=== PATIENT | male | born 1935 | race Caucasian/White ===

== ENCOUNTER → 2017-01-28 | Day surgery (SDC) | payer OTHER ==
[~2017-01-28] VITALS: Ht 170.2 cm; Wt 72.8 kg
[~2017-01-28] MED LIST: *RESP: ALBUTEROL 2.5 MG/3 ML NEB (PRN) PERIprocedural Use ONLY NEB ONE; AZIT250T3 PO; CHLORHEXIDINE GLUCONATE 2 % 1 PACK (2 CLOTHS) TOPICAL PRN; DIPH1TAB4 PO; DO NOT ADM ANY ANTICOAGULANT DRUGS PRN; FINA5TAB2 PO; FLUT1INH INH; FLUT50SP EACH NARE; INSULIN HUMAN REGULAR 1,000 UNITS/10 ML VIAL SQ PRN; LACTATED RINGER'S 1000 ML IV PRN; LIDOCAINE HCL 2% 50 ML VIAL ONE; MEDR4TAB PO; METOPROLOL TARTRATE 25 MG TAB PO PRN; ONDANSETRON HCL 4 MG/2 ML VIAL IV PUSH ONE; OXYC1TAB63 PO; POVIDONE IODINE 5% (ANTISEPSIS KIT) 4 APPLICATIONS EACH NARE PRN; PROPOFOL 200 MG/20 ML AMP IV ONE; SODIUM CHLOR 0.45% 1000 ML INJ 1,000 ML IV SCH; SODIUM CHLORID 0.9% 500 ML IV PRN; VENTAER INH
[2017-01-28 13:41] VITALS: BP 136/84; PULSE 79; RESP 18; TEMP 97.5; O2SAT 93
[2017-01-28 13:49] LABS: AUTOMATED NEUTROPHIL # 6.6 TH/MM3 (1.8-7.7); BASOPHIL # 0.1 TH/MM3 (0-0.2); BASOPHIL % 0.6 % (0.0-2.0); EOSINOPHIL # 0.2 TH/MM3 (0-0.4); EOSINOPHIL % 1.8 % (0.0-4.0); HEMATOCRIT 44.4 % (39.0-51.0); HEMO FLAGS DIFF FINAL; LYMPH % 14.9 % (9.0-44.0); LYMPHOCYTE # 1.4 TH/MM3 (1.0-4.8); MEAN CELL VOLUME 91.5 FL (80.0-100.0); MEAN CORPUSCULAR HEMOGLOBIN 30.6 PG (27.0-34.0); MEAN CORPUSCULAR HGB CONC 33.4 % (32.0-36.0); MONO % 9.8 % (0.0-8.0); NEUT % 72.9 % (16.0-70.0); PLATELET COUNT 230 TH/MM3 (150-450); RED BLOOD COUNT 4.86 MIL/MM3 (4.50-5.90); RED CELL DISTRIBUTION WIDTH 13.5 % (11.6-17.2)
[2017-01-28 13:56] LABS: APTT (PATIENT) 27.1 SEC (24.3-30.1); INTERNATIONAL NORMALIZED RATIO 1.1 RATIO; PROTHROMBIN TIME - PATIENT 11.7 SEC (9.8-11.6)
[2017-01-28 17:00] VITALS: BP 149/70; PULSE 69; RESP 20; TEMP 97.7; O2SAT 95
--- NOTE | 2017-01-28 17:09 | MR ---
cc: AZALEA TRISTAN M.D. DATE: 01/28/2017. PROCEDURE PERFORMED: Fiberoptic bronchoscopy, flexible. REASON FOR BRONCHOSCOPY: Right hilar mass rule out underlying malignancy. DESCRIPTION OF THE PROCEDURE IN DETAIL: Fiberoptic bronchoscopy performed via LMA. Vocal cords intact. Trachea moderately hyperemic. Sarah sharp. Right mainstem bronchus, right upper, middle and lower lobes inspected. No obstructive pathology or mass lesion seen. Left main bronchus, left upper and lower lobes without obstruction or mass lesion inspected as well. Washings obtained from both sides of the tracheobronchial tree for routine TB, fungal cultures and cytological exam. [place] biopsies right midlung and lobe obtained for cytological exam, which appeared more hyperemic than the rest of the tracheobronchial tree. Procedure well tolerated. The patient transferred to recovery in stable condition. IMPRESSION: 1. Moderate tracheobronchitis. 2. No endobronchial obstruction or mass lesion. 3. Samples obtained as above. 4. Procedure well tolerated. 5. The patient was transferred to recovery in stable condition. Azalea Tristan MD WWW/AYESHA /3:28 PM /5:06 PM
--- NOTE | 2017-01-29 14:18 | EKG ---
Date Performed: 01/28/2017 Time Performed: 13:30:04 PTAGE: 82 years EKG: Sinus rhythm WITH SINUS ARRHYTHMIA NORMAL ECG NO PREVIOUS TRACING DOCTOR: Home Randall Interpretating Date/Time 01/29/2017 14:17:09
== END | disposition home or self-care (01) ==
LOC: HSDC 12:52
PROVIDERS: ATTEND Internal Medicine Sleep Medicine
DX: J40 Bronchitis, not specified as acute or chronic (principal); K21.9 Gastro-esophageal reflux disease without esophagitis; J44.9 Chronic obstructive pulmonary disease, unspecified; Z87.891 Personal history of nicotine dependence; A49.01 Methicillin susceptible Staphylococcus aureus infection, unspecified site; B96.5 Pseudomonas (aeruginosa) (mallei) (pseudomallei) as the cause of diseases classified elsewhere
CPT/HCPCS: 31623; 85025; 85610; 85730; 87015; 87070; 87077; 87102; 87107; 87116; 87186; 87205; 87206; 88112; 88305; 93005; 94664; J2405; J7613

== ENCOUNTER 2017-03-01 06:29 | Day surgery (SDC) | payer OTHER ==
[~2017-03-01] VITALS: Ht 170.2 cm; Wt 72.7 kg
[2017-03-01] VITALS (8 sets, daily range): BP systolic 128–157; BP diastolic 71–88; PULSE 63–89; RESP 16–20; TEMP 97–97.6; O2SAT 88–96
[~2017-03-01 06:29] MED LIST changes: -*RESP: ALBUTEROL 2.5 MG/3 ML NEB (PRN) PERIprocedural Use ONLY NEB ONE; -AZIT250T3 PO; -CHLORHEXIDINE GLUCONATE 2 % 1 PACK (2 CLOTHS) TOPICAL PRN; -DO NOT ADM ANY ANTICOAGULANT DRUGS PRN; -FLUT1INH INH; -INSULIN HUMAN REGULAR 1,000 UNITS/10 ML VIAL SQ PRN; -LACTATED RINGER'S 1000 ML IV PRN; -LIDOCAINE HCL 2% 50 ML VIAL ONE; -MEDR4TAB PO; -METOPROLOL TARTRATE 25 MG TAB PO PRN; -ONDANSETRON HCL 4 MG/2 ML VIAL IV PUSH ONE; -OXYC1TAB63 PO; -POVIDONE IODINE 5% (ANTISEPSIS KIT) 4 APPLICATIONS EACH NARE PRN; -PROPOFOL 200 MG/20 ML AMP IV ONE; -SODIUM CHLOR 0.45% 1000 ML INJ 1,000 ML IV SCH; -SODIUM CHLORID 0.9% 500 ML IV PRN
[2017-03-01] MEDS ORDERED: OXYC1TAB63 PO (07:05)
[2017-03-01] MEDS ORDERED: FLUT1INH INH (07:05)
[2017-03-01] MEDS ORDERED: LIDOCAINE HCL 1% 20 ML VIAL ONE (07:28)
[2017-03-01 07:32] LABS: AUTOMATED NEUTROPHIL # 8.7 TH/MM3 (1.8-7.7); BASOPHIL # 0.1 TH/MM3 (0-0.2); BASOPHIL % 0.5 % (0.0-2.0); EOSINOPHIL # 0.2 TH/MM3 (0-0.4); EOSINOPHIL % 2.1 % (0.0-4.0); HEMATOCRIT 43.9 % (39.0-51.0); LYMPH % 7.2 % (9.0-44.0); LYMPHOCYTE # 0.8 TH/MM3 (1.0-4.8); MEAN CELL VOLUME 90.6 FL (80.0-100.0); MEAN CORPUSCULAR HEMOGLOBIN 31.5 PG (27.0-34.0); MEAN CORPUSCULAR HGB CONC 34.8 % (32.0-36.0); MONO % 10.8 % (0.0-8.0); NEUT % 79.4 % (16.0-70.0); PLATELET COUNT 272 TH/MM3 (150-450); RED BLOOD COUNT 4.85 MIL/MM3 (4.50-5.90); RED CELL DISTRIBUTION WIDTH 13.6 % (11.6-17.2); WHITE BLOOD COUNT 10.9 TH/MM3 (4.0-11.0)
[2017-03-01 07:35] LABS: HEMO FLAGS AUTO DIFF
[2017-03-01 07:46] LABS: APTT (PATIENT) 27.8 SEC (24.3-30.1); INTERNATIONAL NORMALIZED RATIO 1.1 RATIO; PROTHROMBIN TIME - PATIENT 11.7 SEC (9.8-11.6)
[2017-03-01] MEDS ORDERED: SODIUM CHLOR 0.9% 1000 ML IV SCH (08:00)
[2017-03-01] MEDS ORDERED: MIDAZOLAM HCL 5 MG/5 ML VIAL ONE (08:07)
[2017-03-01] MEDS ORDERED: fentaNYL CITRATE 250 MCG/5 ML AMP ONE (08:07)
[2017-03-01 08:33] LABS: SCAN/DIFF AUTO DIFF CONFIRMED
[2017-03-01] MEDS ORDERED: oxyCODONE/ACETAMINOPHEN 5 MG/325 MG TAB PO PRN (09:15)
--- NOTE | 2017-03-01 09:18 | PD.RAD ---
Post CT Procedure Prog Note Pre Procedure Diagnosis: (1) Lung abnormality Post Procedure Diagnosis: (1) Lung abnormality Procedure Date: Mar 01, 2017 Supervising Radiologist: Leonel Lowery Proceduralist/Assist: Madiha Tamez RT(R)(CT) Estimated blood loss: minimal Anesthesia: Conscious Sedation Plan of Activity Patient to Unit: ROPU Patient Condition: Good See PACS Report for procedural detail/treatment Drainage Procedure Procedure 1 Imaging Guidance: CT Side: Right Procedure Type: Thoracentesis Drainage: Suction Fluid Description: Clear, Yellow Procedure 2 Imaging Guidance: CT Side: Right Findings: Performed biopsy of hypermetabolic air space consolidation in right upper lobe followed by aspiration of pleural fluid. Patient had a hydropneumothorax prior to beginning the procedure. [facility]: CT Side: Right Biopsy Procedure: Lung Site: right upper lobe Specimen: Core Biopsy Plan to Leonel Jane MD Mar 01, 2017 09:18
--- NOTE | 2017-03-01 09:46 | RADRPT ---
EXAM DATE/TIME: 03/01/2017 08:20 [facility] COMPARISON: No previous studies available for comparison. The patient's outside chest CT and PET CT examinations were reviewed. INDICATIONS : Right lung mass. SEDATION TIME: 40 minutes BIOPSY SITE: Right MEDICATION(S): 1.) 3 mg midazolam (Versed) IV 2.) 250 fentanyl (Sublimaze) IV DEVICE(S): 1.) 20 gauge Temno core biopsy needle MEDICAL HISTORY : Emphysema. SURGICAL HISTORY : None. ENCOUNTER: Initial ACUITY: 1 day PAIN SCORE: 0/10 LOCATION: Right chest A total of four core specimen(s) were obtained and sent to the laboratory for pathologic evaluation. PROCEDURE: 1. CT guided lung biopsy. 2. Conscious sedation with continuous EKG and oximetry monitoring. 3. EKG and oximetry remained stable throughout the procedure. Prior to the procedure informed consent was obtained. Outside examinations were reviewed. Using autom ated exposure control and adjustment of the mA and/or kV according to patient size, radiation dose wa s kept as low as reasonably achievable to obtain optimal diagnostic quality images. DICOM format [employer] data is available electronically for review and comparison. The site was prepped in a sterile fashion. Full sterile technique was used, including cap, mask, luis m rile gloves and gown and a large sterile sheet. Hand hygiene and 2% chlorhexidine and/or betadine/al cohol prep was utilized per protocol for cutaneous antisepsis. The skin and subcutaneous tissues wer e infiltrated with local anesthetic solution. With CT guidance the right upper lobe airspace consolidation was localized. Prior to the procedure curtis baca had a loculated hydropneumothorax in the medial right mid-upper hemithorax, new from the prior examination. Additionally, the right pleural effusion has significantly increased in size. Initially, core samples were obtained of the airspace consolidation and samples were saved for pathology and oh crobiology evaluation. Biopsy was performed using the prescribed needle as above. Adequate hemostasi s was obtained with compression at the puncture site. Next, a 6 Martiniquais nonlocking skater catheter was advanced into the anterior hydropneumothorax. A total of 1800 mL of clear yellow fluid was removed. The lung did not fully reexpanded to fill the pleural space. There is associated visceral pleural thi ckening in the areas that did not reexpand. Post procedure CT scan demonstrated a small amount of pleural air but no acute abnormality otherwise. Conscious sedation was performed with the prescribed dosages and duration as above in the presence of an independent trained radiology nurse to assist in the monitoring of the patient. EKG and oximetry remained stable throughout the procedure. The patient tolerated the procedure well and there were no complications. The patient was sent to Radiology Outpatient Unit in stable condition. CONCLUSION: 1. Uncomplicated biopsy of the right upper lobe hypermetabolic airspace consolidation. Samples were s aved for microbiology and pathology. 2. Approximately 1800 mL of clear yellow fluid was removed from the right pleural space. The patient had a hydropneumothorax prior to beginning the procedure. Given the thickening of the visceral pleura , I believe the lung will not fully reexpanded to fill the pleural space. Leonel Lowery MD on March 01, 2017 at 9:32 Board Certified Radiologist. This report was verified electronically.
--- NOTE | 2017-03-01 10:49 | RADRPT ---
EXAM DATE/TIME: 03/01/2017 10:25 [facility] COMPARISON: CT NEEDLE BIOPSY LUNG, RIGHT, March 01, 2017, 8:20. INDICATIONS : Status post right lung biopsy. MEDICAL HISTORY : None. SURGICAL HISTORY : Right lung surgery. ENCOUNTER: Subsequent ACUITY: 1 day PAIN SCORE: 10/10 LOCATION: Right chest FINDINGS: There is a small right hydropneumothorax at the lateral right lung base. There is a surgical staple l ine in the right apex. There is patchy moderate reticular parenchymal opacity present within the righ t lung and in the contralateral left base. Cardiac contours are grossly satisfactory for technique an d projection. CONCLUSION: Small right base hydropneumothorax. Leonel Cottrell MD on March 01, 2017 at 10:45 Board Certified Radiologist. This report was verified electronically.
--- NOTE | 2017-03-01 12:14 | RADRPT ---
EXAM DATE/TIME: 03/01/2017 12:00 [facility] COMPARISON: CHEST EXPIRATION ONLY, March 01, 2017, 10:25. INDICATIONS : Post right lung biopsy MEDICAL HISTORY : Emphysema. SURGICAL HISTORY : Lung surgery ENCOUNTER: Subsequent ACUITY: 1 day PAIN SCORE: 1/10 LOCATION: Right chest FINDINGS: Small right base hydropneumothorax is stable. Patchy reticular parenchymal opacities are unchanged. C ardiac contours are stable. CONCLUSION: No significant change Leonel Cottrell MD on March 01, 2017 at 12:09 Board Certified Radiologist. This report was verified electronically.
== END 2017-03-01 13:35 | disposition home or self-care (01) ==
LOC: HRAD 06:29 → HRIP 06:30 → HRAD 13:35
PROVIDERS: ATTEND Internal Medicine
DX: C34.91 Malignant neoplasm of unspecified part of right bronchus or lung (principal); J94.8 Other specified pleural conditions; J90 Pleural effusion, not elsewhere classified; J43.9 Emphysema, unspecified
CPT/HCPCS: 32405; 71010; 77012; 81235; 85025; 85610; 85730; 87015; 87070; 87102; 87116; 87205; 87206; 88305; 88341; 88342; 88360; 88377; 88381; C1729; J2250; J3010; J7030

== ENCOUNTER → 2017-03-02 | Outpatient (CLI) | payer OTHER ==
[~2017-03-02] MED LIST changes: +AZIT250T3 PO; +FLUT1INH INH; +MEDR4TAB PO; +OXYC1TAB63 PO
--- NOTE | 2017-03-02 09:03 | RADRPT ---
EXAM DATE/TIME: 03/02/2017 08:53 [facility] COMPARISON: CHEST EXPIRATION ONLY, March 01, 2017, 10:25. CT NEEDLE BIOPSY LUNG, RIGHT, March 01, 2017, 8:20. [facility] EXPIRATION ONLY, March 01, 2017, 12:00. INDICATIONS : Post op right lung biopsy. MEDICAL HISTORY : Emphysema. hx. right lung collapsed 1984 SURGICAL HISTORY : None. ENCOUNTER: Subsequent ACUITY: 2 days PAIN SCORE: 0/10 LOCATION: Right chest FINDINGS: A tiny stable right base hydropneumothorax is again noted. Patchy infiltrates are stable. The heart i s stable. CONCLUSION: Tiny stable right base hydropneumothorax. Stable patchy infiltrates bilaterally. Ton Park MD on March 02, 2017 at 8:58 Board Certified Radiologist. This report was verified electronically.
== END ==
LOC: HRAD 08:39
PROVIDERS: ATTEND Radiology Diagnostic Ultrasound
DX: J93.9 Pneumothorax, unspecified (principal)
CPT/HCPCS: 71010

== ENCOUNTER 2017-03-08 06:17 | Day surgery (SDC) | payer OTHER ==
[~2017-03-08] VITALS: Ht 170.2 cm; Wt 72.7 kg
[2017-03-08] VITALS (7 sets, daily range): BP systolic 128–155; BP diastolic 67–81; PULSE 82–92; RESP 18–20; TEMP 97.9; O2SAT 91–96
[~2017-03-08 06:17] MED LIST changes: -AZIT250T3 PO; -MEDR4TAB PO
[2017-03-08] MEDS ORDERED: AZIT250T3 PO (06:45)
[2017-03-08] MEDS ORDERED: MEDR4TAB PO (06:45)
[2017-03-08] MEDS ORDERED: ceFAZolin 2 GM PREMIX 50 ML - implanted port/tunneled catheter insertion IV SCH (07:30)
[2017-03-08] MEDS ORDERED: VANCOMYCIN 1000 MG/NS 250 ML - implanted port/tunneled catheter IV SCH ×2 (07:30)
[2017-03-08] MEDS ORDERED: CHLORHEXIDINE GLUCONATE 2 % 1 PACK (2 CLOTHS) TOPICAL SCH (07:30)
[2017-03-08] MEDS ORDERED: SODIUM CHLORIDE 0.9% 1000 ML IV SCH (07:30)
[2017-03-08] MEDS ORDERED: POVIDONE IODINE 5% (ANTISEPSIS KIT) 4 APPLICATIONS EACH NARE SCH (07:30)
[2017-03-08] MEDS ORDERED: fentaNYL CITRATE 250 MCG/5 ML AMP ONE (08:30)
[2017-03-08] MEDS ORDERED: MIDAZOLAM HCL 5 MG/5 ML VIAL ONE (08:30)
[2017-03-08] MEDS ORDERED: LIDOCAINE 1%/EPINEPHrine 1:100,000 SOLN 20 ML VIAL ONE (08:49)
--- NOTE | 2017-03-08 11:38 | PD.RAD ---
Post Procedure Progress Note Pre Procedure Diagnosis: (1) Lung abnormality Post Procedure Diagnosis: (1) Cancer Procedure Date: Mar 08, 2017 Supervising Radiologist: Home Ceja Proceduralist/Assist: Homar Cisneros RT(R) Anesthesia: Conscious Sedation Plan of Activity Patient to Unit: ROPU Patient Condition: Good See PACS Report for procedural detail/treatment Central Venous Access Device Procedure 1 Right Internal Jugular Infusaport Placement single lumen Home Ceja MD Mar 08, 2017 11:38
[2017-03-08] MEDS ORDERED: SODIUM CHLORIDE 0.9% FLUSH 10 ML FLUSH IVF PRN (11:45)
--- NOTE | 2017-03-10 11:48 | RADRPT ---
EXAM DATE/TIME: 03/08/2017 09:38 [facility] COMPARISON: No previous studies available for comparison. INDICATIONS : Patient is in need of placement of an Infusaport for chemotherapy treatment of right lung cancer. MEDICAL HISTORY : History of COPD, cataracts, collapsed right lung. SURGICAL HISTORY : History of tonsillectomy, appendectomy, colonoscopy. ENCOUNTER: Initial ACUITY: 4-6 months PAIN SCORE: 0/10 FLUORO TIME: 0.3 minutes IMAGE SERIES: 1 SEDATION TIME: 15 minutes ACCESS: Right internal jugular vein SEDATION: 1.) 2 mg midazolam (Versed) IV 2.) 100 mcg fentanyl (Sublimaze) IV Prophylactic antibiotics were administered with appropriate pre-procedure timing. Vancomycin within 2 hours of procedure, Ancef (or alternative) within 1 hour of procedure. DEVICE: 1. 8 Tongan Papglf-f-cetr Smart Port PROCEDURE : 1. Continuous pulse oximetry and EKG monitoring. 2. Intravenous conscious sedation. 3. Ultrasound guidance for venous access. 4. Fluoroscopic guided implantable central venous port placement. The patient was placed supine. The neck was prepped in sterile fashion. Full sterile technique was u sed, including cap, mask, sterile gloves and gown, and a large sterile sheet. Hand hygiene and 2% ch lorhexidine Betadine was utilized per protocol for cutaneous antisepsis with appropriate dry time for site. The skin and subcutaneous tissues were infiltrated with local anesthetic solution. Under direct ultrasound guidance, central venous access was accomplished in the targeted vessel. The ultrasound images depicting access guidance were stored and saved to PACS for permanent record. A s ubcutaneous pocket was created using blunt dissection. The port was introduced to the pocket. The c atheter tubing was fed through a subcutaneous tunnel to the venotomy site. The catheter tubing was c ut to a suitable length and then was introduced through a valved Peel-Away sheath and positioned with catheter tubing tip at the cavo-atrial junction level. The pocket incision was closed with subcutic ular Vicryl suture. Steri-Strips were applied. The port was flushed and locked with heparin solutio n per protocol. Sterile dressing was applied to the site. The patient tolerated the procedure well. Conscious sedation was performed with the prescribed dosages and duration as above in the presence of an independent trained radiology nurse to assist in the monitoring of the patient. EKG and oximetry remained stable throughout the procedure. The patient tolerated the procedure well and there were no complications. The patient was sent to post anesthesia recovery in stable condition. CONCLUSION: Uncomplicated ultrasound and fluoroscopic guided implanted central venous port catheter placement as described in detail above. An 8 Tongan Power port was placed. Home Ceja MD on March 08, 2017 at 11:44 Board Certified Radiologist. This report was verified electronically.
== END 2017-03-08 11:35 | disposition home or self-care (01) ==
LOC: HROP 06:17 → HRIP 06:18 → HROP 11:35
PROVIDERS: ATTEND Internal Medicine
DX: C34.90 Malignant neoplasm of unspecified part of unspecified bronchus or lung (principal); J44.9 Chronic obstructive pulmonary disease, unspecified
CPT/HCPCS: 36561; 76937; 77001; 99152; C1788; J0690; J1642; J2250; J3010; J3370; J7030; J7050

== ENCOUNTER 2017-03-16 09:26 | Inpatient (IN) | payer OTHER, MEDICARE ==
[~2017-03-16] VITALS: Ht 170.2 cm; Wt 71.0 kg
[2017-03-16] VITALS (7 sets, daily range): BP systolic 98–157; BP diastolic 61–84; PULSE 87–110; RESP 18–28; TEMP 96.5–98.7; O2SAT 88–98
[~2017-03-16 09:26] MED LIST changes: +AZIT250T3 PO; +MEDR4TAB PO
--- NOTE | 2017-03-16 09:40 | PD ---
HPI Chief Complaint: Respiratory Symptoms Time Seen by Provider: 09:31 Travel History International Travel<30 days: No Contact w/Intl Traveler<30days: No Traveled to known affect area: No History of Present Illness HPI WAS SEEN ON MARCH 08 AND GIVEN ZPAK/STEROID PACK FOR DYSPNEA AT THAT POINT. SEEMED TO HELP, NOW RETURNS WITH SOB AGAIN, DESPITE OXYGEN AND PREVIOUS TREATMENTS, IS SCHEDULED FOR CHEMO TODAY (DR DUBOSE IS ONC, LUNG CA) AND PCP IS DR FERRO. DENIES CP/NA/V/D/FEVER. BRAVO, TYPE OF SOB PFSH Past Medical History Cancer: No Cardiovascular Problems: No Diabetes: No Endocrine: No Genitourinary: Yes (FREQUENCY URINATION) Hepatitis: No Hiatal Hernia: Yes Immune Disorder: No Musculoskeletal: No Neurologic: No Psychiatric: No Reproductive: No Respiratory: Yes Thyroid Disease: No Past Surgical History Abdominal Surgery: Yes (APPY) AICD: No Joint Replacement: No Oral Surgery: Yes (TONSILS) Pacemaker: No Social History Alcohol Use: No Tobacco Use: No Substance Use: No Allergies-Medications (Allergen,Severity, Reaction): Coded Allergies: No Known Allergies (Unverified , 03/16/17) Reported Meds & Prescriptions Reported Meds & Active Scripts Active Reported Oxycodone-Acetaminophen 5-325 mg Tab 1 Tab PO Q6H PRN Breo Ellipta Inh (Fluticasone/Vilanterol) 100-25 Mcg/Act Inh 1 Puff INH DAILY Use daily at the same time. Ventolin Hfa 18 GM Inh (Albuterol Sulfate) 90 Mcg/Act Aer 1 Puff INH BID Fluticasone Nasal Warden 50 Mcg/Act Naspr 50 Mcg EACH NARE BID 50 mcg/spray Finasteride 5 Mg Tab 5 Mg PO DAILY Do not crush. Review of Systems Respiratory: Positive: Shortness of Breath Physical Exam Narrative GENERAL: SKIN: Warm and dry. HEAD: Atraumatic. Normocephalic. EYES: Pupils equal and round. No scleral icterus. No injection or drainage. ENT: No nasal bleeding or discharge. Mucous membranes pink and moist. NECK: Trachea midline. No JVD. CARDIOVASCULAR: Regular rate and rhythm. RESPIRATORY: No RETRACTIONS, CRACKLES TO R LUNG CHAIDEZ, RONCHI TO LLL, SCATTERED WHEEZES BILATERALLY GASTROINTESTINAL: Abdomen soft, non-tender, nondistended. Hepatic and splenic margins not palpable. MUSCULOSKELETAL: Extremities without clubbing, cyanosis, or edema. No obvious deformities. NEUROLOGICAL: Awake and alert. No obvious cranial nerve deficits. Motor grossly within normal limits. Five out of 5 muscle strength in the arms and legs. Normal speech. PSYCHIATRIC: Appropriate mood and affect; insight and judgment normal. Data Data Last Documented VS Vital Signs Date Time Temp Pulse Resp B/P Pulse Ox O2 Delivery O2 Flow Rate FiO2 03/16/17 11:05 108 18 138/61 95 Nasal Cannula 3 03/16/17 09:34 97.7 Orders Complete Blood Count With Diff (03/16/17 09:32) Comprehensive Metabolic Panel (03/16/17 09:32) B-Type Natriuretic Peptide (03/16/17:32) Act Partial Throm Time (Ptt) (03/16/17:32) Prothrombin Time / Inr (Pt) (03/16/17 09:32) Ckmb (Isoenzyme) Profile (03/16/17 09:32) Troponin I (03/16/17 09:32) Arterial Blood Gas (Abg) (03/16/17 09:32) Influenzae A/B Antigen (03/16/17 09:32) Iv Access Insert/Monitor (03/16/17 09:32) Electrocardiogram (03/16/17:32) Ecg Monitoring (03/16/17:32) Oximetry (03/16/17 09:32) Oxygen Administration (03/16/17 09:32) Ct Pulmonary Angiogram (03/16/17 09:32) Sodium Chloride 0.9% Flush (Ns Flush) (03/16/17 09:45) Methylprednisolone So Succ Inj (Solumedr (03/16/17 09:45) Albuterol Neb (Albuterol Neb) (03/16/17 09:45) Magnesium Sulfate 1 Gm Premix (Magnesium (03/16/17 09:45) Iohexol 350 Inj (Omnipaque 350 Inj) (03/16/17 10:57) Enoxaparin Inj (Lovenox Inj) (03/16/17 12:15) Enoxaparin Inj (Lovenox Inj) (03/16/17 13:00) Admit Order (Ed Use Only) (03/16/17 12:28) Labs Laboratory Tests Test 03/16/17 03/16/17 09:39 09:51 White Blood Count 18.5 TH/MM3 Red Blood Count 4.97 MIL/MM3 Hemoglobin 15.2 GM/DL Hematocrit 45.2 % Mean Corpuscular Volume 91.0 FL Mean Corpuscular Hemoglobin 30.6 PG Mean Corpuscular Hemoglobin 33.6 % Concent Red Cell Distribution Width 13.7 % Platelet Count 235 TH/MM3 Mean Platelet Volume 8.1 FL Neutrophils (%) (Auto) 87.7 % Lymphocytes (%) (Auto) 2.9 % Monocytes (%) (Auto) 6.9 % Eosinophils (%) (Auto) 0.4 % Basophils (%) (Auto) 2.1 % Neutrophils # (Auto) 16.2 TH/MM3 Lymphocytes # (Auto) 0.5 TH/MM3 Monocytes # (Auto) 1.3 TH/MM3 Eosinophils # (Auto) 0.1 TH/MM3 Basophils # (Auto) 0.4 TH/MM3 CBC Comment DIFF FINAL Differential Comment Prothrombin Time 11.7 SEC Prothromb Time International 1.1 RATIO Ratio Activated Partial 27.1 SEC Thromboplast Time Sodium Level 135 MEQ/L Potassium Level 4.0 MEQ/L Chloride Level 99 MEQ/L Carbon Dioxide Level 27.3 MEQ/L Anion Gap 9 MEQ/L Blood Urea Nitrogen 13 MG/DL Creatinine 0.92 MG/DL Estimat Glomerular Filtration 79 ML/MIN Rate Random Glucose 237 MG/DL Calcium Level 8.9 MG/DL Total Bilirubin 0.7 MG/DL Aspartate Amino Transf 18 U/L (AST/SGOT) Alanine Aminotransferase 29 U/L (ALT/SGPT) Alkaline Phosphatase 83 U/L Total Creatine Kinase 24 U/L Troponin I LESS THAN 0.02 NG/ML B-Type Natriuretic Peptide 57 PG/ML Total Protein 7.4 GM/DL Albumin 3.0 GM/DL Blood Gas Puncture Site RT RADIAL Blood Gas Patient Temperature 98.6 Blood Gas HCO3 24 mmol/L Blood Gas Base Excess 0.2 mmol/L Blood Gas Oxygen Saturation 94 % Arterial Blood pH 7.43 Arterial Blood Partial 37 mmHG Pressure CO2 Arterial Blood Partial 83 mmHG Pressure O2 Arterial Blood Oxygen Content 19.2 Vol % Arterial Blood 2.2 % Carboxyhemoglobin Arterial Blood Methemoglobin 0.9 % Blood Gas Hemoglobin 14.5 G/DL Oxygen Delivery Device NASAL CANNULA Blood Gas Liter Flow 3 L/M MDM Medical Decision Making Medical Screen Exam Complete: Yes Emergency Medical Condition: Yes Medical Record Reviewed: Yes Interpretation(s) ST, 108, BASELINE MOTION ARTIFACT BUT NO OBVIOUS STEMI PATTERN. Differential Diagnosis COPD EXAC V PNA V PLEURAL EFFUSION V PE V CA PROGRESSION Narrative Course PATIENTS EVALUATION REVEALED PULM EMBOLUS ON CT, CAUSE OF DYSPNEA AND HYPOXEMIA. WILL GIVE 1MG/KG OF LOVENOX AND ADMIT TO HOSPITAL TO CONTINUE ANTICOAGULATION, [facility] Physician Communication Physician Communication D/W DR SINGH FOR ADMIT Diagnosis Primary Impression: ACUTE PULMONARY EMBOLUS Additional Impressions: COPD EXACERBATION LUNG CA Admitting Information Admitting Physician Requests: Admit Aneudy Pizarro MD Mar 16, 2017 09:40
[2017-03-16] MEDS: RESP: ALBUTEROL 2.5 MG/3 ML NEB (SCH) INH ×2 (09:43→09:44)
[2017-03-16] MEDS ORDERED: MAGNESIUM SULFATE 1 GM PREMIX 100 ML IV ONE (09:45)
[2017-03-16] MEDS ORDERED: methylPREDNISolone SOD SUCC 125 MG/2 ML VIAL IVP ONE (09:45)
[2017-03-16] MEDS ORDERED: SODIUM CHLORIDE 0.9% FLUSH 10 ML FLUSH IVF PRN (09:45)
[2017-03-16 09:49] LABS: AUTOMATED NEUTROPHIL # 16.2 TH/MM3 (1.8-7.7); BASOPHIL # 0.4 TH/MM3 (0-0.2); BASOPHIL % 2.1 % (0.0-2.0); EOSINOPHIL # 0.1 TH/MM3 (0-0.4); EOSINOPHIL % 0.4 % (0.0-4.0); HEMATOCRIT 45.2 % (39.0-51.0); LYMPH % 2.9 % (9.0-44.0); LYMPHOCYTE # 0.5 TH/MM3 (1.0-4.8); MEAN CORPUSCULAR HEMOGLOBIN 30.6 PG (27.0-34.0); MEAN CORPUSCULAR HGB CONC 33.6 % (32.0-36.0); MONO % 6.9 % (0.0-8.0); NEUT % 87.7 % (16.0-70.0); PLATELET COUNT 235 TH/MM3 (150-450); RED BLOOD COUNT 4.97 MIL/MM3 (4.50-5.90); RED CELL DISTRIBUTION WIDTH 13.7 % (11.6-17.2); WHITE BLOOD COUNT 18.5 TH/MM3 (4.0-11.0)
[2017-03-16 09:50] LABS: HEMO FLAGS DIFF FINAL
[2017-03-16 09:57] LABS: BLOOD GAS BASE EXCESS 0.2 mmol/L (-2-2); BLOOD GAS CARBOXYHEMOGLOBIN 2.2 % (0-4); BLOOD GAS HCO3 24 mmol/L (22-26); BLOOD GAS METHEMOGLOBIN 0.9 % (0-2); BLOOD GAS O2 HGB SATURATION 94 % (90-100); BLOOD GAS OXYGEN CONTENT 19.2 Vol % (12.0-20.0); BLOOD GAS PCO2 37 mmHG (38-42); BLOOD GAS PO2 83 mmHG (61-120); BLOOD GAS TOTAL HGB 14.5 G/DL (12.0-16.0); CRITICAL VALUE NO; DRAW SITE RT RADIAL; LITER FLOW 3 L/M; NUMBER OF ARTERIAL PUNCTURES 1; OXYGEN DEVICE NASAL CANNULA; STAT YES; TEMP CORR TO 98.6; ULNAR PULSE Y
[2017-03-16 10:01] LABS: CHLORIDE 99 MEQ/L (98-107); SODIUM (NA) 135 MEQ/L (136-145)
[2017-03-16 10:05] LABS: APTT (PATIENT) 27.1 SEC (24.3-30.1); INTERNATIONAL NORMALIZED RATIO 1.1 RATIO; PROTHROMBIN TIME - PATIENT 11.7 SEC (9.8-11.6)
[2017-03-16 10:07] LABS: ANION GAP 9 MEQ/L (5-15); BICARBONATE 27.3 MEQ/L (21.0-32.0); BLOOD UREA NITROGEN 13 MG/DL (7-18)
[2017-03-16 10:10] LABS: ALT (GPT) 29 U/L (12-78); AST (GOT) 18 U/L (15-37); GLOMERULAR FILTRATION RATE 79 ML/MIN (>89)
[2017-03-16 10:12] LABS: TOTAL BILIRUBIN ADULT 0.7 MG/DL (0.2-1.0)
[2017-03-16 10:13] LABS: ALKALINE PHOSPHATASE 83 U/L (45-117)
[2017-03-16 10:17] LABS: CREATINE KINASE 24 U/L (39-308)
[2017-03-16] MEDS ORDERED: IOHEXOL 350 MG/ML 10 ML VIAL (for RAD DIAG) IV ONE (10:57)
--- NOTE | 2017-03-16 11:07 | RADRPT ---
EXAM DATE/TIME: 03/16/2017 10:40 [facility] COMPARISON: CT NEEDLE BIOPSY LUNG, RIGHT, March 01, 2017, 8:20. INDICATIONS : Short of breath. Evaluate for embolism. IV CONTRAST: 75 cc Omnipaque 350 (iohexol) IV RADIATION DOSE: 15.59 CTDIvol (mGy) MEDICAL HISTORY : Carcinoma, lung. SURGICAL HISTORY : Appendectomy. ENCOUNTER: Initial ACUITY: 1 day PAIN SCALE: 0/10 LOCATION: chest TECHNIQUE: Volumetric scanning of the chest was performed using a pulmonary embolism protocol MIP images were re constructed. Using automated exposure control and adjustment of the mA and/or kV according to patien t size, radiation dose was kept as low as reasonably achievable to obtain optimal diagnostic quality images. DICOM format image data is available electronically for review and comparison. FINDINGS: There is pulmonary bolus in left lower lobe pulmonary artery branches. There is a small 9 mm nod ule left upper lobe indeterminate. There is adenopathy within the right hilum which measures 3.1 cm i n size with an approximate 2.7 cm subcarinal lymph node. Scattered subcentimeter lymph nodes are also seen within the mediastinum. Parenchymal consolidation is present in the right perihilar area which extends into the right middle lobe, right lower lobe a right upper lobe may be due to posttreatment c hanges if the patient has had radiation treatment in the past. Alternatively could represent pneumoni a. There is a large right pleural effusion with areas of nodularity involving the pleural surfaces an terolaterally suspicious for metastatic effusion. There is one area of soft tissue mass measures 4.2 cm in size with separate soft tissue densities in the right cardiophrenic angle suspicious for metast atic disease. Multinodular goiter is present an exophytic nodule coming off the left lower pole measu res 1.7 cm in size. There is a tiny right anterior pneumothorax. CONCLUSION: 1. There is pulmonary embolus within left lower lobe pulmonary artery branches. 2. Right pleural effusion suspicious for metastatic effusion with soft tissue densities in the right cardiophrenic angle also suspicious for metastatic disease. 3. Right hilar and subcarinal adenopathy indeterminant, however metastatic disease is not excluded. 4. Indeterminate left upper lobe nodule. 5. Right perihilar parenchymal process worse in the right lower lung could be post treatment change o r possibly pneumonia as the most likely etiologies, however part of the right lung parenchymal densit ies particularly right upper lobe could be the patient's known primary malignancy. Davian Hunt MD on March 16, 2017 at 10:59 Board Certified Radiologist. This report was verified electronically.
[2017-03-16] MEDS ORDERED: ENOXAPARIN SODIUM 80 MG/0.8 ML SYRINGE SQ ONE (12:15)
[2017-03-16] MEDS ORDERED: SODIUM CHLORIDE 0.9% FLUSH 10 ML FLUSH IV FLUSH PRN (12:30)
[2017-03-16] MEDS: ENOXAPARIN SODIUM 80 MG/0.8 ML SYRINGE SQ SCH (12:34)
[2017-03-16] MEDS ORDERED: ONDANSETRON HCL 4 MG/2 ML VIAL IVP PRN (13:00)
[2017-03-16] MEDS ORDERED: ACETAMINOPHEN 325 MG TAB PO PRN (13:00)
[2017-03-16] MEDS ORDERED: SENNOSIDES 8.6 MG TAB PO PRN (13:00)
[2017-03-16] MEDS ORDERED: BISACODYL 10 MG SUPP RECTAL PRN (13:00)
[2017-03-16] MEDS ORDERED: MAGNESIUM HYDROXIDE SUSP 30 ML CUP PO PRN (13:00)
[2017-03-16] MEDS ORDERED: LACTULOSE SYRUP 20 GM/30 ML CUP PO PRN (13:00)
[2017-03-16] MEDS: SODIUM CHLOR 0.9% 1000 ML INJ 1,000 ML IV SCH (13:00)
--- NOTE | 2017-03-16 17:57 | HHI.HP ---
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 Johnson's outpatient creatinine on chemotherapy. She was due for chemotherapy today however he felt weak and was sent for evaluation to the hospital. Patient says he is using oxygen at home however today he felt more short of shortness of breath and he was not able to walk to the bathroom. He has productive cough yellow and dark dark green at times, no blood in it. Denies fever or chills. Denies chest pain. No palpitations, lightheadedness. The patient says he feels shortness of breath since March 08 at that time he was evaluated and was given Z-Tariq and steroid pack. CT scan in the emergency room showed new pulmonary embolisms. 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 Ann oncology History of Collapse lung Past Surgical History Tonsillectomy Appendectomy History of right lung collapse Reported Medications Reported Meds & Active Scripts Active Reported Oxycodone-Acetaminophen 5-325 mg Tab 1 Tab PO Q6H PRN Breo Ellipta Inh (Fluticasone/Vilanterol) 100-25 Mcg/Act Inh 1 Puff INH DAILY Use daily at the same time. Ventolin Hfa 18 GM Inh (Albuterol Sulfate) 90 Mcg/Act Aer 1 Puff INH BID Fluticasone Nasal [place] 50 Mcg/Act Naspr 50 Mcg EACH NARE BID 50 mcg/spray Finasteride 5 Mg Tab 5 Mg PO DAILY Do not crush. Allergies: Coded Allergies: No Known Allergies (Unverified , 03/16/17) Family History Mother with dementia His father at early age coronary accident Doesn't have siblings Social History History of smoking since 13 years of age 2 packs per day stopped smoking 35 years ago Used to drink 1 bottle of hard liquor a week. Using alcohol 12 years ago Denies illicit drug use Physical Exam Vital Signs Vital Signs Date Time Temp Pulse Resp B/P Pulse Ox O2 Delivery O2 Flow Rate FiO2 03/16/17 17:29 98.7 101 19 126/73 93 03/16/17 11:05 108 18 138/61 95 Nasal Cannula 3 03/16/17 09:55 93 Nasal Cannula 3.00 03/16/17 09:48 105 20 98/61 98 Aerosol Mask 03/16/17 09:43 94 Nasal Cannula 3 03/16/17 09:38 111 28 92 Nasal Cannula 3 03/16/17 09:34 97.7 110 28 157/84 88 Physical Exam GENERAL: This is a pleasant frail 82 yo male, well-nourished, well-developed patient, in no apparent distress. SKIN: No rashes, ecchymoses or lesions. Cool and dry. HEAD: Atraumatic. Normocephalic. No temporal or scalp tenderness. EYES: Pupils equal round and reactive. Extraocular motions intact. No scleral icterus. No injection or drainage. ENT: Nose without bleeding, purulent drainage or septal hematoma. Throat without erythema, tonsillar hypertrophy or exudate. Uvula midline. Airway patent. NECK: Trachea midline. No JVD or lymphadenopathy. Supple, nontender, no meningeal signs. CARDIOVASCULAR: Regular rate and rhythm without murmurs, gallops, or rubs. RESPIRATORY: Decreased breath sounds. No wheezes, rales, or rhonchi. GASTROINTESTINAL: Abdomen soft, non-tender, nondistended. No hepato-splenomegaly , or palpable masses. No guarding. 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 Extremities without clubbing, cyanosis, or edema. No joint tenderness, effusion , or edema noted. No calf tenderness. Negative Homans sign bilaterally. NEUROLOGICAL: Awake and alert. Cranial nerves grossly intact. Motor and sensory grossly within normal limits. Normal speech. Laboratory Laboratory Tests Test 03/16/17 03/16/17 09:39 09:51 White Blood Count 18.5 Red Blood Count 4.97 Hemoglobin 15.2 Hematocrit 45.2 Mean Corpuscular Volume 91.0 Mean Corpuscular Hemoglobin 30.6 Mean Corpuscular Hemoglobin 33.6 Concent Red Cell Distribution Width 13.7 Platelet Count 235 Mean Platelet Volume 8.1 Neutrophils (%) (Auto) 87.7 Lymphocytes (%) (Auto) 2.9 Monocytes (%) (Auto) 6.9 Eosinophils (%) (Auto) 0.4 Basophils (%) (Auto) 2.1 Neutrophils # (Auto) 16.2 Lymphocytes # (Auto) 0.5 Monocytes # (Auto) 1.3 Eosinophils # (Auto) 0.1 Basophils # (Auto) 0.4 CBC Comment DIFF FINAL Differential Comment Prothrombin Time 11.7 Prothromb Time International 1.1 Ratio Activated Partial 27.1 Thromboplast Time Sodium Level 135 Potassium Level 4.0 Chloride Level 99 Carbon Dioxide Level 27.3 Anion Gap 9 Blood Urea Nitrogen 13 Creatinine 0.92 Estimat Glomerular Filtration 79 Rate Random Glucose 237 Calcium Level 8.9 Total Bilirubin 0.7 Aspartate Amino Transf 18 (AST/SGOT) Alanine Aminotransferase 29 (ALT/SGPT) Alkaline Phosphatase 83 Total Creatine Kinase 24 Troponin I LESS THAN 0.02 B-Type Natriuretic Peptide 57 Total Protein 7.4 Albumin 3.0 Blood Gas Puncture Site RT RADIAL Blood Gas Patient Temperature 98.6 Blood Gas HCO3 24 Blood Gas Base Excess 0.2 Blood Gas Oxygen Saturation 94 Arterial Blood pH 7.43 Arterial Blood Partial 37 Pressure CO2 Arterial Blood Partial 83 Pressure O2 Arterial Blood Oxygen Content 19.2 Arterial Blood 2.2 Carboxyhemoglobin Arterial Blood Methemoglobin 0.9 Blood Gas Hemoglobin 14.5 Oxygen Delivery Device NASAL CANNULA Blood Gas Liter Flow 3 Date/Time Procedure Status Source Growth 03/16/17 09:40 Influenza Types A,B Antigen (ZAIRE) - Final Complete Nasal Washing NEGATIVE FOR FLU A AND B ANTIGEN.... Result Diagram: 03/16/1739 03/16/[address] Angiography 03/16/17931 Signed Impressions: Service Date/Time: Thursday, March 16, 2017 10:40 - CONCLUSION: 1. There is pulmonary embolus within left lower lobe pulmonary artery branches. 2. Right pleural effusion suspicious for metastatic effusion with soft tissue densities in the right cardiophrenic angle also suspicious for metastatic disease. 3. Right hilar and subcarinal adenopathy indeterminant, however metastatic disease is not excluded. 4. Indeterminate left upper lobe nodule. 5. Right perihilar parenchymal process worse in the right lower lung could be post treatment change or possibly pneumonia as the most likely etiologies, however part of the right lung parenchymal densities particularly right upper lobe could be the patient' s known primary malignancy. Davian Hunt MD Assessment and Plan Assessment and Plan 82-year-old male with Pulmonary embolism Chronic respiratory failure on chronic use of oxygen at home 2 L Small cell carcinoma of the lung with adenocarcinoma stage IV following with Dr. Ann oncology. Currently on chemotherapy Moderate Protein calorie malnutrition. 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 Regular diet, add Ensure Boost 3 times a day Start Lovenox 70 mg subcutaneous twice a day Spoke with oncology service Dr. Johnson will evaluate the patient tomorrow. Continue Lovenox at this time Oxygen supplement and keep oxygen saturation more than 88% Consult PT for evaluation DVT prophylaxis Lovenox Discussed Condition With Patient, nurse, emergency room physician, family at bedside Physician Certification 2 Midnight Certification Type: Admission for Inpatient Services Order for Inpatient Services The services are ordered in accordance with Medicare regulations or non- Medicare payer requirements, as applicable. In the case of services not specified as inpatient-only, they are appropriately provided as inpatient services in accordance with the 2-midnight benchmark. Estimated LOS (days): 3 days is the estimated time the patient will need to remain in the hospital, assuming treatment plan goals are met and no additional complications. Post-Hospital Plan: Home Lana Anthony MD Mar 16, 2017 17:57
[2017-03-16] MEDS: SODIUM CHLORIDE 0.9% FLUSH 10 ML FLUSH IV FLUSH SCH (21:00)
[2017-03-16] MEDS: DOCUSATE SODIUM 50 MG/SENNA 8.6 MG TAB PO SCH (21:00)
[2017-03-16] MEDS: oxyCODONE/ACETAMINOPHEN 5 MG/325 MG TAB PO PRN (22:03)
[2017-03-17] VITALS: BP 109/63; PULSE 82; RESP 18; TEMP 97; O2SAT 96
[2017-03-17 00:22] VITALS: BP_SYST 158; BP_SYST 164; BP_DIAS 106; BP_DIAS 88; PULSE 80; RESP 18; TEMP 99.2; O2SAT 96
[2017-03-17] MEDS: ENOXAPARIN SODIUM 80 MG/0.8 ML SYRINGE SQ SCH ×2 (01:56→13:11)
[2017-03-17] MEDS: SODIUM CHLOR 0.9% 1000 ML INJ 1,000 ML IV SCH ×3 (01:56→18:45)
[2017-03-17 06:43] LABS: AUTOMATED NEUTROPHIL # 20.4 TH/MM3 (1.8-7.7); BASOPHIL % 0.2 % (0.0-2.0); EOSINOPHIL # 0.1 TH/MM3 (0-0.4); EOSINOPHIL % 0.3 % (0.0-4.0); HEMATOCRIT 41.8 % (39.0-51.0); LYMPH % 5.3 % (9.0-44.0); LYMPHOCYTE # 1.2 TH/MM3 (1.0-4.8); MEAN CELL VOLUME 91.7 FL (80.0-100.0); MEAN CORPUSCULAR HEMOGLOBIN 30.6 PG (27.0-34.0); MEAN CORPUSCULAR HGB CONC 33.3 % (32.0-36.0); MONO % 6.2 % (0.0-8.0); PLATELET COUNT 219 TH/MM3 (150-450); RED BLOOD COUNT 4.56 MIL/MM3 (4.50-5.90); WHITE BLOOD COUNT 23.1 TH/MM3 (4.0-11.0)
[2017-03-17 06:45] LABS: HEMO FLAGS DIFF FINAL
[2017-03-17 06:49] LABS: POTASSIUM 4.3 MEQ/L (3.5-5.1)
[2017-03-17 07:00] LABS: BICARBONATE 25.9 MEQ/L (21.0-32.0)
[2017-03-17 08:00] VITALS: O2SAT 94
--- NOTE | 2017-03-17 08:23 | HHI.PR ---
Subjective Remarks Shortness of breath going to the bathroom. He is requiring 3 L of oxygen at this time. He is usually at home on 2 L oxygen. No chest pain with deep inspiration. He is not coughing any blood. No fever or chills. Denies palpitations, lightheadedness. No nausea, vomiting, diarrhea or constipation. No swelling of his legs or redness in his legs. Objective Vitals Vital Signs Date Time Temp Pulse Resp B/P Pulse Ox O2 Delivery O2 Flow Rate FiO2 03/17/17 00:09 18 03/17/17 00:00 97.0 82 18 109/63 96 03/16/17 20:00 96.5 87 18 113/65 96 03/16/17 19:30 94 Nasal Cannula 3.00 03/16/17 17:29 98.7 101 19 126/73 93 03/16/17 11:05 108 18 138/61 95 Nasal Cannula 3 03/16/17 09:55 93 Nasal Cannula 3.00 03/16/17 09:48 105 20 98/61 98 Aerosol Mask 03/16/17 09:43 94 Nasal Cannula 3 03/16/17 09:38 111 28 92 Nasal Cannula 3 03/16/17 09:34 97.7 110 28 157/84 88 I/O 03/16/17 03/16/17 03/16/17 03/17/17 03/17/17 03/17/17 07:00 15:00 23:00 07:00 15:00 23:00 Intake Total 240 ml 1400 ml Output Total 300 ml Balance -60 ml 1400 ml Intake Oral 240 ml IV Total 1400 ml Output Urine Total 300 ml # Bowel Movements 0 Result Diagram: 03/17/17 0455 03/17/17 [address] Angiography 03/16/17 0932 Signed Impressions: Service Date/Time: Thursday, March 16, 2017 10:40 - CONCLUSION: 1. There is pulmonary embolus within left lower lobe pulmonary artery branches. 2. Right pleural effusion suspicious for metastatic effusion with soft tissue densities in the right cardiophrenic angle also suspicious for metastatic disease. 3. Right hilar and subcarinal adenopathy indeterminant, however metastatic disease is not excluded. 4. Indeterminate left upper lobe nodule. 5. Right perihilar parenchymal process worse in the right lower lung could be post treatment change or possibly pneumonia as the most likely etiologies, however part of the right lung parenchymal densities particularly right upper lobe could be the patient' s known primary malignancy. Davian Hunt MD Objective Remarks GENERAL: This is a pleasant frail 82 yo male, well-nourished, well-developed patient, in no apparent distress. CARDIOVASCULAR: Regular rate and rhythm without murmurs, gallops, or rubs. RESPIRATORY: Decreased breath sounds. No wheezes, rales, or rhonchi. GASTROINTESTINAL: Abdomen soft, non-tender, nondistended. No hepato-splenomegaly , or palpable masses. No guarding. 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 Extremities without clubbing, cyanosis, or edema. No joint tenderness, effusion , or edema noted. No calf tenderness. Negative Homans sign bilaterally. NEUROLOGICAL: Awake and alert. Cranial nerves grossly intact. Motor and sensory grossly within normal limits. Normal speech. A/P Assessment and Plan 82-year-old male with Pulmonary embolism Chronic respiratory failure on chronic use of oxygen at home 2 L Small cell carcinoma of the lung with adenocarcinoma stage IV following with Dr. Ann oncology. Currently on chemotherapy Moderate Protein calorie malnutrition. 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 Regular diet, add Ensure Boost 3 times a day Continue Lovenox 70 mg subcutaneous twice a day Dr. Ann his client services specialist consulted. Continue Lovenox at this time. Asked nurse Dawn to teach patient regarding self administering lovenox as patient might need coumadin. Oxygen supplement and keep oxygen saturation more than 88% Consult PT for evaluation DVT prophylaxis Lovenox Discussed Condition With Patient, nurse, family at bedside Lana Anthony MD Mar 17, 2017 08:23
[2017-03-17 08:43] VITALS: BP 131/62; PULSE 83; RESP 14; TEMP 96.5; O2SAT 93
[2017-03-17] MEDS: SODIUM CHLORIDE 0.9% FLUSH 10 ML FLUSH IV FLUSH SCH ×2 (09:00→21:50)
[2017-03-17] MEDS: DOCUSATE SODIUM 50 MG/SENNA 8.6 MG TAB PO SCH ×2 (09:14→21:00)
[2017-03-17 13:54] VITALS: BP 135/75; PULSE 75; RESP 15; TEMP 96.5; O2SAT 94
--- NOTE | 2017-03-17 17:17 | EKG ---
Date Performed: 03/16/2017 Time Performed: 09:33:15 PTAGE: 82 years EKG: SINUS TACHYCARDIA ABNORMAL RHYTHM ECG PREVIOUS TRACING : 01/28/2017 13.30 Compared to the previous tracing rate faster DOCTOR: Krystle Hutchison Interpretating Date/Time 03/17/2017 17:15:09
[2017-03-17 20:00] VITALS: BP 146/79; PULSE 76; RESP 20; TEMP 96.7; O2SAT 95
[2017-03-17] MEDS: oxyCODONE/ACETAMINOPHEN 5 MG/325 MG TAB PO PRN (21:56)
[2017-03-18] VITALS: BP 117/73; PULSE 73; RESP 18; TEMP 96; O2SAT 94
[2017-03-18] MEDS: ENOXAPARIN SODIUM 80 MG/0.8 ML SYRINGE SQ SCH ×2 (01:34→12:30)
[2017-03-18 02:15] VITALS: O2SAT 94
[2017-03-18] MEDS: SODIUM CHLOR 0.9% 1000 ML INJ 1,000 ML IV SCH (05:54)
[2017-03-18 08:26] VITALS: O2SAT 94
[2017-03-18] MEDS: SODIUM CHLORIDE 0.9% FLUSH 10 ML FLUSH IV FLUSH SCH (09:00)
[2017-03-18] MEDS: DOCUSATE SODIUM 50 MG/SENNA 8.6 MG TAB PO SCH (09:10)
[2017-03-18 09:47] VITALS: BP 139/77; PULSE 85; RESP 18; TEMP 97.4; O2SAT 92
--- NOTE | 2017-03-18 09:50 | MB ---
cc: LATISHA DUBOSE DATE OF CONSULTATION 03/17/2017 REASON FOR CONSULTATION Patient with a history of stage IV [id number] lung cancer with adenocarcinoma histology who presents with acute dyspnea and was found to have pulmonary embolism. CHIEF COMPLAINT Dyspnea HISTORY OF PRESENT ILLNESS Mr. Castellanos is an 82-year-old male who has a diagnosis of stage IV lung adenocarcinoma. He has a history of severe COPD. He was found to have diffuse interstitial opacity in the right lung in September of 2016. There was a small pleural effusion. A repeat chest x-ray in November and December of 2015 showed persistent right-sided chest wall mass. There was also a partially loculated effusion in the posterior right chest and right lung base. There was parenchymal disease. He had a PET scan in January of 2017 which showed multifocal disease involving the right hemithorax, the anterior medial lung with a mass that was 3.3 cm with an SUV of 10.6. There were also scattered areas of intense activity in the medial upper chest. There was also pleural thickening. There was an oval mass in the posterolateral right midlung, subcarinal lymph nodes were also hypermetabolic with retrocrural lymph nodes being also metabolic. The patient underwent a CT-guided biopsy of the lung on March 01, 2017 which confirmed a moderately differentiated adenocarcinoma. The patient was seen in the clinic and was scheduled to undergo a first cycle of modified dose of chemotherapy. However, he presented to the emergency department with acute dyspnea. He was previously being sent home with home oxygen, but despite the fact that he was on oxygen, he remained dyspneic. In the emergency department, he had CT angiogram which confirmed a pulmonary embolus in the left lower lobe pulmonary branch arteries. There was a right-sided pleural effusion which was suspected to the metastatic effusion with soft tissue densities in the right cardiophrenic angle. There were findings of hilar and subcarinal adenopathy and right lung parenchymal densities which were previously noted on the PET scan. The patient was started on Lovenox. He is on supplemental oxygen. He endorses some improvement in his breathing today. He denies any cough. No congestion. No hemoptysis. No heart palpitations. No lower extremity edema or pain. His ECOG performance status is one. REVIEW OF SYSTEMS A comprehensive 14-point review of systems was completed which is negative except as described in the HPI. PAST MEDICAL HISTORY 1. Stage IV small-cell lung adenocarcinoma. 2. History of a collapsed lung 3. COPD 4. Hypertension 5. BPH PAST SURGICAL HISTORY 1. Tonsillectomy 2. Appendectomy 3. CT-guided biopsy of the lung mass. FAMILY HISTORY Family history was reviewed. It is noncontributory to this admission. His father had coronary artery disease. Mother developed dementia. SOCIAL HISTORY He has more than a 30 pack-years of smoking history, but quit many years ago. He drinks one bottle of hard liquor per week. He denies any illicit drug use. He lives with his . MEDICATIONS Inpatient medications were reviewed. He is on: 1. Percocet 5/325 one tablet q6 hours p.r.n. 2. Senna Colace one tablet p.o. b.i.d. 3. Lovenox 70 mg subcu q.12 h. 4. Tylenol 650 one tablet p.o. q.4 h p.r.n. 5. Zofran 4 mg IV q.6 h p.r.n. 6. Milk of magnesia 30 cc one tablet p.o. q.12 h p.r.n. 7. Senna 17.2 mg p.o. q.12 h p.r.n. 8. Dulcolax 10 mg daily p.r.n. constipation 9. Lactulose 30 cc p.o. p.r.n. ALLERGIES He is does not have any allergies. PHYSICAL EXAMINATION VITAL SIGNS: Blood pressure is 135/75, pulse is in the 70s, temperature 96.5, O2 sats are 94% on three liters of nasal cannula. GENERAL: An acutely ill patient in no apparent distress. He currently has nasal cannula in place. HEENT: Pupils are equal, round, reactive to light. EOMI. No oral thrush. No oral lesions. NECK: Supple. No JVD, no bruits. No lymphadenopathy. CHEST: Clear to auscultation bilaterally. CARDIAC: S1-S2, regular rate and rhythm. ABDOMEN: Soft, nontender, nondistended. Bowel sounds are present. EXTREMITIES: Without any edema, erythema or cyanosis. SKIN: Without any petechiae, lesion or bruises. NEUROLOGIC: No focal deficits. PSYCHIATRIC: Mood and affect is appropriate. LABORATORY DATA WBCs 23.1, hemoglobin is 13.9, platelet count is 219. Serum chemistries show sodium 139, potassium 4.3, BUN 14, creatinine 0.69, glucose is 117, T-bili is 9, albumin is 3. IMAGING STUDIES Was reviewed in the EMR. ASSESSMENT/PLAN This is an 82-year-old male who has a day history of stage IV lung adenocarcinoma who presents with dyspnea and was found to have pulmonary embolism. 1. Pulmonary embolism in the left lower pulmonary artery branches. This is in the setting of a malignancy. I would recommend treatment with Lovenox 1 mg/kg kilogram subcu b.i.d. We will keep him on Lovenox and he will go home on this regimen. Lovenox is a preferred agent for DVT and pulmonary embolism and malignancy. We will teach him how to give himself injections. 2. Acute dyspnea and due to pulmonary embolism. Management as stated above. We also need to obtain Doppler ultrasounds of lower extremity to assess whether he has DVT. Obviously this would not change our management, but we need to see whether he has DVT which embolized to his lung. 3. Stage IV [id number] lung cancer with adenocarcinoma histology. He will follow up in the clinic. He is scheduled to undergo treatment. I have discussed this with the patient at length. He wanted to involve his daughter, in his care and would like to have further discussions in the clinic. He is scheduled to see me next week. Thank you for allowing me to participate in the care of this patient. Please do not hesitate to contact me should you have any questions. MD EDWARDO Minor/LYNDSEY /12:38 AM /9:41 AM
[2017-03-18] MEDS ORDERED: ENOX60P SQ (09:52)
--- NOTE | 2017-03-18 09:53 | HHI.DCPOC ---
Discharge Care Plan Goals to Promote Your Health * To prevent worsening of your condition and complications * To maintain your health at the optimal level Directions to Meet Your Goals Take your medications as prescribed Follow your dietary instruction Follow activity as directed Keep your appointments as scheduled Take your immunizations and boosters as scheduled If your symptoms worsen call your PCP, if no PCP go to Urgent Care Center or Emergency Room Smoking is Dangerous to Your Health. Avoid second hand smoke Call the 24-hour hour crisis hotline for domestic abuse at Lana Anthony MD Mar 18, 2017 09:53
--- NOTE | 2017-03-18 09:53 | HHI.DS ---
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 Johnson's outpatient creatinine on chemotherapy. She was due for chemotherapy today however he felt weak and was sent for evaluation to the hospital. Patient says he is using oxygen at home however today he felt more short of shortness of breath and he was not able to walk to the bathroom. He has productive cough yellow and dark dark green at times, no blood in it. Denies fever or chills. Denies chest pain. No palpitations, lightheadedness. The patient says he feels shortness of breath since March 08 at that time he was evaluated and was given Z-Tariq and steroid pack. CT scan in the emergency room showed new pulmonary embolisms. CBC/BMP: 03/17/17 0455 03/17/17 0455 Significant Findings Laboratory Tests Test 03/16/17 03/16/17 03/17/17 09:39 09:51 04:55 White Blood Count 18.5 TH/MM3 23.1 TH/MM3 (4.0-11.0) (4.0-11.0) Neutrophils (%) (Auto) 87.7 % 88.0 % (16.0-70.0) (16.0-70.0) Lymphocytes (%) (Auto) 2.9 % 5.3 % (9.0-44.0) (9.0-44.0) Basophils (%) (Auto) 2.1 % (0.0-2.0) Neutrophils # (Auto) 16.2 TH/MM3 20.4 TH/MM3 (1.8-7.7) (1.8-7.7) Lymphocytes # (Auto) 0.5 TH/MM3 (1.0-4.8) Monocytes # (Auto) 1.3 TH/MM3 1.4 TH/MM3 (0-0.9) (0-0.9) Basophils # (Auto) 0.4 TH/MM3 (0-0.2) Prothrombin Time 11.7 SEC (9.8-11.6) Sodium Level 135 MEQ/L (136-145) Estimat Glomerular Filtration 79 ML/MIN (>89) Rate Random Glucose 237 MG/DL 117 MG/DL (74-106) (74-106) Total Creatine Kinase 24 U/L (39-308) Troponin I LESS THAN 0.02 NG/ML (0.02-0.05) Albumin 3.0 GM/DL (3.4-5.0) Arterial Blood pH 7.43 (7.380-7.420) Arterial Blood Partial 37 mmHG (38-42) Pressure CO2 Imaging Last Impressions Lower Extremity Ultrasound 03/18/17 0000 Signed Impressions: Service Date/Time: March 08:11 - CONCLUSION: Left peroneal vein thrombus. Davian Hunt MD CT Angiography 03/16/17 0932 Signed Impressions: Service Date/Time: Thursday, March 16, 2017 10:40 - CONCLUSION: 1. There is pulmonary embolus within left lower lobe pulmonary artery branches. 2. Right pleural effusion suspicious for metastatic effusion with soft tissue densities in the right cardiophrenic angle also suspicious for metastatic disease. 3. Right hilar and subcarinal adenopathy indeterminant, however metastatic disease is not excluded. 4. Indeterminate left upper lobe nodule. 5. Right perihilar parenchymal process worse in the right lower lung could be post treatment change or possibly pneumonia as the most likely etiologies, however part of the right lung parenchymal densities particularly right upper lobe could be the patient' s known primary malignancy. Davian Hunt MD PE at Discharge GENERAL: This is a pleasant frail 82 yo male, well-nourished, well-developed patient, in no apparent distress. CARDIOVASCULAR: Regular rate and rhythm without murmurs, gallops, or rubs. RESPIRATORY: Decreased breath sounds. No wheezes, rales, or rhonchi. GASTROINTESTINAL: Abdomen soft, non-tender, nondistended. No hepato-splenomegaly , or palpable masses. No guarding. 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 Extremities without clubbing, cyanosis, or edema. No joint tenderness, effusion , or edema noted. No calf tenderness. Negative Homans sign bilaterally. NEUROLOGICAL: Awake and alert. Cranial nerves grossly intact. Motor and sensory grossly within normal limits. Normal speech. Pt update on day of discharge Patient is in the chair, he is ambulating without any troubles. Denies shortness of breath at this time no chest pain. Eating better. Denies fever or chills. He complains of cough and also nasal congestion. 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 Ann oncology. Currently on chemotherapy Moderate Protein calorie malnutrition. 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 Regular diet, add Ensure Boost 3 times a day Continue Lovenox 70 mg subcutaneous twice a day Dr. Ann his public finance specialist consulted. Continue Lovenox at this time. Asked nurse Nereyda to teach patient regarding self administering lovenox as patient might need coumadin. Oxygen supplement and keep oxygen saturation more than 88% Consult PT for evaluation DVT prophylaxis Lovenox Discussed Condition With Patient, nurse, family at bedside, Dr. Ann oncology Patient improved. Discussed with Dr. Ann oncology he recommends Lovenox as outpatient and to follow up with him in his office. The patient was discharged in stable condition to follow-up with PCP in consultants as outpatient Pt Condition on Discharge: Stable Discharge Disposition: Disch w/ Home Health Serv Discharge Time: > 30 minutes Discharge Instructions DIET: Follow Instructions for: Heart Healthy Diet Activities you can perform: Regular-No Restrictions Follow up Referrals: Oncology - 1 Week with Vj Ann MD PCP Follow-up - 3-5 Days SNF/FPC/ with [facility] New Medications: Benzonatate (Tessalon Perles) 100 Mg Cap 100 MG PO TID PRN COUGH #30 Ref 0 CAP Enoxaparin Inj (Lovenox Inj) 60 Mg/0.6 Ml Syr 60 MG SQ BID Blood Clot Prevention #60 Ref 0 SYRINGE Fluticasone Nasal Nancy (Flonase Nasal Nancy) 50 Mcg/Act Nancy 100 MCG EACH NARE BID Allergies #1 Ref 0 BOTTLE Saline Nasal (Hodgeman Nasal Nancy) 0.65% Nancy 2 SPRAY EACH NARE DIRECTED PRN NASAL CONGESTION #1 Ref 0 BOTTLE Continued Medications: Albuterol 18 GM Inh (Ventolin Hfa 18 GM Inh) 90 Mcg/Act Aer 1 PUFF INH BID SHORTNESS OF BREATH #1 Ref 0 INHALER Finasteride (Finasteride) 5 Mg Tab 5 MG PO DAILY Do not crush. Manage Prostate Problems #30 Ref 0 TAB Fluticasone Nasal Nancy (Fluticasone Nasal Nancy) 50 Mcg/Act Naspr 50 MCG EACH NARE BID 50 mcg/spray Allergy Management #1 Ref 0 BOTTLE Fluticasone-Vilanterol Inh (Breo Ellipta Inh) 100-25 Mcg/Act Inh 1 PUFF INH DAILY Use daily at the same time. #1 Ref 0 INHALER Oxycodone-Acetaminophen (Oxycodone-Acetaminophen) 5-325 mg Tab 1 TAB PO Q6H PRN PAIN Ref 0 TAB Lana Anthony MD Mar 18, 2017 09:53
--- NOTE | 2017-03-18 09:57 | RADRPT ---
EXAM DATE/TIME: 03/18/2017 08:11 [facility] COMPARISON: No previous studies available for comparison. INDICATIONS : Pulmonary embolism. MEDICAL HISTORY : Carcinoma, lung. SURGICAL HISTORY : Appendectomy. ENCOUNTER: Initial ACUITY: 1 day PAIN SCORE: 0/10 LOCATION: Bilateral leg. TECHNIQUE: Venous ultrasound of the left and right leg was performed from the inguinal ligament to the proximal calf. Real-time, color Doppler and spectral tracing, compression and augmentation techniques were us ed. FINDINGS: RIGHT LEG: There is normal compressibility of the deep venous system from the inguinal region to the proximal ca lf. No echogenic clot is seen in the lumen of the common femoral, femoral, popliteal, and posterior tibial veins. There is a normal response of the venous system to proximal and distal augmentation an d respiration. LEFT LEG: There is normal compressibility of the deep venous system from the inguinal region to the proximal ca lf. No echogenic clot is seen in the lumen of the common femoral, femoral, popliteal, and posterior tibial veins. There is a normal response of the venous system to proximal and distal augmentation an d respiration. There is however thrombus within the peroneal vein. CONCLUSION: Left peroneal vein thrombus. Davian Hunt MD on March 18, 2017 at 9:55 Board Certified Radiologist. This report was verified electronically.
[2017-03-18] MEDS ORDERED: FLUT1SPR5 EACH NARE (12:03)
[2017-03-18] MEDS ORDERED: OCEA0.653 EACH NARE (12:03)
[2017-03-18] MEDS ORDERED: BENZ100 PO (12:03)
--- NOTE | 2017-03-19 00:03 | PD.ONC.PN ---
Subjective Subjective Remarks PATIENT SEEN EARLIER IN THE DAY WANTS TO GO HOME LOVENOX INJECTION TRAINING GIVEN CASE DISCUSSED WITH DR. STEEL D/C HOME WITH LOVENOX--PREFERRED ANTICOAGULATION IN MALIGNANCY PATIENT WITH STAGE IV LUNG CANCER F/U IN ONCOLOGY CLINIC IN 1 WEEK Objective Data Date Time Temp Pulse Resp B/P Pulse Ox O2 Delivery O2 Flow Rate FiO2 03/18/17 09:47 97.4 85 18 139/77 92 03/18/17 08:26 94 Nasal Cannula 3.00 03/18/17 02:15 94 Nasal Cannula 3.00 Result Diagram: 03/17/17 0455 03/17/17 0455 Culture Results Microbiology Date/Time Procedure Status Source Growth 03/16/17 09:40 Influenza Types A,B Antigen (ZAIRE) - Final Complete Nasal Washing NEGATIVE FOR FLU A AND B ANTIGEN.... Objective Remarks GENERAL: CACHECTIC SKIN: Warm and dry. NECK: Supple, trachea midline. No JVD or lymphadenopathy. LYMPHATIC: No adenopathy. CARDIOVASCULAR: Regular rate and rhythm without murmurs. RESPIRATORY: Breath sounds equal bilaterally. No accessory muscle use. GASTROINTESTINAL: Abdomen soft, non-tender, nondistended. EXTREMITIES: No cyanosis, or edema. Assessment/Plan Problem List: (1) Pulmonary embolism Status: Acute (2) Non-small cell carcinoma of lung Status: Acute Vj Ann MD Mar 19, 2017 00:03
== END 2017-03-18 12:45 | disposition home health service (06) | DRG 176 ==
LOC: PHED 09:26 → PHEDA 12:29 → PH3A 14:06
PROVIDERS: ADMIT Hospitalist; ATTEND Hospitalist
DX: I26.99 Other pulmonary embolism without acute cor pulmonale (principal); J91.0 Malignant pleural effusion; J96.11 Chronic respiratory failure with hypoxia; E44.0 Moderate protein-calorie malnutrition; C77.1 Secondary and unspecified malignant neoplasm of intrathoracic lymph nodes; C34.92 Malignant neoplasm of unspecified part of left bronchus or lung; C34.90 Malignant neoplasm of unspecified part of unspecified bronchus or lung; Z99.81 Dependence on supplemental oxygen; Z87.891 Personal history of nicotine dependence; J44.9 Chronic obstructive pulmonary disease, unspecified; I10 Essential (primary) hypertension; N40.0 Benign prostatic hyperplasia without lower urinary tract symptoms
CPT/HCPCS: 36600; 71275; 80048; 80053; 82550; 82805; 83880; 84484; 85025; 85610; 85730; 87804; 93005; 93970; 94640; 94664; 96365; 96375; J1650; J2930; J3475; J7030; J7613; Q9967

== ENCOUNTER 2017-04-08 12:20 | Day surgery (SDC) | payer OTHER ==
[~2017-04-08 12:20] MED LIST changes: -AZIT250T3 PO; +BENZ100 PO; -DIPH1TAB4 PO; +ENOX60P SQ; +FLUT1SPR5 EACH NARE; -MEDR4TAB PO; +OCEA0.653 EACH NARE
[2017-04-08 13:00] VITALS: BP 118/69; PULSE 95; RESP 20; TEMP 97.8; O2SAT 97
[2017-04-08 13:31] LABS: PROTHROMBIN TIME - PATIENT 11.2 SEC (9.8-11.6)
--- NOTE | 2017-04-08 13:37 | RADRPT ---
EXAM DATE/TIME: 04/08/2017 13:07 [facility] COMPARISON: No previous studies available for comparison. INDICATIONS : Shortness of breath. MEDICAL HISTORY : COPD. Frequent urination. Dyspnea. Lung caancer. Hiatal hernia. SURGICAL HISTORY : Appendectomy. Tonsillectomy. Rgiht lung colapse. ENCOUNTER: Initial ACUITY: 4-6 days PAIN SCORE: 3/10 LOCATION: Right chest. MEASUREMENTS: SKIN TO PARIETAL PLEURA: 1.3 cm SKIN TO MAX SAFE DEPTH: 5.8 cm ESTIMATED FLUID VOLUME: 1159 cc FLUID COMPOSITION: simple FINDINGS: Pleural effusion as above. CONCLUSION: 1. Right pleural effusion marked as above. Santy Badillo MD on April 08, 2017 at 13:35 Board Certified Radiologist. This report was verified electronically.
[2017-04-08 14:50] VITALS: BP 124/71; PULSE 68; RESP 16; O2SAT 95
[2017-04-08 15:05] VITALS: BP 117/58; PULSE 86; RESP 18; O2SAT 96
[2017-04-08 15:20] VITALS: BP 119/66; PULSE 84; RESP 18; O2SAT 96
--- NOTE | 2017-04-08 15:42 | RADRPT ---
EXAM DATE/TIME: 04/08/2017 14:57 [facility] COMPARISON: CT PULMONARY ANGIOGRAM, March 16, 2017, 10:40. INDICATIONS : Post thoracentesis. MEDICAL HISTORY : Carcinoma, lung. SURGICAL HISTORY : Infusaport. ENCOUNTER: Initial ACUITY: 1 day PAIN SCORE: 0/10 LOCATION: Left chest. FINDINGS: Right IJ Iilawb-o-Fmiw in good position. Bilateral lower lobe airspace disease with small residual ri ght pleural effusion following thoracentesis. No significant pneumothorax. Cardiomediastinal contours are within normal limits. Remainder of the exam is unchanged. CONCLUSION: 1. Residual small pleural effusion without significant pneumothorax status post thoracentesis. 2. Mild, right greater then left, bilateral lower lung zone airspace disease. Escobar Chun MD on April 08, 2017 at 15:38 Board Certified Radiologist. This report was verified electronically.
[2017-04-08 16:18] LABS: TOTAL PROTEIN,PLEURAL FLUID 5.4 GM/DL
[2017-04-08 16:51] LABS: PLEURAL FLUID LYMPHS 65 %
--- NOTE | 2017-04-08 17:02 | MR ---
cc: BREANNA PATEL EDWARD MD DATE OF PROCEDURE 04/08/2017 PROCEDURE Right thoracentesis. PREOPERATIVE DIAGNOSIS Right pleural effusion. PROCEDURE IN DETAIL Informed consent was obtained from the patient. The procedure and the complications including complication of anesthesia, pneumothorax requiring chest tube, bleeding complication, injury to the blood vessels, lungs, nerves, arrhythmia, hypoxia explained and he consented for the procedure. The right side of the chest was marked with ultrasound. Chest cleaned with Chloraprep, 1% lidocaine infiltration anesthesia was used. With a 16-gauge Angiocath thoracentesis was done. Yellow fluid was obtained, about 1000 cc of fluid was obtained. After that the patient started coughing and the procedure was terminated. He tolerated the procedure well. Pleural fluid is sent for protein, glucose, LDH, cell count and differential routine culture, AFB fungal culture and cytology. Post procedure chest x-ray was ordered to rule out pneumothorax. MD ASHLEE Ervin/LAWRENCE /2:49 PM /4:39 PM
--- NOTE | 2017-04-09 12:41 | MH ---
cc: BREANNA PATEL EDWARD MD DATE OF ADMISSION: 04/08/2017 CHIEF COMPLAINT Right thoracentesis HISTORY OF PRESENT ILLNESS Mr. Castellanos is an 82-year-old male with history of recently diagnosed non-small cell carcinoma of the lung stage IV. He is following with Dr. Vj Ann and he has received one course of chemotherapy. He is complaining of shortness of breath for the last two months or so. He was started on oxygen two liters nasal cannula. He has mild cough. No fever or chills. No night sweats. No chest pain. No nausea or vomiting. He had a recent chest x-ray done which shows he has increased right pleural effusion. Earlier CT scan of the chest showed moderate size partially loculated right pleural effusion, extensive parenchymal disease throughout the right lung. PAST MEDICAL HISTORY: 1. History of recently diagnosed CA of the lung. 2. Mycobacterial infection. 3. Pulmonary embolism. 4. COPD. 5. History of collapsed lung in the past. 6. History of tonsillectomy and appendectomy. MEDICATIONS 1. Lovenox injections. 2. Finasteride once a day. 3. Albuterol nebulizer treatment. 4. Oxygen 2 liters nasal cannula. ALLERGIES NO KNOWN DRUG ALLERGIES. SOCIAL HISTORY He has a 35 pack-year smoking history, one to two packs a day which he quit 35 years ago. He used to drink which he quit. 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 FAMILY HISTORY: for 35 years. This is his second marriage. He has six children. No siblings. Both parents are . REVIEW OF SYSTEMS: He has lost over 10 pounds in weight, complains of fatigue, persistent cough, shortness of breath. PHYSICAL EXAMINATION Elderly male, mild short of breath. Blood pressure 120/58, heart rate 101, respirations 16, weight 159 pounds, oxygen saturation 89%. HEENT: Pupils are equal and reactive. Oral mucosa, nasal mucosa normal. Neck: Supple. JVP not raised. Chest: He has dull percussion and decreased breath sounds on the right. Abdomen: Benign. Extremities: No edema. IMPRESSION: 1. Right pleural effusion. Likely malignant effusion. 2. Nonsmall cell carcinoma of the lung, stage IV. 3. Mycobacterial infection. 4. Pulmonary embolism. 5. COPD. 6. Hypoxia. PLAN: Discussed with the patient and his . He will need thoracentesis for diagnostic and therapeutic. If he has recurrent pleural effusion then we will consider chest tube placement and pleurodesis. In the meantime we will see the response to chemotherapy. I explained to him the procedure and the complications of thoracentesis, including complications of anesthesia, pneumothorax requiring chest tube, bleeding complications, injury to the blood vessels, lungs, nose, arrhythmia, hypoxia which they understand well and want to proceed with it. He will be scheduled for thoracentesis at [facility] on 04/08/2017. MD ASHLEE Ervin/ALEC /11:28 PM /12:33 PM
== END 2017-04-08 16:05 | disposition home or self-care (01) ==
LOC: HRAD 12:20 → HRIP 12:22 → HRAD 16:05
PROVIDERS: ATTEND Specialist
DX: C34.90 Malignant neoplasm of unspecified part of unspecified bronchus or lung (principal); J91.0 Malignant pleural effusion; J44.9 Chronic obstructive pulmonary disease, unspecified; R09.02 Hypoxemia; Z87.891 Personal history of nicotine dependence; Z86.711 Personal history of pulmonary embolism; Z79.01 Long term (current) use of anticoagulants; Z99.81 Dependence on supplemental oxygen; Z79.51 Long term (current) use of inhaled steroids; Z79.899 Other long term (current) drug therapy
CPT/HCPCS: 32554; 71010; 76604; 82150; 82945; 83615; 83986; 84157; 85610; 85730; 87015; 87070; 87102; 87116; 87205; 87206; 88112; 88305; 89051

== ENCOUNTER 2017-04-19 13:00 | Inpatient (IN) | payer OTHER, MEDICARE ==
[~2017-04-19] VITALS: Ht 167.6 cm; Wt 67.5 kg
[2017-04-19 17:45] VITALS: BP 107/69; PULSE 103; RESP 20; TEMP 96; O2SAT 94
[2017-04-19] MEDS ORDERED: ONDANSETRON HCL 4 MG/2 ML VIAL IVP PRN (18:15)
[2017-04-19] MEDS ORDERED: NALOXONE HCL 0.4 MG/ML AMP IV PRN (18:15)
[2017-04-19] MEDS ORDERED: MAGNESIUM HYDROXIDE SUSP 30 ML CUP PO PRN (18:15)
[2017-04-19] MEDS ORDERED: oxyCODONE/ACETAMINOPHEN 5 MG/325 MG TAB PO PRN (18:15)
[2017-04-19] MEDS ORDERED: ACETAMINOPHEN 325 MG TAB PO PRN (18:15)
[2017-04-19] MEDS ORDERED: LACTULOSE SYRUP 20 GM/30 ML CUP PO PRN (18:15)
[2017-04-19] MEDS ORDERED: BISACODYL 10 MG SUPP RECTAL PRN (18:15)
[2017-04-19] MEDS ORDERED: PROCHLORPERAZINE 25 MG SUPP RECTAL PRN (18:15)
[2017-04-19] MEDS ORDERED: MORPHINE SULFATE 4 MG/ML INJ IV PRN (18:15)
[2017-04-19] MEDS ORDERED: SENNOSIDES 8.6 MG TAB PO PRN (18:15)
--- NOTE | 2017-04-19 18:25 | HHI.PR ---
Addendum to Inpatient Note Additional Information H AND P DICTATED AWAIT TRANSCRIPTIONS Dinesh Funez DO Apr 19, 2017 18:25
[2017-04-19 18:28] VITALS: O2SAT 98
[2017-04-19] MEDS ORDERED: TEMAZEPAM 7.5 MG CAP PO PRN (19:00)
--- NOTE | 2017-04-19 19:51 | MH ---
cc: DINESH HUERTA,LATISHA ELIZABETH MD,BREANNA BOWLES DATE OF ADMISSION 04/19/[address] Dinesh Huerta REFERRING PHYSICIAN Dr. Lazo. CONSULTING PHYSICIANS Dr. Li, pulmonary. Dr. Ann of oncology. REASON FOR ADMISSION The patient came in as a direct admission regarding a pleural effusion. HISTORY OF THE PRESENT ILLNESS The patient is an 82-year-old gentleman. He has been followed by oncology. Regarding his stage IV [id number] lung cancer with adenocarcinoma with a history of a CT-guided biopsy of the lung completed on March 01, 2017 with moderately differentiated adenocarcinoma. He has a history of severe COPD on oxygen. Had a PET scan in January of 2017 which showed a multifocal disease involving the right hemithorax, anterior and medial lung, medial upper chest, and right mid lung. There is involvement of the subcarinal lymph nodes and right retro crural lymph nodes and involvement of the pleural and costal cartilage. He has history of severe COPD on home oxygen. Chronically history of pulmonary embolism on Lovenox. History of chest wall pain for malignancy. Anorexia. He has the stage IV lung cancer, adenocarcinoma. Has been receiving chemotherapy, received that earlier today. He has had increasing right-sided pleural effusion. He has come in as a direct admission regarding need for either a thoracentesis and/or pleurocentesis. PAST MEDICAL AND SURGICAL HISTORY Includes: 1. Cataracts. 2. Colonoscopy. 3. Issues regarding a collapsed lung on the right in 1984. 4. Appendectomy. 5. History of tonsillectomy. 6. History of being hard of hearing. 7. History of upper and lower dentures. 8. History of chronic obstructive pulmonary disease. 9. History of right lung collapse. 10. History of dyspnea. 11. History of appendectomy. 12. History of lung cancer stage IV. ALLERGIES NO KNOWN DRUG ALLERGIES. MEDICATIONS His home medications include: 1. Albuterol. 2. Finastride. 3. Fluticasone. FAMILY HISTORY Noncontributory at this time. SOCIAL HISTORY No tobacco use. No family. Has a history of mycobacterium infection. History of pulmonary emboli. History of chronic obstructive pulmonary disease. History of collapsed lung in the past. Appendectomy. Had been on Lovenox, finasteride and albuterol and oxygen. Had been a 35 pack year smoking history, one to two packs a day for at least 35 years. He used to drink but he quit. 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 No siblings. Both parents are . He has had 10 pound plus weight loss. Has fatigue and persistent cough and shortness of breath. Is noted to have the right pleural effusion. More than likely malignant effusion, non-small cell cancer of the lung, stage IV adenocarcinoma. Mycobacterium infection. Pulmonary embolism. Chronic obstructive pulmonary disease. Hypoxia. Needs thoracentesis and/or chest tube placement with pleurodesis. The patient came in to the hospital regarding this. Had chemotherapy earlier today. Came in as a direct admission. LABORATORY DATA His laboratory data most recently includes a white blood cell count of 34.2, hemoglobin is 13.8, hematocrit is 40.8 and platelet count is 179. His most recent T2 is 11.2. INR 1.0. PTT is 25. His most recent sodium is 135, potassium 4.0, chloride 100, CO2 26.1, anion gap 9, BUN is 25, creatinine is 0.69. Estimated glomerular filtration rate is 110. Random glucose is 168. Calcium is 9.3. Total bilirubin 0.3. AST is 18, ALT is 52. Alkaline phosphatase is 131. Total protein is 6.8. Albumin is 3.2. When he had the pleural fluid taken out his white blood cell count was 869 and red blood cells were 15,834. PHYSICAL EXAMINATION GENERAL: He is awake and alert and oriented. Talkative and cooperative. VITAL SIGNS: His most recent vital signs include a temperature of 96.0, pulse 103, respiratory rate 20, blood pressure is 107/69. Pulse oximetry is 94% on a few liters. HEENT: His head is normocephalic, atraumatic. Pupils equal, round and reactive to light and accommodation. Extraocular muscles intact. Oral mucosa is moist. Oropharynx is clear. Tongue is midline. NECK: There is no JVD or thyromegaly. No carotid bruits. HEART: A little tachycardic rate and rhythm. S1-S2. No S3 or S4. No heave or thrill or rub of gallops. He has a right-sided chest port. LUNGS: His lungs are noted to have breath sounds bilaterally and coarse bilaterally. There were more decreased breath sounds on the right. ABDOMEN: Soft and nontender. Nondistended. Positive bowel sounds. Scaphoid. EXTREMITIES: No clubbing, cyanosis or edema. Good pedal pulses bilaterally. Deep tendon reflexes 2-4 upper extremities lower extremities bilaterally. Cranial nerves II through XII are grossly intact. SKIN: Warm and dry. No obvious rashes. He is very cachectic. PSYCHIATRIC: Insight and judgment appear good. Mood and behavior is appropriate. He is awake, alert, oriented, talkative and cooperative. Appears at least his stated age. IMPRESSION 1. Stage IV lung cancer adenocarcinoma type. 2. Recurrent right pleural effusion. Consult Dr. Li as well as hematology / oncology, Dr. Ann. We will continue to follow him. We will continue his home medications. Continue on oxygen for his chronic respiratory failure. We will monitor him here throughout the admission. We will make sure he is on his home medications for his benign prostatic hypertrophy as well as we will hold off on the Lovenox at this moment for the pulmonary emboli. At this time in case they wish to do a procedure zoran tomorrow. Continue on pain control. Continue on his medications for pain and for chronic obstructive pulmonary disease. We will make sure that he continues on oxygen. Continue on the nebulizer treatment as needed. Will be followed here throughout the admission regarding this lung cancer. As well as the breathing treatments as well as the pleural effusion. His benign prostatic hypertrophy. Nasal congestion issues. We will follow him throughout the admission for any other issues that may arise. His most recent imaging studies showed a chest ultrasound done on the 08 of April which showed the right pleural effusion. Had the chest x-ray on April 08 which showed the residual small pleural effusion without significant pneumothorax status post thoracentesis, mild right greater than left with bilateral lower lung zone airspace disease. The patient will be followed throughout the admission for any other issues that may arise. 3. DO BRIELLE Fraire/MARY /6:13 PM /7:05 PM
[2017-04-19 19:58] VITALS: PULSE 85
[2017-04-19 20:00] VITALS: BP 144/68; PULSE 95; PULSE 96; RESP 22; TEMP 98.1; O2SAT 94
[2017-04-19] MEDS ORDERED: ALBUTEROL SULFATE 90 MCG/ACT HFA 8 GM INHALER INH SCH (21:00)
[2017-04-19] MEDS: ALBUTEROL SULFATE 90 MCG/ACT HFA 18 GM INHALER INH SCH (21:30)
[2017-04-19] MEDS: DOCUSATE SODIUM 50 MG/SENNA 8.6 MG TAB PO SCH (21:31)
[2017-04-19] MEDS: guaiFENesin E.R. 600 MG TAB PO SCH (21:31)
[2017-04-19] MEDS: SODIUM CHLORIDE 0.9% FLUSH 10 ML FLUSH IV FLUSH SCH (21:32)
[2017-04-19 21:56] LABS: APTT (PATIENT) 33.2 SEC (24.3-30.1); PROTHROMBIN TIME - PATIENT 11.3 SEC (9.8-11.6)
[2017-04-19] MEDS: ZOLPIDEM TARTRATE 5 MG TAB PO PRN (22:30)
[2017-04-20] VITALS (11 sets, daily range): BP systolic 102–142; BP diastolic 59–76; PULSE 20–100; RESP 16–21; TEMP 96–97.8; O2SAT 93–97
[2017-04-20 04:50] LABS: AUTOMATED NEUTROPHIL # 12.9 TH/MM3 (1.8-7.7); BASOPHIL % 0.1 % (0.0-2.0); HEMATOCRIT 31.2 % (39.0-51.0); LYMPH % 3.9 % (9.0-44.0); LYMPHOCYTE # 0.5 TH/MM3 (1.0-4.8); MEAN CELL VOLUME 93.8 FL (80.0-100.0); MEAN CORPUSCULAR HEMOGLOBIN 30.9 PG (27.0-34.0); MONO % 3.8 % (0.0-8.0); NEUT % 92.2 % (16.0-70.0); PLATELET COUNT 164 TH/MM3 (150-450); RED BLOOD COUNT 3.32 MIL/MM3 (4.50-5.90); RED CELL DISTRIBUTION WIDTH 15.8 % (11.6-17.2)
[2017-04-20 04:55] LABS: HEMO FLAGS AUTO DIFF
[2017-04-20 05:07] LABS: ANION GAP 6 MEQ/L (5-15); AST (GOT) 15 U/L (15-37); BICARBONATE 28.6 MEQ/L (21.0-32.0); BLOOD UREA NITROGEN 16 MG/DL (7-18); CHLORIDE 103 MEQ/L (98-107); GLOMERULAR FILTRATION RATE 160 ML/MIN (>89); MAGNESIUM 2.2 MG/DL (1.5-2.5); POTASSIUM 4.1 MEQ/L (3.5-5.1); SODIUM (NA) 138 MEQ/L (136-145)
[2017-04-20 05:15] LABS: ALKALINE PHOSPHATASE 68 U/L (45-117); ALT (GPT) 32 U/L (12-78); FREE T4 1.31 NG/DL (0.76-1.46); TOTAL BILIRUBIN ADULT 0.4 MG/DL (0.2-1.0)
[2017-04-20] MEDS: guaiFENesin E.R. 600 MG TAB PO SCH ×2 (08:01→22:07)
[2017-04-20] MEDS: FINASTERIDE 5 MG TAB PO SCH (08:01)
[2017-04-20] MEDS: ALBUTEROL SULFATE 90 MCG/ACT HFA 18 GM INHALER INH SCH ×2 (08:01→21:00)
[2017-04-20] MEDS: FLUTICASONE 100 MCG/VILANTEROL 25 MCG INHALER INH SCH (08:01)
[2017-04-20] MEDS: SODIUM CHLORIDE 0.9% FLUSH 10 ML FLUSH IV FLUSH SCH ×2 (08:02→22:07)
--- NOTE | 2017-04-20 08:13 | MB ---
cc: PALMA HUERTA EDWARD, MD ANEJA,BREANNA DATE OF CONSULTATION 04/19/[address] Huerta REASON FOR CONSULTATION Malignant pleural effusion PRESENT ILLNESS Mr. Castellanos is a pleasant 82-year-old male who was diagnosed with non-small cell carcinoma of the lung stage IV. The patient has recurrent pleural effusion and had a thoracentesis done. Pleural fluid is positive for malignant cells and he has recurrence of the pleural fluid. He saw Dr. Vj Ann and was advised for pleurodesis. He has mild shortness of breath on exertion. No fever or chills. No chest pain, nausea or vomiting. PAST MEDICAL HISTORY 1. Non-small CA of the lung. 2. History of mycobacterial AVM infection. 3. Pulmonary embolism 4. COPD 5. History of collapsed lung in the past. 6. Tonsillectomy 7. Appendectomy 8. Now malignant pleural effusion MEDICATIONS He takes: 1. Lovenox at home 2. Oxygen 2 liters nasal cannula Currently he is takin. Finasteride 5 mg a day 2. Breo Ellipta 100/25 once a day 3. Mucinex 600 mg twice 4. Tessalon 100 mg twice a day 5. Percocet p.r.n. for pain 6. Ambien 5 mg at night time ALLERGIES No known drug allergies. SOCIAL HISTORY He has a 35 pack year history of smoking one to two packs a day which he quit 35 years ago. 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 FAMILY HISTORY for35 years, this is his second marriage. He has six children. No siblings. Both parents are . REVIEW OF SYSTEMS Feels weak and tired, has difficulty sleeping. No chest pain. No nausea or vomiting. PHYSICAL EXAMINATION An elderly male mildly short of breath not in acute distress. VITAL SIGNS: Blood pressure 107/69, heart rate 103, respirations 20, temperature 96. HEENT: Pupils are equal and react to light. NECK: Supple. JVP not raised. CHEST: Dull percussion, decreased breath sounds on the right. CARDIOVASCULAR: S1 and S2 is normal. ABDOMEN: Soft, nondistended. Bowel sounds are present. EXTREMITIES: No edema. IMPRESSION 1. Right malignant pleural effusion. 2. Non-small cell carcinoma of the lung. 3. COPD 4. Pulmonary embolism 5. History of STEVE. PLAN I discussed with the patient and his he will need a right chest tube placement after the fluid is drained. He will need talc pleurodesis. He understands we will hold his Lovenox for the procedure and supplement his oxygen, continue the medications. Further treatment will depend upon the course in the hospital. Thank you Dr. Huerta for this consultation. MD ASHLEE Ervin/LYNDSYE /6:53 PM /7:59 AM
[2017-04-20 08:28] LABS: BANDS 3 % (0-6); METAMYELOCYTES 1 % (0-1); NEUTROPHIL # MANUAL DIFF 13.3 TH/MM3 (1.8-7.7); POLYS (SEG NEUTROPHILS) 91 % (16-70); WBC DIFF SAMPLE 100
[2017-04-20 08:31] LABS: PLATELET ESTIMATE SMEAR NORMAL (NORMAL); PLATELET MORPHOLOGY NORMAL (NORMAL); SCAN/DIFF FINAL DIFF MANUAL
[2017-04-20] MEDS: DOCUSATE SODIUM 50 MG/SENNA 8.6 MG TAB PO SCH ×2 (09:00→22:07)
[2017-04-20] MEDS ORDERED: MIDAZOLAM HCL 2 MG/2 ML VIAL ONE ×2 (09:45→10:03)
--- NOTE | 2017-04-20 10:17 | PD.RAD ---
Post Procedure Progress Note Pre Procedure Diagnosis: (1) Cancer (2) Pleural effusion Post Procedure Diagnosis: (1) Pleural effusion Procedure Date: Apr 20, 2017 Supervising Radiologist: Vimal Smith Estimated blood loss: None Anesthesia: Local, Conscious Sedation Plan of Activity Patient to Unit: [facility]OP[facility] Patient Condition: Fair Additional Comments: Right 10 swedish chest tube placed without difficulty. Approximately 1 liter of old blood removed. Full dictated report to follow See PACS Report for procedural detail/treatment Vimal Smith MD Apr 20, 2017 10:17
--- NOTE | 2017-04-20 10:30 | RADRPT ---
EXAM DATE/TIME: 04/20/2017 09:48 [facility] COMPARISON: [id number] PLCMT, POWERPORT, W US, RIGHT, March 08, 2017, 9:38. INDICATIONS : Patient is in need of placement of a right sided chest tube for malignant pleural effusion. MEDICAL HISTORY : History of PE, COPD, non small cell lung carcinoma. SURGICAL HISTORY : History of colonoscopy, tonsillectomy, appendectomy, lung biopsy. ENCOUNTER: Initial ACUITY: 2 days PAIN SCORE: 5/10 LOCATION: Right arm/shoulder FLUORO TIME: 2.7 minutes IMAGE SERIES: 1 SEDATION TIME: 30 minutes MEDICATION(S): 1.) 3 mg midazolam (Versed) IV 2.) 150 mcg fentanyl (Sublimaze) IV DEVICE(S): 1.) 10 Romanian non-locking catheter Expel PROCEDURE : 1. Fluoroscopically guided chest tube placement. 2. Conscious sedation with continuous EKG and oximetry monitoring. The risks, benefits and alternatives to the procedure were explained and verbal and written consent w as obtained. The site was prepped in sterile fashion. Full sterile technique was used, including ca p, mask, sterile gloves and gown and a large sterile sheet. Hand hygiene and 2% chlorhexidine and/or betadine/alcohol prep was utilized per protocol for cutaneous antisepsis. The skin and subcutaneous tissues were infiltrated with local anesthetic solution. With fluoroscopic guidance the chest was punctured in the mid axillary line just above the 10th rib. A 0.035 wire was advanced into the chest without difficulty. A 10 Romanian nonlocking tube was advanced over the wire. There was immediate return of approximately 1 L of hemorrhagic effusion. Conscious sedation was performed with the prescribed dosages and duration as above in the presence of an independent trained radiology nurse to assist in the monitoring of the patient. EKG and oximetry remained stable throughout the procedure. The patient tolerated the procedure well and there were n o complications. The patient was sent to post anesthesia recovery in stable condition. CONCLUSION: Uncomplicated chest tube placement as above. There was immediate return of approximately 1 L of hemor rhagic effusion. Vimal Smith MD on April 20, 2017 at 10:27 Board Certified Radiologist. This report was verified electronically.
[2017-04-20] MEDS: oxyCODONE/ACETAMINOPHEN 5 MG/325 MG TAB PO PRN (10:45)
[2017-04-20 11:33] LABS: HEMOGLOBIN A1a 1.1 %; HEMOGLOBIN Ao 83.4 %; HEMOGLOBIN LA1C 2.5 %; HEMOGLOBIN P3 4.6 %
--- NOTE | 2017-04-20 12:23 | RADRPT ---
EXAM DATE/TIME: 04/20/2017 11:03 [facility] COMPARISON: CHEST SINGLE AP, April 08, 2017, 14:57. CHEST EXPIRATION ONLY, March 02, 2017, 8:53. INDICATIONS : Post chest tube placement right side MEDICAL HISTORY : PE, COPD, carcinoma lung SURGICAL HISTORY : Tonsillectomy. Appendectomy. infusaport ENCOUNTER: Subsequent ACUITY: 1 day PAIN SCORE: 5/10 LOCATION: Right chest FINDINGS: A small right-sided chest tube is noted at the lung base. There is a small right basilar pneumothora x. Patchy infiltrates are again noted bilaterally and are stable. A right internal jugular Infuse-A -Port has its tip in the superior vena cava. The heart is stable. CONCLUSION: 1. Small right basilar pneumothorax with small chest tube noted overlying the expected area of the pn eumothorax. 2. Stable bilateral patchy infiltrates. Ton Park MD on April 20, 2017 at 11:34 Board Certified Radiologist. This report was verified electronically.
[2017-04-20] MEDS: MORPHINE SULFATE 4 MG/ML INJ IV PRN ×3 (13:04→22:06)
--- NOTE | 2017-04-20 13:56 | HHI.PR ---
Subjective Remarks comfortable, no chest tube site pain complains Objective Vitals Vital Signs Date Time Temp Pulse Resp B/P Pulse Ox O2 Delivery O2 Flow Rate FiO2 04/20/17 13:00 97.1 82 20 140/66 97 04/20/17 11:35 83 20 131/72 95 04/20/17 11:05 85 20 142/72 94 04/20/17 10:35 86 20 124/75 93 04/20/17 10:20 97.8 85 16 132/75 96 04/20/17 10:20 97.8 20 20 132/75 96 04/20/17 08:21 Nasal Cannula 3.00 04/20/17 08:00 94 04/20/17 08:00 96.0 100 20 125/59 97 04/20/17 04:00 96.1 80 20 113/64 95 04/20/17 04:00 82 04/20/17 00:00 96.5 95 20 102/59 96 04/20/17 00:00 81 04/19/17 21:24 94 Nasal Cannula 3.00 04/19/17 20:00 96 04/19/17 20:00 98.1 95 22 144/68 94 04/19/17 19:58 85 04/19/17 18:50 Nasal Cannula 3.00 04/19/17 18:28 98 Nasal Cannula 3.00 04/19/17 17:45 96.0 103 20 107/69 94 I/O 04/19/17 04/19/17 04/19/17 04/20/17 04/20/17 04/20/17 07:00 15:00 23:00 07:00 15:00 23:00 Intake Total 480 ml 240 ml Output Total 350 ml 2000 ml Balance 480 ml -110 ml -2000 ml Intake Oral 480 ml 240 ml Output Urine Total 350 ml Chest Tube Drainage Total 2000 ml # Voids 4 Result Diagram: 04/20/17 0425 04/20/17 0430 Imaging Last Impressions Chest Tube Insertion 04/19/17 0000 Signed Impressions: Service Date/Time: Thursday, April 20, 2017 09:48 - CONCLUSION: Uncomplicated chest tube placement as above. There was immediate return of approximately 1 L of hemorrhagic effusion. Vimal Smith MD Objective Remarks awake and alert, NAD anicteric lungs- chest tube in place- draining bloody fluid regular rhythm abdomen soft, nontender extremities no edema Procedures 04/20- chest tube placement A/P Assessment and Plan 82 years old female Small cell Lung Carcinoma - Malignant pleural effusion S/P chest tube placement 04/20, small pneumothorax History of PUlmonary embolism COPD-02 dependent plan for talc pleurodesis per pulmonary Dr. Rayo.Dr. Li ff along with us continue home meds. Restart Lovenox when cleared with Dr. Ann and Dr. Li- bloody effusion Add ensure tid - nutrition supplements CM consult for home DME needs- requesting for hospital bed, bedside Dalila Colon MD Apr 20, 2017 13:56
[2017-04-20] MEDS ORDERED: BEDSIDE COMMODE1 MI1 (14:17)
[2017-04-20] MEDS ORDERED: HOSP BED1 (14:18)
[2017-04-20] MEDS: oxyCODONE/ACETAMINOPHEN 10 MG/325 MG TAB PO PRN (18:10)
--- NOTE | 2017-04-20 19:20 | HHI.PR ---
Subjective Remarks 82 YOWM with NSCLC, malig pl effusion had Right chest tube placed Draining chapa;gic fluid Breathing better has Chest pain Objective Vital Signs Vital Signs Date Time Temp Pulse Resp B/P Pulse Ox O2 Delivery O2 Flow Rate FiO2 04/20/17 16:00 78 04/20/17 16:00 96.5 97 18 120/68 95 04/20/17 13:00 97.1 82 20 140/66 97 04/20/17 11:35 83 20 131/72 95 04/20/17 11:05 85 20 142/72 94 04/20/17 10:35 86 20 124/75 93 04/20/17 10:20 97.8 85 16 132/75 96 04/20/17 10:20 97.8 20 20 132/75 96 04/20/17 08:21 Nasal Cannula 3.00 04/20/17 08:00 94 04/20/17 08:00 96.0 100 20 125/59 97 04/20/17 04:00 96.1 80 20 113/64 95 04/20/17 04:00 82 04/20/17 00:00 96.5 95 20 102/59 96 04/20/17 00:00 81 04/19/17 21:24 94 Nasal Cannula 3.00 04/19/17 20:00 96 04/19/17 20:00 98.1 95 22 144/68 94 04/19/17 19:58 85 I/O 04/19/17 04/19/17 04/19/17 04/20/17 04/20/17 04/20/17 06:59 14:59 22:59 06:59 14:59 22:59 Intake Total 480 ml 240 ml 960 ml Output Total 350 ml 2000 ml 1000 ml Balance 480 ml -110 ml -2000 ml -40 ml Intake Oral 480 ml 240 ml 960 ml Output Urine Total 350 ml 600 ml Chest Tube Drainage Total 2000 ml 400 ml # Voids 4 Result Diagram: 04/20/17 0425 04/20/17 0430 Objective Remarks GENERAL: Elderly male, mild pain SKIN: Warm and dry. HEAD: Normocephalic. EYES: No scleral icterus. No injection or drainage. NECK: Supple, trachea midline. No JVD or lymphadenopathy. CARDIOVASCULAR: Regular rate and rhythm without murmurs, gallops, or rubs. RESPIRATORY: Breath sounds equal bilaterally. No accessory muscle use. Right chest tube draining GASTROINTESTINAL: Abdomen soft, non-tender, nondistended. MUSCULOSKELETAL: No cyanosis, or edema. BACK: Nontender without obvious deformity. No CVA tenderness. A/P Assessment and Plan Malignant Pl effusion, s/p right chest tube Atelacresis NSCLC COPD PE PLAN: Chest tube to Suction Supplement 02 Once fluid drainage decreses, will need pleurodesis Resume Tristinx Jey Li MD Apr 20, 2017 19:20
[2017-04-20] MEDS: ZOLPIDEM TARTRATE 5 MG TAB PO PRN (22:06)
[2017-04-20] MEDS: ENOXAPARIN SODIUM 60 MG/0.6 ML SYRINGE SQ SCH (22:13)
[2017-04-21] VITALS (13 sets, daily range): BP systolic 110–141; BP diastolic 57–66; PULSE 77–125; RESP 20–22; TEMP 96.3–97.7; O2SAT 90–95
--- NOTE | 2017-04-21 06:59 | MB ---
cc: LATISHA DUBOSE DATE OF CONSULTATION: 04/20/2017 DATE OF : 1935 REASON FOR CONSULTATION Patient with metastatic ffi-ceont-vwmu lung cancer, who presents with increasing dyspnea. CHIEF COMPLAINT Shortness of breath. HISTORY OF PRESENT ILLNESS Mr. Castellanos is an 82-year-old male with a diagnosis of stage IV lung adenocarcinoma. This is a moderately differentiated adenocarcinoma which was diagnosed based on a CT-guided biopsy in February 2017. He has multifocal disease involving the right lung. He also has a malignant pleural effusion and involvement of the costal cartilage making this stage IV disease. The patient is currently being treated with carboplatin based systemic chemotherapy. His clinical course has been complicated with recurrent pleural effusions requiring multiple thoracenteses. He also has a history of pulmonary embolism and is currently on Lovenox. He was sent to the emergency room because of progressive increase in the pleural effusion and increased dyspnea. He has undergone right chest tube placement with drainage of serosanguineous fluid with a significant amount of drainage. He feels improvement in his breathing. He does not have any heart palpitations. No chest pain. No abdominal pain. No lower extremity edema or pain. REVIEW OF SYSTEMS A comprehensive 14-point review of systems was completed which is negative except as described in the HPI. PAST MEDICAL HISTORY 1. Stage IV non-small cell lung cancer. 2. Severe COPD. 3. History of pulmonary embolism. PAST SURGICAL HISTORY 1. Lung biopsy. 2. Multiple thoracenteses. 3. Tonsillectomy. 4. Appendectomy. 5. Recurrent pleural effusion. MEDICATIONS Medications were reviewed in the EMR. His home medications include: 1. Lovenox. 2. Finasteride 5 mg daily. 3. Breo Ellipta 100/125 daily. 4. Mucinex 600 mg twice a day. 5. Tessalon Perles 100 mg twice a day. 6. Percocet p.r.n. for pain. 7. Ambien 5 mg at nighttime. ALLERGIES No known drug allergies. SOCIAL HISTORY He has an almost [id number] smoking history. He does not drink alcohol anymore. He is retired. 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 FAMILY HISTORY The family history was reviewed and is noncontributory to this admission. PHYSICAL EXAMINATION VITAL SIGNS: Blood pressure 120/68, pulse in the 70s, temperature 96.5, respiratory rate 18. O2 sats are 95% on room air. GENERAL: An elderly male, chronically ill, thin, cachectic. HEENT: Pupils are equal, round and reactive to light. EOMI. No oral thrush. No oral lesions. NECK: Supple. No JVD. No bruits. No lymphadenopathy. CHEST: Clear to auscultation. Decreased on the right base. Chest tube in place. There is serosanguineous fluid in the drainage container. CARDIAC: S1, S2, regular rate and rhythm. ABDOMEN: Soft, nontender, nondistended. Bowel sounds are present. EXTREMITIES: Without edema, erythema or cyanosis. SKIN: Without any petechiae, lesions or bruises. NEUROLOGIC: No focal deficits. PSYCHIATRIC: Mood and affect is appropriate. LABORATORY WBC 14, hemoglobin 10.3, MCV 93.8. Serum chemistries show sodium 138, potassium 4.1, chloride 103, CO2 28.6, BUN 0.16, creatinine 0.5, GFR 160, calcium 8.2, phosphorus 2.3, magnesium 2.2, total bilirubin 0.4, AST 15, ALT 32, alk phos 68, total protein 5.7, albumin 2.4. PT 11.3, INR 1, PTT 33.2. IMAGING Imaging was reviewed in the EMR ASSESSMENT AND PLAN This is an 82-year-old male who has stage IV non-small cell lung cancer who has recurrent pleural effusion. He also has a history of pulmonary embolism. He presents to the emergency department with increased dyspnea and worsening pleural effusion. 1. Recurrent malignant pleural effusion in the setting of metastatic lung cancer. He has had multiple thoracenteses. He now has a chest tube in place and there is a significant amount of drainage. This patient will benefit from pleurodesis. We will consult CT surgery for this procedure. I have discussed this at length with the patient. 2. Acute dyspnea due to malignant pleural effusion as stated above. There has been some movement since a tremendous amount of fluid was removed 3. History of stage IV non-small cell lung cancer. He is currently getting solomon based chemotherapy. 4. History of COPD. The patient is being followed by Dr. Li. 5. History of pulmonary embolism. We will switch this patient to heparin, which will need to be stopped prior to pleurodesis. 6. Malnutrition with hypoalbuminemia. Will consult our dietitian. We encouraged the patient to increase his oral intake with Ensure or Boost t.i.d. with meals. Thank you for allowing me to participate in the care of this patient. I will continue to follow this patient along. MD EDWARDO Minor/HARRY /12:05 AM /6:41 AM
[2017-04-21] MEDS: FLUTICASONE 100 MCG/VILANTEROL 25 MCG INHALER INH SCH (09:00)
[2017-04-21] MEDS: DOCUSATE SODIUM 50 MG/SENNA 8.6 MG TAB PO SCH ×2 (09:00→20:03)
[2017-04-21] MEDS: SODIUM CHLORIDE 0.9% FLUSH 10 ML FLUSH IV FLUSH SCH ×2 (09:00→20:03)
[2017-04-21] MEDS: ALBUTEROL SULFATE 90 MCG/ACT HFA 18 GM INHALER INH SCH ×2 (09:00→20:04)
[2017-04-21] MEDS: FINASTERIDE 5 MG TAB PO SCH (09:00)
[2017-04-21] MEDS: ENOXAPARIN SODIUM 60 MG/0.6 ML SYRINGE SQ SCH (09:00)
[2017-04-21] MEDS: guaiFENesin E.R. 600 MG TAB PO SCH ×2 (09:00→20:02)
[2017-04-21] MEDS: MORPHINE SULFATE 4 MG/ML INJ IV PRN ×4 (09:01→20:02)
--- NOTE | 2017-04-21 09:12 | RADRPT ---
EXAM DATE/TIME: 04/21/2017 08:03 [facility] COMPARISON: CHEST EXPIRATION ONLY, April 20, 2017, 11:03. INDICATIONS : Evaluate for pneumothorax. MEDICAL HISTORY : PE, COPD, carcinoma lung SURGICAL HISTORY : Tonsillectomy. Appendectomy. infusaport ENCOUNTER: Subsequent ACUITY: 2 days PAIN SCORE: 0/10 LOCATION: Bilateral cranial FINDINGS: The only significant change when compared with the prior exam has been a slight reduction in size of the subpulmonic pneumothorax. A small caliber chest tube is coiled within the pneumothorax. Bilateral parenchymal infiltrates are again seen and shown slight improvement. No effusions. Heart is normal i n size. Port-A-Cath overlies the right chest. CONCLUSION: 1. Slight reduction in size of the subpulmonic pneumothorax on the right. Chest tube remains. 2. Slight improvement in the bilateral pulmonary infiltrates. Ramiro Mosley Jr., MD on April 21, 2017 at 9:08 Board Certified Radiologist. This report was verified electronically.
[2017-04-21] MEDS: oxyCODONE/ACETAMINOPHEN 10 MG/325 MG TAB PO PRN ×3 (10:34→22:26)
--- NOTE | 2017-04-21 12:32 | HHI.PR ---
Subjective Remarks seen with at bedside pain chest tube site- taking ensure very well + constipation- states take sprn dulcolax po at home Objective Vitals Vital Signs Date Time Temp Pulse Resp B/P Pulse Ox O2 Delivery O2 Flow Rate FiO2 04/21/17 12:02 96.9 111 20 120/57 90 04/21/17 11:54 Nasal Cannula 5.00 04/21/17 11:54 118 04/21/17 10:16 92 Nasal Cannula 5.00 04/21/17 08:29 96.3 116 21 141/66 92 04/21/17 04:04 77 04/21/17 04:00 97.5 89 20 119/60 95 04/21/17 00:00 97.0 93 21 118/63 94 04/20/17 20:40 93 04/20/17 20:00 97.5 94 21 134/76 96 04/20/17 16:00 78 04/20/17 16:00 96.5 97 18 120/68 95 04/20/17 13:00 97.1 82 20 140/66 97 I/O 04/20/17 04/20/17 04/20/17 04/21/17 04/21/17 04/21/17 07:00 15:00 23:00 07:00 15:00 23:00 Intake Total 240 ml 960 ml 360 ml 120 ml Output Total 350 ml 2300 ml 700 ml 200 ml Balance -110 ml -1340 ml -340 ml -80 ml Intake Oral 240 ml 960 ml 360 ml 120 ml Output Urine Total 350 ml 300 ml 300 ml 200 ml Chest Tube Drainage Total 2000 ml 400 ml Result Diagram: 04/20/17 0425 04/20/17 0430 Imaging Last Impressions Chest X-Ray 04/21/17 0000 Signed Impressions: Service Date/Time: Friday, April 21, 2017 08:03 - CONCLUSION: 1. Slight reduction in size of the subpulmonic pneumothorax on the right. Chest tube remains. 2. Slight improvement in the bilateral pulmonary infiltrates. Ramiro Mosley Jr., MD Chest Tube Insertion 04/19/17 0000 Signed Impressions: Service Date/Time: Thursday, April 20, 2017 09:48 - CONCLUSION: Uncomplicated chest tube placement as above. There was immediate return of approximately 1 L of hemorrhagic effusion. Vimal Smith MD Objective Remarks awake and alert, NAD anicteric lungs- chest tube in place right - draining bloody fluid regular rhythm abdomen soft, nontender extremities no edema, no calf tenderness Procedures 04/20- chest tube placement for effusiion A/P Assessment and Plan 82 years old female Small cell Lung Carcinoma - Malignant pleural effusion S/P chest tube placement 04/20, small pneumothorax History of PUlmonary embolism COPD-02 dependent plan for talc pleurodesis per pulmonary Dr. Ann and .Dr. Li ff along with us. CT surgery ff continue home meds. on Lovenox bid prn pain meds- IV Morphine prn and po Percocet- - increase to q 4 prn Check CBC in am Nutrition - ensure tid - nutrition supplements CM consult for home DME needs- requesting for hospital bed, bedside Dalila Colon MD Apr 21, 2017 12:32
--- NOTE | 2017-04-21 18:09 | PD.ONC.PN ---
Subjective Subjective Remarks Patient is afebrile Complains of being uncomfortable and not sleeping well Has pains along the right chest wall ever so often Reports not being hungry for dinner Objective Data Date Time Temp Pulse Resp B/P Pulse Ox O2 Delivery O2 Flow Rate FiO2 04/21/17 16:03 97.7 124 20 132/66 90 04/21/17 15:14 110 04/21/17 12:02 96.9 111 20 120/57 90 04/21/17 11:54 Nasal Cannula 5.00 04/21/17 11:54 118 04/21/17 10:16 92 Nasal Cannula 5.00 04/21/17 08:29 96.3 116 21 141/66 92 04/21/17 04:04 77 04/21/17 04:00 97.5 89 20 119/60 95 04/21/17 00:00 97.0 93 21 118/63 94 04/20/17 20:40 93 04/20/17 20:00 97.5 94 21 134/76 96 04/21/17 04/21/17 04/21/17 07:00 15:00 23:00 Intake Total 120 ml 480 ml Output Total 200 ml 650 ml Balance -80 ml -170 ml Result Diagram: 04/20/17 0425 04/20/17 0430 Imaging Studies Last 24 hours Impressions Chest X-Ray 04/21/17 0000 Signed Impressions: Service Date/Time: Friday, April 21, 2017 08:03 - CONCLUSION: 1. Slight reduction in size of the subpulmonic pneumothorax on the right. Chest tube remains. 2. Slight improvement in the bilateral pulmonary infiltrates. Ramiro Mosley Jr., MD Administered Medications Medications (Trade) Dose Ordered Sig/Jamil Route PRN Reason Start Time Stop Time Status Last Admin Dose Admin Finasteride (Proscar) 5 mg DAILY PO 04/20/17 09:00 04/21/17 09:00 Fluticasone/ Vilanterol (Breo Ellipta 100-25 Inh) 1 puff DAILY INH 04/20/17 09:00 04/21/17 09:00 Sodium Chloride (NS Flush) 2 ml BID IV FLUSH 04/19/17 21:00 04/21/17 09:00 Zolpidem Tartrate (Ambien) 5 mg HS PRN PO INSOMNIA 04/19/17 18:15 04/20/17 22:06 Oxycodone/ Acetaminophen (Percocet 5-325 Mg) 1 tab Q6H PRN PO PAIN SCALE 3 TO 5 04/19/17 18:15 04/20/17 10:45 Morphine Sulfate (Morphine Inj) 4 mg Q3H PRN IV Pain 6-10;if unable to take PO 04/19/17 18:15 04/21/17 09:01 Morphine Sulfate (Morphine Inj) 4 mg Q3H PRN IV BREAKTHROUGH PAIN 04/19/17 18:15 04/21/17 12:28 Senna/Docusate Sodium (Lily-Colace) 1 tab BID PO 04/19/17 21:00 04/21/17 09:00 Guaifenesin (Mucinex Er) 600 mg BID PO 04/19/17 21:00 04/21/17 09:00 Albuterol Sulfate (Ventolin Hfa Inh) 1 puff BID INH 04/19/17 21:30 04/21/17 09:00 Enoxaparin Sodium (Lovenox Inj) 60 mg Q12H SQ 04/20/17 20:00 04/21/17 09:00 Objective Remarks GENERAL: Elderly male, sitting up in bed in no acute distress SKIN: Warm and dry. HEAD: Normocephalic. EYES: No injection or drainage. NECK: Supple, trachea midline. CARDIOVASCULAR: Regular rate and rhythm without murmurs. RESPIRATORY: Lungs diminished to right side. Chest tube to right lateral chest draining sanguinous fluid. On 5 L O2 via nasal cannula. GASTROINTESTINAL: Abdomen soft, non-tender, nondistended. EXTREMITIES: No cyanosis, or edema. NEUROLOGICAL: No obvious focal deficit. Awake, alert, and oriented x3. Assessment/Plan Problem List: (1) Non-small cell carcinoma of lung Status: Chronic Plan: -- Patient was diagnosed in February 2017 with moderately differentiated adenocarcinoma --He has multifocal disease involving the right lung. -- Unfortunately he has required multiple thoracenteses for recurrent malignant pleural effusions (2) Pleural effusion Status: Acute Plan: -- Chest tube in place draining large amount of serosanguineous fluid -- Once drainage decreased we'll likely plan for pleurodesis. (3) Pulmonary embolism Status: Chronic Plan: -- Patient currently on treatment with therapeutic Lovenox dosing -- Will switch to heparin drip when closer to time for pleurodesis Assessment 82 y/o male with history of non-small cell lung cancer admitted for malignant pleural effusion of the right lung requiring chest tube placement Plan 1. Monitor chest tube drainage output. 2. Switch patient to heparin drip in anticipation of talc pleurodesis once drainage has decreased. 3. Consult dietitian for malnutrition. Attending Statement The exam, history, and the medical decision-making described in the above note were completed with the assistance of the mid-level provider. I reviewed and agree with the findings presented. I attest that I had a [id number] encounter with the patient on the same day, and personally performed and documented my assessment and findings in the medical record. 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 d/w Jud Garcia Apr 21, 2017 18:09 Vj Ann MD Apr 22, 2017 00:09
--- NOTE | 2017-04-21 18:57 | HHI.PR ---
Subjective Remarks 82 YOWM with NSCLC, malig pl effusion had Right chest tube placed Draining chapa;gic fluid Breathing better has Chest pain, worse for 1 hr Chest tube has airleak Objective Vital Signs Vital Signs Date Time Temp Pulse Resp B/P Pulse Ox O2 Delivery O2 Flow Rate FiO2 04/21/17 16:03 97.7 124 20 132/66 90 04/21/17 15:14 110 04/21/17 12:02 96.9 111 20 120/57 90 04/21/17 11:54 Nasal Cannula 5.00 04/21/17 11:54 118 04/21/17 10:16 92 Nasal Cannula 5.00 04/21/17 08:29 96.3 116 21 141/66 92 04/21/17 04:04 77 04/21/17 04:00 97.5 89 20 119/60 95 04/21/17 00:00 97.0 93 21 118/63 94 04/20/17 20:40 93 04/20/17 20:00 97.5 94 21 134/76 96 I/O 04/20/17 04/20/17 04/20/17 04/21/17 04/21/17 04/21/17 07:00 15:00 23:00 07:00 15:00 23:00 Intake Total 240 ml 960 ml 360 ml 120 ml 480 ml Output Total 350 ml 2300 ml 700 ml 200 ml 650 ml Balance -110 ml -1340 ml -340 ml -80 ml -170 ml Intake Oral 240 ml 960 ml 360 ml 120 ml 480 ml Output Urine Total 350 ml 300 ml 300 ml 200 ml 650 ml Chest Tube Drainage Total 2000 ml 400 ml Result Diagram: 04/20/17 0425 04/20/17 0430 Objective Remarks GENERAL: Elderly male, mild pain SKIN: Warm and dry. HEAD: Normocephalic. EYES: No scleral icterus. No injection or drainage. NECK: Supple, trachea midline. No JVD or lymphadenopathy. CARDIOVASCULAR: Regular rate and rhythm without murmurs, gallops, or rubs. RESPIRATORY: Breath sounds equal bilaterally. No accessory muscle use. Right chest tube draining GASTROINTESTINAL: Abdomen soft, non-tender, nondistended. MUSCULOSKELETAL: No cyanosis, or edema. BACK: Nontender without obvious deformity. No CVA tenderness. A/P Assessment and Plan Malignant Pl effusion, s/p right chest tube Atelacresis NSCLC COPD PE PLAN: Chest tube to Suction Supplement 02 Once fluid drainage decreses, will need pleurodesis IV Heparin Rpt CXR MS and Percocet for pain DW pt and his at BS Jey Li MD Apr 21, 2017 18:57
[2017-04-21 19:11] LABS: HEMATOCRIT 34.7 % (39.0-51.0); MEAN CELL VOLUME 92.3 FL (80.0-100.0); MEAN CORPUSCULAR HEMOGLOBIN 31.5 PG (27.0-34.0); MEAN CORPUSCULAR HGB CONC 34.1 % (32.0-36.0); PLATELET COUNT 183 TH/MM3 (150-450); RED BLOOD COUNT 3.76 MIL/MM3 (4.50-5.90); REVIEW FLAG FINAL; WHITE BLOOD COUNT 22.5 TH/MM3 (4.0-11.0)
[2017-04-21 19:16] LABS: APTT (PATIENT) 33.4 SEC (24.3-30.1); INTERNATIONAL NORMALIZED RATIO 1.1 RATIO; PROTHROMBIN TIME - PATIENT 11.9 SEC (9.8-11.6)
--- NOTE | 2017-04-21 19:43 | RADRPT ---
EXAM DATE/TIME: 04/21/2017 18:54 [facility] COMPARISON: CHEST EXPIRATION ONLY, April 20, 2017, 11:03. CHEST EXPIRATION ONLY, April 21, 2017, 8:03. CHEST SINGLE AP, April 08, 2017, 14:57. INDICATIONS : Short of breath. MEDICAL HISTORY : Chronic obstructive pulmonary disease. Carcinoma, lung. SURGICAL HISTORY : Infusaport. ENCOUNTER: Subsequent ACUITY: 2 days PAIN SCORE: 0/10 LOCATION: Bilateral chest FINDINGS: There is an Hmikie-t-Wxmu in place from the right internal jugular approach. There is a right chest t ube/pigtail catheter. There is a small pneumothorax seen at the inferior lateral right base. This is unchanged from the prior exam. Lung arpan are seen over the upper right lung. There is consolidatio n at the mid and lower right lung. There is lesser degree of consolidation or atelectasis at the left base. CONCLUSION: 1. Persistent mild pneumothorax at the inferior lateral right base. The patient does have a right jostin st tube in place. This is unchanged from the prior exam. 2. Consolidation at the mid and lower right lung and to a lesser degree, the left base. These finding s are stable. Leonel Graves MD on April 21, 2017 at 19:34 Board Certified Radiologist. This report was verified electronically.
[2017-04-21] MEDS: HEPARIN-D5W 25,000 U/250 ML 250 ML IV SCH (22:31)
[2017-04-21] MEDS: ZOLPIDEM TARTRATE 5 MG TAB PO PRN (22:32)
[2017-04-22] VITALS (13 sets, daily range): BP systolic 99–130; BP diastolic 56–62; PULSE 68–123; RESP 16–20; TEMP 96–99.5; O2SAT 93–96
[2017-04-22] MEDS: oxyCODONE/ACETAMINOPHEN 10 MG/325 MG TAB PO PRN ×2 (04:07→09:29)
[2017-04-22 04:30] LABS: HEMATOCRIT 32.4 % (39.0-51.0); MEAN CELL VOLUME 92.3 FL (80.0-100.0); MEAN CORPUSCULAR HEMOGLOBIN 31.4 PG (27.0-34.0); MEAN CORPUSCULAR HGB CONC 34.1 % (32.0-36.0); PLATELET COUNT 161 TH/MM3 (150-450); RED BLOOD COUNT 3.51 MIL/MM3 (4.50-5.90); RED CELL DISTRIBUTION WIDTH 15.8 % (11.6-17.2); REVIEW FLAG FINAL; WHITE BLOOD COUNT 17.9 TH/MM3 (4.0-11.0)
[2017-04-22 04:40] LABS: APTT (PATIENT) 63.7 SEC (24.3-30.1)
[2017-04-22] MEDS: DOCUSATE SODIUM 50 MG/SENNA 8.6 MG TAB PO SCH ×3 (08:12→22:00)
[2017-04-22] MEDS: guaiFENesin E.R. 600 MG TAB PO SCH ×2 (08:15→22:00)
[2017-04-22] MEDS: SODIUM CHLORIDE 0.9% FLUSH 10 ML FLUSH IV FLUSH SCH ×2 (08:15→22:00)
[2017-04-22] MEDS: FINASTERIDE 5 MG TAB PO SCH (08:15)
--- NOTE | 2017-04-22 08:21 | PD.ONC.PN ---
Subjective Subjective Remarks Afebrile overnight "My pain is much better" Reports he slept well until about 3am. Objective Data Date Time Temp Pulse Resp B/P Pulse Ox O2 Delivery O2 Flow Rate FiO2 04/22/17 05:38 93 Nasal Cannula 5.00 04/22/17 04:20 107 04/22/17 04:00 98.1 106 20 108/60 93 04/22/17 00:05 123 04/22/17 00:00 98.5 115 20 130/62 93 04/21/17 20:45 92 Nasal Cannula 5.00 04/21/17 20:03 125 04/21/17 20:00 97.6 125 22 110/65 91 04/21/17 19:44 114 04/21/17 16:03 97.7 124 20 132/66 90 04/21/17 15:14 110 04/21/17 12:02 96.9 111 20 120/57 90 04/21/17 11:54 Nasal Cannula 5.00 04/21/17 11:54 118 04/21/17 10:16 92 Nasal Cannula 5.00 04/21/17 08:29 96.3 116 21 141/66 92 04/22/17 04/22/17 04/22/17 06:59 14:59 22:59 Intake Total 120 ml Output Total 200 ml Balance -80 ml Result Diagram: 04/22/17 0400 04/20/17 0430 Laboratory Results Laboratory Tests Test 04/21/17 04/21/17 04/22/17 18:30 18:50 04:00 White Blood Count 22.5 TH/MM3 17.9 TH/MM3 Red Blood Count 3.76 MIL/MM3 3.51 MIL/MM3 Hemoglobin 11.9 GM/DL 11.0 GM/DL Hematocrit 34.7 % 32.4 % Mean Corpuscular Volume 92.3 FL 92.3 FL Mean Corpuscular Hemoglobin 31.5 PG 31.4 PG Mean Corpuscular Hemoglobin 34.1 % 34.1 % Concent Red Cell Distribution Width 16.0 % 15.8 % Platelet Count 183 TH/MM3 161 TH/MM3 Mean Platelet Volume 9.3 FL 8.9 FL Prothrombin Time 11.9 SEC Prothromb Time International 1.1 RATIO Ratio Activated Partial 33.4 SEC 63.7 SEC Thromboplast Time Administered Medications Medications (Trade) Dose Ordered Sig/Jamil Route PRN Reason Start Time Stop Time Status Last Admin Dose Admin Finasteride (Proscar) 5 mg DAILY PO 04/20/17 09:00 04/21/17 09:00 Fluticasone/ Vilanterol (Breo Ellipta 100-25 Inh) 1 puff DAILY INH 04/20/17 09:00 04/21/17 09:00 Sodium Chloride (NS Flush) 2 ml BID IV FLUSH 04/19/17 21:00 04/21/17 20:03 Zolpidem Tartrate (Ambien) 5 mg HS PRN PO INSOMNIA 04/19/17 18:15 04/21/17 22:32 Oxycodone/ Acetaminophen (Percocet 5-325 Mg) 1 tab Q6H PRN PO PAIN SCALE 3 TO 5 04/19/17 18:15 04/20/17 10:45 Morphine Sulfate (Morphine Inj) 4 mg Q3H PRN IV Pain 6-10;if unable to take PO 04/19/17 18:15 04/21/17 09:01 Morphine Sulfate (Morphine Inj) 4 mg Q3H PRN IV BREAKTHROUGH PAIN 04/19/17 18:15 04/21/17 20:02 Senna/Docusate Sodium (Lily-Colace) 1 tab BID PO 04/19/17 21:00 04/21/17 20:03 Guaifenesin (Mucinex Er) 600 mg BID PO 04/19/17 21:00 04/21/17 20:02 Albuterol Sulfate (Ventolin Hfa Inh) 1 puff BID INH 04/19/17 21:30 04/21/17 20:04 Oxycodone/ Acetaminophen 1 tab 1 tab Q4HR PRN PO PAIN SCALE 6 TO 10 04/21/17 16:00 04/22/17 04:07 Heparin Sodium/ Dextrose (Heparin-D5W Inj) 250 ml @ 0 mls/hr TITRATE IV 04/21/17 22:00 04/21/17 22:31 Objective Remarks GENERAL: Elderly male, sitting up in bed in no acute distress. SKIN: Warm and dry. HEAD: Normocephalic. EYES: No injection or drainage. NECK: Supple, trachea midline. CARDIOVASCULAR: Regular rate and rhythm without murmurs. RESPIRATORY: Wheezing R lung field. Chest tube to right lateral chest draining sanguinous fluid. On 5 L O2 via nasal cannula. GASTROINTESTINAL: Abdomen soft, non-tender, nondistended. EXTREMITIES: No cyanosis, or edema. NEUROLOGICAL: No obvious focal deficit. Awake, alert, and oriented x3. Assessment/Plan Problem List: (1) Non-small cell carcinoma of lung Status: Chronic Plan: -- Patient was diagnosed in February 2017 with moderately differentiated adenocarcinoma --He has multifocal disease involving the right lung. -- Unfortunately he has required multiple thoracenteses for recurrent malignant pleural effusions (2) Pleural effusion Status: Acute Plan: -- Chest tube in place draining large amount of serosanguineous fluid -- Once drainage decreased we'll likely plan for pleurodesis. (3) Pulmonary embolism Status: Chronic Plan: -- Currently on heparin drip Assessment 82 y/o male with history of non-small cell lung cancer admitted for malignant pleural effusion of the right lung requiring chest tube placement Plan 1. Continue heparin 2. Monitor drainage from chest tube 3. Await recommendations from dietitian. 4. Discussed with the patient the importance of nutrition while he is acutely trying to overcome the pleural effusion. 5. Monitor CBC. Attending Statement The exam, history, and the medical decision-making described in the above note were completed with the assistance of the mid-level provider. I reviewed and agree with the findings presented. I attest that I had a [id number] encounter with the patient on the same day, and personally performed and documented my assessment and findings in the medical record. will ask IR for pleurodesis via pigtail catheter focus on nutrition and PT d.w rn long discussion with patient and his Jud Christensen BEV Apr 22, 2017 08:21 Vj Ann MD Apr 22, 2017 22:35
--- NOTE | 2017-04-22 08:31 | MB ---
cc: CHRIS MIJARES DATE OF CONSULTATION 04/21/2017 DATE OF 1935. This is an 82-year-old male patient of Dr. Tae Estevez, Dr. Li and Dr. Ann. HISTORY OF THE PRESENT ILLNESS The patient was diagnosed with [id number] lung CA stage IV by biopsy, CT guided biopsy February 2017. Has received two doses of chemotherapy. He has been hospitalized he said three times for recurrent right thoracentesis. He had recurrent pleural effusion. He was symptomatic with shortness of breath on minimal exertion. No recent fever, chills. They did place a #10-Serbian non locking ____ catheter on the which drained about a liter of hemorrhagic effusion. We were consulted for possible talc pleurodesis. The patient has significant drainage still. He drained 2400 mL since placement and over 500 mL in a 12-hour. PAST MEDICAL HISTORY The patient's past medical history: 1. Recently diagnosed non-small cell lung CA. 2. Recurrent pleural effusions. 3. History of mycobacterial AVM infection. 4. History of left pulmonary emboli, he has been on Lovenox. 5. COPD. 6. He had a collapsed right lung in 1983. PAST SURGICAL HISTORY Surgeries include: 1. Ubsbyq-[id number]-Fowt. 2. Tonsillectomy. 3. Appendectomy. ALLERGIES The patient has no known allergies. MEDICATIONS He takes: 1. Finasteride. 2. Breo Ellipta. 3. Mucinex. 4. Tessalon. 5. Percocet. 6. Ambien at night. FAMILY HISTORY He is for 34 years, second marriage. Has six children. Both parents . SOCIAL HISTORY 35 pack-year history of smoking one to two weeks packs a day. He quit 35 years ago. Prior alcohol. 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 REVIEW OF SYSTEMS GENERAL: Weak, fatigues easily. HEENT: No blurred vision, hearing loss. RESPIRATORY: Positive for shortness of breath. CARDIOVASCULAR: He does have some discomfort where his chest tube site is. GASTROINTESTINAL: No diarrhea, vomiting. Has poor appetite. GENITOURINARY: No burning, frequency, urgency CENTRAL NERVOUS SYSTEM: No history of TIA, CVA, seizure disorder. ENDOCRINOLOGY: No diabetes or hypothyroidism. PHYSICAL EXAMINATION VITAL SIGNS: On exam blood pressure 130/60, heart rate of 100. Afebrile. The patient's O2 saturation of 90% on 5 liters. GENERAL: The patient is awake, alert, clearly dyspneic with any exertion. HEENT: Head is normocephalic, atraumatic. Pupils equal and reactive. Oral mucosa pink, moist. NECK: Supple. No JVD. CARDIOVASCULAR: Heart sounds S1-S2, regular rate and rhythm. No audible rubs or gallops. LUNGS: Diminished on the right. He has got a right-sided chest tube. Some dull percussion. No wheezing or rhonchi. He has a right Infusaport. LABORATORY DATA Lab work shows hemoglobin of 10.3, hematocrit 31, white cell count 14, platelet count 164. Sodium 138, potassium 4.1, BUN 16 with a creatinine of 0.50. INR 1.0. IMAGING Repeat chest x-ray this morning showed slight reduction in size of subpulmonic pneumothorax on the right. Chest tube remains. Slight improvement of bilateral pulmonary infiltrates. IMPRESSION This is an unfortunate 82-year-old male recently diagnosed non-small cell lung CA stage IV with recurrent pleural effusions. At this time recommend consulting IR to evaluate for talc pleurodesis via the pigtail catheter once the drainage has decreased and/or evaluation for possible placement of PleurX catheter. DICTATED BY: BEV León MD ANNE Allan/MARY /5:00 PM /8:27 AM
[2017-04-22] MEDS: FLUTICASONE 100 MCG/VILANTEROL 25 MCG INHALER INH SCH (09:00)
[2017-04-22] MEDS: ALBUTEROL SULFATE 90 MCG/ACT HFA 18 GM INHALER INH SCH ×2 (09:00→22:00)
--- NOTE | 2017-04-22 09:48 | HHI.PR ---
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 Patient complaining about location of his room being too loud so he is not able to sleep. He stated that he was given a sleeping aid that he thinks he vomited. Patient stated that he does not want to take any sleeping aid and asked to be moved to a different room. Remains afebrile. He has no complaints. Dealt with charge nurse Nimisha in regards to room situation. Objective Vitals Vital Signs Date Time Temp Pulse Resp B/P Pulse Ox O2 Delivery O2 Flow Rate FiO2 04/22/17 08:00 96.3 68 16 114/58 95 04/22/17 05:38 93 Nasal Cannula 5.00 04/22/17 04:20 107 04/22/17 04:00 98.1 106 20 108/60 93 04/22/17 00:05 123 04/22/17 00:00 98.5 115 20 130/62 93 04/21/17 20:45 92 Nasal Cannula 5.00 04/21/17 20:03 125 04/21/17 20:00 97.6 125 22 110/65 91 04/21/17 19:44 114 04/21/17 16:03 97.7 124 20 132/66 90 04/21/17 15:14 110 04/21/17 12:02 96.9 111 20 120/57 90 04/21/17 11:54 Nasal Cannula 5.00 04/21/17 11:54 118 04/21/17 10:16 92 Nasal Cannula 5.00 I/O 04/21/17 04/21/17 04/21/17 04/22/17 04/22/17 04/22/17 06:59 14:59 22:59 06:59 14:59 22:59 Intake Total 120 ml 480 ml 240 ml 120 ml Output Total 200 ml 650 ml 520 ml 200 ml 250 ml Balance -80 ml -170 ml -280 ml -80 ml -250 ml Intake Oral 120 ml 480 ml 240 ml 120 ml Output Urine Total 200 ml 650 ml 100 ml 200 ml Chest Tube Drainage Total 420 ml 250 ml Result Diagram: 04/22/17 0400 04/20/17 0430 Objective Remarks Gen awake and alert, NAD Resp chest tube in place right - draining bloody fluid CV regular rhythm abdomen soft, nontender, nondistended. Negative for any peritoneal signs. extremities no edema, no calf tenderness Procedures 04/20- chest tube placement for effusiion Medications and IVs Current Medications Albuterol Sulfate (Proair Hfa Inh) 1 puff BID INH ; Start 04/19/17 at 21:00; Stop 04/19/17 at 21:03; Status DC Benzonatate (Tessalon) 100 mg TID PRN PO COUGH; Start 04/19/17 at 18:15 Finasteride (Proscar) 5 mg DAILY PO Last administered on 04/22/17 08:15; Start 04/20/17 at 09:00 Fluticasone/ Vilanterol (Breo Ellipta 100-25 Inh) 1 puff DAILY INH Last administered on 04/21/17 09:00; Start 04/20/17 at 09:00 Oxycodone/ Acetaminophen (Percocet 5-325 Mg) 1 tab Q6H PRN PO PAIN; Start at 18:15; Status UNV Sodium Chloride (Weld Christos Pequea) 2 spray Q6H PRN EACH NARE NASAL CONGESTION; Start 04/19/17 at 18:15 Sodium Chloride (NS Flush) 2 ml UNSCH PRN IV FLUSH FLUSH AFTER USING IV ACCESS ; Start 04/19/17 at 18:15 Sodium Chloride (NS Flush) 2 ml BID IV FLUSH Last administered on 04/22/17 08: 15; Start 04/19/17 at 21:00 Acetaminophen (Tylenol) 650 mg Q4H PRN PO TEMP > 100.4; Start 04/19/17 at 18:15 Ondansetron HCl (Zofran Inj) 4 mg Q6H PRN IVP NAUSEA OR VOMITING; Start at 18:15 Prochlorperazine (Compazine Supp) 25 mg Q12H PRN RECTAL NAUSEA OR VOMITING; Start 04/19/17 at 18:15 Zolpidem Tartrate (Ambien) 5 mg HS PRN PO INSOMNIA Last administered on 22:32; Start 04/19/17 at 18:15 Oxycodone/ Acetaminophen (Percocet 5-325 Mg) 1 tab Q6H PRN PO PAIN SCALE 3 TO 5 Last administered on 04/20/17 10:45; Start 04/19/17 at 18:15 Oxycodone/ Acetaminophen (Percocet 10-325 Mg) 1 tab Q6H PRN PO PAIN SCALE 6 TO 10 Last administered on 04/21/17 10:34; Start 04/19/17 at 18:15; Stop 04/21/17 at 13:29; Status DC Morphine Sulfate (Morphine Inj) 2 mg Q3H PRN IV Pain 3-5; if unable to take PO ; Start 04/19/17 at 18:15 Morphine Sulfate (Morphine Inj) 4 mg Q3H PRN IV Pain 6-10;if unable to take PO Last administered on 04/21/17 09:01; Start 04/19/17 at 18:15 Morphine Sulfate (Morphine Inj) 4 mg Q3H PRN IV BREAKTHROUGH PAIN Last administered on 04/21/17 20:02; Start 04/19/17 at 18:15 Naloxone HCl (Narcan Inj) 0.4 mg UNSCH PRN IV SEE LABEL COMMENTS; Start at 18:15 Senna/Docusate Sodium (Lily-Colace) 1 tab BID PO Last administered on 20:03; Start 04/19/17 at 21:00 Magnesium Hydroxide (Milk Of Magnesia Liq) 30 ml Q12H PRN PO MILD - MODERATE CONSTIPATION; Start 04/19/17 at 18:15; Stop 04/21/17 at 14:09; Status DC Sennosides (Senokot) 17.2 mg Q12H PRN PO MODERATE - SEVERE CONSTIPATION; Start 04/19/17 at 18:15; Stop 04/21/17 at 14:09; Status DC Bisacodyl (Dulcolax Supp) 10 mg DAILY PRN RECTAL SEVERE CONSITIPATION; Start at 18:15; Status Cancel Lactulose (Lactulose Liq) 30 ml DAILY PRN PO SEVERE CONSITIPATION; Start at 18:15; Stop 04/21/17 at 14:09; Status DC Albuterol/ Ipratropium (Duoneb Neb) 1 ampule Q4HR NEB PRN NEB SHORTNESS OF BREATH; Start 04/19/17 at 18:15 Guaifenesin (Mucinex Er) 600 mg BID PO Last administered on 04/22/17 08:15; Start 04/19/17 at 21:00 Temazepam (Restoril) 7.5 mg HS PRN PO sleep; Start 04/19/17 at 19:00; Stop at 19:00; Status DC Albuterol Sulfate (Ventolin Hfa Inh) 1 puff BID INH Last administered on 20:04; Start 04/19/17 at 21:30 Fentanyl Citrate (fentaNYL INJ) 100 mcg STK-MED ONCE .ROUTE Last administered on 04/20/17 09:45; Start 04/20/17 at 09:45; Stop 04/20/17 at 09:46; Status DC Midazolam HCl (Versed Inj) 2 mg STK-MED ONCE .ROUTE Last administered on 09:45; Start 04/20/17 at 09:45; Stop 04/20/17 at 09:46; Status DC Fentanyl Citrate (fentaNYL INJ) 100 mcg STK-MED ONCE .ROUTE Last administered on 04/20/17 10:03; Start 04/20/17 at 10:03; Stop 04/20/17 at 10:04; Status DC Midazolam HCl (Versed Inj) 2 mg STK-MED ONCE .ROUTE Last administered on 10:03; Start 04/20/17 at 10:03; Stop 04/20/17 at 10:04; Status DC Enoxaparin Sodium (Lovenox Inj) 60 mg Q12H SQ Last administered on 04/21/17 09 :00; Start 04/20/17 at 20:00; Stop 04/21/17 at 18:08; Status DC Bisacodyl (Dulcolax Ec) 10 mg DAILY PRN PO constipation; Start 04/21/17 at 15: 00 Oxycodone/ Acetaminophen 1 tab 1 tab Q4HR PRN PO PAIN SCALE 6 TO 10 Last administered on 04/22/17 09:29; Start 04/21/17 at 16:00 Heparin Sodium/ Dextrose (Heparin-D5W Inj) 250 ml @ 0 mls/hr TITRATE IV Last administered on 04/21/17 22:31; Start 04/21/17 at 22:00 A/P Assessment and Plan 82 years old female Small cell Lung Carcinoma - Malignant pleural effusion S/P chest tube placement 04/20, small pneumothorax History of PUlmonary embolism 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 Ann and .Dr. Li ff along with us. CT surgery ff continue home meds. on Lovenox bid prn pain meds- IV Morphine prn and po Percocet- - increase to q 4 prn Check CBC in am Nutrition - ensure tid - nutrition supplements CM consult for home DME needs- requesting for hospital bed, bedside commode Dealt with charge nurse in regards to room change request. Lamar Villegas MD Apr 22, 2017 09:48
[2017-04-22] MEDS: BISACODYL EC 5 MG TABEC PO PRN (11:12)
[2017-04-22 11:33] LABS: APTT (PATIENT) 102.9 SEC (24.3-30.1)
[2017-04-22 15:17] LABS: APTT (PATIENT) 48.8 SEC (24.3-30.1)
--- NOTE | 2017-04-22 18:37 | HHI.PR ---
Subjective Remarks 82 YOWM with NSCLC, malig pl effusion had Right chest tube placed Draining chapa;gic fluid Breathing better Chest tube has airleak Had Vomiting once Objective Vital Signs Vital Signs Date Time Temp Pulse Resp B/P Pulse Ox O2 Delivery O2 Flow Rate FiO2 04/22/17 17:09 95 Nasal Cannula 5.00 04/22/17 16:00 96.0 114 20 128/62 96 04/22/17 12:00 98.5 111 20 99/56 95 04/22/17 11:41 95 Nasal Cannula 5.00 04/22/17 09:41 110 04/22/17 09:41 96 Nasal Cannula 5.00 04/22/17 08:00 96.3 68 16 114/58 95 04/22/17 05:38 93 Nasal Cannula 5.00 04/22/17 04:20 107 04/22/17 04:00 98.1 106 20 108/60 93 04/22/17 00:05 123 04/22/17 00:00 98.5 115 20 130/62 93 04/21/17 20:45 92 Nasal Cannula 5.00 04/21/17 20:03 125 04/21/17 20:00 97.6 125 22 110/65 91 04/21/17 19:44 114 I/O 04/21/17 04/21/17 04/21/17 04/22/17 04/22/17 04/22/17 07:00 15:00 23:00 07:00 15:00 23:00 Intake Total 120 ml 480 ml 240 ml 120 ml 580 ml Output Total 200 ml 650 ml 520 ml 200 ml 675 ml Balance -80 ml -170 ml -280 ml -80 ml -95 ml Intake Oral 120 ml 480 ml 240 ml 120 ml 580 ml Output Urine Total 200 ml 650 ml 100 ml 200 ml 425 ml Chest Tube Drainage Total 420 ml 250 ml # Bowel Movements 0 Result Diagram: 04/22/17 0400 04/20/17 0430 Objective Remarks GENERAL: Elderly male, mild pain SKIN: Warm and dry. HEAD: Normocephalic. EYES: No scleral icterus. No injection or drainage. NECK: Supple, trachea midline. No JVD or lymphadenopathy. CARDIOVASCULAR: Regular rate and rhythm without murmurs, gallops, or rubs. RESPIRATORY: Breath sounds equal bilaterally. No accessory muscle use. Right chest tube draining GASTROINTESTINAL: Abdomen soft, non-tender, nondistended. MUSCULOSKELETAL: No cyanosis, or edema. BACK: Nontender without obvious deformity. No CVA tenderness. A/P Assessment and Plan Malignant Pl effusion, s/p right chest tube Atelacresis NSCLC COPD PE PLAN: Chest tube to Suction Supplement 02 Once fluid drainage decreses, will need pleurodesis IV Heparin Rpt CXR MS and Percocet for pain Jey Li MD Apr 22, 2017 18:37
[2017-04-22] MEDS: ZOLPIDEM TARTRATE 5 MG TAB PO PRN (22:00)
[2017-04-22] MEDS: HEPARIN-D5W 25,000 U/250 ML 250 ML IV SCH (22:18)
[2017-04-22 23:21] LABS: APTT (PATIENT) 47.1 SEC (24.3-30.1)
[2017-04-23] VITALS (12 sets, daily range): BP systolic 109–129; BP diastolic 57–65; PULSE 110–119; RESP 17–24; TEMP 95.7–99.1; O2SAT 90–98
[2017-04-23 05:34] LABS: HEMATOCRIT 29.1 % (39.0-51.0); MEAN CORPUSCULAR HEMOGLOBIN 31.6 PG (27.0-34.0); PLATELET COUNT 146 TH/MM3 (150-450); RED BLOOD COUNT 3.13 MIL/MM3 (4.50-5.90); RED CELL DISTRIBUTION WIDTH 15.8 % (11.6-17.2); REVIEW FLAG FINAL; WHITE BLOOD COUNT 16.9 TH/MM3 (4.0-11.0)
[2017-04-23 05:42] LABS: APTT (PATIENT) 56.7 SEC (24.3-30.1)
[2017-04-23] MEDS: DOCUSATE SODIUM 50 MG/SENNA 8.6 MG TAB PO SCH ×2 (08:14→19:39)
[2017-04-23] MEDS: FLUTICASONE 100 MCG/VILANTEROL 25 MCG INHALER INH SCH (08:15)
[2017-04-23] MEDS: guaiFENesin E.R. 600 MG TAB PO SCH ×2 (08:15→19:39)
[2017-04-23] MEDS: BISACODYL EC 5 MG TABEC PO PRN (08:15)
[2017-04-23] MEDS: SODIUM CHLORIDE 0.9% FLUSH 10 ML FLUSH IV FLUSH SCH ×2 (08:15→19:40)
[2017-04-23] MEDS: FINASTERIDE 5 MG TAB PO SCH (08:15)
[2017-04-23] MEDS: ALBUTEROL SULFATE 90 MCG/ACT HFA 18 GM INHALER INH SCH ×2 (08:15→19:41)
[2017-04-23] MEDS: SODIUM CHLORIDE 0.65% NASAL SPRAY 45 ML BTL EACH NARE PRN (08:26)
[2017-04-23] MEDS: RESP: ALBUTEROL 2.5 MG/IPRATROPIUM 0.5 MG NEB (PRN) NEB (08:49)
--- NOTE | 2017-04-23 08:49 | HHI.PR ---
Subjective Remarks 82 YOWM with NSCLC, malig pl effusion had Right chest tube placed Draining chapa;gic fluid Breathing better Chest tube has airleak Gets confused C/O constipation, poor appetite Objective Vital Signs Vital Signs Date Time Temp Pulse Resp B/P Pulse Ox O2 Delivery O2 Flow Rate FiO2 04/23/17 08:21 Nasal Cannula 4.00 04/23/17 08:00 98.5 117 20 129/61 94 04/23/17 04:00 110 04/23/17 04:00 96.1 112 18 113/65 95 04/23/17 00:11 119 04/23/17 00:00 95.7 113 20 113/60 92 04/22/17 22:00 Nasal Cannula 5.00 04/22/17 20:04 109 04/22/17 20:00 99.5 114 20 130/60 93 04/22/17 17:09 95 Nasal Cannula 5.00 04/22/17 16:00 96.0 114 20 128/62 96 04/22/17 12:00 98.5 111 20 99/56 95 04/22/17 11:41 95 Nasal Cannula 5.00 04/22/17 09:41 110 04/22/17 09:41 96 Nasal Cannula 5.00 I/O 04/22/17 04/22/17 04/22/17 04/23/17 04/23/17 04/23/17 06:59 14:59 22:59 06:59 14:59 22:59 Intake Total 120 ml 100 ml 480 ml 550 ml Output Total 200 ml 525 ml 530 ml 500 ml 170 ml Balance -80 ml -425 ml -50 ml 50 ml -170 ml Intake Oral 120 ml 100 ml 480 ml 550 ml Output Urine Total 200 ml 275 ml 270 ml 500 ml Chest Tube Drainage Total 250 ml 260 ml 170 ml # Bowel Movements 0 0 1 Result Diagram: 04/23/17 0500 04/20/17 0430 Objective Remarks GENERAL: Elderly male, mild pain SKIN: Warm and dry. HEAD: Normocephalic. EYES: No scleral icterus. No injection or drainage. NECK: Supple, trachea midline. No JVD or lymphadenopathy. CARDIOVASCULAR: Regular rate and rhythm without murmurs, gallops, or rubs. RESPIRATORY: Breath sounds equal bilaterally. No accessory muscle use. Right chest tube draining GASTROINTESTINAL: Abdomen soft, non-tender, nondistended. MUSCULOSKELETAL: No cyanosis, or edema. BACK: Nontender without obvious deformity. No CVA tenderness. A/P Assessment and Plan Malignant Pl effusion, s/p right chest tube Atelacresis NSCLC COPD PE PLAN: Chest tube to Suction Supplement 02 Once fluid drainage decreses, will need pleurodesis IV Heparin MS and Percocet for pain MRI brain for AMS Dulcolax supp X1 DW pt and at BS. Jey Li MD Apr 23, 2017 08:49
[2017-04-23] MEDS ORDERED: BISACODYL 10 MG SUPP RECTAL ONE (09:00)
--- NOTE | 2017-04-23 09:26 | HHI.PR ---
Subjective Remarks Follow-up for shortness of breathing secondary to pleural effusion from lung cancer Patient feels like his breathing has not improved. He is receiving a nebulizer treatment for the first time during the interview. Positive for cough. His is at the bedside. is concerned that patient gets confused and feels like he has gotten worse in regards to his mental status. She is asking for an MRI of the brain. Patient is AAO 2. He is able to him his name and location. He answers questions appropriately. Objective Vitals Vital Signs Date Time Temp Pulse Resp B/P Pulse Ox O2 Delivery O2 Flow Rate FiO2 04/23/17 08:52 98 Nasal Cannula 4.00 04/23/17 08:21 Nasal Cannula 4.00 04/23/17 08:00 98.5 117 20 129/61 94 04/23/17 04:00 110 04/23/17 04:00 96.1 112 18 113/65 95 04/23/17 00:11 119 04/23/17 00:00 95.7 113 20 113/60 92 04/22/17 22:00 Nasal Cannula 5.00 04/22/17 20:04 109 04/22/17 20:00 99.5 114 20 130/60 93 04/22/17 17:09 95 Nasal Cannula 5.00 04/22/17 16:00 96.0 114 20 128/62 96 04/22/17 12:00 98.5 111 20 99/56 95 04/22/17 11:41 95 Nasal Cannula 5.00 04/22/17 09:41 110 04/22/17 09:41 96 Nasal Cannula 5.00 I/O 04/22/17 04/22/17 04/22/17 04/23/17 04/23/17 04/23/17 07:00 15:00 23:00 07:00 15:00 23:00 Intake Total 120 ml 580 ml 550 ml Output Total 200 ml 675 ml 380 ml 500 ml 170 ml Balance -80 ml -95 ml -380 ml 50 ml -170 ml Intake Oral 120 ml 580 ml 550 ml Output Urine Total 200 ml 425 ml 120 ml 500 ml Chest Tube Drainage Total 250 ml 260 ml 170 ml # Bowel Movements 0 1 Result Diagram: 04/23/17 0500 04/20/17 0430 Objective Remarks Gen awake and alert, NAD Resp chest tube in place right - draining bloody fluid diffuse rhonchi. CV regular rhythm abdomen soft, nontender, nondistended. Negative for any peritoneal signs. extremities no edema, no calf tenderness Procedures 04/20- chest tube placement for effusiion Medications and IVs Current Medications Albuterol Sulfate (Proair Hfa Inh) 1 puff BID INH ; Start 04/19/17 at 21:00; Stop 04/19/17 at 21:03; Status DC Benzonatate (Tessalon) 100 mg TID PRN PO COUGH; Start 04/19/17 at 18:15 Finasteride (Proscar) 5 mg DAILY PO Last administered on 04/23/17 08:15; Start 04/20/17 at 09:00 Fluticasone/ Vilanterol (Breo Ellipta 100-25 Inh) 1 puff DAILY INH Last administered on 04/23/17 08:15; Start 04/20/17 at 09:00 Oxycodone/ Acetaminophen (Percocet 5-325 Mg) 1 tab Q6H PRN PO PAIN; Start at 18:15; Status UNV Sodium Chloride ([place]) 2 spray Q6H PRN EACH NARE NASAL CONGESTION Last administered on 04/23/17 08:26; Start 04/19/17 at 18:15 Sodium Chloride (NS Flush) 2 ml UNSCH PRN IV FLUSH FLUSH AFTER USING IV ACCESS ; Start 04/19/17 at 18:15 Sodium Chloride (NS Flush) 2 ml BID IV FLUSH Last administered on 04/22/17 22: 00; Start 04/19/17 at 21:00 Acetaminophen (Tylenol) 650 mg Q4H PRN PO TEMP > 100.4; Start 04/19/17 at 18:15 Ondansetron HCl (Zofran Inj) 4 mg Q6H PRN IVP NAUSEA OR VOMITING; Start at 18:15 Prochlorperazine (Compazine Supp) 25 mg Q12H PRN RECTAL NAUSEA OR VOMITING; Start 04/19/17 at 18:15 Zolpidem Tartrate (Ambien) 5 mg HS PRN PO INSOMNIA Last administered on 22:00; Start 04/19/17 at 18:15 Oxycodone/ Acetaminophen (Percocet 5-325 Mg) 1 tab Q6H PRN PO PAIN SCALE 3 TO 5 Last administered on 04/20/17 10:45; Start 04/19/17 at 18:15 Oxycodone/ Acetaminophen (Percocet 10-325 Mg) 1 tab Q6H PRN PO PAIN SCALE 6 TO 10 Last administered on 04/21/17 10:34; Start 04/19/17 at 18:15; Stop 04/21/17 at 13:29; Status DC Morphine Sulfate (Morphine Inj) 2 mg Q3H PRN IV Pain 3-5; if unable to take PO ; Start 04/19/17 at 18:15 Morphine Sulfate (Morphine Inj) 4 mg Q3H PRN IV Pain 6-10;if unable to take PO Last administered on 04/21/17 09:01; Start 04/19/17 at 18:15 Morphine Sulfate (Morphine Inj) 4 mg Q3H PRN IV BREAKTHROUGH PAIN Last administered on 04/21/17 20:02; Start 04/19/17 at 18:15 Naloxone HCl (Narcan Inj) 0.4 mg UNSCH PRN IV SEE LABEL COMMENTS; Start at 18:15 Senna/Docusate Sodium (Lily-Colace) 1 tab BID PO Last administered on 08:14; Start 04/19/17 at 21:00 Magnesium Hydroxide (Milk Of Magnesia Liq) 30 ml Q12H PRN PO MILD - MODERATE CONSTIPATION; Start 04/19/17 at 18:15; Stop 04/21/17 at 14:09; Status DC Sennosides (Senokot) 17.2 mg Q12H PRN PO MODERATE - SEVERE CONSTIPATION; Start 04/19/17 at 18:15; Stop 04/21/17 at 14:09; Status DC Bisacodyl (Dulcolax Supp) 10 mg DAILY PRN RECTAL SEVERE CONSITIPATION; Start at 18:15; Status Cancel Lactulose (Lactulose Liq) 30 ml DAILY PRN PO SEVERE CONSITIPATION; Start at 18:15; Stop 04/21/17 at 14:09; Status DC Albuterol/ Ipratropium (Duoneb Neb) 1 ampule Q4HR NEB PRN NEB SHORTNESS OF BREATH Last administered on 04/23/17 08:49; Start 04/19/17 at 18:15 Guaifenesin (Mucinex Er) 600 mg BID PO Last administered on 04/23/17 08:15; Start 04/19/17 at 21:00 Temazepam (Restoril) 7.5 mg HS PRN PO sleep; Start 04/19/17 at 19:00; Stop at 19:00; Status DC Albuterol Sulfate (Ventolin Hfa Inh) 1 puff BID INH Last administered on 08:15; Start 04/19/17 at 21:30 Fentanyl Citrate (fentaNYL INJ) 100 mcg STK-MED ONCE .ROUTE Last administered on 04/20/17 09:45; Start 04/20/17 at 09:45; Stop 04/20/17 at 09:46; Status DC Midazolam HCl (Versed Inj) 2 mg STK-MED ONCE .ROUTE Last administered on 09:45; Start 04/20/17 at 09:45; Stop 04/20/17 at 09:46; Status DC Fentanyl Citrate (fentaNYL INJ) 100 mcg STK-MED ONCE .ROUTE Last administered on 04/20/17 10:03; Start 04/20/17 at 10:03; Stop 04/20/17 at 10:04; Status DC Midazolam HCl (Versed Inj) 2 mg STK-MED ONCE .ROUTE Last administered on 10:03; Start 04/20/17 at 10:03; Stop 04/20/17 at 10:04; Status DC Enoxaparin Sodium (Lovenox Inj) 60 mg Q12H SQ Last administered on 04/21/17 09 :00; Start 04/20/17 at 20:00; Stop 04/21/17 at 18:08; Status DC Bisacodyl (Dulcolax Ec) 10 mg DAILY PRN PO constipation Last administered on 08:15; Start 04/21/17 at 15:00 Oxycodone/ Acetaminophen 1 tab 1 tab Q4HR PRN PO PAIN SCALE 6 TO 10 Last administered on 04/22/17 09:29; Start 04/21/17 at 16:00 Heparin Sodium/ Dextrose (Heparin-D5W Inj) 250 ml @ 0 mls/hr TITRATE IV Last administered on 04/22/17t 22:18; Start 04/21/17 at 22:00 Bisacodyl (Dulcolax Supp) 10 mg ONCE ONCE RECTAL ; Start 04/23/17 at 09:00; Stop 04/23/17 at 09:01; Status DC A/P Assessment and Plan 82 years old female Small cell Lung Carcinoma - Malignant pleural effusion S/P chest tube placement 04/20, small pneumothorax History of PUlmonary embolism 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 Ann and .Dr. Li ff along with us. CT surgery ff continue home meds. on Lovenox bid prn pain meds- IV Morphine prn and po Percocet- - increase to q 4 prn Check CBC in am Nutrition - ensure tid - nutrition supplements CM consult for home DME needs- requesting for hospital bed, bedside commode Confusion-most likely secondary to patient's illness along with being on pain medication. Will get an MRI of the brain to rule out metastasis. Lamar Villegas MD Apr 23, 2017 09:26
--- NOTE | 2017-04-23 10:21 | RADRPT ---
EXAM DATE/TIME: 04/23/2017 10:02 [facility] COMPARISON: CHEST SINGLE AP, April 21, 2017, 18:54. INDICATIONS : Shortness of breath and cough. MEDICAL HISTORY : Chronic obstructive pulmonary disease. Carcinoma, lung. SURGICAL HISTORY : Infusaport. ENCOUNTER: Subsequent ACUITY: 3 days PAIN SCORE: 4/10 LOCATION: Bilateral chest FINDINGS: A single AP erect portable view of the chest was obtained and again demonstrates dense consolidative infiltrate in the right perihilar region end right lung base. The small bore right-sided chest tube r emains in place with a minimal right basilar pneumothorax which has mildly decreased in size compared to the prior study. The implantable right sided gil catheter remains in place. There is mild patch y opacity remaining at the left lung base. The heart size is within normal limits. There are overlyin g electrocardiogram leads. CONCLUSION: 1. The small bowel right-sided chest tube remains in place with a minimal right basal pneumothorax is slightly smaller in size than on the prior study. 2. Dense consolidative opacity remains in the right lung. 3. Patchy opacity remains at the left lung base. Cristopher Casrto MD on April 23, 2017 at 10:15 Board Certified Radiologist. This report was verified electronically.
--- NOTE | 2017-04-23 10:30 | PD.ONC.PN ---
Subjective Subjective Remarks Afebrile overnight. Patient feeling short of breath today. CT output 510cc/24 hours. No BM in several days, either. Objective Data Date Time Temp Pulse Resp B/P Pulse Ox O2 Delivery O2 Flow Rate FiO2 04/23/17 08:52 98 Nasal Cannula 4.00 04/23/17 08:21 Nasal Cannula 4.00 04/23/17 08:00 98.5 117 20 129/61 94 04/23/17 04:00 110 04/23/17 04:00 96.1 112 18 113/65 95 04/23/17 00:11 119 04/23/17 00:00 95.7 113 20 113/60 92 04/22/17 22:00 Nasal Cannula 5.00 04/22/17 20:04 109 04/22/17 20:00 99.5 114 20 130/60 93 04/22/17 17:09 95 Nasal Cannula 5.00 04/22/17 16:00 96.0 114 20 128/62 96 04/22/17 12:00 98.5 111 20 99/56 95 04/22/17 11:41 95 Nasal Cannula 5.00 04/23/17 04/23/17 04/23/17 07:00 15:00 23:00 Intake Total 550 ml Output Total 500 ml 170 ml Balance 50 ml -170 ml Result Diagram: 04/23/17 0500 04/20/17 0430 Laboratory Results Laboratory Tests Test 04/22/17 04/22/17 04/22/17 04/23/17 10:50 14:35 22:00 05:00 Activated Partial 102.9 SEC 48.8 SEC 47.1 SEC 56.7 SEC Thromboplast Time White Blood Count 16.9 TH/MM3 Red Blood Count 3.13 MIL/MM3 Hemoglobin 9.9 GM/DL Hematocrit 29.1 % Mean Corpuscular Volume 93.0 FL Mean Corpuscular Hemoglobin 31.6 PG Mean Corpuscular Hemoglobin 34.0 % Concent Red Cell Distribution Width 15.8 % Platelet Count 146 TH/MM3 Mean Platelet Volume 9.2 FL Administered Medications Medications (Trade) Dose Ordered Sig/Jamil Route PRN Reason Start Time Stop Time Status Last Admin Dose Admin Finasteride (Proscar) 5 mg DAILY PO 04/20/17 09:00 04/23/17 08:15 Fluticasone/ Vilanterol (Breo Ellipta 100-25 Inh) 1 puff DAILY INH 04/20/17 09:00 04/23/17 08:15 Sodium Chloride ([place] Christos [place]) 2 spray Q6H PRN EACH NARE NASAL CONGESTION 04/19/17 18:15 04/23/17 08:26 Sodium Chloride (NS Flush) 2 ml BID IV FLUSH 04/19/17 21:00 04/22/17 22:00 Zolpidem Tartrate (Ambien) 5 mg HS PRN PO INSOMNIA 04/19/17 18:15 04/22/17 22:00 Oxycodone/ Acetaminophen (Percocet 5-325 Mg) 1 tab Q6H PRN PO PAIN SCALE 3 TO 5 04/19/17 18:15 04/20/17 10:45 Morphine Sulfate (Morphine Inj) 4 mg Q3H PRN IV Pain 6-10;if unable to take PO 04/19/17 18:15 04/21/17 09:01 Morphine Sulfate (Morphine Inj) 4 mg Q3H PRN IV BREAKTHROUGH PAIN 04/19/17 18:15 04/21/17 20:02 Senna/Docusate Sodium (Lily-Colace) 1 tab BID PO 04/19/17 21:00 04/23/17 08:14 Guaifenesin (Mucinex Er) 600 mg BID PO 04/19/17 21:00 04/23/17 08:15 Albuterol Sulfate (Ventolin Hfa Inh) 1 puff BID INH 04/19/17 21:30 04/23/17 08:15 Bisacodyl (Dulcolax Ec) 10 mg DAILY PRN PO constipation 04/21/17 15:00 04/23/17 08:15 Oxycodone/ Acetaminophen 1 tab 1 tab Q4HR PRN PO PAIN SCALE 6 TO 10 04/21/17 16:00 04/22/17 09:29 Heparin Sodium/ Dextrose (Heparin-D5W Inj) 250 ml @ 0 mls/hr TITRATE IV 04/21/17 22:00 04/22/17 22:18 Objective Remarks GENERAL: Fatigued male lying in bed supine watching TV. SKIN: Warm and dry. HEAD: Normocephalic. EYES: No injection or drainage. NECK: Supple, trachea midline. CARDIOVASCULAR: +S1/S2, tachy RESPIRATORY: diminished at right base. CT in place, anterior hammer with occasional wheeze GASTROINTESTINAL: Abdomen soft, non-tender, nondistended. EXTREMITIES: No cyanosis NEUROLOGICAL: No obvious focal deficit. Awake, alert, and oriented x3. Assessment/Plan Problem List: (1) Non-small cell carcinoma of lung Status: Chronic Plan: -- Patient was diagnosed in February 2017 with moderately differentiated adenocarcinoma --He has multifocal disease involving the right lung. -- Unfortunately he has required multiple thoracenteses for recurrent malignant pleural effusions (2) Pleural effusion Status: Acute Plan: -- Chest tube in place draining large amount of serosanguineous fluid -- pleurodesis once draining decreased (3) Pulmonary embolism Status: Chronic Plan: -- Currently on heparin drip Assessment 82 y/o male with history of non-small cell lung cancer admitted for malignant pleural effusion of the right lung requiring chest tube placement Plan 1. Continue heparin 2. encourage PO intake 3. suppository today for constipation 4. await pleurodesis. Attending Statement The exam, history, and the medical decision-making described in the above note were completed with the assistance of the mid-level provider. I reviewed and agree with the findings presented. I attest that I had a [id number] encounter with the patient on the same day, and personally performed and documented my assessment and findings in the medical record. Rama Gage Apr 23, 2017 10:30 Vj Ann MD Apr 23, 2017 22:30
[2017-04-23] MEDS: oxyCODONE/ACETAMINOPHEN 10 MG/325 MG TAB PO PRN ×2 (12:33→19:40)
--- NOTE | 2017-04-23 15:40 | RADRPT ---
EXAM DATE/TIME: 04/23/2017 14:59 [facility] COMPARISON: No previous studies available for comparison. INDICATIONS : Altered mental status. CONTRAST: 15 cc Omniscan (gadodiamide) IV MEDICAL HISTORY : Carcinoma, lung. Chronic obstructive pulmonary disease. SURGICAL HISTORY : Appendectomy. Tonsillectomy. ENCOUNTER: Initial ACUITY: 2 day PAIN SCORE: 0/10 LOCATION: Head TECHNIQUE: Multiplanar, multisequence MRI of the brain was performed both prior to and following the administrat ion of paramagnetic contrast. FINDINGS: CEREBRUM: The ventricles are normal for age. No evidence of midline shift, mass lesion, hemorrhage or acute in farction. No extraaxial fluid collections are seen. The pituitary gland and suprasellar cistern are normal in configuration. WHITE MATTER: Moderate periventricular white matter changes evident nonspecific fashion. POSTERIOR FOSSA: The cerebellum and brainstem are intact. The 4th ventricle is midline. The cerebellopontine angle is unremarkable. The cerebellar tonsils are normal in position. DIFFUSION IMAGING: No focal areas of restricted diffusion are seen. No evidence of acute infarction. EXTRACRANIAL: The visualized portions of the orbits and paranasal sinuses are unremarkable. POST-CONTRAST: No abnormal areas of parenchymal or dural enhancement. No evidence of blood-brain barrier breakdown. CONCLUSION: Moderate periventricular white matter changes, otherwise negative. Dinesh Smith MD FACR on April 23, 2017 at 15:36 Board Certified Radiologist. This report was verified electronically.
[2017-04-23] MEDS: DEXAMETHASONE 4 MG TAB PO SCH (19:39)
[2017-04-23] MEDS: ZOLPIDEM TARTRATE 5 MG TAB PO PRN (22:23)
[2017-04-24] VITALS (11 sets, daily range): BP systolic 113–136; BP diastolic 60–70; PULSE 81–116; RESP 17–24; TEMP 96–97; O2SAT 92–94
[2017-04-24] MEDS: HEPARIN-D5W 25,000 U/250 ML 250 ML IV SCH (00:53)
[2017-04-24 06:15] LABS: HEMATOCRIT 26.2 % (39.0-51.0); MEAN CELL VOLUME 93.5 FL (80.0-100.0); MEAN CORPUSCULAR HEMOGLOBIN 32.3 PG (27.0-34.0); MEAN CORPUSCULAR HGB CONC 34.5 % (32.0-36.0); PLATELET COUNT 114 TH/MM3 (150-450); RED CELL DISTRIBUTION WIDTH 15.7 % (11.6-17.2); REVIEW FLAG FINAL; WHITE BLOOD COUNT 7.8 TH/MM3 (4.0-11.0)
[2017-04-24 06:25] LABS: APTT (PATIENT) 58.1 SEC (24.3-30.1)
[2017-04-24] MEDS ORDERED: GADODIAMIDE PF 287 MG/ML 20 ML VIAL (for RAD MRI) IV ONE (08:25)
[2017-04-24] MEDS: ALBUTEROL SULFATE 90 MCG/ACT HFA 18 GM INHALER INH SCH ×2 (09:00→20:51)
[2017-04-24] MEDS: SODIUM CHLORIDE 0.9% FLUSH 10 ML FLUSH IV FLUSH SCH ×2 (09:00→20:51)
--- NOTE | 2017-04-24 09:25 | HHI.PR ---
Subjective Remarks f/u pleural effusion patient stated breathing improved but had very bad cough yesterday. he was upset during MRI yesterday and stated he had cough but they wouldn't let him leave. He continued to have SOB but feels better. Otherwise no other concerns. His is at the bedside. Objective Vitals Vital Signs Date Time Temp Pulse Resp B/P Pulse Ox O2 Delivery O2 Flow Rate FiO2 04/24/17 08:00 96.0 103 21 136/70 94 04/24/17 04:03 81 04/24/17 04:00 97.0 111 17 113/60 94 04/24/17 00:07 108 04/24/17 00:00 96.3 113 18 119/62 94 04/23/17 22:42 92 Nasal Cannula 4.00 04/23/17 20:00 97.4 117 17 116/57 93 04/23/17 19:40 Nasal Cannula 4.00 04/23/17 18:20 114 04/23/17 17:30 96.4 115 20 128/60 97 04/23/17 16:00 98.0 117 20 111/62 95 04/23/17 12:00 99.1 116 24 113/63 94 04/23/17 10:15 98.1 115 24 109/60 90 04/23/17 10:00 90 Nasal Cannula 4.00 I/O 04/23/17 04/23/17 04/23/17 04/24/17 04/24/17 04/24/17 07:00 15:00 23:00 07:00 15:00 23:00 Intake Total 550 ml 200 ml 240 ml 120 ml Output Total 500 ml 370 ml 550 ml 250 ml 150 ml Balance 50 ml -170 ml -310 ml -130 ml -150 ml Intake Oral 550 ml 200 ml 240 ml 120 ml Output Urine Total 500 ml 200 ml 550 ml 250 ml Chest Tube Drainage Total 170 ml 150 ml # Bowel Movements 1 0 1 Result Diagram: 04/24/17 0540 04/20/17 0430 Objective Remarks Gen awake and alert, NAD Resp chest tube in place right - draining bloody fluid diffuse rhonchi with improvement. CV regular rhythm abdomen soft, nontender, nondistended. Negative for any peritoneal signs. extremities no edema, no calf tenderness Procedures 04/20- chest tube placement for effusiion Medications and IVs Current Medications Albuterol Sulfate (Proair Hfa Inh) 1 puff BID INH ; Start 04/19/17 at 21:00; Stop 04/19/17 at 21:03; Status DC Benzonatate (Tessalon) 100 mg TID PRN PO COUGH; Start 04/19/17 at 18:15 Finasteride (Proscar) 5 mg DAILY PO Last administered on 04/23/17 08:15; Start 04/20/17 at 09:00 Fluticasone/ Vilanterol (Breo Ellipta 100-25 Inh) 1 puff DAILY INH Last administered on 04/23/17 08:15; Start 04/20/17 at 09:00 Oxycodone/ Acetaminophen (Percocet 5-325 Mg) 1 tab Q6H PRN PO PAIN; Start at 18:15; Status UNV Sodium Chloride ([place] Christos [place]) 2 spray Q6H PRN EACH NARE NASAL CONGESTION Last administered on 04/23/17 08:26; Start 04/19/17 at 18:15 Sodium Chloride (NS Flush) 2 ml UNSCH PRN IV FLUSH FLUSH AFTER USING IV ACCESS ; Start 04/19/17 at 18:15 Sodium Chloride (NS Flush) 2 ml BID IV FLUSH Last administered on 04/22/17 22: 00; Start 04/19/17 at 21:00 Acetaminophen (Tylenol) 650 mg Q4H PRN PO TEMP > 100.4; Start 04/19/17 at 18:15 Ondansetron HCl (Zofran Inj) 4 mg Q6H PRN IVP NAUSEA OR VOMITING; Start at 18:15 Prochlorperazine (Compazine Supp) 25 mg Q12H PRN RECTAL NAUSEA OR VOMITING; Start 04/19/17 at 18:15 Zolpidem Tartrate (Ambien) 5 mg HS PRN PO INSOMNIA Last administered on 22:23; Start 04/19/17 at 18:15 Oxycodone/ Acetaminophen (Percocet 5-325 Mg) 1 tab Q6H PRN PO PAIN SCALE 3 TO 5 Last administered on 04/20/17 10:45; Start 04/19/17 at 18:15 Oxycodone/ Acetaminophen (Percocet 10-325 Mg) 1 tab Q6H PRN PO PAIN SCALE 6 TO 10 Last administered on 04/21/17 10:34; Start 04/19/17 at 18:15; Stop 04/21/17 at 13:29; Status DC Morphine Sulfate (Morphine Inj) 2 mg Q3H PRN IV Pain 3-5; if unable to take PO ; Start 04/19/17 at 18:15 Morphine Sulfate (Morphine Inj) 4 mg Q3H PRN IV Pain 6-10;if unable to take PO Last administered on 04/21/17 09:01; Start 04/19/17 at 18:15 Morphine Sulfate (Morphine Inj) 4 mg Q3H PRN IV BREAKTHROUGH PAIN Last administered on 04/21/17 20:02; Start 04/19/17 at 18:15 Naloxone HCl (Narcan Inj) 0.4 mg UNSCH PRN IV SEE LABEL COMMENTS; Start at 18:15 Senna/Docusate Sodium (Lily-Colace) 1 tab BID PO Last administered on 19:39; Start 04/19/17 at 21:00 Magnesium Hydroxide (Milk Of Magnesia Liq) 30 ml Q12H PRN PO MILD - MODERATE CONSTIPATION; Start 04/19/17 at 18:15; Stop 04/21/17 at 14:09; Status DC Sennosides (Senokot) 17.2 mg Q12H PRN PO MODERATE - SEVERE CONSTIPATION; Start 04/19/17 at 18:15; Stop 04/21/17 at 14:09; Status DC Bisacodyl (Dulcolax Supp) 10 mg DAILY PRN RECTAL SEVERE CONSITIPATION; Start at 18:15; Status Cancel Lactulose (Lactulose Liq) 30 ml DAILY PRN PO SEVERE CONSITIPATION; Start at 18:15; Stop 04/21/17 at 14:09; Status DC Albuterol/ Ipratropium (Duoneb Neb) 1 ampule Q4HR NEB PRN NEB SHORTNESS OF BREATH Last administered on 04/23/17 08:49; Start 04/19/17 at 18:15 Guaifenesin (Mucinex Er) 600 mg BID PO Last administered on 04/23/17 19:39; Start 04/19/17 at 21:00 Temazepam (Restoril) 7.5 mg HS PRN PO sleep; Start 04/19/17 at 19:00; Stop at 19:00; Status DC Albuterol Sulfate (Ventolin Hfa Inh) 1 puff BID INH Last administered on 19:41; Start 04/19/17 at 21:30 Fentanyl Citrate (fentaNYL INJ) 100 mcg STK-MED ONCE .ROUTE Last administered on 04/20/17 09:45; Start 04/20/17 at 09:45; Stop 04/20/17 at 09:46; Status DC Midazolam HCl (Versed Inj) 2 mg STK-MED ONCE .ROUTE Last administered on 09:45; Start 04/20/17 at 09:45; Stop 04/20/17 at 09:46; Status DC Fentanyl Citrate (fentaNYL INJ) 100 mcg STK-MED ONCE .ROUTE Last administered on 04/20/17 10:03; Start 04/20/17 at 10:03; Stop 04/20/17 at 10:04; Status DC Midazolam HCl (Versed Inj) 2 mg STK-MED ONCE .ROUTE Last administered on 10:03; Start 04/20/17 at 10:03; Stop 04/20/17 at 10:04; Status DC Enoxaparin Sodium (Lovenox Inj) 60 mg Q12H SQ Last administered on 04/21/17 09 :00; Start 04/20/17 at 20:00; Stop 04/21/17 at 18:08; Status DC Bisacodyl (Dulcolax Ec) 10 mg DAILY PRN PO constipation Last administered on 08:15; Start 04/21/17 at 15:00 Oxycodone/ Acetaminophen 1 tab 1 tab Q4HR PRN PO PAIN SCALE 6 TO 10 Last administered on 04/23/17 19:40; Start 04/21/17 at 16:00 Heparin Sodium/ Dextrose (Heparin-D5W Inj) 250 ml @ 0 mls/hr TITRATE IV Last administered on 04/24/17 00:53; Start 04/21/17 at 22:00 Bisacodyl (Dulcolax Supp) 10 mg ONCE ONCE RECTAL Last administered on 12:33; Start 04/23/17 at 09:00; Stop 04/23/17 at 09:01; Status DC Dexamethasone (Decadron) 4 mg Q12HR PO Last administered on 04/23/17 19:39; Start 04/23/17 at 21:00 Gadodiamide (Omniscan Pf Inj) 15 ml STK-MED ONCE IV Last administered on 08:25; Start 04/24/17 at 08:25; Stop 04/24/17 at 08:26; Status DC A/P Assessment and Plan 82 years old female Small cell Lung Carcinoma - Malignant pleural effusion S/P chest tube placement 04/20, small pneumothorax History of PUlmonary embolism 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 Ann and .Dr. Li ff along with us. CT surgery ff continue home meds. on Lovenox bid prn pain meds- IV Morphine prn and po Percocet- - increase to q 4 prn Nutrition - ensure tid - nutrition supplements Confusion-most likely secondary to patient's illness along with being on pain medication. Improved. MRI negative. Lamar Villegas MD Apr 24, 2017 09:25
[2017-04-24] MEDS: DEXAMETHASONE 4 MG TAB PO SCH ×2 (10:18→20:50)
[2017-04-24] MEDS: DOCUSATE SODIUM 50 MG/SENNA 8.6 MG TAB PO SCH ×2 (10:18→20:50)
[2017-04-24] MEDS: FINASTERIDE 5 MG TAB PO SCH (10:18)
[2017-04-24] MEDS: guaiFENesin E.R. 600 MG TAB PO SCH ×2 (10:18→20:50)
[2017-04-24] MEDS: FLUTICASONE 100 MCG/VILANTEROL 25 MCG INHALER INH SCH (10:18)
[2017-04-24] MEDS: SODIUM CHLORIDE 0.65% NASAL SPRAY 45 ML BTL EACH NARE PRN (10:19)
[2017-04-24] MEDS: RESP: ALBUTEROL 2.5 MG/IPRATROPIUM 0.5 MG NEB (PRN) NEB (11:16)
--- NOTE | 2017-04-24 11:27 | PD.ONC.PN ---
Subjective Subjective Remarks Afebrile overnight. Patient states he feels like he is breathing better today. Also notes that the room is moving, not spinning but moving. For example, he notes the trees in the picture on the wall are moving. no double vision. no headache. Objective Data Date Time Temp Pulse Resp B/P Pulse Ox O2 Delivery O2 Flow Rate FiO2 04/24/17 08:30 92 Nasal Cannula 4.00 04/24/17 08:00 96.0 103 21 136/70 94 04/24/17 04:03 81 04/24/17 04:00 97.0 111 17 113/60 94 04/24/17 00:07 108 04/24/17 00:00 96.3 113 18 119/62 94 04/23/17 22:42 92 Nasal Cannula 4.00 04/23/17 20:00 97.4 117 17 116/57 93 04/23/17 19:40 Nasal Cannula 4.00 04/23/17 18:20 114 04/23/17 17:30 96.4 115 20 128/60 97 04/23/17 16:00 98.0 117 20 111/62 95 04/23/17 12:00 99.1 116 24 113/63 94 04/24/17 04/24/17 04/24/17 07:00 15:00 23:00 Intake Total 120 ml Output Total 250 ml 450 ml Balance -130 ml -450 ml Result Diagram: 04/24/17 0540 04/20/17 0430 Laboratory Results Laboratory Tests Test 04/24/17 05:40 White Blood Count 7.8 TH/MM3 Red Blood Count 2.80 MIL/MM3 Hemoglobin 9.0 GM/DL Hematocrit 26.2 % Mean Corpuscular Volume 93.5 FL Mean Corpuscular Hemoglobin 32.3 PG Mean Corpuscular Hemoglobin 34.5 % Concent Red Cell Distribution Width 15.7 % Platelet Count 114 TH/MM3 Mean Platelet Volume 8.9 FL Activated Partial 58.1 SEC Thromboplast Time Administered Medications Medications (Trade) Dose Ordered Sig/Jamil Route PRN Reason Start Time Stop Time Status Last Admin Dose Admin Finasteride (Proscar) 5 mg DAILY PO 04/20/17 09:00 04/24/17 10:18 Fluticasone/ Vilanterol (Breo Ellipta 100-25 Inh) 1 puff DAILY INH 04/20/17 09:00 04/24/17 10:18 Sodium Chloride ([place] Christos [place]) 2 spray Q6H PRN EACH NARE NASAL CONGESTION 04/19/17 18:15 04/24/17 10:19 Sodium Chloride (NS Flush) 2 ml BID IV FLUSH 04/19/17 21:00 04/22/17 22:00 Zolpidem Tartrate (Ambien) 5 mg HS PRN PO INSOMNIA 04/19/17 18:15 04/23/17 22:23 Oxycodone/ Acetaminophen (Percocet 5-325 Mg) 1 tab Q6H PRN PO PAIN SCALE 3 TO 5 04/19/17 18:15 04/20/17 10:45 Morphine Sulfate (Morphine Inj) 4 mg Q3H PRN IV Pain 6-10;if unable to take PO 04/19/17 18:15 04/21/17 09:01 Morphine Sulfate (Morphine Inj) 4 mg Q3H PRN IV BREAKTHROUGH PAIN 04/19/17 18:15 04/21/17 20:02 Senna/Docusate Sodium (Lily-Colace) 1 tab BID PO 04/19/17 21:00 04/24/17 10:18 Guaifenesin (Mucinex Er) 600 mg BID PO 04/19/17 21:00 04/24/17 10:18 Albuterol Sulfate (Ventolin Hfa Inh) 1 puff BID INH 04/19/17 21:30 04/24/17 09:00 Bisacodyl (Dulcolax Ec) 10 mg DAILY PRN PO constipation 04/21/17 15:00 04/23/17 08:15 Oxycodone/ Acetaminophen 1 tab 1 tab Q4HR PRN PO PAIN SCALE 6 TO 10 04/21/17 16:00 04/23/17 19:40 Heparin Sodium/ Dextrose (Heparin-D5W Inj) 250 ml @ 0 mls/hr TITRATE IV 04/21/17 22:00 04/24/17 00:53 Dexamethasone (Decadron) 4 mg Q12HR PO 04/23/17 21:00 04/24/17 10:18 Objective Remarks GENERAL: Fatigued male upright in bed in nad. SKIN: Warm and dry. HEAD: Normocephalic. EYES: No injection or drainage. NECK: Supple, trachea midline. CARDIOVASCULAR: +S1/S2, tachy RESPIRATORY: diminished at right base. scattered inspiratory and expiratory wheezes all lung hammer. GASTROINTESTINAL: Abdomen soft, non-tender, nondistended. EXTREMITIES: No cyanosis NEUROLOGICAL: No obvious focal deficit. Awake, alert, and oriented x3. Assessment/Plan Problem List: (1) Non-small cell carcinoma of lung Status: Chronic Plan: -- Patient was diagnosed in February 2017 with moderately differentiated adenocarcinoma --He has multifocal disease involving the right lung. -- Unfortunately he has required multiple thoracenteses for recurrent malignant pleural effusions (2) Pleural effusion Status: Acute Plan: -- Chest tube in place draining large amount of serosanguineous fluid -- pleurodesis once drainage decreased (3) Pulmonary embolism Status: Chronic Plan: -- Currently on heparin drip (4) Hallucination Status: Acute Plan: --MRI brain on 04/23 was with only chronic white matter changes --unclear etiology --?delirium --?decadron Assessment 82 y/o male with history of non-small cell lung cancer admitted for malignant pleural effusion of the right lung requiring chest tube placement Plan 1. give Duoneb breathing treatment for wheezing 2. await pleurodesis 3. monitor CBC, continue heparin gtt. Attending Statement The exam, history, and the medical decision-making described in the above note were completed with the assistance of the mid-level provider. I reviewed and agree with the findings presented. I attest that I had a [id number] encounter with the patient on the same day, and personally performed and documented my assessment and findings in the medical record. Rama Gage Apr 24, 2017 11:27 Vj Ann MD Apr 24, 2017 18:13
[2017-04-24 17:59] LABS: ALT (GPT) 28 U/L (12-78); ANION GAP 11 MEQ/L (5-15); AST (GOT) 14 U/L (15-37); BICARBONATE 27.5 MEQ/L (21.0-32.0); BLOOD UREA NITROGEN 16 MG/DL (7-18); CHLORIDE 92 MEQ/L (98-107); GLOMERULAR FILTRATION RATE 125 ML/MIN (>89); POTASSIUM 4.8 MEQ/L (3.5-5.1); SODIUM (NA) 130 MEQ/L (136-145)
[2017-04-24 18:01] LABS: ALKALINE PHOSPHATASE 65 U/L (45-117); TOTAL BILIRUBIN ADULT 0.4 MG/DL (0.2-1.0)
[2017-04-24] MEDS: oxyCODONE/ACETAMINOPHEN 10 MG/325 MG TAB PO PRN (20:50)
[2017-04-24] MEDS: ZOLPIDEM TARTRATE 5 MG TAB PO PRN (20:50)
[2017-04-25] VITALS (12 sets, daily range): BP systolic 115–148; BP diastolic 61–71; PULSE 86–109; RESP 17–22; TEMP 96–97.4; O2SAT 93–96
[2017-04-25] MEDS: HEPARIN-D5W 25,000 U/250 ML 250 ML IV SCH (03:43)
[2017-04-25 05:36] LABS: HEMATOCRIT 25.3 % (39.0-51.0); MEAN CELL VOLUME 92.4 FL (80.0-100.0); MEAN CORPUSCULAR HEMOGLOBIN 32.1 PG (27.0-34.0); MEAN CORPUSCULAR HGB CONC 34.7 % (32.0-36.0); PLATELET COUNT 122 TH/MM3 (150-450); RED BLOOD COUNT 2.74 MIL/MM3 (4.50-5.90); RED CELL DISTRIBUTION WIDTH 15.5 % (11.6-17.2); REVIEW FLAG FINAL; WHITE BLOOD COUNT 3.9 TH/MM3 (4.0-11.0)
[2017-04-25 05:41] LABS: APTT (PATIENT) 49.3 SEC (24.3-30.1)
[2017-04-25 06:20] LABS: BICARBONATE 27.7 MEQ/L (21.0-32.0); POTASSIUM 4.5 MEQ/L (3.5-5.1)
[2017-04-25] MEDS: SODIUM CHLORIDE 0.9% FLUSH 10 ML FLUSH IV FLUSH SCH ×2 (08:50→21:00)
[2017-04-25] MEDS: DEXAMETHASONE 4 MG TAB PO SCH ×2 (08:50→21:46)
[2017-04-25] MEDS: guaiFENesin E.R. 600 MG TAB PO SCH ×2 (08:50→21:46)
[2017-04-25] MEDS: ALBUTEROL SULFATE 90 MCG/ACT HFA 18 GM INHALER INH SCH ×2 (08:50→21:51)
[2017-04-25] MEDS: FLUTICASONE 100 MCG/VILANTEROL 25 MCG INHALER INH SCH (08:50)
[2017-04-25] MEDS: DOCUSATE SODIUM 50 MG/SENNA 8.6 MG TAB PO SCH ×2 (08:50→21:00)
[2017-04-25] MEDS: FINASTERIDE 5 MG TAB PO SCH (08:50)
--- NOTE | 2017-04-25 14:00 | PD.ONC.PN ---
Subjective Subjective Remarks Afebrile overnight. No longer having sensation that room is moving. Still feeling short of breath ~400cc output from CT in /24hours Objective Data Date Time Temp Pulse Resp B/P (MAP) Pulse Ox O2 Delivery O2 Flow Rate FiO2 04/25/17 08:37 94 Nasal Cannula 4.00 04/25/17 07:37 96.8 102 22 117/66 (83) 96 04/25/17 04:00 96.4 97 18 148/71 (96) 94 04/25/17 00:05 89 04/25/17 00:00 96.0 101 18 117/62 (80) 95 04/24/17 21:14 94 Nasal Cannula 4.00 04/24/17 20:05 109 04/24/17 20:00 96.1 109 17 133/70 (91) 93 04/24/17 16:00 96.0 116 21 125/66 (85) 94 04/25/17 04/25/17 04/25/17 07:00 15:00 23:00 Intake Total 240 ml Output Total 1675 ml Balance -1435 ml Result Diagram: 04/25/17 0430 04/25/17 0430 Laboratory Results Laboratory Tests Test 04/24/17 17:17 04/25/17 04:30 Blood Urea Nitrogen 16 MG/DL 17 MG/DL Creatinine 0.62 MG/DL 0.54 MG/DL Random Glucose 204 MG/DL 185 MG/DL Total Protein 5.8 GM/DL Albumin 1.9 GM/DL Calcium Level 9.1 MG/DL 9.2 MG/DL Alkaline Phosphatase 65 U/L Aspartate Amino Transf (AST/SGOT) 14 U/L Alanine Aminotransferase (ALT/SGPT) 28 U/L Total Bilirubin 0.4 MG/DL Sodium Level 130 MEQ/L 129 MEQ/L Potassium Level 4.8 MEQ/L 4.5 MEQ/L Chloride Level 92 MEQ/L 94 MEQ/L Carbon Dioxide Level 27.5 MEQ/L 27.7 MEQ/L Anion Gap 11 MEQ/L 7 MEQ/L Estimat Glomerular Filtration Rate 125 ML/MIN 146 ML/MIN White Blood Count 3.9 TH/MM3 Red Blood Count 2.74 MIL/MM3 Hemoglobin 8.8 GM/DL Hematocrit 25.3 % Mean Corpuscular Volume 92.4 FL Mean Corpuscular Hemoglobin 32.1 PG Mean Corpuscular Hemoglobin Concent 34.7 % Red Cell Distribution Width 15.5 % Platelet Count 122 TH/MM3 Mean Platelet Volume 8.9 FL Activated Partial Thromboplast Time 49.3 SEC Administered Medications Medications (Trade) Dose Ordered Sig/Jamil Route PRN Reason Start Time Stop Time Status Last Admin Dose Admin Finasteride (Proscar) 5 mg DAILY PO 04/20/17 09:00 04/24/17 10:18 Fluticasone/ Vilanterol (Breo Ellipta 100-25 Inh) 1 puff DAILY INH 04/20/17 09:00 04/24/17 10:18 Sodium Chloride ([place] Christos [place]) 2 spray Q6H PRN EACH NARE NASAL CONGESTION 04/19/17 18:15 04/24/17 10:19 Sodium Chloride (NS Flush) 2 ml BID IV FLUSH 04/19/17 21:00 04/24/17 20:51 Zolpidem Tartrate (Ambien) 5 mg HS PRN PO INSOMNIA 04/19/17 18:15 04/24/17 20:50 Oxycodone/ Acetaminophen (Percocet 5-325 Mg) 1 tab Q6H PRN PO PAIN SCALE 3 TO 5 04/19/17 18:15 04/20/17 10:45 Morphine Sulfate (Morphine Inj) 4 mg Q3H PRN IV Pain 6-10;if unable to take PO 04/19/17 18:15 04/21/17 09:01 Morphine Sulfate (Morphine Inj) 4 mg Q3H PRN IV BREAKTHROUGH PAIN 04/19/17 18:15 04/21/17 20:02 Senna/Docusate Sodium (Lily-Colace) 1 tab BID PO 04/19/17 21:00 04/24/17 20:50 Albuterol/ Ipratropium (Duoneb Neb) 1 ampule Q4HR NEB PRN NEB SHORTNESS OF BREATH 04/19/17 18:15 04/24/17 11:16 Guaifenesin (Mucinex Er) 600 mg BID PO 04/19/17 21:00 04/24/17 20:50 Albuterol Sulfate (Ventolin Hfa Inh) 1 puff BID INH 04/19/17 21:30 04/24/17 20:51 Bisacodyl (Dulcolax Ec) 10 mg DAILY PRN PO constipation 04/21/17 15:00 04/23/17 08:15 Oxycodone/ Acetaminophen (Percocet 10-325 Mg) 1 tab Q4HR PRN PO PAIN SCALE 6 TO 10 04/21/17 16:00 04/24/17 20:50 Heparin Sodium/ Dextrose 250 ml @ 0 mls/hr TITRATE IV 04/21/17 22:00 04/25/17 03:43 Dexamethasone (Decadron) 4 mg Q12HR PO 04/23/17 21:00 04/24/17 20:50 Objective Remarks GENERAL: Elderly male upright in bed in nad SKIN: Warm and dry. HEAD: Normocephalic. EYES: No injection or drainage. NECK: Supple, trachea midline. CARDIOVASCULAR: +S1/S2, tachy RESPIRATORY: right breath sounds diminished. anterior hammer clear with occasional wheeze GASTROINTESTINAL: Abdomen soft, non-tender, nondistended. EXTREMITIES: No cyanosis NEUROLOGICAL: No obvious focal deficit. Awake, alert, and oriented x3. Assessment/Plan Problem List: (1) Non-small cell carcinoma of lung ICD Codes: C34.90 - Malignant neoplasm of unspecified part of unspecified bronchus or lung Status: Chronic Plan: -- Patient was diagnosed in February 2017 with moderately differentiated adenocarcinoma --He has multifocal disease involving the right lung. -- Unfortunately he has required multiple thoracenteses for recurrent malignant pleural effusions (2) Pleural effusion ICD Codes: J90 - Pleural effusion, not elsewhere classified Status: Acute Plan: -- Chest tube in place draining large amount of serosanguineous fluid -- pleurodesis once drainage decreased (3) Pulmonary embolism ICD Codes: I26.99 - Other pulmonary embolism without acute cor pulmonale Status: Chronic Plan: -- Currently on heparin drip Assessment 82 y/o male with history of non-small cell lung cancer admitted for malignant pleural effusion of the right lung requiring chest tube placement Plan 1. monitor CBC 2. continue heparin gtt 3. await pleurodesis Attending Statement The exam, history, and the medical decision-making described in the above note were completed with the assistance of the mid-level provider. I reviewed and agree with the findings presented. I attest that I had a [id number] encounter with the patient on the same day, and personally performed and documented my assessment and findings in the medical record. Rama Gage Apr 25, 2017 14:00 Vj Ann MD Apr 25, 2017 17:20
--- NOTE | 2017-04-25 16:15 | HHI.PR ---
Subjective Remarks Follow-up for malignant pleural effusion Patient has no complaints. He stated that his breathing has improved. His nurse is at the bedside. No acute events overnight. Objective Vitals Vital Signs Date Time Temp Pulse Resp B/P (MAP) Pulse Ox O2 Delivery O2 Flow Rate FiO2 04/25/17 08:50 Nasal Cannula 4.00 04/25/17 08:37 94 Nasal Cannula 4.00 04/25/17 07:37 96.8 102 22 117/66 (83) 96 04/25/17 04:00 96.4 97 18 148/71 (96) 94 04/25/17 00:05 89 04/25/17 00:00 96.0 101 18 117/62 (80) 95 04/24/17 21:14 94 Nasal Cannula 4.00 04/24/17 20:05 109 04/24/17 20:00 96.1 109 17 133/70 (91) 93 I/O 04/24/17 04/24/17 04/24/17 04/25/17 04/25/17 04/25/17 07:00 15:00 23:00 07:00 15:00 23:00 Intake Total 120 ml 840 ml 651 ml 240 ml Output Total 250 ml 1150 ml 335 ml 1675 ml Balance -130 ml -310 ml 316 ml -1435 ml Intake Oral 120 ml 840 ml 240 ml IV Total 651 ml Output Urine Total 250 ml 1000 ml 225 ml 1525 ml Chest Tube Drainage Total 150 ml 110 ml 150 ml # Bowel Movements 0 1 Result Diagram: 04/25/17 04304/25/17 0430 Objective Remarks Gen awake and alert, NAD Resp chest tube in place right - draining bloody fluid diffuse rhonchi with improvement. CV regular rhythm abdomen soft, nontender, nondistended. Negative for any peritoneal signs. extremities no edema, no calf tenderness Procedures 04/20- chest tube placement for effusiion Medications and IVs Current Medications Albuterol Sulfate (Proair Hfa Inh) 1 puff BID INH ; Start 04/19/17 at 21:00; Stop 04/19/17 at 21:03; Status DC Benzonatate (Tessalon) 100 mg TID PRN PO COUGH; Start 04/19/17 at 18:15 Finasteride (Proscar) 5 mg DAILY PO Last administered on 04/24/17t 10:18; Start 04/20/17 at 09:00 Fluticasone/ Vilanterol (Breo Ellipta 100-25 Inh) 1 puff DAILY INH Last administered on 04/24/17 10:18; Start 04/20/17 at 09:00 Oxycodone/ Acetaminophen (Percocet 5-325 Mg) 1 tab Q6H PRN PO PAIN; Start at 18:15; Status UNV Sodium Chloride ([place]) 2 spray Q6H PRN EACH NARE NASAL CONGESTION Last administered on 04/24/17 10:19; Start 04/19/17 at 18:15 Sodium Chloride (NS Flush) 2 ml UNSCH PRN IV FLUSH FLUSH AFTER USING IV ACCESS ; Start 04/19/17 at 18:15 Sodium Chloride (NS Flush) 2 ml BID IV FLUSH Last administered on 04/24/17 20: 51; Start 04/19/17 at 21:00 Acetaminophen (Tylenol) 650 mg Q4H PRN PO TEMP > 100.4; Start 04/19/17 at 18:15 Ondansetron HCl (Zofran Inj) 4 mg Q6H PRN IVP NAUSEA OR VOMITING; Start at 18:15 Prochlorperazine (Compazine Supp) 25 mg Q12H PRN RECTAL NAUSEA OR VOMITING; Start 04/19/17 at 18:15 Zolpidem Tartrate (Ambien) 5 mg HS PRN PO INSOMNIA Last administered on 20:50; Start 04/19/17 at 18:15 Oxycodone/ Acetaminophen (Percocet 5-325 Mg) 1 tab Q6H PRN PO PAIN SCALE 3 TO 5 Last administered on 04/20/17 10:45; Start 04/19/17 at 18:15 Oxycodone/ Acetaminophen (Percocet 10-325 Mg) 1 tab Q6H PRN PO PAIN SCALE 6 TO 10 Last administered on 04/21/17 10:34; Start 04/19/17 at 18:15; Stop 04/21/17 at 13:29; Status DC Morphine Sulfate (Morphine Inj) 2 mg Q3H PRN IV Pain 3-5; if unable to take PO ; Start 04/19/17 at 18:15 Morphine Sulfate (Morphine Inj) 4 mg Q3H PRN IV Pain 6-10;if unable to take PO Last administered on 04/21/17 09:01; Start 04/19/17 at 18:15 Morphine Sulfate (Morphine Inj) 4 mg Q3H PRN IV BREAKTHROUGH PAIN Last administered on 04/21/17 20:02; Start 04/19/17 at 18:15 Naloxone HCl (Narcan Inj) 0.4 mg UNSCH PRN IV SEE LABEL COMMENTS; Start at 18:15 Senna/Docusate Sodium (Lily-Colace) 1 tab BID PO Last administered on 20:50; Start 04/19/17 at 21:00 Magnesium Hydroxide (Milk Of Magnesia Liq) 30 ml Q12H PRN PO MILD - MODERATE CONSTIPATION; Start 04/19/17 at 18:15; Stop 04/21/17 at 14:09; Status DC Sennosides (Senokot) 17.2 mg Q12H PRN PO MODERATE - SEVERE CONSTIPATION; Start 04/19/17 at 18:15; Stop 04/21/17 at 14:09; Status DC Bisacodyl (Dulcolax Supp) 10 mg DAILY PRN RECTAL SEVERE CONSITIPATION; Start at 18:15; Status Cancel Lactulose (Lactulose Liq) 30 ml DAILY PRN PO SEVERE CONSITIPATION; Start at 18:15; Stop 04/21/17 at 14:09; Status DC Albuterol/ Ipratropium (Duoneb Neb) 1 ampule Q4HR NEB PRN NEB SHORTNESS OF BREATH Last administered on 04/24/17 11:16; Start 04/19/17 at 18:15 Guaifenesin (Mucinex Er) 600 mg BID PO Last administered on 04/24/17 20:50; Start 04/19/17 at 21:00 Temazepam (Restoril) 7.5 mg HS PRN PO sleep; Start 04/19/17 at 19:00; Stop at 19:00; Status DC Albuterol Sulfate (Ventolin Hfa Inh) 1 puff BID INH Last administered on 20:51; Start 04/19/17 at 21:30 Fentanyl Citrate (fentaNYL INJ) 100 mcg STK-MED ONCE .ROUTE Last administered on 04/20/17 09:45; Start 04/20/17 at 09:45; Stop 04/20/17 at 09:46; Status DC Midazolam HCl (Versed Inj) 2 mg STK-MED ONCE .ROUTE Last administered on 09:45; Start 04/20/17 at 09:45; Stop 04/20/17 at 09:46; Status DC Fentanyl Citrate (fentaNYL INJ) 100 mcg STK-MED ONCE .ROUTE Last administered on 04/20/17 10:03; Start 04/20/17 at 10:03; Stop 04/20/17 at 10:04; Status DC Midazolam HCl (Versed Inj) 2 mg STK-MED ONCE .ROUTE Last administered on 10:03; Start 04/20/17 at 10:03; Stop 04/20/17 at 10:04; Status DC Enoxaparin Sodium (Lovenox Inj) 60 mg Q12H SQ Last administered on 04/21/17 09 :00; Start 04/20/17 at 20:00; Stop 04/21/17 at 18:08; Status DC Bisacodyl (Dulcolax Ec) 10 mg DAILY PRN PO constipation Last administered on 08:15; Start 04/21/17 at 15:00 Oxycodone/ Acetaminophen (Percocet 10-325 Mg) 1 tab Q4HR PRN PO PAIN SCALE 6 TO 10 Last administered on 04/24/17 20:50; Start 04/21/17 at 16:00 Heparin Sodium/ Dextrose 250 ml @ 0 mls/hr TITRATE IV Last administered on 04/25 03:43; Start 04/21/17 at 22:00 Bisacodyl (Dulcolax Supp) 10 mg ONCE ONCE RECTAL Last administered on 12:33; Start 04/23/17 at 09:00; Stop 04/23/17 at 09:01; Status DC Dexamethasone (Decadron) 4 mg Q12HR PO Last administered on 04/24/17 20:50; Start 04/23/17 at 21:00 Gadodiamide (Omniscan Pf Inj) 15 ml STK-MED ONCE IV Last administered on 8/19/ 17at 08:25; Start 04/24/17 at 08:25; Stop 04/24/17 at 08:26; Status DC A/P Assessment and Plan 82 years old female Small cell Lung Carcinoma - Malignant pleural effusion S/P chest tube placement 04/20, small pneumothorax History of PUlmonary embolism 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 Ann and .Dr. Li ff along with us. CT surgery ff continue home meds. on Lovenox bid prn pain meds- IV Morphine prn and po Percocet. Nutrition - ensure tid - nutrition supplements Confusion, intermittent in-most likely secondary to patient's illness along with being on pain medication. Improved. MRI negative. Lamar Villegas MD Apr 25, 2017 4:15 pm
[2017-04-25] MEDS: oxyCODONE/ACETAMINOPHEN 10 MG/325 MG TAB PO PRN (21:46)
[2017-04-25] MEDS: ZOLPIDEM TARTRATE 5 MG TAB PO PRN (21:47)
[2017-04-26] VITALS (11 sets, daily range): BP systolic 103–127; BP diastolic 55–69; PULSE 94–112; RESP 17–24; TEMP 96–98; O2SAT 91–97
[2017-04-26] MEDS: FINASTERIDE 5 MG TAB PO SCH (07:41)
[2017-04-26] MEDS: SODIUM CHLORIDE 0.9% FLUSH 10 ML FLUSH IV FLUSH SCH ×2 (07:45→21:10)
[2017-04-26] MEDS: DEXAMETHASONE 4 MG TAB PO SCH ×2 (07:45→21:10)
[2017-04-26] MEDS: guaiFENesin E.R. 600 MG TAB PO SCH ×2 (07:45→21:09)
[2017-04-26 07:48] LABS: HEMATOCRIT 26.2 % (39.0-51.0); MEAN CELL VOLUME 93.5 FL (80.0-100.0); MEAN CORPUSCULAR HEMOGLOBIN 31.8 PG (27.0-34.0); PLATELET COUNT 137 TH/MM3 (150-450); RED BLOOD COUNT 2.81 MIL/MM3 (4.50-5.90); RED CELL DISTRIBUTION WIDTH 15.2 % (11.6-17.2); REVIEW FLAG FINAL; WHITE BLOOD COUNT 4.4 TH/MM3 (4.0-11.0)
[2017-04-26] MEDS: ALBUTEROL SULFATE 90 MCG/ACT HFA 18 GM INHALER INH SCH ×2 (07:48→21:10)
[2017-04-26] MEDS: FLUTICASONE 100 MCG/VILANTEROL 25 MCG INHALER INH SCH (07:48)
[2017-04-26] MEDS: DOCUSATE SODIUM 50 MG/SENNA 8.6 MG TAB PO SCH ×2 (07:49→21:14)
[2017-04-26] MEDS: HEPARIN-D5W 25,000 U/250 ML 250 ML IV SCH (07:56)
[2017-04-26 08:04] LABS: APTT (PATIENT) 57.8 SEC (24.3-30.1)
[2017-04-26 08:11] LABS: BICARBONATE 29.2 MEQ/L (21.0-32.0); POTASSIUM 4.3 MEQ/L (3.5-5.1)
[2017-04-26] MEDS: oxyCODONE/ACETAMINOPHEN 10 MG/325 MG TAB PO PRN (09:29)
--- NOTE | 2017-04-26 10:36 | HHI.PR ---
Subjective Remarks Follow-up non-small cell carcinoma with a long/large right pleural effusion/ pulmonary embolism 04/26/17-patient seen and examined, denies significant shortness of breath. Chest tube with only 5 cc recorded. Currently afebrile Objective Vitals Vital Signs Date Time Temp Pulse Resp B/P (MAP) Pulse Ox O2 Delivery O2 Flow Rate FiO2 04/26/17 08:00 96.8 94 24 122/69 (86) 91 04/26/17 07:48 91 Nasal Cannula 4.00 04/26/17 04:00 96.0 101 17 117/62 (80) 95 04/26/17 00:00 96.4 102 18 127/67 (87) 94 04/25/17 23:31 93 Nasal Cannula 4.00 04/25/17 20:00 97.4 106 17 125/61 (82) 93 04/25/17 16:04 109 04/25/17 16:00 96.5 99 20 127/69 (88) 95 04/25/17 12:05 102 04/25/17 12:00 96.7 100 20 115/61 (79) 95 I/O 04/25/17 04/25/17 04/25/17 04/26/17 04/26/17 04/26/17 06:59 14:59 22:59 06:59 14:59 22:59 Intake Total 240 ml 1750 ml 240 ml Output Total 1675 ml 440 ml 205 ml 675 ml Balance -1435 ml 1310 ml 35 ml -675 ml Intake Oral 240 ml 1680 ml 240 ml IV Total 70 ml Output Urine Total 1525 ml 400 ml 200 ml 675 ml Chest Tube Drainage Total 150 ml 40 ml 5 ml # Voids 7 # Bowel Movements 1 1 Result Diagram: 04/26/17 0520 04/26/17 0520 Imaging Last Impressions Chest X-Ray 04/23/17 0000 Signed Impressions: Service Date/Time: Sunday, April 23, 2017 10:02 - CONCLUSION: 1. The small bowel right-sided chest tube remains in place with a minimal right basal pneumothorax is slightly smaller in size than on the prior study. 2. Dense consolidative opacity remains in the right lung. 3. Patchy opacity remains at the left lung base. Cristopher Castro MD Brain MRI 04/23/17 0000 Signed Impressions: Service Date/Time: Sunday, April 23, 2017 14:59 - CONCLUSION: Moderate periventricular white matter changes, otherwise negative. Dinesh Smith MD FACR Chest Tube Insertion 04/19/17 0000 Signed Impressions: Service Date/Time: Thursday, April 20, 2017 09:48 - CONCLUSION: Uncomplicated chest tube placement as above. There was immediate return of approximately 1 L of hemorrhagic effusion. Vimal Smith MD Objective Remarks GENERAL: NAD SKIN: Warm and dry. HEAD: Normocephalic. EYES: No scleral icterus. No injection or drainage. NECK: Supple, trachea midline. No JVD or lymphadenopathy. CARDIOVASCULAR: Regular rate and rhythm without murmurs, gallops, or rubs. RESPIRATORY: Breath sounds equal bilaterally. No accessory muscle use.CT in place right lung GASTROINTESTINAL: Abdomen soft, non-tender, nondistended. MUSCULOSKELETAL: No cyanosis, or edema. BACK: Nontender without obvious deformity. No CVA tenderness. Procedures 04/20- chest tube placement for effusiion A/P Problem List: (1) Non-small cell carcinoma of lung ICD Code: C34.90 - Malignant neoplasm of unspecified part of unspecified bronchus or lung Status: Chronic (2) Pleural effusion ICD Code: J90 - Pleural effusion, not elsewhere classified Status: Acute (3) Pulmonary embolism ICD Code: I26.99 - Other pulmonary embolism without acute cor pulmonale Status: Chronic Assessment and Plan 82-year-old male with Non-small cell cancer of the lung Malignant pleural effusion S/P chest tube placement 04/20, small pneumothorax History of Pulmonary embolism 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 Ann and .Dr. Li ff along with us. CT surgery ff continue home meds. Continue with heparin drip prn pain meds, DuoNeb, maintain oxygen saturation above 90% Nutrition - ensure tid - nutrition supplements Metabolic encephalopathy -Improving DVT prophylaxis: Yossi Danielson MD Apr 26, 2017 10:36
[2017-04-26] MEDS: RESP: ALBUTEROL 2.5 MG/IPRATROPIUM 0.5 MG NEB (PRN) NEB ×3 (11:51→20:45)
--- NOTE | 2017-04-26 17:59 | HHI.PR ---
Subjective Remarks 82 YOWM with NSCLC, malig pl effusion had Right chest tube placed Draining chapa;gic fluid Breathing better CXR right basal infilt, small pl eff Objective Vital Signs Vital Signs Date Time Temp Pulse Resp B/P (MAP) Pulse Ox O2 Delivery O2 Flow Rate FiO2 04/26/17 16:00 96.6 105 20 121/62 (81) 96 04/26/17 12:00 96.7 101 20 103/55 (71) 96 04/26/17 09:43 97 Nasal Cannula 4.00 04/26/17 08:00 96.8 94 24 122/69 (86) 91 04/26/17 07:48 91 Nasal Cannula 4.00 04/26/17 04:00 96.0 101 17 117/62 (80) 95 04/26/17 00:00 96.4 102 18 127/67 (87) 94 04/25/17 23:31 93 Nasal Cannula 4.00 04/25/17 20:00 97.4 106 17 125/61 (82) 93 I/O 04/25/17 04/25/17 04/25/17 04/26/17 04/26/17 04/26/17 07:00 15:00 23:00 07:00 15:00 23:00 Intake Total 240 ml 1750 ml 240 ml 360 ml 70 ml Output Total 1675 ml 440 ml 205 ml 800 ml 285 ml Balance -1435 ml 1310 ml 35 ml -440 ml -215 ml Intake Oral 240 ml 1680 ml 240 ml 360 ml IV Total 70 ml 70 ml Output Urine Total 1525 ml 400 ml 200 ml 800 ml 225 ml Chest Tube Drainage Total 150 ml 40 ml 5 ml 60 ml # Voids 7 # Bowel Movements 1 1 0 Result Diagram: 04/26/1751904/26/17519 Objective Remarks GENERAL: Elderly male, mild pain SKIN: Warm and dry. HEAD: Normocephalic. EYES: No scleral icterus. No injection or drainage. NECK: Supple, trachea midline. No JVD or lymphadenopathy. CARDIOVASCULAR: Regular rate and rhythm without murmurs, gallops, or rubs. RESPIRATORY: Breath sounds equal bilaterally. No accessory muscle use. Right chest tube draining GASTROINTESTINAL: Abdomen soft, non-tender, nondistended. MUSCULOSKELETAL: No cyanosis, or edema. BACK: Nontender without obvious deformity. No CVA tenderness. A/P Assessment and Plan Malignant Pl effusion, s/p right chest tube Atelacresis NSCLC COPD PE PLAN: Chest tube to Suction Supplement 02 Once fluid drainage decreses, will need pleurodesis IV Heparin MS and Percocet for pain Add Zosyn 3.375 gm q 8 hrs CXR in AM If nosig effusion, will proceed with Pleurodesis. Jey Li MD Apr 26, 2017 17:59
[2017-04-26] MEDS: ZOLPIDEM TARTRATE 5 MG TAB PO PRN (21:10)
--- NOTE | 2017-04-26 22:22 | PD.ONC.PN ---
Subjective Subjective Remarks seen earlier in the day chest tube output decreasing no fever/no bleeding overall weak says he had good sleep Objective Data Date Time Temp Pulse Resp B/P (MAP) Pulse Ox O2 Delivery O2 Flow Rate FiO2 04/26/17 20:45 97 Nasal Cannula 4.00 04/26/17 20:00 98.0 106 18 122/66 (84) 96 04/26/17 16:39 105 04/26/17 16:00 96.6 105 20 121/62 (81) 96 04/26/17 12:15 111 04/26/17 12:00 96.7 101 20 103/55 (71) 96 04/26/17 09:43 97 Nasal Cannula 4.00 04/26/17 08:56 103 04/26/17 08:00 96.8 94 24 122/69 (86) 91 04/26/17 07:48 91 Nasal Cannula 4.00 04/26/17 04:00 96.0 101 17 117/62 (80) 95 04/26/17 00:00 96.4 102 18 127/67 (87) 94 04/25/17 23:31 93 Nasal Cannula 4.00 04/26/17 04/26/17 04/26/17 07:00 15:00 23:00 Intake Total 240 ml 360 ml 70 ml Output Total 205 ml 800 ml 485 ml Balance 35 ml -440 ml -415 ml Result Diagram: 04/26/1720 04/26/17 0520 Laboratory Results Laboratory Tests Test 04/26/17 05:20 White Blood Count 4.4 TH/MM3 Red Blood Count 2.81 MIL/MM3 Hemoglobin 8.9 GM/DL Hematocrit 26.2 % Mean Corpuscular Volume 93.5 FL Mean Corpuscular Hemoglobin 31.8 PG Mean Corpuscular Hemoglobin Concent 34.0 % Red Cell Distribution Width 15.2 % Platelet Count 137 TH/MM3 Mean Platelet Volume 9.4 FL Activated Partial Thromboplast Time 57.8 SEC Blood Urea Nitrogen 17 MG/DL Creatinine 0.52 MG/DL Random Glucose 155 MG/DL Calcium Level 8.4 MG/DL Sodium Level 135 MEQ/L Potassium Level 4.3 MEQ/L Chloride Level 98 MEQ/L Carbon Dioxide Level 29.2 MEQ/L Anion Gap 8 MEQ/L Estimat Glomerular Filtration Rate 153 ML/MIN Culture Results Microbiology Date/Time Source Procedure Growth Status 04/26/17 17:20 Stool Stool Stool Occult Blood (ZAIRE) - Final HEMOCCULT NEGATIVE Complete 04/25/17 23:48 Stool Stool Stool Occult Blood (ZAIRE) - Final HEMOCCULT NEGATIVE Complete Administered Medications Medications (Trade) Dose Ordered Sig/Jamil Route PRN Reason Start Time Stop Time Status Last Admin Dose Admin Finasteride (Proscar) 5 mg DAILY PO 04/20/17 09:00 04/26/17 07:41 Fluticasone/ Vilanterol (Breo Ellipta 100-25 Inh) 1 puff DAILY INH 04/20/17 09:00 04/26/17 07:48 Sodium Chloride ([place] [facility] [place]) 2 spray Q6H PRN EACH NARE NASAL CONGESTION 04/19/17 18:15 04/24/17 10:19 Sodium Chloride (NS Flush) 2 ml BID IV FLUSH 04/19/17 21:00 04/26/17 07:45 Zolpidem Tartrate (Ambien) 5 mg HS PRN PO INSOMNIA 04/19/17 18:15 04/26/17 21:10 Oxycodone/ Acetaminophen (Percocet 5-325 Mg) 1 tab Q6H PRN PO PAIN SCALE 3 TO 5 04/19/17 18:15 04/20/17 10:45 Morphine Sulfate (Morphine Inj) 4 mg Q3H PRN IV Pain 6-10;if unable to take PO 04/19/17 18:15 04/21/17 09:01 Morphine Sulfate (Morphine Inj) 4 mg Q3H PRN IV BREAKTHROUGH PAIN 04/19/17 18:15 04/21/17 20:02 Senna/Docusate Sodium (Lily-Colace) 1 tab BID PO 04/19/17 21:00 04/24/17 20:50 Albuterol/ Ipratropium (Duoneb Neb) 1 ampule Q4HR NEB PRN NEB SHORTNESS OF BREATH 04/19/17 18:15 04/26/17 20:45 Guaifenesin (Mucinex Er) 600 mg BID PO 04/19/17 21:00 04/26/17 21:09 Albuterol Sulfate (Ventolin Hfa Inh) 1 puff BID INH 04/19/17 21:30 04/26/17 21:10 Oxycodone/ Acetaminophen (Percocet 10-325 Mg) 1 tab Q4HR PRN PO PAIN SCALE 6 TO 10 04/21/17 16:00 04/26/17 09:29 Heparin Sodium/ Dextrose 250 ml @ 0 mls/hr TITRATE IV 04/21/17 22:00 04/26/17 07:56 Dexamethasone (Decadron) 4 mg Q12HR PO 04/23/17 21:00 04/26/17 21:10 Objective Remarks GENERAL: nad SKIN: Warm and dry. LYMPHATIC: No adenopathy. CARDIOVASCULAR: Regular rate and rhythm without murmurs. RESPIRATORY: Breath sounds equal bilaterally. No accessory muscle use. GASTROINTESTINAL: Abdomen soft, non-tender, nondistended. EXTREMITIES: No cyanosis, or edema. Assessment/Plan Problem List: (1) Non-small cell carcinoma of lung ICD Codes: C34.90 - Malignant neoplasm of unspecified part of unspecified bronchus or lung Status: Chronic Plan: -- Patient was diagnosed in February 2017 with moderately differentiated adenocarcinoma --He has multifocal disease involving the right lung. -- Unfortunately he has required multiple thoracenteses for recurrent malignant pleural effusions (2) Pleural effusion ICD Codes: J90 - Pleural effusion, not elsewhere classified Status: Acute Plan: -- Chest tube in place draining large amount of serosanguineous fluid -- pleurodesis once drainage decreased (3) Pulmonary embolism ICD Codes: I26.99 - Other pulmonary embolism without acute cor pulmonale Status: Chronic Plan: -- Currently on heparin drip Assessment 82 y/o male with history of non-small cell lung cancer admitted for malignant pleural effusion of the right lung requiring chest tube placement Plan 1. Pleurodesis tomorrow if chest XRay shows resolution of pleural effusion 2. continue heparin gtt Vj Ann MD Apr 26, 2017 22:21
[2017-04-26] MEDS: PIPERACIL-TAZO 3.375 GM PREMIX 50 ML IV SCH (23:13)
[2017-04-27] VITALS (11 sets, daily range): BP systolic 106–126; BP diastolic 60–74; PULSE 98–121; RESP 17–22; TEMP 96.9–97.9; O2SAT 93–98
[2017-04-27] MEDS: PIPERACIL-TAZO 3.375 GM PREMIX 50 ML IV SCH ×3 (04:14→21:04)
[2017-04-27 05:49] LABS: HEMATOCRIT 24.6 % (39.0-51.0); MEAN CELL VOLUME 92.7 FL (80.0-100.0); MEAN CORPUSCULAR HGB CONC 34.5 % (32.0-36.0); PLATELET COUNT 132 TH/MM3 (150-450); RED BLOOD COUNT 2.66 MIL/MM3 (4.50-5.90); RED CELL DISTRIBUTION WIDTH 15.4 % (11.6-17.2); REVIEW FLAG FINAL; WHITE BLOOD COUNT 3.4 TH/MM3 (4.0-11.0)
--- NOTE | 2017-04-27 06:44 | RADRPT ---
EXAM DATE/TIME: 04/27/2017 05:29 [facility] COMPARISON: CHEST SINGLE AP, April 23, 2017, 10:02. INDICATIONS : Short of breath, evaluate pleural effusion MEDICAL HISTORY : Carcinoma, lung. Chronic obstructive pulmonary disease. SURGICAL HISTORY : infusaport ENCOUNTER: Subsequent ACUITY: 1 week PAIN SCORE: 2/10 LOCATION: Bilateral chest FINDINGS: A single view of the chest demonstrates small caliber right chest tube which has been withdrawn from the pleural space and the tip is in the inferior right chest wall with subcutaneous air present. Ther e is a small to moderate right basilar pneumothorax. Dense consolidation remains right lung base. Lef t lung demonstrates minimal basilar airspace disease. [id number] in superior vena cava. CONCLUSION: 1. Right chest tube has been withdrawn from the right pleural space with slight increase in size of r ight basilar pneumothorax. Santy Badillo MD on April 27, 2017 at 6:39 Board Certified Radiologist. This report was verified electronically.
[2017-04-27] MEDS: FLUTICASONE 100 MCG/VILANTEROL 25 MCG INHALER INH SCH (09:00)
[2017-04-27] MEDS: ALBUTEROL SULFATE 90 MCG/ACT HFA 18 GM INHALER INH SCH ×2 (09:00→21:00)
--- NOTE | 2017-04-27 09:19 | HHI.PR ---
Subjective Remarks Follow-up non-small cell carcinoma with a long/large right pleural effusion/ pulmonary embolism 04/26/17-patient seen and examined, denies significant shortness of breath. Chest tube with only 5 cc recorded. Currently afebrile 04/27/17-patient seen and examined, although chest x-ray with finding of increasing pneumothorax as chest tubes been pulled out of the patient denies any shortness of breath or chest pain. Chest tube draining 60 cc this morning Objective Vitals Vital Signs Date Time Temp Pulse Resp B/P (MAP) Pulse Ox O2 Delivery O2 Flow Rate FiO2 04/27/17 08:52 96.9 107 22 119/64 (82) 96 04/27/17 04:00 97.8 100 17 122/62 (82) 95 04/27/17 04:00 98 04/27/17 00:00 97.6 104 18 106/63 (77) 95 04/27/17 00:00 100 04/26/17 21:00 95 Nasal Cannula 4.00 04/26/17 20:45 97 Nasal Cannula 4.00 04/26/17 20:00 98.0 106 18 122/66 (84) 96 04/26/17 20:00 112 04/26/17 16:39 105 04/26/17 16:00 96.6 105 20 121/62 (81) 96 04/26/17 12:15 111 04/26/17 12:00 96.7 101 20 103/55 (71) 96 04/26/17 09:43 97 Nasal Cannula 4.00 I/O 04/26/17 04/26/17 04/26/17 04/27/17 04/27/17 04/27/17 07:00 15:00 23:00 07:00 15:00 23:00 Intake Total 240 ml 360 ml 250 ml 180 ml Output Total 205 ml 800 ml 485 ml 600 ml Balance 35 ml -440 ml -235 ml -420 ml Intake Oral 240 ml 360 ml IV Total 250 ml 180 ml Output Urine Total 200 ml 800 ml 425 ml 600 ml Chest Tube Drainage Total 5 ml 60 ml 0 ml # Voids 1 # Bowel Movements 1 0 1 Result Diagram: 04/27/17 0415 04/26/17 0520 Imaging Last Impressions Chest X-Ray 04/23/17 0000 Signed Impressions: Service Date/Time: Sunday, April 23, 2017 10:02 - CONCLUSION: 1. The small bowel right-sided chest tube remains in place with a minimal right basal pneumothorax is slightly smaller in size than on the prior study. 2. Dense consolidative opacity remains in the right lung. 3. Patchy opacity remains at the left lung base. Cristopher Castro MD Brain MRI 04/23/17 0000 Signed Impressions: Service Date/Time: Sunday, April 23, 2017 14:59 - CONCLUSION: Moderate periventricular white matter changes, otherwise negative. Dinesh Smith MD FACR Chest Tube Insertion 04/19/17 0000 Signed Impressions: Service Date/Time: Thursday, April 20, 2017 09:48 - CONCLUSION: Uncomplicated chest tube placement as above. There was immediate return of approximately 1 L of hemorrhagic effusion. Vimal Smith MD Objective Remarks GENERAL: NAD SKIN: Warm and dry. HEAD: Normocephalic. EYES: No scleral icterus. No injection or drainage. NECK: Supple, trachea midline. No JVD or lymphadenopathy. CARDIOVASCULAR: Regular rate and rhythm without murmurs, gallops, or rubs. RESPIRATORY: Breath sounds equal bilaterally. No accessory muscle use.CT in place right lung GASTROINTESTINAL: Abdomen soft, non-tender, nondistended. MUSCULOSKELETAL: No cyanosis, or edema. BACK: Nontender without obvious deformity. No CVA tenderness. 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 Ann and .Dr. Li ff along with us. CT surgery ff continue home meds. Continue with heparin drip prn pain meds, DuoNeb, maintain oxygen saturation above 90% Nutrition - ensure tid - nutrition supplements Metabolic encephalopathy -Improving DVT prophylaxis: Heparin Yossi Vivas MD Apr 27, 2017 09:19
[2017-04-27] MEDS: DEXAMETHASONE 4 MG TAB PO SCH ×2 (09:20→21:04)
[2017-04-27] MEDS: guaiFENesin E.R. 600 MG TAB PO SCH ×2 (09:20→21:03)
[2017-04-27] MEDS: DOCUSATE SODIUM 50 MG/SENNA 8.6 MG TAB PO SCH ×2 (09:20→21:05)
[2017-04-27] MEDS: FINASTERIDE 5 MG TAB PO SCH (09:20)
[2017-04-27] MEDS: RESP: ALBUTEROL 2.5 MG/IPRATROPIUM 0.5 MG NEB (PRN) NEB ×2 (09:29→13:02)
[2017-04-27] MEDS: HEPARIN-D5W 25,000 U/250 ML 250 ML IV SCH (09:30)
[2017-04-27] MEDS: SODIUM CHLORIDE 0.9% FLUSH 10 ML FLUSH IV FLUSH SCH ×2 (09:30→21:04)
--- NOTE | 2017-04-27 11:10 | PD.ONC.PN ---
Subjective Subjective Remarks Afebrile overnight Her RN, he is going down for chest tube replacement later today as it was noted on chest x-ray this morning it was dislodged He also has a small pressure sore on his coccyx The patient reports shortness of breath with exertion Objective Data Date Time Temp Pulse Resp B/P (MAP) Pulse Ox O2 Delivery O2 Flow Rate FiO2 04/27/17 09:33 98 Nasal Cannula 4.00 04/27/17 09:29 95 Nasal Cannula 4.00 04/27/17 08:52 96.9 107 22 119/64 (82) 96 04/27/17 04:00 97.8 100 17 122/62 (82) 95 04/27/17 04:00 98 04/27/17 00:00 97.6 104 18 106/63 (77) 95 04/27/17 00:00 100 04/26/17 21:00 95 Nasal Cannula 4.00 04/26/17 20:45 97 Nasal Cannula 4.00 04/26/17 20:00 98.0 106 18 122/66 (84) 96 04/26/17 20:00 112 04/26/17 16:39 105 04/26/17 16:00 96.6 105 20 121/62 (81) 96 04/26/17 12:15 111 04/26/17 12:00 96.7 101 20 103/55 (71) 96 04/27/17 04/27/17 04/27/17 07:00 15:00 23:00 Intake Total 180 ml Output Total 600 ml Balance -420 ml Result Diagram: 04/27/17 0415 04/26/17 0520 Laboratory Results Laboratory Tests Test 04/27/17 04:15 White Blood Count 3.4 TH/MM3 Red Blood Count 2.66 MIL/MM3 Hemoglobin 8.5 GM/DL Hematocrit 24.6 % Mean Corpuscular Volume 92.7 FL Mean Corpuscular Hemoglobin 32.0 PG Mean Corpuscular Hemoglobin Concent 34.5 % Red Cell Distribution Width 15.4 % Platelet Count 132 TH/MM3 Mean Platelet Volume 8.3 FL Culture Results Microbiology Date/Time Source Procedure Growth Status 04/26/17 17:20 Stool Stool Stool Occult Blood (ZAIER) - Final HEMOCCULT NEGATIVE Complete 04/25/17 23:48 Stool Stool Stool Occult Blood (ZAIRE) - Final HEMOCCULT NEGATIVE Complete Administered Medications Medications (Trade) Dose Ordered Sig/Jamil Route PRN Reason Start Time Stop Time Status Last Admin Dose Admin Finasteride (Proscar) 5 mg DAILY PO 04/20/17 09:00 04/27/17 09:20 Fluticasone/ Vilanterol (Breo Ellipta 100-25 Inh) 1 puff DAILY INH 04/20/17 09:00 04/26/17 07:48 Sodium Chloride ([place] [facility] [place]) 2 spray Q6H PRN EACH NARE NASAL CONGESTION 04/19/17 18:15 04/24/17 10:19 Sodium Chloride (NS Flush) 2 ml BID IV FLUSH 04/19/17 21:00 04/27/17 09:30 Zolpidem Tartrate (Ambien) 5 mg HS PRN PO INSOMNIA 04/19/17 18:15 04/26/17 21:10 Oxycodone/ Acetaminophen (Percocet 5-325 Mg) 1 tab Q6H PRN PO PAIN SCALE 3 TO 5 04/19/17 18:15 04/20/17 10:45 Morphine Sulfate (Morphine Inj) 4 mg Q3H PRN IV Pain 6-10;if unable to take PO 04/19/17 18:15 04/21/17 09:01 Morphine Sulfate (Morphine Inj) 4 mg Q3H PRN IV BREAKTHROUGH PAIN 04/19/17 18:15 04/21/17 20:02 Senna/Docusate Sodium (Lily-Colace) 1 tab BID PO 04/19/17 21:00 04/27/17 09:20 Albuterol/ Ipratropium (Duoneb Neb) 1 ampule Q4HR NEB PRN NEB SHORTNESS OF BREATH 04/19/17 18:15 04/27/17 09:29 Guaifenesin (Mucinex Er) 600 mg BID PO 04/19/17 21:00 04/27/17 09:20 Albuterol Sulfate (Ventolin Hfa Inh) 1 puff BID INH 04/19/17 21:30 04/26/17 21:10 Oxycodone/ Acetaminophen (Percocet 10-325 Mg) 1 tab Q4HR PRN PO PAIN SCALE 6 TO 10 04/21/17 16:00 04/26/17 09:29 Heparin Sodium/ Dextrose 250 ml @ 0 mls/hr TITRATE IV 04/21/17 22:00 04/27/17 09:30 Dexamethasone (Decadron) 4 mg Q12HR PO 04/23/17 21:00 04/27/17 09:20 Piperacillin Sod/ Tazobactam Sod 50 ml @ 100 mls/hr Q8H IV 04/26/17 20:00 04/27/17 04:14 Objective Remarks GENERAL: Elderly male upright in bed currently getting a breathing treatment SKIN: Warm and dry. HEAD: Normocephalic. EYES: No injection or drainage. NECK: Supple, trachea midline. CARDIOVASCULAR: +S1/S2, tachy. RESPIRATORY: Occasional wheeze anteriorly. On 4LNC. GASTROINTESTINAL: Abdomen soft, non-tender, nondistended. EXTREMITIES: No cyanosis NEUROLOGICAL: No obvious focal deficit. Awake, alert, and oriented x3. Assessment/Plan Problem List: (1) Non-small cell carcinoma of lung ICD Codes: C34.90 - Malignant neoplasm of unspecified part of unspecified bronchus or lung Status: Chronic Plan: -- Patient was diagnosed in February 2017 with moderately differentiated adenocarcinoma --He has multifocal disease involving the right lung. -- Unfortunately he has required multiple thoracenteses for recurrent malignant pleural effusions (2) Pleural effusion ICD Codes: J90 - Pleural effusion, not elsewhere classified Status: Acute Plan: -- Chest tube being replaced today -- pleurodesis once drainage decreased (3) Pulmonary embolism ICD Codes: I26.99 - Other pulmonary embolism without acute cor pulmonale Status: Chronic Plan: --Heparin drip on hold for procedure Assessment 82 y/o male with history of non-small cell lung cancer admitted for malignant pleural effusion of the right lung requiring chest tube placement Plan 1. Chest x-ray showed displacement of chest tube 2. Patient going to interventional radiology later this afternoon to have this replaced. 3. Heparin drip currently on hold prior to procedure 4. We'll evaluate output once new chest tube placed; once drainage is minimal he will have talc pleurodesis. Attending Statement The exam, history, and the medical decision-making described in the above note were completed with the assistance of the mid-level provider. I reviewed and agree with the findings presented. I attest that I had a [id number] encounter with the patient on the same day, and personally performed and documented my assessment and findings in the medical record Had chest tube replaced Tachycardic and more dyspneic on Zosyn Anemia worsening will give 1 unit of pRBC premedicate with tylenol restart Heparin Mild Leukopenia 2/2 chemotherapy Mild thrombocytopenia 2/2 chemotherapy Jud Ortega rn Apr 27, 2017 11:10 Vj Ann MD Apr 27, 2017 22:11
[2017-04-27] MEDS ORDERED: LIDOCAINE HCL 1% 20 ML VIAL ONE (16:15)
[2017-04-27] MEDS ORDERED: fentaNYL CITRATE 250 MCG/5 ML AMP ONE (16:23)
--- NOTE | 2017-04-27 17:03 | PD.RAD ---
Post CT Procedure Prog Note Pre Procedure Diagnosis: (1) Pneumothorax Post Procedure Diagnosis: (1) Pneumothorax Procedure Date: Apr 27, 2017 Supervising Radiologist: Escobar Chun Estimated blood loss: <5 ml Anesthesia: Local Plan of Activity Patient to Unit: Nursing Unit Patient Condition: Good Additional Comments: Placed 12F chest tube. Improved PTX. See PACS Report for procedural detail/treatment Escobar Chun MD Apr 27, 2017 17:03
--- NOTE | 2017-04-27 19:22 | HHI.PR ---
Subjective Remarks 82 YOWM with NSCLC, malig pl effusion Breathing better Chest tube got pulled out had new chest tube placed Has air leak Objective Vital Signs Vital Signs Date Time Temp Pulse Resp B/P (MAP) Pulse Ox O2 Delivery O2 Flow Rate FiO2 04/27/17 17:20 97.8 100 22 115/60 (78) 96 04/27/17 16:00 117 04/27/17 12:00 97.9 101 22 117/62 (80) 96 04/27/17 09:33 98 Nasal Cannula 4.00 04/27/17 09:29 95 Nasal Cannula 4.00 04/27/17 08:52 96.9 107 22 119/64 (82) 96 04/27/17 08:30 113 04/27/17 04:00 97.8 100 17 122/62 (82) 95 04/27/17 04:00 98 04/27/17 00:00 97.6 104 18 106/63 (77) 95 04/27/17 00:00 100 04/26/17 21:00 95 Nasal Cannula 4.00 04/26/17 20:45 97 Nasal Cannula 4.00 04/26/17 20:00 98.0 106 18 122/66 (84) 96 04/26/17 20:00 112 I/O 04/26/17 04/26/17 04/26/17 04/27/17 04/27/17 04/27/17 07:00 15:00 23:00 07:00 15:00 23:00 Intake Total 240 ml 360 ml 250 ml 180 ml 480 ml Output Total 205 ml 800 ml 485 ml 600 ml 900 ml Balance 35 ml -440 ml -235 ml -420 ml -420 ml Intake Oral 240 ml 360 ml 480 ml IV Total 250 ml 180 ml Output Urine Total 200 ml 800 ml 425 ml 600 ml 900 ml Chest Tube Drainage Total 5 ml 60 ml 0 ml # Voids 1 # Bowel Movements 1 0 1 Result Diagram: 04/27/17 0415 04/26/17 0520 Objective Remarks GENERAL: Elderly male, mild pain SKIN: Warm and dry. HEAD: Normocephalic. EYES: No scleral icterus. No injection or drainage. NECK: Supple, trachea midline. No JVD or lymphadenopathy. CARDIOVASCULAR: Regular rate and rhythm without murmurs, gallops, or rubs. RESPIRATORY: Breath sounds equal bilaterally. No accessory muscle use. Right chest tube draining GASTROINTESTINAL: Abdomen soft, non-tender, nondistended. MUSCULOSKELETAL: No cyanosis, or edema. BACK: Nontender without obvious deformity. No CVA tenderness. A/P Assessment and Plan Malignant Pl effusion, s/p right chest tube Atelacresis NSCLC COPD PE PLAN: Chest tube to Suction Supplement 02 Once fluid drainage decreses, will need pleurodesis IV Heparin MS and Percocet for pain Add Zosyn 3.375 gm q 8 hrs Jey Li MD Apr 27, 2017 19:22
[2017-04-27] MEDS: ZOLPIDEM TARTRATE 5 MG TAB PO PRN (21:12)
[2017-04-27] MEDS ORDERED: ACETAMINOPHEN 325 MG TAB PO ONE (22:15)
[2017-04-27] MEDS ORDERED: diphenhydrAMINE HCL 25 MG CAP PO ONE (22:15)
[2017-04-28] VITALS (15 sets, daily range): BP systolic 111–136; BP diastolic 53–97; PULSE 73–101; RESP 17–20; TEMP 96–97.9; O2SAT 95–98
[2017-04-28 02:37] LABS: APTT (PATIENT) 54.9 SEC (24.3-30.1)
--- NOTE | 2017-04-28 05:52 | RADRPT ---
EXAM DATE/TIME: 04/28/2017 05:14 [facility] COMPARISON: CHEST SINGLE AP, April 27, 2017, 5:29. CHEST EXPIRATION ONLY, April 21, 2017, 8:03. INDICATIONS : Short of breath. MEDICAL HISTORY : Carcinoma, lung. Chronic obstructive pulmonary disease. SURGICAL HISTORY : infusaport ENCOUNTER: Subsequent ACUITY: 3 weeks PAIN SCORE: 0/10 LOCATION: Bilateral chest FINDINGS: Small caliber right chest tube is present with a small residual right pneumothorax improved from Augu st 22. Dense consolidation remains at the right base and there is mild left basilar airspace disease. Right [id number] in superior vena cava. CONCLUSION: 1. Placement of small caliber right chest tube with decrease in size of previous right pneumothorax p redominantly at the right lung base. Dense consolidation remains at the right base as well. Santy Badillo MD on April 28, 2017 at 5:49 Board Certified Radiologist. This report was verified electronically.
[2017-04-28] MEDS: PIPERACIL-TAZO 3.375 GM PREMIX 50 ML IV SCH ×3 (06:22→20:43)
[2017-04-28 07:00] LABS: AUTOMATED NEUTROPHIL # 1.3 TH/MM3 (1.8-7.7); BASOPHIL % 0.1 % (0.0-2.0); EOSINOPHIL % 0.1 % (0.0-4.0); HEMATOCRIT 31.1 % (39.0-51.0); HEMO FLAGS DIFF FINAL; LYMPH % 13.3 % (9.0-44.0); LYMPHOCYTE # 0.3 TH/MM3 (1.0-4.8); MEAN CELL VOLUME 92.5 FL (80.0-100.0); MEAN CORPUSCULAR HEMOGLOBIN 30.8 PG (27.0-34.0); MEAN CORPUSCULAR HGB CONC 33.3 % (32.0-36.0); NEUT % 67.5 % (16.0-70.0); PLATELET COUNT 156 TH/MM3 (150-450); RED BLOOD COUNT 3.36 MIL/MM3 (4.50-5.90); RED CELL DISTRIBUTION WIDTH 16.1 % (11.6-17.2)
[2017-04-28 07:36] LABS: APTT (PATIENT) 48.1 SEC (24.3-30.1)
--- NOTE | 2017-04-28 08:01 | RADRPT ---
EXAM DATE/TIME: 04/27/2017 16:40 INDICATIONS : History of large pleural effusion status post chest tube drainage with inadvertent chest tube removal . Patient now has increasing pneumothorax and subcutaneous emphysema. Chest tube replacement has been requested with tentative plans for pleurodesis. SEDATION TIME: 30 minutes MEDICATION(S): 1.) 150 mcg fentanyl (Sublimaze) IV DEVICE(S): 1.) 18 gauge Bob blunt needle 2.) 12 Fr Jovanna MEDICAL HISTORY : Chronic obstructive pulmonary disease. Carcinoma, lung. Hernia, hiatal. SURGICAL HISTORY : Appendectomy. ENCOUNTER: Initial ACUITY: 1 day PAIN SCORE: 6/10 LOCATION: Right chest PROCEDURE: 1.) Conscious sedation with continuous EKG and oximetry monitoring. 2.) EKG and oximetry remained stable throughout the procedure. PROCEDURE : 1. CT guided chest tube placement. 2. Conscious sedation with continuous EKG and oximetry monitoring. The risks, benefits and alternatives to the procedure were explained and verbal and written consent w as obtained. The site was prepped in sterile fashion. Full sterile technique was used, including ca p, mask, sterile gloves and gown and a large sterile sheet. Hand hygiene and 2% chlorhexidine and/or betadine/alcohol prep was utilized per protocol for cutaneous antisepsis. The skin and subcutaneous tissues were infiltrated with local anesthetic solution. Using automated exposure control and adjus tment of the mA and/or kV according to patient size, radiation dose was kept as low as reasonably ach ievable to obtain optimal diagnostic quality images. DICOM format image data is available electronic ally for review and comparison. With CT guidance the chest was punctured and the prescribed catheter was placed in the subpulmonic pn eumothorax. Wall suction was applied. Post procedure images demonstrate satisfactory position of the tube. The catheter was sutured in place and a Percu-Stay was applied. Conscious sedation was performed with the prescribed dosages and duration as above. The patient key ated the procedure well and there were no complications. EKG and oximetry remained stable throughout the procedure. The patient was sent to post anesthesia recovery in stable condition. CONCLUSION: 1. Technically successful CT-guided placement of 12 [place] nonlocking chest tube in subpulmonic right -sided pneumothorax Escobar Chun MD on April 28, 2017 at 7:57 Board Certified Radiologist. This report was verified electronically.
--- NOTE | 2017-04-28 08:46 | HHI.PR ---
Subjective Remarks Follow-up non-small cell carcinoma with a long/large right pleural effusion/ pulmonary embolism 04/26/17-patient seen and examined, denies significant shortness of breath. Chest tube with only 5 cc recorded. Currently afebrile 04/27/17-patient seen and examined, although chest x-ray with finding of increasing pneumothorax as chest tubes been pulled out of the patient denies any shortness of breath or chest pain. Chest tube draining 60 cc this morning 04/28/17-patient seen and examined, complains of nonproductive cough. Complains of right sided pain around chest tube site. Afebrile. Chest tube output this a.m. 44 cc Objective Vitals Vital Signs Date Time Temp Pulse Resp B/P (MAP) Pulse Ox O2 Delivery O2 Flow Rate FiO2 04/28/17 04:00 73 04/28/17 02:35 97.1 82 17 114/61 97 04/28/17 02:01 96.2 84 18 119/63 96 04/28/17 00:00 80 04/28/17 00:00 96.0 91 17 112/59 (76) 97 04/27/17 20:58 95 Nasal Cannula 4.00 04/27/17 20:39 95 Nasal Cannula 4.00 04/27/17 20:00 97.0 101 18 123/63 (83) 95 04/27/17 20:00 121 04/27/17 17:20 97.8 100 22 115/60 (78) 96 04/27/17 16:00 117 04/27/17 12:00 97.9 101 22 117/62 (80) 96 04/27/17 09:33 98 Nasal Cannula 4.00 04/27/17 09:29 95 Nasal Cannula 4.00 04/27/17 08:52 96.9 107 22 119/64 (82) 96 I/O 04/27/17 04/27/17 04/27/17 04/28/17 04/28/17 04/28/17 07:00 15:00 23:00 07:00 15:00 23:00 Intake Total 180 ml 530 ml 254 ml Output Total 600 ml 1100 ml 644 ml Balance -420 ml -570 ml -390 ml Intake Oral 480 ml IV Total 180 ml 50 ml Packed Cells 250 ml Blood Product IV Normal Saline Flush 4 ml Output Urine Total 600 ml 1100 ml 600 ml Chest Tube Drainage Total 0 ml 0 ml 44 ml Result Diagram: 04/28/17 0630 04/26/17 0520 Objective Remarks GENERAL: NAD SKIN: Warm and dry. HEAD: Normocephalic. EYES: No scleral icterus. No injection or drainage. NECK: Supple, trachea midline. No JVD or lymphadenopathy. CARDIOVASCULAR: Regular rate and rhythm without murmurs, gallops, or rubs. RESPIRATORY: Breath sounds equal bilaterally. No accessory muscle use.CT in place right lung GASTROINTESTINAL: Abdomen soft, non-tender, nondistended. MUSCULOSKELETAL: No cyanosis, or edema. BACK: Nontender without obvious deformity. No CVA tenderness. 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 Ann and .Dr. Li ff along with us. continue home meds. Continue with heparin drip prn pain meds, DuoNeb, maintain oxygen saturation above 90%. Start Mucinex Metabolic encephalopathy -Improved DVT prophylaxis: Heparin Yossi Vivas MD Apr 28, 2017 08:46
[2017-04-28] MEDS: guaiFENesin E.R. 600 MG TAB PO SCH ×2 (08:53→20:45)
[2017-04-28] MEDS: DOCUSATE SODIUM 50 MG/SENNA 8.6 MG TAB PO SCH ×2 (08:54→20:45)
[2017-04-28] MEDS: oxyCODONE/ACETAMINOPHEN 5 MG/325 MG TAB PO PRN (08:54)
[2017-04-28] MEDS: DEXAMETHASONE 4 MG TAB PO SCH ×2 (08:54→20:45)
[2017-04-28] MEDS: FINASTERIDE 5 MG TAB PO SCH (08:54)
[2017-04-28] MEDS: ALBUTEROL SULFATE 90 MCG/ACT HFA 18 GM INHALER INH SCH ×2 (09:00→20:44)
[2017-04-28] MEDS: FLUTICASONE 100 MCG/VILANTEROL 25 MCG INHALER INH SCH (09:00)
[2017-04-28] MEDS: SODIUM CHLORIDE 0.9% FLUSH 10 ML FLUSH IV FLUSH SCH ×2 (09:00→20:45)
[2017-04-28] MEDS ORDERED: guaiFENesin E.R. 600 MG TAB PO SCH (09:00)
[2017-04-28] MEDS: RESP: ALBUTEROL 2.5 MG/IPRATROPIUM 0.5 MG NEB (PRN) NEB ×2 (09:39→17:32)
[2017-04-28] MEDS ORDERED: SODIUM CHLORIDE 0.9% OTHER ONE (10:30)
[2017-04-28] MEDS ORDERED: LIDOCAINE OTHER ONE (10:30)
[2017-04-28] MEDS ORDERED: POVIDONE IODINE 10% SOLN 118 ML BOTTLE TOPICAL ONE (10:30)
--- NOTE | 2017-04-28 10:58 | PD.ONC.PN ---
Subjective Subjective Remarks SOB slightly improved Hoping to have talc pleurodesis soon 45ml's total output from chest tube overnight Objective Data Date Time Temp Pulse Resp B/P (MAP) Pulse Ox O2 Delivery O2 Flow Rate FiO2 04/28/17 09:41 96 Nasal Cannula 4.00 04/28/17 08:00 96.8 94 20 128/65 (86) 96 04/28/17 04:00 73 04/28/17 02:35 97.1 82 17 114/61 97 04/28/17 02:01 96.2 84 18 119/63 96 04/28/17 00:00 80 04/28/17 00:00 96.0 91 17 112/59 (76) 97 04/27/17 20:58 95 Nasal Cannula 4.00 04/27/17 20:39 95 Nasal Cannula 4.00 04/27/17 20:00 97.0 101 18 123/63 (83) 95 04/27/17 20:00 121 04/27/17 17:20 97.8 100 22 115/60 (78) 96 04/27/17 16:00 117 04/27/17 12:00 97.9 101 22 117/62 (80) 96 04/28/17 04/28/17 04/28/17 06:59 14:59 22:59 Intake Total 254 ml Output Total 644 ml Balance -390 ml Result Diagram: 04/28/17 0630 04/26/17 0520 Laboratory Results Laboratory Tests Test 04/28/17 01:40 04/28/17 06:30 Activated Partial Thromboplast Time 54.9 SEC 48.1 SEC White Blood Count 2.0 TH/MM3 Red Blood Count 3.36 MIL/MM3 Hemoglobin 10.4 GM/DL Hematocrit 31.1 % Mean Corpuscular Volume 92.5 FL Mean Corpuscular Hemoglobin 30.8 PG Mean Corpuscular Hemoglobin Concent 33.3 % Red Cell Distribution Width 16.1 % Platelet Count 156 TH/MM3 Mean Platelet Volume 8.2 FL Neutrophils (%) (Auto) 67.5 % Lymphocytes (%) (Auto) 13.3 % Monocytes (%) (Auto) 19.0 % Eosinophils (%) (Auto) 0.1 % Basophils (%) (Auto) 0.1 % Neutrophils # (Auto) 1.3 TH/MM3 Lymphocytes # (Auto) 0.3 TH/MM3 Monocytes # (Auto) 0.4 TH/MM3 Eosinophils # (Auto) 0.0 TH/MM3 Basophils # (Auto) 0.0 TH/MM3 CBC Comment DIFF FINAL Differential Comment Culture Results Microbiology Date/Time Source Procedure Growth Status 04/26/17 17:20 Stool Stool Stool Occult Blood (ZAIRE) - Final HEMOCCULT NEGATIVE Complete 04/25/17 23:48 Stool Stool Stool Occult Blood (ZAIRE) - Final HEMOCCULT NEGATIVE Complete Imaging Studies Last 24 hours Impressions Chest X-Ray 04/28/17 0000 Signed Impressions: Service Date/Time: Friday, April 28, 2017 05:14 - CONCLUSION: 1. Placement of small caliber right chest tube with decrease in size of previous right pneumothorax predominantly at the right lung base. Dense consolidation remains at the right base as well. Santy Badillo MD Administered Medications Medications (Trade) Dose Ordered Sig/Jamil Route PRN Reason Start Time Stop Time Status Last Admin Dose Admin Finasteride (Proscar) 5 mg DAILY PO 04/20/17 09:00 04/28/17 08:54 Fluticasone/ Vilanterol (Breo Ellipta 100-25 Inh) 1 puff DAILY INH 04/20/17 09:00 04/28/17 09:00 Sodium Chloride ([place]) 2 spray Q6H PRN EACH NARE NASAL CONGESTION 04/19/17 18:15 04/24/17 10:19 Sodium Chloride (NS Flush) 2 ml BID IV FLUSH 04/19/17 21:00 04/27/17 21:04 Zolpidem Tartrate (Ambien) 5 mg HS PRN PO INSOMNIA 04/19/17 18:15 04/27/17 21:12 Oxycodone/ Acetaminophen (Percocet 5-325 Mg) 1 tab Q6H PRN PO PAIN SCALE 3 TO 5 04/19/17 18:15 04/28/17 08:54 Morphine Sulfate (Morphine Inj) 4 mg Q3H PRN IV Pain 6-10;if unable to take PO 04/19/17 18:15 04/21/17 09:01 Morphine Sulfate (Morphine Inj) 4 mg Q3H PRN IV BREAKTHROUGH PAIN 04/19/17 18:15 04/21/17 20:02 Senna/Docusate Sodium (Lily-Colace) 1 tab BID PO 04/19/17 21:00 04/28/17 08:54 Albuterol/ Ipratropium (Duoneb Neb) 1 ampule Q4HR NEB PRN NEB SHORTNESS OF BREATH 04/19/17 18:15 04/28/17 09:39 Guaifenesin (Mucinex Er) 600 mg BID PO 04/19/17 21:00 04/28/17 08:53 Albuterol Sulfate (Ventolin Hfa Inh) 1 puff BID INH 04/19/17 21:30 04/28/17 09:00 Oxycodone/ Acetaminophen (Percocet 10-325 Mg) 1 tab Q4HR PRN PO PAIN SCALE 6 TO 10 04/21/17 16:00 04/26/17 09:29 Heparin Sodium/ Dextrose 250 ml @ 0 mls/hr TITRATE IV 04/21/17 22:00 04/27/17 09:30 Dexamethasone (Decadron) 4 mg Q12HR PO 04/23/17 21:00 04/28/17 08:54 Piperacillin Sod/ Tazobactam Sod 50 ml @ 100 mls/hr Q8H IV 04/26/17 20:00 04/28/17 06:22 Objective Remarks GENERAL: Elderly male upright in bed currently getting a breathing treatment SKIN: Warm and dry. HEAD: Normocephalic. EYES: No injection or drainage. NECK: Supple, trachea midline. CARDIOVASCULAR: +S1/S2. RESPIRATORY: Scattered rhonchi anteriorly. Pigtail chest tube to right lateral chest. Minimal serous output GASTROINTESTINAL: Abdomen soft, non-tender, nondistended EXTREMITIES: No cyanosis. No edema NEUROLOGICAL: No obvious focal deficit. Awake, alert, and oriented x3 Assessment/Plan Problem List: (1) Non-small cell carcinoma of lung ICD Codes: C34.90 - Malignant neoplasm of unspecified part of unspecified bronchus or lung Status: Chronic Plan: -- Patient was diagnosed in February 2017 with moderately differentiated adenocarcinoma --He has multifocal disease involving the right lung. -- Unfortunately he has required multiple thoracenteses for recurrent malignant pleural effusions (2) Pleural effusion ICD Codes: J90 - Pleural effusion, not elsewhere classified Status: Acute Plan: --Output significantly decreased -- Consult invasive radiology to evaluate for talc pleurodesis (3) Pulmonary embolism ICD Codes: I26.99 - Other pulmonary embolism without acute cor pulmonale Status: Chronic Plan: --On heparin drip Assessment 82 y/o male with history of non-small cell lung cancer admitted for malignant pleural effusion of the right lung requiring chest tube placement Plan 1. Patient had replacement of chest tube yesterday. Output overnight was at 44 mL. 2. Invasive radiology consulted to evaluate patient for talc pleurodesis. 3. Continue PT, supportive care. Attending Statement The exam, history, and the medical decision-making described in the above note were completed with the assistance of the mid-level provider. I reviewed and agree with the findings presented. I attest that I had a [id number] encounter with the patient on the same day, and personally performed and documented my assessment and findings in the medical record Mild Leukopenia ANC>1200--2/2 chemotherapy Anemia better after transfusion Talc pleurodesis today marlon rn cont PT Encourage oral intake Ensure plus tid with meals Jud Christensen Apr 28, 2017 10:58 Vj Ann MD Apr 29, 2017 00:24
[2017-04-28] MEDS ORDERED: SODIUM CHLOR 0.9% 1000 ML INJ 1,000 ML IV SCH (11:00)
--- NOTE | 2017-04-28 14:48 | PD.RAD ---
Post Procedure Progress Note Pre Procedure Diagnosis: (1) lung ca with effusion Post Procedure Diagnosis: (1) Pleural effusion (2) lung ca with effusion Procedure Date: Apr 28, 2017 Supervising Radiologist: Jerald Silva Proceduralist/Assist: Homar Cisneros RT(R), Darren Rome RT(R)() Plan of Activity Patient to Unit: [facility] Patient Condition: Good See PACS Report for procedural detail/treatment Drainage Procedure Procedure 1 Imaging Guidance: Fluoroscopy Side: Right Procedure Type: Pleurodesis Findings: Chest tube position confirmed with positive contrast. Loculated ptx in right lung base. Air leak when placed to 40 cm pleurvac suction with partial resolution of ptx. Lidocain solution injected into tube followed by Betadine solution. Tube will be capped for 2 hours and patient rotated q30 minutes Jerald Silva MD Apr 28, 2017 14:48
[2017-04-28] MEDS ORDERED: IOHEXOL 350 MG/ML 50 ML BTL (for RAD DIAG) OTHER ONE (15:06)
[2017-04-28] MEDS: oxyCODONE/ACETAMINOPHEN 10 MG/325 MG TAB PO PRN (17:29)
--- NOTE | 2017-04-28 19:16 | HHI.PR ---
Subjective Remarks 82 YOWM with NSCLC, malig pl effusion Breathing better Has air leak Had pleurodesis No CP and daughter at BS Objective Vital Signs Vital Signs Date Time Temp Pulse Resp B/P (MAP) Pulse Ox O2 Delivery O2 Flow Rate FiO2 04/28/17 16:45 90 20 121/70 (87) 97 04/28/17 16:05 93 20 111/57 (75) 97 04/28/17 16:00 96.9 100 18 128/60 (82) 96 04/28/17 15:35 101 20 112/53 (72) 98 04/28/17 15:05 91 20 124/70 (88) 98 04/28/17 14:50 97.9 92 20 136/86 (103) 97 04/28/17 12:00 96.1 98 18 118/56 (76) 96 04/28/17 09:41 96 Nasal Cannula 4.00 04/28/17 08:00 96.8 94 20 128/65 (86) 96 04/28/17 04:00 73 04/28/17 02:35 97.1 82 17 114/61 97 04/28/17 02:01 96.2 84 18 119/63 96 04/28/17 00:00 80 04/28/17 00:00 96.0 91 17 112/59 (76) 97 04/27/17 20:58 95 Nasal Cannula 4.00 04/27/17 20:39 95 Nasal Cannula 4.00 04/27/17 20:00 97.0 101 18 123/63 (83) 95 04/27/17 20:00 121 I/O 04/27/17 04/27/17 04/27/17 04/28/17 04/28/17 04/28/17 07:00 15:00 23:00 07:00 15:00 23:00 Intake Total 180 ml 530 ml 254 ml 570 ml Output Total 600 ml 1100 ml 644 ml 300 ml 200 ml Balance -420 ml -570 ml -390 ml 270 ml -200 ml Intake Oral 480 ml 520 ml IV Total 180 ml 50 ml 50 ml Packed Cells 250 ml Blood Product IV Normal Saline Flush 4 ml Output Urine Total 600 ml 1100 ml 600 ml 300 ml 200 ml Chest Tube Drainage Total 0 ml 0 ml 44 ml # Voids 2 # Bowel Movements 1 Result Diagram: 04/28/17 0630 04/26/17 0520 Objective Remarks GENERAL: Elderly male, mild pain SKIN: Warm and dry. HEAD: Normocephalic. EYES: No scleral icterus. No injection or drainage. NECK: Supple, trachea midline. No JVD or lymphadenopathy. CARDIOVASCULAR: Regular rate and rhythm without murmurs, gallops, or rubs. RESPIRATORY: Breath sounds equal bilaterally. No accessory muscle use. Right chest tube draining GASTROINTESTINAL: Abdomen soft, non-tender, nondistended. MUSCULOSKELETAL: No cyanosis, or edema. BACK: Nontender without obvious deformity. No CVA tenderness. A/P Assessment and Plan Malignant Pl effusion, s/p right chest tube Atelacresis NSCLC COPD PE PLAN: Chest tube to Suction Supplement 02 IV Heparin MS and Percocet for pain Zosyn 3.375 gm q 8 hrs Jey Li MD Apr 28, 2017 19:16
[2017-04-28] MEDS: ZOLPIDEM TARTRATE 5 MG TAB PO PRN (20:46)
[2017-04-29] VITALS (10 sets, daily range): BP systolic 106–131; BP diastolic 61–66; PULSE 95–114; RESP 17–21; TEMP 95.1–97.1; O2SAT 90–98
[2017-04-29] MEDS: oxyCODONE/ACETAMINOPHEN 10 MG/325 MG TAB PO PRN ×2 (02:58→21:31)
[2017-04-29] MEDS: HEPARIN-D5W 25,000 U/250 ML 250 ML IV SCH (03:04)
[2017-04-29] MEDS: PIPERACIL-TAZO 3.375 GM PREMIX 50 ML IV SCH ×3 (04:46→20:24)
[2017-04-29 07:08] LABS: APTT (PATIENT) 43.7 SEC (24.3-30.1)
--- NOTE | 2017-04-29 08:20 | RADRPT ---
EXAM DATE/TIME: 04/29/2017 08:03 [place] COMPARISON: CHEST EXPIRATION ONLY, April 28, 2017, 5:14. INDICATIONS : Post pleurodesis MEDICAL HISTORY : Carcinoma, lung. Chronic obstructive pulmonary disease. SURGICAL HISTORY : infusaport, chest tube ENCOUNTER: Subsequent ACUITY: 3 weeks PAIN SCORE: 0/10 LOCATION: Bilateral chest FINDINGS: Single view chest demonstrates the right basilar chest tube in good position. There is minimal basal pneumothorax with thickening of the pleura suggesting a thickened pleural rind. This is unchanged com pared to previous exam. There diffuse chronic appearing changes within both lungs. The [id number] in good position. CONCLUSION: 1. Continued minimal right basilar pneumothorax with chest tube in good position. Vimal Smith MD on April 29, 2017 at 8:17 Board Certified Radiologist. This report was verified electronically.
[2017-04-29] MEDS: ALBUTEROL SULFATE 90 MCG/ACT HFA 18 GM INHALER INH SCH ×2 (09:00→20:25)
[2017-04-29] MEDS: DOCUSATE SODIUM 50 MG/SENNA 8.6 MG TAB PO SCH ×2 (09:08→20:26)
[2017-04-29] MEDS: DEXAMETHASONE 4 MG TAB PO SCH ×2 (09:08→20:24)
[2017-04-29] MEDS: FINASTERIDE 5 MG TAB PO SCH (09:08)
[2017-04-29] MEDS: guaiFENesin E.R. 600 MG TAB PO SCH ×2 (09:08→20:24)
[2017-04-29] MEDS: SODIUM CHLORIDE 0.9% FLUSH 10 ML FLUSH IV FLUSH SCH ×2 (09:09→20:25)
[2017-04-29] MEDS: FLUTICASONE 100 MCG/VILANTEROL 25 MCG INHALER INH SCH (09:09)
--- NOTE | 2017-04-29 09:39 | HHI.PR ---
Subjective Remarks Follow-up non-small cell carcinoma with a long/large right pleural effusion/ pulmonary embolism 04/26/17-patient seen and examined, denies significant shortness of breath. Chest tube with only 5 cc recorded. Currently afebrile 04/27/17-patient seen and examined, although chest x-ray with finding of increasing pneumothorax as chest tubes been pulled out of the patient denies any shortness of breath or chest pain. Chest tube draining 60 cc this morning 04/28/17-patient seen and examined, complains of nonproductive cough. Complains of right sided pain around chest tube site. Afebrile. Chest tube output this a.m. 44 cc 04/29/17-patient seen and examined, he had Pleurodesis yesterday. Complained of insomnia last night otherwise stable Objective Vitals Vital Signs Date Time Temp Pulse Resp B/P (MAP) Pulse Ox O2 Delivery O2 Flow Rate FiO2 04/29/17 04:00 97.1 95 17 121/65 (83) 97 04/29/17 03:58 18 04/29/17 00:00 97.1 99 18 106/61 (76) 98 04/28/17 20:45 Nasal Cannula 4.00 04/28/17 20:05 98 04/28/17 20:00 97.6 100 18 121/97 (105) 95 04/28/17 16:45 90 20 121/70 (87) 97 04/28/17 16:05 93 20 111/57 (75) 97 04/28/17 16:00 96.9 100 18 128/60 (82) 96 04/28/17 15:35 101 20 112/53 (72) 98 04/28/17 15:05 91 20 124/70 (88) 98 04/28/17 14:50 97.9 92 20 136/86 (103) 97 04/28/17 12:00 96.1 98 18 118/56 (76) 96 04/28/17 09:41 96 Nasal Cannula 4.00 I/O 04/28/17 04/28/17 04/28/17 04/29/17 04/29/17 04/29/17 06:59 14:59 22:59 06:59 14:59 22:59 Intake Total 254 ml 570 ml Output Total 644 ml 300 ml 400 ml 200 ml 100 ml Balance -390 ml 270 ml -400 ml -200 ml -100 ml Intake Oral 520 ml IV Total 50 ml Packed Cells 250 ml Blood Product IV Normal Saline Flush 4 ml Output Urine Total 600 ml 300 ml 400 ml 200 ml Chest Tube Drainage Total 44 ml 100 ml # Voids 2 # Bowel Movements 1 Result Diagram: 04/28/17 0630 04/26/17 0520 Objective Remarks GENERAL: NAD SKIN: Warm and dry. HEAD: Normocephalic. EYES: No scleral icterus. No injection or drainage. NECK: Supple, trachea midline. No JVD or lymphadenopathy. CARDIOVASCULAR: Regular rate and rhythm without murmurs, gallops, or rubs. RESPIRATORY: Breath sounds equal bilaterally. No accessory muscle use.CT in place right lung GASTROINTESTINAL: Abdomen soft, non-tender, nondistended. MUSCULOSKELETAL: No cyanosis, or edema. BACK: Nontender without obvious deformity. No CVA tenderness. 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 Ann and .Dr. Li ff along with us. continue home meds. Continue with heparin drip prn pain meds, DuoNeb, maintain oxygen saturation above 90%. Continue Mucinex Metabolic encephalopathy -Improved DVT prophylaxis: Yossi Danielson MD Apr 29, 2017 09:39
[2017-04-29] MEDS ORDERED: MEGESTROL ACETATE 40 MG TAB PO SCH (12:35)
[2017-04-29] MEDS ORDERED: PILL SPLITTER OTHER PRN (12:45)
[2017-04-29] MEDS: RESP: ALBUTEROL 2.5 MG/IPRATROPIUM 0.5 MG NEB (PRN) NEB (12:46)
--- NOTE | 2017-04-29 19:14 | HHI.PR ---
Subjective Remarks 82 YOWM with NSCLC, malig pl effusion Breathing better Has air leak No CP Chest tube draining Objective Vital Signs Vital Signs Date Time Temp Pulse Resp B/P (MAP) Pulse Ox O2 Delivery O2 Flow Rate FiO2 04/29/17 16:17 96.5 106 21 121/62 (81) 97 04/29/17 12:49 98 Nasal Cannula 4.00 04/29/17 12:41 95.1 114 20 106/64 (78) 90 04/29/17 08:00 96.4 105 20 110/66 (81) 95 04/29/17 04:00 97.1 95 17 121/65 (83) 97 04/29/17 03:58 18 04/29/17 00:00 97.1 99 18 106/61 (76) 98 04/28/17 20:45 Nasal Cannula 4.00 04/28/17 20:05 98 04/28/17 20:00 97.6 100 18 121/97 (105) 95 I/O 04/28/17 04/28/17 04/28/17 04/29/17 04/29/17 04/29/17 06:59 14:59 22:59 06:59 14:59 22:59 Intake Total 254 ml 570 ml 480 ml Output Total 644 ml 300 ml 400 ml 200 ml 100 ml Balance -390 ml 270 ml -400 ml -200 ml 380 ml Intake Oral 520 ml 480 ml IV Total 50 ml Packed Cells 250 ml Blood Product IV Normal Saline Flush 4 ml Output Urine Total 600 ml 300 ml 400 ml 200 ml Chest Tube Drainage Total 44 ml 100 ml # Voids 2 2 # Bowel Movements 1 Result Diagram: 04/28/17 0630 04/26/17 0520 Objective Remarks GENERAL: Elderly male, mild pain SKIN: Warm and dry. HEAD: Normocephalic. EYES: No scleral icterus. No injection or drainage. NECK: Supple, trachea midline. No JVD or lymphadenopathy. CARDIOVASCULAR: Regular rate and rhythm without murmurs, gallops, or rubs. RESPIRATORY: Breath sounds equal bilaterally. No accessory muscle use. Right chest tube draining GASTROINTESTINAL: Abdomen soft, non-tender, nondistended. MUSCULOSKELETAL: No cyanosis, or edema. BACK: Nontender without obvious deformity. No CVA tenderness. A/P Assessment and Plan Malignant Pl effusion, s/p right chest tube Atelacresis NSCLC COPD PE PLAN: Chest tube to Suction Supplement 02 IV Heparin MS and Percocet for pain Zosyn 3.375 gm q 8 hrs CXR in AM Jey Li MD Apr 29, 2017 19:14
--- NOTE | 2017-04-29 23:16 | PD.ONC.PN ---
Subjective Subjective Remarks no output from chest tube doing ok--had PT today denies any dyspnea/no chest pain trying to increase oral intake Objective Data Date Time Temp Pulse Resp B/P (MAP) Pulse Ox O2 Delivery O2 Flow Rate FiO2 04/29/17 21:46 95 Nasal Cannula 3.00 04/29/17 20:00 96.3 103 21 131/66 (87) 97 04/29/17 16:17 96.5 106 21 121/62 (81) 97 04/29/17 12:49 98 Nasal Cannula 4.00 04/29/17 12:41 95.1 114 20 106/64 (78) 90 04/29/17 12:00 102 04/29/17 08:00 Nasal Cannula 4.00 04/29/17 08:00 109 04/29/17 08:00 96.4 105 20 110/66 (81) 95 04/29/17 04:00 97.1 95 17 121/65 (83) 97 04/29/17 03:58 18 04/29/17 00:00 97.1 99 18 106/61 (76) 98 Result Diagram: 04/28/17 0630 04/26/17 0520 Laboratory Results Laboratory Tests Test 04/29/17 06:20 Activated Partial Thromboplast Time 43.7 SEC Imaging Studies Last 24 hours Impressions Chest X-Ray 04/29/17 0000 Signed Impressions: Service Date/Time: April 08:03 - CONCLUSION: 1. Continued minimal right basilar pneumothorax with chest tube in good position. Vimal Smith MD Administered Medications Medications (Trade) Dose Ordered Sig/Jamil Route PRN Reason Start Time Stop Time Status Last Admin Dose Admin Finasteride (Proscar) 5 mg DAILY PO 04/20/17 09:00 04/29/17 09:08 Fluticasone/ Vilanterol (Breo Ellipta 100-25 Inh) 1 puff DAILY INH 04/20/17 09:00 04/29/17 09:09 Sodium Chloride ([place]) 2 spray Q6H PRN EACH NARE NASAL CONGESTION 04/19/17 18:15 04/24/17 10:19 Sodium Chloride (NS Flush) 2 ml BID IV FLUSH 04/19/17 21:00 04/29/17 20:25 Zolpidem Tartrate (Ambien) 5 mg HS PRN PO INSOMNIA 04/19/17 18:15 04/28/17 20:46 Oxycodone/ Acetaminophen (Percocet 5-325 Mg) 1 tab Q6H PRN PO PAIN SCALE 3 TO 5 04/19/17 18:15 04/28/17 08:54 Morphine Sulfate (Morphine Inj) 4 mg Q3H PRN IV Pain 6-10;if unable to take PO 04/19/17 18:15 04/21/17 09:01 Morphine Sulfate (Morphine Inj) 4 mg Q3H PRN IV BREAKTHROUGH PAIN 04/19/17 18:15 04/21/17 20:02 Senna/Docusate Sodium (Lily-Colace) 1 tab BID PO 04/19/17 21:00 04/29/17 09:08 Albuterol/ Ipratropium (Duoneb Neb) 1 ampule Q4HR NEB PRN NEB SHORTNESS OF BREATH 04/19/17 18:15 04/29/17 12:46 Guaifenesin (Mucinex Er) 600 mg BID PO 04/19/17 21:00 04/29/17 20:24 Albuterol Sulfate (Ventolin Hfa Inh) 1 puff BID INH 04/19/17 21:30 04/29/17 20:25 Oxycodone/ Acetaminophen (Percocet 10-325 Mg) 1 tab Q4HR PRN PO PAIN SCALE 6 TO 10 04/21/17 16:00 04/29/17 21:31 Heparin Sodium/ Dextrose 250 ml @ 0 mls/hr TITRATE IV 04/21/17 22:00 04/29/17 03:04 Piperacillin Sod/ Tazobactam Sod 50 ml @ 100 mls/hr Q8H IV 04/26/17 20:00 04/29/17 20:24 Dexamethasone (Decadron) 4 mg Q12HR PO 04/29/17 21:00 05/06/17 20:59 04/29/17 20:24 Objective Remarks GENERAL: thin, weak/cachectic SKIN: Warm and dry. HEAD: Normocephalic. EYES: No scleral icterus. No injection or drainage. NECK: Supple, trachea midline. No JVD or lymphadenopathy. LYMPHATIC: No adenopathy. CARDIOVASCULAR: Regular rate and rhythm without murmurs. RESPIRATORY: decreased breath sounds rll GASTROINTESTINAL: Abdomen soft, non-tender, nondistended. EXTREMITIES: No cyanosis, or edema. Assessment/Plan Problem List: (1) Non-small cell carcinoma of lung ICD Codes: C34.90 - Malignant neoplasm of unspecified part of unspecified bronchus or lung Status: Chronic Plan: -- Patient was diagnosed in February 2017 with moderately differentiated adenocarcinoma --He has multifocal disease involving the right lung. -- Unfortunately he has required multiple thoracenteses for recurrent malignant pleural effusions (2) Pleural effusion ICD Codes: J90 - Pleural effusion, not elsewhere classified Status: Acute Plan: --Output significantly decreased -- Consult invasive radiology to evaluate for talc pleurodesis (3) Pulmonary embolism ICD Codes: I26.99 - Other pulmonary embolism without acute cor pulmonale Status: Chronic Plan: --On heparin drip Assessment 82 y/o male with history of non-small cell lung cancer admitted for malignant pleural effusion of the right lung requiring chest tube placement Plan 1. Anemia - stable - no prbc transfusion 2. Leukopenia secondary to chemotherapy - continue to monitor for now 3. Recurrent Pleural effusion s/p pleredesis Continue PT, supportive care. Vj Ann MD Apr 29, 2017 23:16
[2017-04-30] VITALS (9 sets, daily range): BP systolic 112–133; BP diastolic 53–72; PULSE 85–108; RESP 18–20; TEMP 96.5–99.7; O2SAT 92–98
[2017-04-30] MEDS: PIPERACIL-TAZO 3.375 GM PREMIX 50 ML IV SCH ×3 (05:33→22:34)
[2017-04-30] MEDS: HEPARIN-D5W 25,000 U/250 ML 250 ML IV SCH (05:44)
[2017-04-30 06:12] LABS: HEMATOCRIT 33.6 % (39.0-51.0); MEAN CELL VOLUME 93.1 FL (80.0-100.0); MEAN CORPUSCULAR HEMOGLOBIN 30.9 PG (27.0-34.0); MEAN CORPUSCULAR HGB CONC 33.2 % (32.0-36.0); PLATELET COUNT 200 TH/MM3 (150-450); RED CELL DISTRIBUTION WIDTH 16.5 % (11.6-17.2); REVIEW FLAG FINAL; WHITE BLOOD COUNT 2.1 TH/MM3 (4.0-11.0)
[2017-04-30 06:30] LABS: APTT (PATIENT) 59.7 SEC (24.3-30.1)
[2017-04-30] MEDS: DEXAMETHASONE 4 MG TAB PO SCH ×2 (08:54→22:35)
[2017-04-30] MEDS: FINASTERIDE 5 MG TAB PO SCH (08:54)
[2017-04-30] MEDS: SODIUM CHLORIDE 0.9% FLUSH 10 ML FLUSH IV FLUSH SCH ×2 (08:55→21:00)
[2017-04-30] MEDS: FLUTICASONE 100 MCG/VILANTEROL 25 MCG INHALER INH SCH (08:55)
[2017-04-30] MEDS: ALBUTEROL SULFATE 90 MCG/ACT HFA 18 GM INHALER INH SCH ×2 (08:55→22:37)
[2017-04-30] MEDS: guaiFENesin E.R. 600 MG TAB PO SCH ×2 (08:55→22:35)
[2017-04-30] MEDS: DOCUSATE SODIUM 50 MG/SENNA 8.6 MG TAB PO SCH ×2 (08:56→21:00)
[2017-04-30] MEDS: oxyCODONE/ACETAMINOPHEN 10 MG/325 MG TAB PO PRN ×3 (10:01→22:36)
[2017-04-30] MEDS: BENZONATATE 100 MG CAP PO PRN ×2 (10:01→16:28)
--- NOTE | 2017-04-30 11:04 | HHI.PR ---
Subjective Remarks Follow-up non-small cell carcinoma with a long/large right pleural effusion/ pulmonary embolism 04/26/17-patient seen and examined, denies significant shortness of breath. Chest tube with only 5 cc recorded. Currently afebrile 04/27/17-patient seen and examined, although chest x-ray with finding of increasing pneumothorax as chest tubes been pulled out of the patient denies any shortness of breath or chest pain. Chest tube draining 60 cc this morning 04/28/17-patient seen and examined, complains of nonproductive cough. Complains of right sided pain around chest tube site. Afebrile. Chest tube output this a.m. 44 cc 04/29/17-patient seen and examined, he had Pleurodesis yesterday. Complained of insomnia last night otherwise stable 04/30/17-patient seen and examined, stable and no acute event overnight. Per nurse report patient had decreased appetite family requesting treatment to boost his appetite. States he is breathing better Objective Vitals Vital Signs Date Time Temp Pulse Resp B/P (MAP) Pulse Ox O2 Delivery O2 Flow Rate FiO2 04/30/17 08:00 97.4 90 18 112/70 (84) 94 04/30/17 04:25 85 04/30/17 04:00 97.7 88 18 117/71 (86) 98 04/30/17 00:10 87 04/30/17 00:00 99.7 97 20 114/67 (83) 98 04/29/17 22:30 18 04/29/17 21:46 95 Nasal Cannula 3.00 04/29/17 20:25 Nasal Cannula 4.00 04/29/17 20:11 95 04/29/17 20:00 96.3 103 21 131/66 (87) 97 04/29/17 16:17 96.5 106 21 121/62 (81) 97 04/29/17 12:49 98 Nasal Cannula 4.00 04/29/17 12:41 95.1 114 20 106/64 (78) 90 04/29/17 12:00 102 I/O 04/29/17 04/29/17 04/29/17 04/30/17 04/30/17 04/30/17 07:00 15:00 23:00 07:00 15:00 23:00 Intake Total 480 ml 480 ml 240 ml Output Total 200 ml 150 ml 375 ml 380 ml 150 ml Balance -200 ml 330 ml 105 ml -140 ml -150 ml Intake Oral 480 ml 480 ml 240 ml Output Urine Total 200 ml 375 ml 200 ml 150 ml Chest Tube Drainage Total 150 ml 180 ml # Voids 2 1 # Bowel Movements 1 Result Diagram: 04/30/17 0530 04/26/17 0520 Imaging Last Impressions Chest X-Ray 04/29/17 0000 Signed Impressions: Service Date/Time: April 08:03 - CONCLUSION: 1. Continued minimal right basilar pneumothorax with chest tube in good position. Vimal Smith MD Chest Tube Insertion 04/27/17 0000 Signed Impressions: Service Date/Time: Thursday, April 27, 2017 16:40 - CONCLUSION: 1. Technically successful CT-guided placement of 12 Slovenian nonlocking chest tube in subpulmonic right-sided pneumothorax Escobar Chun MD Brain MRI 04/23/17 0000 Signed Impressions: Service Date/Time: Sunday, April 23, 2017 14:59 - CONCLUSION: Moderate periventricular white matter changes, otherwise negative. Dinesh Smith MD FACR Objective Remarks GENERAL: NAD SKIN: Warm and dry. HEAD: Normocephalic. EYES: No scleral icterus. No injection or drainage. NECK: Supple, trachea midline. No JVD or lymphadenopathy. CARDIOVASCULAR: Regular rate and rhythm without murmurs, gallops, or rubs. RESPIRATORY: Breath sounds equal bilaterally. No accessory muscle use.CT in place right lung GASTROINTESTINAL: Abdomen soft, non-tender, nondistended. MUSCULOSKELETAL: No cyanosis, or edema. BACK: Nontender without obvious deformity. No CVA tenderness. 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 Ann and .Dr. Li ff along with us. continue home meds. Continue with heparin drip prn pain meds, DuoNeb, maintain oxygen saturation above 90%. Continue Mucinex Metabolic encephalopathy Resolved Generalized deconditioning PT to treat and eval DVT prophylaxis: Yossi Danielson MD Apr 30, 2017 11:04
[2017-04-30] MEDS: RESP: ALBUTEROL 2.5 MG/IPRATROPIUM 0.5 MG NEB (PRN) NEB (11:22)
--- NOTE | 2017-04-30 12:29 | RADRPT ---
EXAM DATE/TIME: 04/28/2017 14:29 [facility] COMPARISON: CHEST SINGLE AP, April 29, 2017, 8:03. INDICATIONS : Patient presents with malignant pleural effusion in need of chemical pleurodesis. MEDICAL HISTORY : Genitourinary: Yes (FREQUENCY URINATION) Hiatal Hernia: Yes Respiratory: COPD [place] cancer stage four Hx of PE Hx of dyspnea SURGICAL HISTORY : Abdominal Surgery: Yes (APPY) Oral Surgery: Yes (TONSILS) Right chest tube placement Colonoscopy ENCOUNTER: Subsequent ACUITY: 2 weeks PAIN SCORE: 0/10 LOCATION: n/a FLUORO TIME: 0.8 minutes IMAGE SERIES: 2 PROCEDURE : 1. Chemical pleurodesis. 2. Fluoroscopic guidance. The risks, benefits, and alternatives to paracentesis were explained to the patient in detail, lay te duarte including the risk of bleeding and infection. Oral and written informed consent was obtained. The site was prepped in sterile fashion. Full sterile technique was used, including cap, mask, steri le gloves and gown and a large sterile sheet. Hand hygiene and 2% chlorhexidine and/or betadine/alco hol prep was utilized per protocol for cutaneous antisepsis. Intrapleural position of the Bayard loop catheter was confirmed the positive contrast. Of note, there a ppears to be a loculated pneumothorax at the base of the right hemithorax with a significant air leak when connected to Pleur-evac suction. 60 cc of lidocaine solution was then infused into the cathet er. This was followed by a 100 cc of a diluted Betadine mixture. The chest tube was clamped. The pa tient was rotated into the anterior, posterior, right lateral and left lateral at 30 minute increment s for a total of 2 hours. Upon completion of this the chest tube was unclamped and again placed to P leur-evac suction. CONCLUSION: No 40 cm of Pleur-evac suction Jerald Silva MD on April 30, 2017 at 12:22 Board Certified Radiologist. This report was verified electronically.
--- NOTE | 2017-04-30 14:52 | PD.ONC.PN ---
Subjective Subjective Remarks Patient resting in bed in no acute distress Reports that he is working on trying to eat more Objective Data Date Time Temp Pulse Resp B/P (MAP) Pulse Ox O2 Delivery O2 Flow Rate FiO2 04/30/17 12:00 97.5 108 18 113/53 (73) 92 04/30/17 11:25 96 Nasal Cannula 4.00 04/30/17 11:04 18 04/30/17 08:00 97.4 90 18 112/70 (84) 94 04/30/17 04:25 85 04/30/17 04:00 97.7 88 18 117/71 (86) 98 04/30/17 00:10 87 04/30/17 00:00 99.7 97 20 114/67 (83) 98 04/29/17 21:46 95 Nasal Cannula 3.00 04/29/17 20:25 Nasal Cannula 4.00 04/29/17 20:11 95 04/29/17 20:00 96.3 103 21 131/66 (87) 97 04/29/17 16:17 96.5 106 21 121/62 (81) 97 04/30/17 04/30/17 04/30/17 06:59 14:59 22:59 Intake Total 240 ml Output Total 380 ml 150 ml Balance -140 ml -150 ml Result Diagram: 04/30/17 0530 04/26/17 0520 Laboratory Results Laboratory Tests Test 04/30/17 05:30 White Blood Count 2.1 TH/MM3 Red Blood Count 3.60 MIL/MM3 Hemoglobin 11.1 GM/DL Hematocrit 33.6 % Mean Corpuscular Volume 93.1 FL Mean Corpuscular Hemoglobin 30.9 PG Mean Corpuscular Hemoglobin Concent 33.2 % Red Cell Distribution Width 16.5 % Platelet Count 200 TH/MM3 Mean Platelet Volume 8.2 FL Activated Partial Thromboplast Time 59.7 SEC Administered Medications Medications (Trade) Dose Ordered Sig/Jamil Route PRN Reason Start Time Stop Time Status Last Admin Dose Admin Benzonatate (Tessalon) 100 mg TID PRN PO COUGH 04/19/17 18:15 04/30/17 10:01 Finasteride (Proscar) 5 mg DAILY PO 04/20/17 09:00 04/30/17 08:54 Fluticasone/ Vilanterol (Breo Ellipta 100-25 Inh) 1 puff DAILY INH 04/20/17 09:00 04/30/17 08:55 Sodium Chloride (Petroleum [place]) 2 spray Q6H PRN EACH NARE NASAL CONGESTION 04/19/17 18:15 04/24/17 10:19 Sodium Chloride (NS Flush) 2 ml BID IV FLUSH 04/19/17 21:00 04/30/17 08:55 Zolpidem Tartrate (Ambien) 5 mg HS PRN PO INSOMNIA 04/19/17 18:15 04/28/17 20:46 Oxycodone/ Acetaminophen (Percocet 5-325 Mg) 1 tab Q6H PRN PO PAIN SCALE 3 TO 5 04/19/17 18:15 04/28/17 08:54 Morphine Sulfate (Morphine Inj) 4 mg Q3H PRN IV Pain 6-10;if unable to take PO 04/19/17 18:15 04/21/17 09:01 Morphine Sulfate (Morphine Inj) 4 mg Q3H PRN IV BREAKTHROUGH PAIN 04/19/17 18:15 04/21/17 20:02 Senna/Docusate Sodium (Lily-Colace) 1 tab BID PO 04/19/17 21:00 04/29/17 09:08 Albuterol/ Ipratropium (Duoneb Neb) 1 ampule Q4HR NEB PRN NEB SHORTNESS OF BREATH 04/19/17 18:15 04/30/17 11:22 Guaifenesin (Mucinex Er) 600 mg BID PO 04/19/17 21:00 04/30/17 08:55 Albuterol Sulfate (Ventolin Hfa Inh) 1 puff BID INH 04/19/17 21:30 04/30/17 08:55 Oxycodone/ Acetaminophen (Percocet 10-325 Mg) 1 tab Q4HR PRN PO PAIN SCALE 6 TO 10 04/21/17 16:00 04/30/17 10:01 Heparin Sodium/ Dextrose 250 ml @ 0 mls/hr TITRATE IV 04/21/17 22:00 04/30/17 05:44 Piperacillin Sod/ Tazobactam Sod 50 ml @ 100 mls/hr Q8H IV 04/26/17 20:00 04/30/17 11:53 Dexamethasone (Decadron) 4 mg Q12HR PO 04/29/17 21:00 05/06/17 20:59 04/30/17 08:54 Objective Remarks GENERAL: Elderly male resting in bed in no acute distress SKIN: Warm and dry. HEAD: Normocephalic. EYES: No injection or drainage. NECK: Supple, trachea midline. CARDIOVASCULAR: +S1/S2. RESPIRATORY: Fine crackles to right lower lobe. Pigtail chest tube to right lateral chest. Minimal serous output GASTROINTESTINAL: Abdomen soft, non-tender, nondistended EXTREMITIES: No cyanosis. No edema NEUROLOGICAL: No obvious focal deficit. Awake, alert, and oriented x3 Assessment/Plan Problem List: (1) Non-small cell carcinoma of lung ICD Codes: C34.90 - Malignant neoplasm of unspecified part of unspecified bronchus or lung Status: Chronic Plan: -- Patient was diagnosed in February 2017 with moderately differentiated adenocarcinoma --He has multifocal disease involving the right lung. -- Unfortunately he has required multiple thoracenteses for recurrent malignant pleural effusions (2) Pleural effusion ICD Codes: J90 - Pleural effusion, not elsewhere classified Status: Acute Plan: --Output significantly decreased --Talc pleurodesis done on 04/28. (3) Pulmonary embolism ICD Codes: I26.99 - Other pulmonary embolism without acute cor pulmonale Status: Chronic Plan: --On heparin drip Assessment 82 y/o male with history of non-small cell lung cancer admitted for malignant pleural effusion of the right lung requiring chest tube placement Plan 1. Patient is being evaluated for rehabilitation placement 2. Monitor labs 3. Chest x-ray in a.m. to reevaluate pneumothorax Attending Statement The exam, history, and the medical decision-making described in the above note were completed with the assistance of the mid-level provider. I reviewed and agree with the findings presented. I attest that I had a [id number] encounter with the patient on the same day, and personally performed and documented my assessment and findings in the medical record Had significant output from chest tube overnight May need another attempt for pleurodesis once output decreases supportive care over the weekend Jud Christensen Apr 30, 2017 14:52 Vj Ann MD Apr 30, 2017 22:55
[2017-04-30] MEDS: MORPHINE SULFATE 4 MG/ML INJ IV PRN (17:48)
--- NOTE | 2017-04-30 18:45 | HHI.PR ---
Subjective Remarks 82 YOWM with NSCLC, malig pl effusion Breathing better No CP Chest tube draining Air leak decreased Objective Vital Signs Vital Signs Date Time Temp Pulse Resp B/P (MAP) Pulse Ox O2 Delivery O2 Flow Rate FiO2 04/30/17 17:55 18 04/30/17 17:55 18 04/30/17 16:00 97.0 94 18 115/62 (79) 93 04/30/17 12:00 97.5 108 18 113/53 (73) 92 04/30/17 11:25 96 Nasal Cannula 4.00 04/30/17 08:00 97.4 90 18 112/70 (84) 94 04/30/17 04:25 85 04/30/17 04:00 97.7 88 18 117/71 (86) 98 04/30/17 00:10 87 04/30/17 00:00 99.7 97 20 114/67 (83) 98 04/29/17 21:46 95 Nasal Cannula 3.00 04/29/17 20:25 Nasal Cannula 4.00 04/29/17 20:11 95 04/29/17 20:00 96.3 103 21 131/66 (87) 97 I/O 04/29/17 04/29/17 04/29/17 04/30/17 04/30/17 04/30/17 07:00 15:00 23:00 07:00 15:00 23:00 Intake Total 480 ml 480 ml 240 ml 960 ml Output Total 200 ml 150 ml 375 ml 380 ml 150 ml Balance -200 ml 330 ml 105 ml -140 ml 810 ml Intake Oral 480 ml 480 ml 240 ml 960 ml Output Urine Total 200 ml 375 ml 200 ml 150 ml Chest Tube Drainage Total 150 ml 180 ml # Voids 2 2 # Bowel Movements 2 Result Diagram: 04/30/17 0530 04/26/17 0520 Objective Remarks GENERAL: Elderly male, mild pain SKIN: Warm and dry. HEAD: Normocephalic. EYES: No scleral icterus. No injection or drainage. NECK: Supple, trachea midline. No JVD or lymphadenopathy. CARDIOVASCULAR: Regular rate and rhythm without murmurs, gallops, or rubs. RESPIRATORY: Breath sounds equal bilaterally. No accessory muscle use. Right chest tube draining GASTROINTESTINAL: Abdomen soft, non-tender, nondistended. MUSCULOSKELETAL: No cyanosis, or edema. BACK: Nontender without obvious deformity. No CVA tenderness. A/P Assessment and Plan Malignant Pl effusion, s/p right chest tube Atelacresis NSCLC COPD PE PLAN: Chest tube to Suction Supplement 02 IV Heparin [place] and Percocet for pain Zosyn 3.375 gm q 8 hrs [place] pt's daughter in [place] on phone Jey Li MD Apr 30, 2017 18:45
[2017-04-30] MEDS: ZOLPIDEM TARTRATE 5 MG TAB PO PRN (22:36)
[2017-05-01] VITALS (11 sets, daily range): BP systolic 121–137; BP diastolic 64–77; PULSE 76–110; RESP 18–20; TEMP 96.6–97.7; O2SAT 92–97
[2017-05-01] MEDS: PIPERACIL-TAZO 3.375 GM PREMIX 50 ML IV SCH ×3 (04:04→21:33)
--- NOTE | 2017-05-01 04:53 | RADRPT ---
EXAM DATE/TIME: 05/01/2017 04:11 [facility] COMPARISON: CHEST SINGLE AP, April 29, 2017, 8:03. INDICATIONS : Shortness of breath, possible pulmonary disease. MEDICAL HISTORY : Carcinoma, lung. Chronic obstructive pulmonary disease. SURGICAL HISTORY : Port Chest tube ENCOUNTER: Subsequent ACUITY: 3 weeks PAIN SCORE: 0/10 LOCATION: Bilateral chest FINDINGS: A single view of the chest demonstrates the interval removal of the right-sided pigtail chest tube wi th a persistent right basilar pneumothorax increased in size since the . There some adjacent infi ltrate in the right middle lobe and right lower lobes. The right-sided Port-A-Cath with tip overlying SVC. Left lung remains clear. The cardiomediastinal contours are unremarkable. Osseous structures are intact. CONCLUSION: Enlarging right basilar pneumothorax with removal of the previously identified chest tube. Some conso lidation in the adjacent right lung. Extensive subcutaneous air across the chest increased since the film. Alvin Arias MD on May 01, 2017 at 4:50 Board Certified Radiologist. This report was verified electronically.
[2017-05-01 05:51] LABS: APTT (PATIENT) 64.3 SEC (24.3-30.1)
[2017-05-01] MEDS: DEXAMETHASONE 4 MG TAB PO SCH ×2 (08:47→21:33)
[2017-05-01] MEDS: DOCUSATE SODIUM 50 MG/SENNA 8.6 MG TAB PO SCH ×2 (08:47→21:00)
[2017-05-01] MEDS: guaiFENesin E.R. 600 MG TAB PO SCH ×2 (08:47→21:33)
[2017-05-01] MEDS: FINASTERIDE 5 MG TAB PO SCH (08:47)
[2017-05-01] MEDS: SODIUM CHLORIDE 0.9% FLUSH 10 ML FLUSH IV FLUSH SCH ×2 (08:49→21:00)
[2017-05-01] MEDS: FLUTICASONE 100 MCG/VILANTEROL 25 MCG INHALER INH SCH (08:50)
[2017-05-01] MEDS: ALBUTEROL SULFATE 90 MCG/ACT HFA 18 GM INHALER INH SCH ×2 (08:50→21:33)
--- NOTE | 2017-05-01 11:24 | HHI.PR ---
Subjective Remarks Follow-up non-small cell carcinoma with a long/large right pleural effusion/ pulmonary embolism 04/26/17-patient seen and examined, denies significant shortness of breath. Chest tube with only 5 cc recorded. Currently afebrile 04/27/17-patient seen and examined, although chest x-ray with finding of increasing pneumothorax as chest tubes been pulled out of the patient denies any shortness of breath or chest pain. Chest tube draining 60 cc this morning 04/28/17-patient seen and examined, complains of nonproductive cough. Complains of right sided pain around chest tube site. Afebrile. Chest tube output this a.m. 44 cc 04/29/17-patient seen and examined, he had Pleurodesis yesterday. Complained of insomnia last night otherwise stable 04/30/17-patient seen and examined, stable and no acute event overnight. Per nurse report patient had decreased appetite family requesting treatment to boost his appetite. States he is breathing better 05/01/17-patient seen and examined, reports some shortness of breath. States he has right sided chest pain and swollen however denies any pain. Chest x-ray noted Objective Vitals Vital Signs Date Time Temp Pulse Resp B/P (MAP) Pulse Ox O2 Delivery O2 Flow Rate FiO2 05/01/17 08:00 97.7 85 18 137/71 (93) 92 05/01/17 04:00 97.7 89 18 125/66 (85) 96 05/01/17 03:49 97 Nasal Cannula 4.00 05/01/17 03:00 20 05/01/17 00:00 97.6 76 20 130/64 (86) 97 04/30/17 20:00 Nasal Cannula 04/30/17 20:00 89 04/30/17 20:00 96.5 94 20 133/72 (92) 96 04/30/17 17:55 18 04/30/17 17:55 18 04/30/17 16:00 97.0 94 18 115/62 (79) 93 04/30/17 12:00 97.5 108 18 113/53 (73) 92 04/30/17 11:25 96 Nasal Cannula 4.00 I/O 04/30/17 04/30/17 04/30/17 05/01/17 05/01/17 05/01/17 07:00 15:00 23:00 07:00 15:00 23:00 Intake Total 240 ml 960 ml 240 ml 776 ml Output Total 380 ml 150 ml 255 ml 250 ml 550 ml Balance -140 ml 810 ml -15 ml 526 ml -550 ml Intake Oral 240 ml 960 ml 240 ml 240 ml IV Total 536 ml Output Urine Total 200 ml 150 ml 225 ml 250 ml 550 ml Chest Tube Drainage Total 180 ml 30 ml # Voids 2 1 # Bowel Movements 2 Result Diagram: 04/30/17 0530 Imaging Last Impressions Chest X-Ray 05/01/17 0600 Signed Impressions: Service Date/Time: Monday, May 01, 2017 04:11 - CONCLUSION: Enlarging right basilar pneumothorax with removal of the previously identified chest tube. Some consolidation in the adjacent right lung. Extensive subcutaneous air across the chest increased since the 24 film. Alvin Arias MD Pleurodesis 04/28/17 0000 Signed Impressions: Service Date/Time: Friday, April 28, 2017 14:29 - CONCLUSION: No 40 cm of Pleur-evac suction Jerald Silva MD Chest Tube Insertion 04/27/17 0000 Signed Impressions: Service Date/Time: Thursday, April 27, 2017 16:40 - CONCLUSION: 1. Technically successful CT-guided placement of 12 [place] nonlocking chest tube in subpulmonic right-sided pneumothorax Escobar Chun MD Brain MRI 04/23/17 0000 Signed Impressions: Service Date/Time: Sunday, April 23, 2017 14:59 - CONCLUSION: Moderate periventricular white matter changes, otherwise negative. Dinesh Smith MD FACR Objective Remarks GENERAL: NAD SKIN: Warm and dry. HEAD: Normocephalic. EYES: No scleral icterus. No injection or drainage. NECK: Supple, trachea midline. No JVD or lymphadenopathy. CARDIOVASCULAR: Regular rate and rhythm without murmurs, gallops, or rubs. RESPIRATORY: Breath sounds decrease R>L.edema/swollen right sided chest. No accessory muscle use.CT in place right lung GASTROINTESTINAL: Abdomen soft, non-tender, nondistended. MUSCULOSKELETAL: No cyanosis, or edema. BACK: Nontender without obvious deformity. No CVA tenderness. 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 Ann and .Dr. Li ff along with us. continue home meds. Continue with heparin drip prn pain meds, DuoNeb, maintain oxygen saturation above 90%. Continue Mucinex Will have interventional radiology assist with finding on chest x-ray Metabolic encephalopathy Resolved Generalized deconditioning PT to treat and eval DVT prophylaxis: Heparin Yossi Vivas MD May 01, 2017 11:24
[2017-05-01] MEDS: oxyCODONE/ACETAMINOPHEN 5 MG/325 MG TAB PO PRN (11:36)
[2017-05-01] MEDS: RESP: ALBUTEROL 2.5 MG/IPRATROPIUM 0.5 MG NEB (PRN) NEB ×2 (11:45→17:47)
--- NOTE | 2017-05-01 17:12 | RADRPT ---
EXAM DATE/TIME: 05/01/2017 16:57 [facility] COMPARISON: CHEST SINGLE AP, May 01, 2017, 4:11. INDICATIONS : Post chest tube removal. Patient pulled out his chest tube. MEDICAL HISTORY : Carcinoma, lung. Chronic obstructive pulmonary disease. SURGICAL HISTORY : Infusaport, chest tube. ENCOUNTER: Subsequent ACUITY: 3 weeks PAIN SCORE: 0/10 LOCATION: Bilateral chest FINDINGS: AP portable semiupright view of the chest demonstrates stable right-sided central line with the tip o verlying the distal SVC. There is a stable right basilar pneumothorax. Diffuse airspace opacity invol ving the right upper lung and the left hemithorax remains clear. There is extensive subcutaneous emph ysema overlying the right chest, stable from prior exam. Osseous structures are unremarkable. CONCLUSION: Stable exam with a right basilar pneumothorax and diffuse airspace consolidation involving the right upper lobe. Stable extensive subcutaneous right-sided emphysema. Jacqueline Pavon MD on May 01, 2017 at 17:08 Board Certified Radiologist. This report was verified electronically.
--- NOTE | 2017-05-01 18:17 | HHI.PR ---
Subjective Remarks 82 YOWM with NSCLC, malig pl effusion Breathing better No CP Pulled out chest tube Denies sob CXR stable ptx Objective Vital Signs Vital Signs Date Time Temp Pulse Resp B/P (MAP) Pulse Ox O2 Delivery O2 Flow Rate FiO2 05/01/17 16:00 97.0 82 18 130/70 (90) 95 05/01/17 13:52 Nasal Cannula 3.00 05/01/17 12:15 92 05/01/17 12:00 96.6 86 18 125/77 (93) 96 05/01/17 11:49 92 Nasal Cannula 4.00 05/01/17 08:15 94 05/01/17 08:00 97.7 85 18 137/71 (93) 92 05/01/17 04:00 97.7 89 18 125/66 (85) 96 05/01/17 03:49 97 Nasal Cannula 4.00 05/01/17 03:00 20 05/01/17 00:00 97.6 76 20 130/64 (86) 97 04/30/17 20:00 Nasal Cannula 04/30/17 20:00 89 04/30/17 20:00 96.5 94 20 133/72 (92) 96 I/O 04/30/17 04/30/17 04/30/17 05/01/17 05/01/17 05/01/17 07:00 15:00 23:00 07:00 15:00 23:00 Intake Total 240 ml 960 ml 240 ml 776 ml 840 ml Output Total 380 ml 150 ml 255 ml 250 ml 800 ml Balance -140 ml 810 ml -15 ml 526 ml 40 ml Intake Oral 240 ml 960 ml 240 ml 240 ml 840 ml IV Total 536 ml Output Urine Total 200 ml 150 ml 225 ml 250 ml 800 ml Chest Tube Drainage Total 180 ml 30 ml # Voids 2 1 # Bowel Movements 2 0 Result Diagram: 04/30/17 0530 Objective Remarks GENERAL: Elderly male, mild pain SKIN: Warm and dry. HEAD: Normocephalic. EYES: No scleral icterus. No injection or drainage. NECK: Supple, trachea midline. No JVD or lymphadenopathy. CARDIOVASCULAR: Regular rate and rhythm without murmurs, gallops, or rubs. RESPIRATORY: Breath sounds equal bilaterally. No accessory muscle use. Right chest tube draining GASTROINTESTINAL: Abdomen soft, non-tender, nondistended. MUSCULOSKELETAL: No cyanosis, or edema. BACK: Nontender without obvious deformity. No CVA tenderness. A/P Assessment and Plan Malignant Pl effusion, s/p right chest tube Atelacresis NSCLC COPD PE PLAN: Supplement 02 IV Heparin [place] and Percocet for pain Zosyn 3.375 gm q 8 hrs DW RN and Charge Call if SOB, then may need chest tube CXR in AM Jey Li MD May 01, 2017 18:17
[2017-05-01] MEDS: oxyCODONE/ACETAMINOPHEN 10 MG/325 MG TAB PO PRN (22:17)
[2017-05-01] MEDS: ZOLPIDEM TARTRATE 5 MG TAB PO PRN (22:17)
[2017-05-02] VITALS (11 sets, daily range): BP systolic 107–122; BP diastolic 58–72; PULSE 79–106; RESP 20; TEMP 95.9–98.5; O2SAT 94–97
[2017-05-02] MEDS: PIPERACIL-TAZO 3.375 GM PREMIX 50 ML IV SCH ×3 (04:04→22:08)
[2017-05-02 04:31] LABS: APTT (PATIENT) 82.9 SEC (24.3-30.1)
[2017-05-02] MEDS: HEPARIN-D5W 25,000 U/250 ML 250 ML IV SCH (04:56)
[2017-05-02 05:15] LABS: APTT (PATIENT) 41.3 SEC (24.3-30.1)
[2017-05-02] MEDS: FLUTICASONE 100 MCG/VILANTEROL 25 MCG INHALER INH SCH (09:00)
[2017-05-02] MEDS: ALBUTEROL SULFATE 90 MCG/ACT HFA 18 GM INHALER INH SCH ×2 (09:00→22:08)
[2017-05-02] MEDS: DOCUSATE SODIUM 50 MG/SENNA 8.6 MG TAB PO SCH ×2 (09:41→21:00)
[2017-05-02] MEDS: FINASTERIDE 5 MG TAB PO SCH (09:41)
[2017-05-02] MEDS: DEXAMETHASONE 4 MG TAB PO SCH ×2 (09:41→22:07)
[2017-05-02] MEDS: SODIUM CHLORIDE 0.9% FLUSH 10 ML FLUSH IV FLUSH SCH ×2 (09:41→21:00)
[2017-05-02] MEDS: guaiFENesin E.R. 600 MG TAB PO SCH ×2 (09:41→22:07)
--- NOTE | 2017-05-02 09:51 | HHI.PR ---
Subjective Remarks Follow-up non-small cell carcinoma with a long/large right pleural effusion/ pulmonary embolism 04/26/17-patient seen and examined, denies significant shortness of breath. Chest tube with only 5 cc recorded. Currently afebrile 04/27/17-patient seen and examined, although chest x-ray with finding of increasing pneumothorax as chest tubes been pulled out of the patient denies any shortness of breath or chest pain. Chest tube draining 60 cc this morning 04/28/17-patient seen and examined, complains of nonproductive cough. Complains of right sided pain around chest tube site. Afebrile. Chest tube output this a.m. 44 cc 04/29/17-patient seen and examined, he had Pleurodesis yesterday. Complained of insomnia last night otherwise stable 04/30/17-patient seen and examined, stable and no acute event overnight. Per nurse report patient had decreased appetite family requesting treatment to boost his appetite. States he is breathing better 05/01/17-patient seen and examined, reports some shortness of breath. States he has right sided chest pain and swollen however denies any pain. Chest x-ray noted 05/03/17-patient seen and examined, denies any significant shortness of breath. Chest tube was accidentally removed yesterday. Some issues with anxiety yesterday, patient states he has a short temper Objective Vitals Vital Signs Date Time Temp Pulse Resp B/P (MAP) Pulse Ox O2 Delivery O2 Flow Rate FiO2 05/02/17 04:00 97.0 88 20 122/66 (84) 95 05/02/17 04:00 83 05/02/17 00:00 79 05/02/17 00:00 98.5 98 20 107/59 (75) 94 05/01/17 21:35 96 Nasal Cannula 4.00 05/01/17 20:00 97.0 110 20 121/65 (83) 95 05/01/17 20:00 90 05/01/17 16:00 97.0 82 18 130/70 (90) 95 05/01/17 13:52 Nasal Cannula 3.00 05/01/17 12:15 92 05/01/17 12:00 96.6 86 18 125/77 (93) 96 05/01/17 11:49 92 Nasal Cannula 4.00 I/O 05/01/17 05/01/17 05/01/17 05/02/17 05/02/17 05/02/17 07:00 15:00 23:00 07:00 15:00 23:00 Intake Total 776 ml 840 ml 480 ml 240 ml Output Total 250 ml 800 ml 400 ml 200 ml Balance 526 ml 40 ml 80 ml 40 ml Intake Oral 240 ml 840 ml 480 ml 240 ml IV Total 536 ml Output Urine Total 250 ml 800 ml 400 ml 200 ml # Bowel Movements 0 Result Diagram: 04/30/17 0530 Objective Remarks GENERAL: NAD SKIN: Warm and dry. HEAD: Normocephalic. EYES: No scleral icterus. No injection or drainage. NECK: Supple, trachea midline. No JVD or lymphadenopathy. CARDIOVASCULAR: Regular rate and rhythm without murmurs, gallops, or rubs. RESPIRATORY: Breath sounds decrease R>L.edema/swollen right sided chest. No accessory muscle use. GASTROINTESTINAL: Abdomen soft, non-tender, nondistended. MUSCULOSKELETAL: No cyanosis, or edema. BACK: Nontender without obvious deformity. No CVA tenderness. 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 Ann and .Dr. Li ff along with us. continue home meds. Continue with heparin drip prn pain meds, DuoNeb, maintain oxygen saturation above 90%. Continue Mucinex Will have interventional radiology assist with replacing chest tube 05/03/17 Metabolic encephalopathy Resolved Generalized deconditioning PT to treat and eval DVT prophylaxis: Yossi Danielson MD May 02, 2017 09:51
[2017-05-02] MEDS: RESP: ALBUTEROL 2.5 MG/IPRATROPIUM 0.5 MG NEB (PRN) NEB (10:14)
[2017-05-02] MEDS: oxyCODONE/ACETAMINOPHEN 5 MG/325 MG TAB PO PRN (11:37)
[2017-05-02] MEDS: ALPRAZolam 0.5 MG TAB PO PRN (11:38)
[2017-05-02] MEDS: SODIUM CHLORIDE 0.9% FLUSH 10 ML FLUSH IV FLUSH PRN (11:44)
--- NOTE | 2017-05-02 12:24 | RADRPT ---
EXAM DATE/TIME: 05/02/2017 12:08 [facility] COMPARISON: CHEST SINGLE AP, April 29, 2017, 8:03. CHEST SINGLE AP, May 01, 2017, 16:57. INDICATIONS : Pneumothorax MEDICAL HISTORY : Carcinoma, lung. Chronic obstructive pulmonary disease. SURGICAL HISTORY : Infusaport, chest tube. ENCOUNTER: Subsequent ACUITY: 3 weeks PAIN SCORE: 0/10 LOCATION: chest FINDINGS: AP upright portable view of the chest demonstrates a slowly enlarging right basilar pneumothorax with extensive airspace consolidation involving the aerated right upper lung and persistent large amount of subcutaneous emphysema identified within the right sided soft tissues. Central line with the tip o verlying the proximal SVC. The left hemithorax is clear. Heart size is normal. CONCLUSION: Slowly progressive enlarging right basilar pneumothorax and extensive right-sided subcutaneous emphys nathalie. Stable extensive right upper lobe airspace consolidation. Jacqueline Pavon MD on May 02, 2017 at 12:20 Board Certified Radiologist. This report was verified electronically.
--- NOTE | 2017-05-02 15:42 | HHI.PR ---
Subjective Remarks 82 YOWM with NSCLC, malig pl effusion Breathing better No CP Pulled out chest tube CXR ptx Gets anxious, mild sob Objective Vital Signs Vital Signs Date Time Temp Pulse Resp B/P (MAP) Pulse Ox O2 Delivery O2 Flow Rate FiO2 05/02/17 12:00 97.3 98 20 120/69 (86) 97 05/02/17 10:18 97 Nasal Cannula 4.00 05/02/17 08:30 Room Air 4.00 Blow By 05/02/17 08:30 102 05/02/17 08:00 97.5 96 20 115/63 (80) 96 05/02/17 04:00 97.0 88 20 122/66 (84) 95 05/02/17 04:00 83 05/02/17 00:00 79 05/02/17 00:00 98.5 98 20 107/59 (75) 94 05/01/17 21:35 96 Nasal Cannula 4.00 05/01/17 20:00 97.0 110 20 121/65 (83) 95 05/01/17 20:00 90 05/01/17 16:00 97.0 82 18 130/70 (90) 95 I/O 05/01/17 05/01/17 05/01/17 05/02/17 05/02/17 05/02/17 06:59 14:59 22:59 06:59 14:59 22:59 Intake Total 776 ml 840 ml 480 ml 240 ml Output Total 250 ml 800 ml 400 ml 200 ml Balance 526 ml 40 ml 80 ml 40 ml Intake Oral 240 ml 840 ml 480 ml 240 ml IV Total 536 ml Output Urine Total 250 ml 800 ml 400 ml 200 ml # Voids 1 # Bowel Movements 0 Result Diagram: 04/30/17 0530 Objective Remarks GENERAL: Elderly male, mild pain SKIN: Warm and dry. HEAD: Normocephalic. EYES: No scleral icterus. No injection or drainage. NECK: Supple, trachea midline. No JVD or lymphadenopathy. CARDIOVASCULAR: Regular rate and rhythm without murmurs, gallops, or rubs. RESPIRATORY: Breath sounds equal bilaterally. No accessory muscle use. Right chest tube draining GASTROINTESTINAL: Abdomen soft, non-tender, nondistended. MUSCULOSKELETAL: No cyanosis, or edema. BACK: Nontender without obvious deformity. No CVA tenderness. A/P Assessment and Plan Malignant Pl effusion, s/p right chest tube Atelacresis NSCLC COPD PE PLAN: Supplement 02 IV Heparin MS and Percocet for pain Zosyn 3.375 gm q 8 hrs DW RN and Charge IR consulted to replace chest tube. CXR in Jey De MD May 02, 2017 15:42
--- NOTE | 2017-05-02 16:10 | PD.RAD ---
Post Procedure Progress Note Pre Procedure Diagnosis: (1) Pneumothorax Post Procedure Diagnosis: (1) Pneumothorax Procedure Date: May 02, 2017 Supervising Radiologist: Ramiro Mosley JR Proceduralist/Assist: Jessica Masterson, RT(R), Adelia Lozada RT(R)() Anesthesia: Analgesia Plan of Activity Patient to Unit: Nursing Unit Patient Condition: Good See PACS Report for procedural detail/treatment Drainage Procedure Procedure 1 Imaging Guidance: Fluoroscopy Side: Right Procedure Type: Chest Tube Non-Tunneled Procedure: Placement Turkish: 10 Drainage: Pleurovac Findings: Moderate sized subpulmonic pneumothorax. Placed chest tube in right inferior hemithorax. To wall suction at 40. Jr. Dimitri,Ramiro Chambers MD May 02, 2017 16:10
--- NOTE | 2017-05-02 17:19 | RADRPT ---
EXAM DATE/TIME: 05/02/2017 16:28 [facility] COMPARISON: CHEST SINGLE AP, May 02, 2017, 12:08. CHEST EXPIRATION ONLY, April 28, 2017, 5:14. INDICATIONS : Chest tube placement. MEDICAL HISTORY : Carcinoma, lung. Chronic obstructive pulmonary disease. SURGICAL HISTORY : Infusaport, chest tube. ENCOUNTER: Subsequent ACUITY: 3 weeks PAIN SCORE: 0/10 LOCATION: Bilateral chest FINDINGS: There is slight interval improvement of the right basilar pneumothorax compared to the previous exami nation. A small right chest tube is in good position in the residual pneumothorax at the right lung base. Subcutaneous emphysema is noted throughout the right chest wall. Parenchymal infiltrates are again noted within the right lung and left lung base and are stable. A right internal jugular Infuse -A-Port has its tip in the superior vena cava. The heart is stable. CONCLUSION: 1. Slight interval improvement of the right basilar pneumothorax with residual pneumothorax still not ed. The right-sided chest tube is noted in good position in the residual pneumothorax. 2. Stable subcutaneous emphysema within the right chest wall. 3. Stable bilateral pulmonary infiltrates (right worse than left). Ton Park MD on May 02, 2017 at 16:59 Board Certified Radiologist. This report was verified electronically.
[2017-05-02] MEDS: ZOLPIDEM TARTRATE 5 MG TAB PO PRN (22:07)
[2017-05-02] MEDS: oxyCODONE/ACETAMINOPHEN 10 MG/325 MG TAB PO PRN (22:08)
[2017-05-03] VITALS (12 sets, daily range): BP systolic 115–135; BP diastolic 62–68; PULSE 75–108; RESP 16–20; TEMP 96.5–98.4; O2SAT 95–97
[2017-05-03] MEDS: PIPERACIL-TAZO 3.375 GM PREMIX 50 ML IV SCH ×3 (05:07→20:33)
[2017-05-03] MEDS: oxyCODONE/ACETAMINOPHEN 10 MG/325 MG TAB PO PRN ×4 (05:20→22:27)
[2017-05-03] MEDS: HEPARIN-D5W 25,000 U/250 ML 250 ML IV SCH (05:26)
[2017-05-03 06:09] LABS: HEMATOCRIT 33.5 % (39.0-51.0); MEAN CELL VOLUME 93.2 FL (80.0-100.0); MEAN CORPUSCULAR HEMOGLOBIN 31.1 PG (27.0-34.0); MEAN CORPUSCULAR HGB CONC 33.3 % (32.0-36.0); PLATELET COUNT 245 TH/MM3 (150-450); RED BLOOD COUNT 3.59 MIL/MM3 (4.50-5.90); RED CELL DISTRIBUTION WIDTH 16.4 % (11.6-17.2); REVIEW FLAG FINAL; WHITE BLOOD COUNT 6.4 TH/MM3 (4.0-11.0)
--- NOTE | 2017-05-03 06:11 | RADRPT ---
EXAM DATE/TIME: 05/03/2017 05:38 [facility] COMPARISON: CHEST EXPIRATION ONLY, May 02, 2017, 16:28. INDICATIONS : Short of breath, evaluate pneumothorax and chest tube MEDICAL HISTORY : Carcinoma, lung. Chronic obstructive pulmonary disease. subquetaneous emphysema, pneumothorax SURGICAL HISTORY : infusaport, chest tube ENCOUNTER: Subsequent ACUITY: 3 weeks PAIN SCORE: 0/10 LOCATION: Bilateral chest FINDINGS: Portable AP view of the chest demonstrates a normal-sized cardiac silhouette. Right chest wall Infuse -a-Port remains present. There is a pigtail right pleural catheter anteriorly in the hemithorax with inferior pneumothorax visualized, slightly decreased in size from the prior study. There is airspace opacity in the right lower lung zone and lung staple line is visualized in the right upper lung zone. There is a right chest wall and supraclavicular region soft tissue air. CONCLUSION: 1. Right chest tube remains present and the inferior right hemithorax has slightly decreased in size. 2. Stable right lower lung zone airspace opacity. Leonel Lowery MD on May 03, 2017 at 6:08 Board Certified Radiologist. This report was verified electronically.
[2017-05-03 06:18] LABS: APTT (PATIENT) 57.8 SEC (24.3-30.1)
--- NOTE | 2017-05-03 08:32 | RADRPT ---
EXAM DATE/TIME: 05/02/2017 15:28 [facility] COMPARISON: CHEST EXPIRATION ONLY, May 03, 2017, 5:38. INDICATIONS : Patient with right pneumothorax in need of chest tube placement. MEDICAL HISTORY : Stage IV non small cell lung cancer, COPD, PE SURGICAL HISTORY : Lung biopsy, Chest tube placement, Pleurodesis, Colonoscopy, Port placement ENCOUNTER: Subsequent ACUITY: 1 day PAIN SCORE: 0/10 FLUORO TIME: 1 minutes IMAGE SERIES: 1 SEDATION TIME: 30 minutes MEDICATION(S): 1.) 150 mcg fentanyl (Sublimaze) IV DEVICE(S): 1.) 10 Polish non-locking catheter [place] PROCEDURE : 1. Fluoroscopically guided chest tube placement. 2. Conscious sedation with continuous EKG and oximetry monitoring. The risks, benefits and alternatives to the procedure were explained and verbal and written consent w as obtained. The site was prepped in sterile fashion. Full sterile technique was used, including ca p, mask, sterile gloves and gown and a large sterile sheet. Hand hygiene and 2% chlorhexidine and/or betadine/alcohol prep was utilized per protocol for cutaneous antisepsis. The skin and subcutaneous tissues were infiltrated with local anesthetic solution. With fluoroscopic guidance the chest was punctured via a midaxillary line approach within the anterio r hemithorax. A Bentson wire was coiled within the subpulmonic pneumothorax. A 10 Polish nonlocking c atheter was coiled within the subpulmonic pneumothorax. This was sutured in place. Wall suction was a pplied. Post procedure images demonstrate satisfactory position of the tube. The catheter was sutur ed in place and a Percu-Stay was applied. Conscious sedation was performed with the prescribed dosages and duration as above in the presence of an independent trained radiology nurse to assist in the monitoring of the patient. EKG and oximetry remained stable throughout the procedure. The patient tolerated the procedure well and there were n o complications. The patient was sent to post anesthesia recovery in stable condition. CONCLUSION: Uncomplicated right chest tube placement as above. Ramiro Mosley Jr., MD on May 03, 2017 at 8:29 Board Certified Radiologist. This report was verified electronically.
[2017-05-03] MEDS: guaiFENesin E.R. 600 MG TAB PO SCH ×2 (08:59→20:33)
[2017-05-03] MEDS: SODIUM CHLORIDE 0.9% FLUSH 10 ML FLUSH IV FLUSH SCH ×2 (08:59→20:33)
[2017-05-03] MEDS: DEXAMETHASONE 4 MG TAB PO SCH ×2 (08:59→20:33)
[2017-05-03] MEDS: FINASTERIDE 5 MG TAB PO SCH (08:59)
[2017-05-03] MEDS: DOCUSATE SODIUM 50 MG/SENNA 8.6 MG TAB PO SCH ×2 (08:59→20:31)
[2017-05-03] MEDS: ALBUTEROL SULFATE 90 MCG/ACT HFA 18 GM INHALER INH SCH ×2 (09:00→21:00)
[2017-05-03] MEDS: FLUTICASONE 100 MCG/VILANTEROL 25 MCG INHALER INH SCH (09:01)
[2017-05-03] MEDS: RESP: ALBUTEROL 2.5 MG/IPRATROPIUM 0.5 MG NEB (PRN) NEB (09:31)
--- NOTE | 2017-05-03 10:48 | HHI.PR ---
Subjective Remarks Follow-up non-small cell carcinoma with a long/large right pleural effusion/ pulmonary embolism 04/26/17-patient seen and examined, denies significant shortness of breath. Chest tube with only 5 cc recorded. Currently afebrile 04/27/17-patient seen and examined, although chest x-ray with finding of increasing pneumothorax as chest tubes been pulled out of the patient denies any shortness of breath or chest pain. Chest tube draining 60 cc this morning 04/28/17-patient seen and examined, complains of nonproductive cough. Complains of right sided pain around chest tube site. Afebrile. Chest tube output this a.m. 44 cc 04/29/17-patient seen and examined, he had Pleurodesis yesterday. Complained of insomnia last night otherwise stable 04/30/17-patient seen and examined, stable and no acute event overnight. Per nurse report patient had decreased appetite family requesting treatment to boost his appetite. States he is breathing better 05/01/17-patient seen and examined, reports some shortness of breath. States he has right sided chest pain and swollen however denies any pain. Chest x-ray noted 05/02/17-patient seen and examined, denies any significant shortness of breath. Chest tube was accidentally removed yesterday. Some issues with anxiety yesterday, patient states he has a short temper 05/03/17-patient seen and examined, chest tube was replaced yesterday however it appears that there is a leak. He denies any shortness of breath. He is wondering when can he be discharged home Objective Vitals Vital Signs Date Time Temp Pulse Resp B/P (MAP) Pulse Ox O2 Delivery O2 Flow Rate FiO2 05/03/17 09:33 97 Nasal Cannula 2.50 05/03/17 08:00 Nasal Cannula 3.00 05/03/17 08:00 97.6 91 18 115/67 (83) 95 05/03/17 04:00 95 05/03/17 04:00 97.8 91 18 131/68 (89) 97 05/03/17 00:00 97.1 88 20 123/62 (82) 96 05/03/17 00:00 75 05/02/17 20:00 87 05/02/17 20:00 Nasal Cannula 3.00 05/02/17 20:00 95.9 86 20 110/58 (75) 96 05/02/17 17:33 97 Nasal Cannula 2.00 05/02/17 17:04 84 05/02/17 16:00 96.8 85 20 111/72 (85) 97 05/02/17 12:30 106 05/02/17 12:00 97.3 98 20 120/69 (86) 97 I/O 05/02/17 05/02/17 05/02/17 05/03/17 05/03/17 05/03/17 06:59 14:59 22:59 06:59 14:59 22:59 Intake Total 290 ml 1010 ml Output Total 200 ml 800 ml 400 ml Balance 90 ml 210 ml -400 ml Intake Oral 240 ml 960 ml IV Total 50 ml 50 ml Output Urine Total 200 ml 800 ml 400 ml # Voids 2 # Bowel Movements 2 Result Diagram: 05/03/17 0512 Imaging Last Impressions Chest X-Ray 05/03/17 0000 Signed Impressions: Service Date/Time: Wednesday, May 03, 2017 05:38 - CONCLUSION: 1. Right chest tube remains present and the inferior right hemithorax has slightly decreased in size. 2. Stable right lower lung zone airspace opacity. Leonel Lowery MD Chest Tube Insertion 05/02/17 0000 Signed Impressions: Service Date/Time: Tuesday, May 02, 2017 15:28 - CONCLUSION: Uncomplicated right chest tube placement as above. Ramiro Mosley Jr., MD Pleurodesis 04/28/17 0000 Signed Impressions: Service Date/Time: Friday, April 28, 2017 14:29 - CONCLUSION: No 40 cm of Pleur-evac suction Jerald Silva MD Brain MRI 04/23/17 0000 Signed Impressions: Service Date/Time: Sunday, April 23, 2017 14:59 - CONCLUSION: Moderate periventricular white matter changes, otherwise negative. Dinesh Smith MD FACR Objective Remarks GENERAL: NAD SKIN: Warm and dry. HEAD: Normocephalic. EYES: No scleral icterus. No injection or drainage. NECK: Supple, trachea midline. No JVD or lymphadenopathy. CARDIOVASCULAR: Regular rate and rhythm without murmurs, gallops, or rubs. RESPIRATORY: Breath sounds decrease R>L. No accessory muscle use. Chest tube in place GASTROINTESTINAL: Abdomen soft, non-tender, nondistended. MUSCULOSKELETAL: No cyanosis, or edema. BACK: Nontender without obvious deformity. No CVA tenderness. 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 Ann and .Dr. Li ff along with us. continue home meds. Continue with heparin drip prn pain meds, DuoNeb, maintain oxygen saturation above 90%. Continue Mucinex Chest tube was replaced yesterday 05/02/17 Metabolic encephalopathy Resolved Generalized deconditioning PT to treat and eval DVT prophylaxis: Yossi Danielson MD May 03, 2017 10:48
[2017-05-03] MEDS: ALPRAZolam 0.5 MG TAB PO PRN (10:50)
--- NOTE | 2017-05-03 14:32 | PD.WCN.NOT ---
Wound Consult Description: Received consult for pressure ulcer to sacral area Communicated with: JEFFERSON Enriquez and Doctor Vivas for orders Recommendation: Please cleanse wound to sacral area with normal saline or wound cleanser and apply skin prep to periwound area before applying adhesive foam dressing over wound. Change dressing every 3 days or PRN if saturated or dislodged Please use [place] airapy bed ordered by Doctor Vivas Additional Information: Patient seen on for evaluation of possible pressure injury to sacral area. Patient positioned to L side with minimal assist. Removed adhesive foam dressing in place over sacral area to reveal shallow wound over sacral area. Wound bed is noted with 100% pink tissue with thin yellow exudate.Painful,pink, partial thickness wound over sacral area indicates a stage 2 pressure injury.Periwound is noted with diffuse areas of resolving partial thickness skin loss that appear to be moisture related. Wound over sacral area presents with mixed etiology of moisture and pressure. Moisture issues appear to be resolving. Patient has had loose stools and complained of extreme weakness. Also complains of discomfort from bed to his sacral area.Patient requires assist with bed mobility and repositioning. States," I can't stay on my side for very long." Laura Lewis [facility] May 03, 2017 14:31
--- NOTE | 2017-05-03 21:17 | HHI.PR ---
Subjective Remarks 82 YOWM with NSCLC, malig pl effusion Breathing better No CP Gets anxious, mild sob Had Chest tube replaced Mild chest pain Objective Vital Signs Vital Signs Date Time Temp Pulse Resp B/P (MAP) Pulse Ox O2 Delivery O2 Flow Rate FiO2 05/03/17 20:00 97.7 107 18 135/68 (90) 95 05/03/17 16:00 108 05/03/17 15:35 98.4 90 16 121/66 (84) 96 05/03/17 12:00 93 05/03/17 11:45 96.5 103 18 115/63 (80) 96 05/03/17 09:33 97 Nasal Cannula 2.50 05/03/17 08:00 Nasal Cannula 3.00 05/03/17 08:00 97.6 91 18 115/67 (83) 95 05/03/17 04:00 95 05/03/17 04:00 97.8 91 18 131/68 (89) 97 05/03/17 00:00 97.1 88 20 123/62 (82) 96 05/03/17 00:00 75 I/O 05/02/17 05/02/17 05/02/17 05/03/17 05/03/17 05/03/17 07:00 15:00 23:00 07:00 15:00 23:00 Intake Total 290 ml 1010 ml Output Total 200 ml 800 ml 510 ml Balance 90 ml 210 ml -510 ml Intake Oral 240 ml 960 ml IV Total 50 ml 50 ml Output Urine Total 200 ml 800 ml 400 ml Chest Tube Drainage Total 110 ml # Voids 2 # Bowel Movements 2 Result Diagram: 05/03/17 0512 Objective Remarks GENERAL: Elderly male, mild pain SKIN: Warm and dry. HEAD: Normocephalic. EYES: No scleral icterus. No injection or drainage. NECK: Supple, trachea midline. No JVD or lymphadenopathy. CARDIOVASCULAR: Regular rate and rhythm without murmurs, gallops, or rubs. RESPIRATORY: Breath sounds equal bilaterally. No accessory muscle use. Right chest tube draining GASTROINTESTINAL: Abdomen soft, non-tender, nondistended. MUSCULOSKELETAL: No cyanosis, or edema. BACK: Nontender without obvious deformity. No CVA tenderness. A/P Assessment and Plan Malignant Pl effusion, s/p right chest tube Atelacresis NSCLC COPD PE PLAN: Supplement 02 IV Heparin MS and Percocet for pain Zosyn 3.375 gm q 8 hrs Chest tube to suction Jey Li MD May 03, 2017 21:17
--- NOTE | 2017-05-03 21:52 | PD.ONC.PN ---
Subjective Subjective Remarks chest tube replaced yesterday breathing stable getting PT oral intake fair per not very good marlon rn Objective Data Date Time Temp Pulse Resp B/P (MAP) Pulse Ox O2 Delivery O2 Flow Rate FiO2 05/03/17 20:00 97.7 107 18 135/68 (90) 95 05/03/17 16:00 108 05/03/17 15:35 98.4 90 16 121/66 (84) 96 05/03/17 12:00 93 05/03/17 11:45 96.5 103 18 115/63 (80) 96 05/03/17 09:33 97 Nasal Cannula 2.50 05/03/17 08:00 Nasal Cannula 3.00 05/03/17 08:00 97.6 91 18 115/67 (83) 95 05/03/17 04:00 95 05/03/17 04:00 97.8 91 18 131/68 (89) 97 05/03/17 00:00 97.1 88 20 123/62 (82) 96 05/03/17 00:00 75 05/03/17 05/03/17 05/03/17 07:00 15:00 23:00 Output Total 510 ml Balance -510 ml Result Diagram: 05/03/17 0512 Laboratory Results Laboratory Tests Test 05/03/17 05:12 White Blood Count 6.4 TH/MM3 Red Blood Count 3.59 MIL/MM3 Hemoglobin 11.2 GM/DL Hematocrit 33.5 % Mean Corpuscular Volume 93.2 FL Mean Corpuscular Hemoglobin 31.1 PG Mean Corpuscular Hemoglobin Concent 33.3 % Red Cell Distribution Width 16.4 % Platelet Count 245 TH/MM3 Mean Platelet Volume 8.2 FL Activated Partial Thromboplast Time 57.8 SEC Imaging Studies Last 24 hours Impressions Chest X-Ray 05/03/17 0000 Signed Impressions: Service Date/Time: Wednesday, May 03, 2017 05:38 - CONCLUSION: 1. Right chest tube remains present and the inferior right hemithorax has slightly decreased in size. 2. Stable right lower lung zone airspace opacity. Leonel Lowery MD Administered Medications Medications (Trade) Dose Ordered Sig/Jamil Route PRN Reason Start Time Stop Time Status Last Admin Dose Admin Benzonatate (Tessalon) 100 mg TID PRN PO COUGH 04/19/17 18:15 04/30/17 16:28 Finasteride (Proscar) 5 mg DAILY PO 04/20/17 09:00 05/03/17 08:59 Fluticasone/ Vilanterol (Breo Ellipta 100-25 Inh) 1 puff DAILY INH 04/20/17 09:00 05/03/17 09:01 Sodium Chloride ([place] Christos [place]) 2 spray Q6H PRN EACH NARE NASAL CONGESTION 04/19/17 18:15 04/24/17 10:19 Sodium Chloride (NS Flush) 2 ml UNSCH PRN IV FLUSH FLUSH AFTER USING IV ACCESS 04/19/17 18:15 05/02/17 11:44 Sodium Chloride (NS Flush) 2 ml BID IV FLUSH 04/19/17 21:00 05/03/17 20:33 Zolpidem Tartrate (Ambien) 5 mg HS PRN PO INSOMNIA 04/19/17 18:15 05/02/17 22:07 Oxycodone/ Acetaminophen (Percocet 5-325 Mg) 1 tab Q6H PRN PO PAIN SCALE 3 TO 5 04/19/17 18:15 05/02/17 11:37 Morphine Sulfate (Morphine Inj) 2 mg Q3H PRN IV Pain 3-5; if unable to take PO 04/19/17 18:15 05/01/17 18:52 Morphine Sulfate (Morphine Inj) 4 mg Q3H PRN IV Pain 6-10;if unable to take PO 04/19/17 18:15 04/21/17 09:01 Morphine Sulfate (Morphine Inj) 4 mg Q3H PRN IV BREAKTHROUGH PAIN 04/19/17 18:15 04/30/17 17:48 Senna/Docusate Sodium (Lily-Colace) 1 tab BID PO 04/19/17 21:00 05/03/17 08:59 Albuterol/ Ipratropium (Duoneb Neb) 1 ampule Q4HR NEB PRN NEB SHORTNESS OF BREATH 04/19/17 18:15 05/03/17 09:31 Guaifenesin (Mucinex Er) 600 mg BID PO 04/19/17 21:00 05/03/17 20:33 Albuterol Sulfate (Ventolin Hfa Inh) 1 puff BID INH 04/19/17 21:30 05/03/17 09:00 Oxycodone/ Acetaminophen (Percocet 10-325 Mg) 1 tab Q4HR PRN PO PAIN SCALE 6 TO 10 04/21/17 16:00 05/03/17 14:54 Heparin Sodium/ Dextrose 250 ml @ 0 mls/hr TITRATE IV 04/21/17 22:00 05/03/17 05:26 Piperacillin Sod/ Tazobactam Sod 50 ml @ 100 mls/hr Q8H IV 04/26/17 20:00 05/03/17 20:33 Dexamethasone (Decadron) 4 mg Q12HR PO 04/29/17 21:00 05/06/17 20:59 05/03/17 20:33 Alprazolam (Xanax) 0.5 mg Q12H PRN PO anxiety 05/02/17 10:00 05/03/17 10:50 Objective Remarks GENERAL: nad/frail/weak SKIN: Warm and dry LYMPHATIC: No adenopathy. CARDIOVASCULAR: Regular rate and rhythm without murmurs. RESPIRATORY: Breath sounds equal bilaterally. No accessory muscle use. GASTROINTESTINAL: Abdomen soft, non-tender, nondistended. EXTREMITIES: No cyanosis, or edema. Assessment/Plan Problem List: (1) Non-small cell carcinoma of lung ICD Codes: C34.90 - Malignant neoplasm of unspecified part of unspecified bronchus or lung Status: Chronic Plan: -- Patient was diagnosed in February 2017 with moderately differentiated adenocarcinoma --He has multifocal disease involving the right lung. -- Unfortunately he has required multiple thoracenteses for recurrent malignant pleural effusions (2) Pleural effusion ICD Codes: J90 - Pleural effusion, not elsewhere classified Status: Acute Plan: --Output significantly decreased --Talc pleurodesis done on 04/28. (3) Pulmonary embolism ICD Codes: I26.99 - Other pulmonary embolism without acute cor pulmonale Status: Chronic Plan: --On heparin drip Assessment 82 y/o male with history of non-small cell lung cancer admitted for malignant pleural effusion of the right lung requiring chest tube placement Plan 82 y/o male with history of non-small cell lung cancer admitted for malignant pleural effusion of the right lung requiring chest tube placement 1. Anemia - stable - no prbc transfusion 2. Leukopenia secondary to chemotherapy - continue to monitor for now 3. Recurrent Pleural effusion s/p pleredesis - chest tube replaced 4. malnutrition - encourage oral intake - ensure tid with meals - check albumin in am Continue PT, supportive care. Vj Ann MD May 03, 2017 21:52
[2017-05-03] MEDS: ZOLPIDEM TARTRATE 5 MG TAB PO PRN (22:27)
[2017-05-04] VITALS (8 sets, daily range): BP systolic 110–125; BP diastolic 58–72; PULSE 75–108; RESP 17–24; TEMP 96.9–98.5; O2SAT 91–96
[2017-05-04] MEDS: PIPERACIL-TAZO 3.375 GM PREMIX 50 ML IV SCH ×3 (04:00→21:09)
[2017-05-04 06:55] LABS: APTT (PATIENT) 77.7 SEC (24.3-30.1)
[2017-05-04] MEDS: DOCUSATE SODIUM 50 MG/SENNA 8.6 MG TAB PO SCH ×2 (08:18→21:14)
[2017-05-04] MEDS: DEXAMETHASONE 4 MG TAB PO SCH ×2 (08:18→21:10)
[2017-05-04] MEDS: FINASTERIDE 5 MG TAB PO SCH (08:18)
[2017-05-04] MEDS: guaiFENesin E.R. 600 MG TAB PO SCH ×2 (08:18→21:09)
[2017-05-04] MEDS: ALBUTEROL SULFATE 90 MCG/ACT HFA 18 GM INHALER INH SCH ×2 (08:18→21:09)
[2017-05-04] MEDS: FLUTICASONE 100 MCG/VILANTEROL 25 MCG INHALER INH SCH (08:18)
[2017-05-04] MEDS: SODIUM CHLORIDE 0.9% FLUSH 10 ML FLUSH IV FLUSH SCH ×2 (08:21→21:13)
--- NOTE | 2017-05-04 09:29 | HHI.PR ---
Subjective Remarks Follow-up non-small cell carcinoma with a long/large right pleural effusion/ pulmonary embolism 04/26/17-patient seen and examined, denies significant shortness of breath. Chest tube with only 5 cc recorded. Currently afebrile 04/27/17-patient seen and examined, although chest x-ray with finding of increasing pneumothorax as chest tubes been pulled out of the patient denies any shortness of breath or chest pain. Chest tube draining 60 cc this morning 04/28/17-patient seen and examined, complains of nonproductive cough. Complains of right sided pain around chest tube site. Afebrile. Chest tube output this a.m. 44 cc 04/29/17-patient seen and examined, he had Pleurodesis yesterday. Complained of insomnia last night otherwise stable 04/30/17-patient seen and examined, stable and no acute event overnight. Per nurse report patient had decreased appetite family requesting treatment to boost his appetite. States he is breathing better 05/01/17-patient seen and examined, reports some shortness of breath. States he has right sided chest pain and swollen however denies any pain. Chest x-ray noted 05/02/17-patient seen and examined, denies any significant shortness of breath. Chest tube was accidentally removed yesterday. Some issues with anxiety yesterday, patient states he has a short temper 05/03/17-patient seen and examined, chest tube was replaced yesterday however it appears that there is a leak. He denies any shortness of breath. He is wondering when can he be discharged home exercise 05/04/17-patient seen and examined, no complaint of shortness of breath. Stable and afebrile Objective Vitals Vital Signs Date Time Temp Pulse Resp B/P (MAP) Pulse Ox O2 Delivery O2 Flow Rate FiO2 05/04/17 04:00 96.9 84 17 125/69 (87) 96 05/04/17 00:29 78 05/04/17 00:00 97.1 82 18 124/72 (89) 96 05/03/17 23:33 85 05/03/17 23:33 Nasal Cannula 2.50 05/03/17 23:33 16 05/03/17 20:14 85 05/03/17 20:00 97.7 107 18 135/68 (90) 95 05/03/17 16:00 108 05/03/17 15:35 98.4 90 16 121/66 (84) 96 05/03/17 12:00 93 05/03/17 11:45 96.5 103 18 115/63 (80) 96 05/03/17 09:33 97 Nasal Cannula 2.50 I/O 05/03/17 05/03/17 05/03/17 05/04/17 05/04/17 05/04/17 07:00 15:00 23:00 07:00 15:00 23:00 Output Total 510 ml 200 ml 600 ml Balance -510 ml -200 ml -600 ml Output Urine Total 400 ml 200 ml 600 ml Chest Tube Drainage Total 110 ml Result Diagram: 05/03/17 0512 Imaging Last Impressions Chest X-Ray 05/03/17 0000 Signed Impressions: Service Date/Time: Wednesday, May 03, 2017 05:38 - CONCLUSION: 1. Right chest tube remains present and the inferior right hemithorax has slightly decreased in size. 2. Stable right lower lung zone airspace opacity. Leonel Lowery MD Chest Tube Insertion 05/02/17 0000 Signed Impressions: Service Date/Time: Tuesday, May 02, 2017 15:28 - CONCLUSION: Uncomplicated right chest tube placement as above. Ramiro Mosley Jr., MD Pleurodesis 04/28/17 0000 Signed Impressions: Service Date/Time: Friday, April 28, 2017 14:29 - CONCLUSION: No 40 cm of Pleur-evac suction Jerald Silva MD Brain MRI 04/23/17 0000 Signed Impressions: Service Date/Time: Sunday, April 23, 2017 14:59 - CONCLUSION: Moderate periventricular white matter changes, otherwise negative. Dinesh Smith MD FACR Objective Remarks GENERAL: NAD SKIN: Warm and dry. HEAD: Normocephalic. EYES: No scleral icterus. No injection or drainage. NECK: Supple, trachea midline. No JVD or lymphadenopathy. CARDIOVASCULAR: Regular rate and rhythm without murmurs, gallops, or rubs. RESPIRATORY: Breath sounds decrease R>L. No accessory muscle use. Chest tube in place GASTROINTESTINAL: Abdomen soft, non-tender, nondistended. MUSCULOSKELETAL: No cyanosis, or edema. BACK: Nontender without obvious deformity. No CVA tenderness. 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 Ann and .Dr. Li ff along with us. continue home meds. Continue with heparin drip prn pain meds, DuoNeb, maintain oxygen saturation above 90%. Continue Mucinex Chest tube was replaced 05/02/17 Repeat chest x-ray today 05/04/17 Metabolic encephalopathy Resolved Generalized deconditioning PT to treat and eval DVT prophylaxis: Yossi Danielson MD May 04, 2017 09:29
[2017-05-04] MEDS: ALPRAZolam 0.5 MG TAB PO PRN ×2 (10:19→21:10)
--- NOTE | 2017-05-04 10:21 | RADRPT ---
EXAM DATE/TIME: 05/04/2017 09:40 [facility] COMPARISON: CHEST EXPIRATION ONLY, May 03, 2017, 5:38. INDICATIONS : Short of breath, evaluate free air MEDICAL HISTORY : Carcinoma, lung. Chronic obstructive pulmonary disease. subquetaneous emphysema, pneuomthorax SURGICAL HISTORY : infusaport, chest tube ENCOUNTER: Subsequent ACUITY: 3 weeks PAIN SCORE: 0/10 LOCATION: Bilateral chest FINDINGS: There is persistent basilar pneumothorax with thoracostomy tube in place. No change in size. Consolid ative changes in the right lower lung are slightly worse than on yesterday's exam. Left lung remains clear and well inflated. Cardiac contours are grossly stable. The case emphysema persists on the righ t. Chest port is in stable position. CONCLUSION: Slight interval increase in right lung parenchymal opacity. Persistent basilar pneumothorax. Leonel Cottrell MD on May 04, 2017 at 10:18 Board Certified Radiologist. This report was verified electronically.
[2017-05-04 17:41] LABS: APTT (PATIENT) 46.4 SEC (24.3-30.1)
--- NOTE | 2017-05-04 19:38 | PD.ONC.PN ---
Subjective Subjective Remarks chest tube output 70cc discarded this afternoon no fevers minimal cough breathing ok Objective Data Date Time Temp Pulse Resp B/P (MAP) Pulse Ox O2 Delivery O2 Flow Rate FiO2 05/04/17 16:00 98.5 100 24 113/58 (76) 91 05/04/17 16:00 98.5 100 24 113/58 (76) 91 05/04/17 12:00 98.0 102 18 110/59 (76) 93 05/04/17 08:00 3.00 05/04/17 08:00 98.2 92 22 118/60 (79) 95 05/04/17 04:00 96.9 84 17 125/69 (87) 96 05/04/17 00:29 78 05/04/17 00:00 97.1 82 18 124/72 (89) 96 05/03/17 23:33 85 05/03/17 23:33 Nasal Cannula 2.50 05/03/17 23:33 16 05/03/17 20:14 85 05/03/17 20:00 97.7 107 18 135/68 (90) 95 05/04/17 05/04/17 05/04/17 07:00 15:00 23:00 Output Total 600 ml 400 ml Balance -600 ml -400 ml Result Diagram: 05/03/17 0512 Laboratory Results Laboratory Tests Test 05/04/17 06:00 05/04/17 16:22 Activated Partial Thromboplast Time 77.7 SEC 46.4 SEC Albumin 2.2 GM/DL Imaging Studies Last 24 hours Impressions Chest X-Ray 05/04/17 0000 Signed Impressions: Service Date/Time: Thursday, May 04, 2017 09:40 - CONCLUSION: Slight interval increase in right lung parenchymal opacity. Persistent basilar pneumothorax. Leonel Cottrell MD Administered Medications Medications (Trade) Dose Ordered Sig/Jamil Route PRN Reason Start Time Stop Time Status Last Admin Dose Admin Benzonatate (Tessalon) 100 mg TID PRN PO COUGH 04/19/17 18:15 04/30/17 16:28 Finasteride (Proscar) 5 mg DAILY PO 04/20/17 09:00 05/04/17 08:18 Fluticasone/ Vilanterol (Breo Ellipta 100-25 Inh) 1 puff DAILY INH 04/20/17 09:00 05/04/17 08:18 Sodium Chloride ([place] Christos [place]) 2 spray Q6H PRN EACH NARE NASAL CONGESTION 04/19/17 18:15 04/24/17 10:19 Sodium Chloride (NS Flush) 2 ml UNSCH PRN IV FLUSH FLUSH AFTER USING IV ACCESS 04/19/17 18:15 05/02/17 11:44 Sodium Chloride (NS Flush) 2 ml BID IV FLUSH 04/19/17 21:00 05/04/17 08:21 Zolpidem Tartrate (Ambien) 5 mg HS PRN PO INSOMNIA 04/19/17 18:15 05/03/17 22:27 Oxycodone/ Acetaminophen (Percocet 5-325 Mg) 1 tab Q6H PRN PO PAIN SCALE 3 TO 5 04/19/17 18:15 05/02/17 11:37 Morphine Sulfate (Morphine Inj) 2 mg Q3H PRN IV Pain 3-5; if unable to take PO 04/19/17 18:15 05/01/17 18:52 Morphine Sulfate (Morphine Inj) 4 mg Q3H PRN IV Pain 6-10;if unable to take PO 04/19/17 18:15 04/21/17 09:01 Morphine Sulfate (Morphine Inj) 4 mg Q3H PRN IV BREAKTHROUGH PAIN 04/19/17 18:15 04/30/17 17:48 Senna/Docusate Sodium (Lily-Colace) 1 tab BID PO 04/19/17 21:00 05/04/17 08:18 Albuterol/ Ipratropium (Duoneb Neb) 1 ampule Q4HR NEB PRN NEB SHORTNESS OF BREATH 04/19/17 18:15 05/03/17 09:31 Guaifenesin (Mucinex Er) 600 mg BID PO 04/19/17 21:00 05/04/17 08:18 Albuterol Sulfate (Ventolin Hfa Inh) 1 puff BID INH 04/19/17 21:30 05/04/17 08:18 Oxycodone/ Acetaminophen (Percocet 10-325 Mg) 1 tab Q4HR PRN PO PAIN SCALE 6 TO 10 04/21/17 16:00 05/03/17 22:27 Heparin Sodium/ Dextrose 250 ml @ 0 mls/hr TITRATE IV 04/21/17 22:00 05/03/17 05:26 Piperacillin Sod/ Tazobactam Sod 50 ml @ 100 mls/hr Q8H IV 04/26/17 20:00 05/04/17 11:34 Dexamethasone (Decadron) 4 mg Q12HR PO 04/29/17 21:00 05/06/17 20:59 05/04/17 08:18 Alprazolam (Xanax) 0.5 mg Q12H PRN PO anxiety 05/02/17 10:00 05/04/17 10:19 Objective Remarks GENERAL: nad LYMPHATIC: No adenopathy. CARDIOVASCULAR: Regular rate and rhythm without murmurs. RESPIRATORY: Breath sounds equal bilaterally. No accessory muscle use. GASTROINTESTINAL: Abdomen soft, non-tender, nondistended. EXTREMITIES: No cyanosis, or edema. Assessment/Plan Problem List: (1) Non-small cell carcinoma of lung ICD Codes: C34.90 - Malignant neoplasm of unspecified part of unspecified bronchus or lung Status: Chronic Plan: -- Patient was diagnosed in February 2017 with moderately differentiated adenocarcinoma --He has multifocal disease involving the right lung. -- Unfortunately he has required multiple thoracenteses for recurrent malignant pleural effusions (2) Pleural effusion ICD Codes: J90 - Pleural effusion, not elsewhere classified Status: Acute Plan: --Output significantly decreased --Talc pleurodesis done on 04/28. (3) Pulmonary embolism ICD Codes: I26.99 - Other pulmonary embolism without acute cor pulmonale Status: Chronic Plan: --On heparin drip Assessment 82 y/o male with history of non-small cell lung cancer admitted for malignant pleural effusion of the right lung requiring chest tube placement Plan 1. Anemia - stable--11.2 - no prbc transfusion 2. Leukopenia secondary to chemotherapy---WBC better - continue to monitor for now 3. Recurrent Pleural effusion s/p pleurodesis - chest tube replaced - output decreasing 4. malnutrition - encourage oral intake - ensure tid with meals - albumin poor Continue PT, supportive care. Vj Ann MD May 04, 2017 19:38
[2017-05-04] MEDS: oxyCODONE/ACETAMINOPHEN 10 MG/325 MG TAB PO PRN (19:51)
--- NOTE | 2017-05-04 20:01 | HHI.PR ---
Subjective Remarks 82 YOWM with NSCLC, malig pl effusion Breathing better No CP Gets anxious, mild sob Had Chest tube replaced Mild chest pain Gets anxious Wants xanax more frequentally Objective Vital Signs Vital Signs Date Time Temp Pulse Resp B/P (MAP) Pulse Ox O2 Delivery O2 Flow Rate FiO2 05/04/17 16:00 98.5 100 24 113/58 (76) 91 05/04/17 16:00 98.5 100 24 113/58 (76) 91 05/04/17 12:00 98.0 102 18 110/59 (76) 93 05/04/17 08:00 3.00 05/04/17 08:00 98.2 92 22 118/60 (79) 95 05/04/17 04:00 96.9 84 17 125/69 (87) 96 05/04/17 00:29 78 05/04/17 00:00 97.1 82 18 124/72 (89) 96 05/03/17 23:33 85 05/03/17 23:33 Nasal Cannula 2.50 05/03/17 23:33 16 05/03/17 20:14 85 05/03/17 20:00 97.7 107 18 135/68 (90) 95 I/O 05/03/17 05/03/17 05/03/17 05/04/17 05/04/17 05/04/17 07:00 15:00 23:00 07:00 15:00 23:00 Intake Total 1440 ml Output Total 510 ml 200 ml 600 ml 470 ml 900 ml Balance -510 ml -200 ml -600 ml -470 ml 540 ml Intake Oral 1440 ml Output Urine Total 400 ml 200 ml 600 ml 400 ml 900 ml Chest Tube Drainage Total 110 ml 70 ml # Bowel Movements 1 Result Diagram: 05/03/17 0512 Objective Remarks GENERAL: Elderly male, mild pain SKIN: Warm and dry. HEAD: Normocephalic. EYES: No scleral icterus. No injection or drainage. NECK: Supple, trachea midline. No JVD or lymphadenopathy. CARDIOVASCULAR: Regular rate and rhythm without murmurs, gallops, or rubs. RESPIRATORY: Breath sounds equal bilaterally. No accessory muscle use. Right chest tube draining GASTROINTESTINAL: Abdomen soft, non-tender, nondistended. MUSCULOSKELETAL: No cyanosis, or edema. BACK: Nontender without obvious deformity. No CVA tenderness. A/P Assessment and Plan Malignant Pl effusion, s/p right chest tube Atelacresis NSCLC COPD PE PLAN: Supplement 02 IV Heparin MS and Percocet for pain Zosyn 3.375 gm q 8 hrs Chest tube to suction Change xanax q 6 hrs prn anxiety DW pt and wifw side effects of xanax and concern for resp suppression. Jey Li MD May 04, 2017 20:01
[2017-05-04] MEDS: oxyCODONE/ACETAMINOPHEN 5 MG/325 MG TAB PO PRN (21:10)
[2017-05-04] MEDS: ZOLPIDEM TARTRATE 5 MG TAB PO PRN (22:10)
[2017-05-05] VITALS (13 sets, daily range): BP systolic 98–126; BP diastolic 58–63; PULSE 77–105; RESP 17–20; TEMP 96.6–97.5; O2SAT 93–96
[2017-05-05] MEDS: PIPERACIL-TAZO 3.375 GM PREMIX 50 ML IV SCH ×3 (04:46→20:35)
[2017-05-05 05:56] LABS: APTT (PATIENT) 60.1 SEC (24.3-30.1)
[2017-05-05] MEDS: FINASTERIDE 5 MG TAB PO SCH (08:28)
[2017-05-05] MEDS: FLUTICASONE 100 MCG/VILANTEROL 25 MCG INHALER INH SCH (08:28)
[2017-05-05] MEDS: ALBUTEROL SULFATE 90 MCG/ACT HFA 18 GM INHALER INH SCH ×2 (08:28→20:36)
[2017-05-05] MEDS: guaiFENesin E.R. 600 MG TAB PO SCH ×2 (08:28→20:35)
[2017-05-05] MEDS: DEXAMETHASONE 4 MG TAB PO SCH ×2 (08:28→20:35)
[2017-05-05] MEDS: SODIUM CHLORIDE 0.9% FLUSH 10 ML FLUSH IV FLUSH SCH ×2 (08:29→20:36)
[2017-05-05] MEDS: DOCUSATE SODIUM 50 MG/SENNA 8.6 MG TAB PO SCH ×2 (08:30→20:37)
--- NOTE | 2017-05-05 09:10 | HHI.PR ---
Subjective Remarks Follow-up non-small cell carcinoma with a long/large right pleural effusion/ pulmonary embolism 04/26/17-patient seen and examined, denies significant shortness of breath. Chest tube with only 5 cc recorded. Currently afebrile 04/27/17-patient seen and examined, although chest x-ray with finding of increasing pneumothorax as chest tubes been pulled out of the patient denies any shortness of breath or chest pain. Chest tube draining 60 cc this morning 04/28/17-patient seen and examined, complains of nonproductive cough. Complains of right sided pain around chest tube site. Afebrile. Chest tube output this a.m. 44 cc 04/29/17-patient seen and examined, he had Pleurodesis yesterday. Complained of insomnia last night otherwise stable 04/30/17-patient seen and examined, stable and no acute event overnight. Per nurse report patient had decreased appetite family requesting treatment to boost his appetite. States he is breathing better 05/01/17-patient seen and examined, reports some shortness of breath. States he has right sided chest pain and swollen however denies any pain. Chest x-ray noted 05/02/17-patient seen and examined, denies any significant shortness of breath. Chest tube was accidentally removed yesterday. Some issues with anxiety yesterday, patient states he has a short temper 05/03/17-patient seen and examined, chest tube was replaced yesterday however it appears that there is a leak. He denies any shortness of breath. He is wondering when can he be discharged home exercise 05/04/17-patient seen and examined, no complaint of shortness of breath. Stable and afebrile 05/05/17-patient seen and examined, +horse voice and decreased breath sound without any significant shortness of breath. Objective Vitals Vital Signs Date Time Temp Pulse Resp B/P (MAP) Pulse Ox O2 Delivery O2 Flow Rate FiO2 05/05/17 08:35 93 Nasal Cannula 3.00 05/05/17 04:04 77 05/05/17 04:00 97.1 85 18 105/63 (77) 93 05/05/17 00:14 91 05/05/17 00:00 96.9 95 17 107/63 (78) 94 05/04/17 22:10 18 05/04/17 21:10 Nasal Cannula 3.00 05/04/17 20:50 16 05/04/17 20:07 108 05/04/17 20:00 97.0 103 18 117/65 (82) 92 05/04/17 16:00 98.5 100 24 113/58 (76) 91 05/04/17 16:00 98.5 100 24 113/58 (76) 91 05/04/17 12:00 75 05/04/17 12:00 98.0 102 18 110/59 (76) 93 I/O 05/04/17 05/04/17 05/04/17 05/05/17 05/05/17 05/05/17 07:00 15:00 23:00 07:00 15:00 23:00 Intake Total 1440 ml Output Total 600 ml 470 ml 900 ml 100 ml Balance -600 ml -470 ml 540 ml -100 ml Intake Oral 1440 ml Output Urine Total 600 ml 400 ml 900 ml Chest Tube Drainage Total 70 ml 100 ml # Voids 100 # Bowel Movements 2 Result Diagram: 05/03/17 0512 Imaging Last Impressions Chest X-Ray 05/04/17 0000 Signed Impressions: Service Date/Time: Thursday, May 04, 2017 09:40 - CONCLUSION: Slight interval increase in right lung parenchymal opacity. Persistent basilar pneumothorax. Leonel Cottrell MD Chest Tube Insertion 05/02/17 0000 Signed Impressions: Service Date/Time: Tuesday, May 02, 2017 15:28 - CONCLUSION: Uncomplicated right chest tube placement as above. Ramiro Mosely Jr., MD Pleurodesis 04/28/17 0000 Signed Impressions: Service Date/Time: Friday, April 28, 2017 14:29 - CONCLUSION: No 40 cm of Pleur-evac suction eJrald Silva MD Brain MRI 04/23/17 0000 Signed Impressions: Service Date/Time: Sunday, April 23, 2017 14:59 - CONCLUSION: Moderate periventricular white matter changes, otherwise negative. Dinesh Smith MD FACR Objective Remarks GENERAL: NAD SKIN: Warm and dry. HEAD: Normocephalic. EYES: No scleral icterus. No injection or drainage. NECK: Supple, trachea midline. No JVD or lymphadenopathy. CARDIOVASCULAR: Regular rate and rhythm without murmurs, gallops, or rubs. RESPIRATORY: Breath sounds decrease R>L. No accessory muscle use. Chest tube in place GASTROINTESTINAL: Abdomen soft, non-tender, nondistended. MUSCULOSKELETAL: No cyanosis, or edema. BACK: Nontender without obvious deformity. No CVA tenderness. 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 Ann and .Dr. Li ff along with us. continue home meds. Continue with heparin drip prn pain meds, DuoNeb, maintain oxygen saturation above 90%. Chest tube was replaced 05/02/17 Metabolic encephalopathy Resolved Generalized deconditioning PT to treat and eval DVT prophylaxis: Yossi Danielson MD May 05, 2017 09:10
[2017-05-05] MEDS: PHENOL 1.4% SOLN 180 ML BTL MT PRN ×4 (11:16→18:45)
[2017-05-05] MEDS: ALPRAZolam 0.5 MG TAB PO PRN ×2 (11:16→18:50)
[2017-05-05] MEDS: RESP: ALBUTEROL 2.5 MG/IPRATROPIUM 0.5 MG NEB (PRN) NEB (11:22)
[2017-05-05] MEDS: oxyCODONE/ACETAMINOPHEN 10 MG/325 MG TAB PO PRN ×3 (12:05→20:35)
[2017-05-05] MEDS: HEPARIN-D5W 25,000 U/250 ML 250 ML IV SCH (18:44)
--- NOTE | 2017-05-05 19:24 | HHI.PR ---
Subjective Remarks 82 YOWM with NSCLC, malig pl effusion Breathing better No CP Gets anxious, mild sob Chest tube with air leak Sleeping Objective Vital Signs Vital Signs Date Time Temp Pulse Resp B/P (MAP) Pulse Ox O2 Delivery O2 Flow Rate FiO2 05/05/17 16:10 88 05/05/17 15:50 96.6 94 20 102/58 (73) 96 05/05/17 12:23 102 05/05/17 11:50 97.5 105 20 104/59 (74) 94 05/05/17 09:53 94 Nasal Cannula 3.00 05/05/17 08:35 93 Nasal Cannula 3.00 05/05/17 08:32 95 05/05/17 07:50 96.8 89 20 126/62 (83) 93 05/05/17 04:04 77 05/05/17 04:00 97.1 85 18 105/63 (77) 93 05/05/17 00:14 91 05/05/17 00:00 96.9 95 17 107/63 (78) 94 05/04/17 22:10 18 05/04/17 21:10 Nasal Cannula 3.00 05/04/17 20:50 16 05/04/17 20:07 108 05/04/17 20:00 97.0 103 18 117/65 (82) 92 I/O 05/04/17 05/04/17 05/04/17 05/05/17 05/05/17 05/05/17 07:00 15:00 23:00 07:00 15:00 23:00 Intake Total 1440 ml 650 ml Output Total 600 ml 470 ml 900 ml 100 ml 400 ml 100 ml Balance -600 ml -470 ml 540 ml -100 ml 250 ml -100 ml Intake Oral 1440 ml 600 ml IV Total 50 ml Output Urine Total 600 ml 400 ml 900 ml 400 ml Chest Tube Drainage Total 70 ml 100 ml 100 ml # Voids 100 # Bowel Movements 2 1 Result Diagram: 05/03/17 0512 Objective Remarks GENERAL: Elderly male, mild pain SKIN: Warm and dry. HEAD: Normocephalic. EYES: No scleral icterus. No injection or drainage. NECK: Supple, trachea midline. No JVD or lymphadenopathy. CARDIOVASCULAR: Regular rate and rhythm without murmurs, gallops, or rubs. RESPIRATORY: Breath sounds equal bilaterally. No accessory muscle use. Right chest tube draining GASTROINTESTINAL: Abdomen soft, non-tender, nondistended. MUSCULOSKELETAL: No cyanosis, or edema. BACK: Nontender without obvious deformity. No CVA tenderness. A/P Assessment and Plan Malignant Pl effusion, s/p right chest tube Atelacresis NSCLC COPD PE PLAN: Supplement 02 IV Heparin MS and Percocet for pain Zosyn 3.375 gm q 8 hrs Chest tube to suction xanax q 6 hrs prn anxiety Jey Li MD May 05, 2017 19:24
--- NOTE | 2017-05-05 21:59 | PD.ONC.PN ---
Subjective Subjective Remarks chest tube in place getting daily PT says that he is trying to increase oral intake breathing comfortably at rest Objective Data Date Time Temp Pulse Resp B/P (MAP) Pulse Ox O2 Delivery O2 Flow Rate FiO2 05/05/17 21:35 18 05/05/17 20:00 97.1 92 18 98/58 (71) 96 05/05/17 16:10 88 05/05/17 15:50 96.6 94 20 102/58 (73) 96 05/05/17 12:23 102 05/05/17 11:50 97.5 105 20 104/59 (74) 94 05/05/17 09:53 94 Nasal Cannula 3.00 05/05/17 08:35 93 Nasal Cannula 3.00 05/05/17 08:32 95 05/05/17 07:50 96.8 89 20 126/62 (83) 93 05/05/17 04:04 77 05/05/17 04:00 97.1 85 18 105/63 (77) 93 05/05/17 00:14 91 05/05/17 00:00 96.9 95 17 107/63 (78) 94 05/04/17 22:10 18 05/05/17 05/05/17 05/05/17 07:00 15:00 23:00 Intake Total 650 ml Output Total 100 ml 400 ml 300 ml Balance -100 ml 250 ml -300 ml Result Diagram: 05/03/17 0512 Laboratory Results Laboratory Tests Test 05/05/17 04:55 Activated Partial Thromboplast Time 60.1 SEC Prealbumin 22 MG/DL Administered Medications Medications (Trade) Dose Ordered Sig/Jamil Route PRN Reason Start Time Stop Time Status Last Admin Dose Admin Benzonatate (Tessalon) 100 mg TID PRN PO COUGH 04/19/17 18:15 04/30/17 16:28 Finasteride (Proscar) 5 mg DAILY PO 04/20/17 09:00 05/05/17 08:28 Fluticasone/ Vilanterol (Breo Ellipta 100-25 Inh) 1 puff DAILY INH 04/20/17 09:00 05/05/17 08:28 Sodium Chloride ([place]) 2 spray Q6H PRN EACH NARE NASAL CONGESTION 04/19/17 18:15 04/24/17 10:19 Sodium Chloride (NS Flush) 2 ml UNSCH PRN IV FLUSH FLUSH AFTER USING IV ACCESS 04/19/17 18:15 05/02/17 11:44 Sodium Chloride (NS Flush) 2 ml BID IV FLUSH 04/19/17 21:00 05/05/17 20:36 Zolpidem Tartrate (Ambien) 5 mg HS PRN PO INSOMNIA 04/19/17 18:15 05/04/17 22:10 Oxycodone/ Acetaminophen (Percocet 5-325 Mg) 1 tab Q6H PRN PO PAIN SCALE 3 TO 5 04/19/17 18:15 05/04/17 21:10 Morphine Sulfate (Morphine Inj) 2 mg Q3H PRN IV Pain 3-5; if unable to take PO 04/19/17 18:15 05/01/17 18:52 Morphine Sulfate (Morphine Inj) 4 mg Q3H PRN IV Pain 6-10;if unable to take PO 04/19/17 18:15 04/21/17 09:01 Morphine Sulfate (Morphine Inj) 4 mg Q3H PRN IV BREAKTHROUGH PAIN 04/19/17 18:15 04/30/17 17:48 Senna/Docusate Sodium (Lily-Colace) 1 tab BID PO 04/19/17 21:00 05/04/17 08:18 Albuterol/ Ipratropium (Duoneb Neb) 1 ampule Q4HR NEB PRN NEB SHORTNESS OF BREATH 04/19/17 18:15 05/05/17 11:22 Guaifenesin (Mucinex Er) 600 mg BID PO 04/19/17 21:00 05/05/17 20:35 Albuterol Sulfate (Ventolin Hfa Inh) 1 puff BID INH 04/19/17 21:30 05/05/17 20:36 Oxycodone/ Acetaminophen (Percocet 10-325 Mg) 1 tab Q4HR PRN PO PAIN SCALE 6 TO 10 04/21/17 16:00 05/05/17 20:35 Heparin Sodium/ Dextrose 250 ml @ 0 mls/hr TITRATE IV 04/21/17 22:00 05/05/17 18:44 Piperacillin Sod/ Tazobactam Sod 50 ml @ 100 mls/hr Q8H IV 04/26/17 20:00 05/05/17 20:35 Dexamethasone (Decadron) 4 mg Q12HR PO 04/29/17 21:00 05/06/17 20:59 05/05/17 20:35 Alprazolam (Xanax) 0.5 mg Q6H PRN PO anxiety 05/04/17 20:00 05/05/17 18:50 Phenol (Chloraseptic [place]) 2 spray Q2H PRN MT SORE THROAT 05/05/17 10:00 05/05/17 18:45 Objective Remarks GENERAL: nad SKIN: Warm and dry. LYMPHATIC: No adenopathy. CARDIOVASCULAR: Regular rate and rhythm without murmurs. RESPIRATORY: Breath sounds equal bilaterally. No accessory muscle use. GASTROINTESTINAL: Abdomen soft, non-tender, nondistended. EXTREMITIES: No cyanosis, or edema. Assessment/Plan Problem List: (1) Non-small cell carcinoma of lung ICD Codes: C34.90 - Malignant neoplasm of unspecified part of unspecified bronchus or lung Status: Chronic Plan: -- Patient was diagnosed in February 2017 with moderately differentiated adenocarcinoma --He has multifocal disease involving the right lung. -- Unfortunately he has required multiple thoracenteses for recurrent malignant pleural effusions (2) Pleural effusion ICD Codes: J90 - Pleural effusion, not elsewhere classified Status: Acute Plan: --Output significantly decreased --Talc pleurodesis done on 04/28. (3) Pulmonary embolism ICD Codes: I26.99 - Other pulmonary embolism without acute cor pulmonale Status: Chronic Plan: --On heparin drip Assessment 82 y/o male with history of non-small cell lung cancer admitted for malignant pleural effusion of the right lung requiring chest tube placement Plan 1. Anemia No labs today check cbc in am 2. Leukopenia secondary to chemotherapy---WBC better - continue to monitor for now - cbc in am 3. Recurrent Pleural effusion s/p pleurodesis - chest tube replaced - output decreasing 4. malnutrition - encourage oral intake - ensure tid with meals - albumin poor 4. Stage IV NSCLC - Plan for treatment next week. Continue PT, supportive care. Vj Ann MD May 05, 2017 21:59
[2017-05-05] MEDS: ZOLPIDEM TARTRATE 5 MG TAB PO PRN (22:22)
[2017-05-06] VITALS (13 sets, daily range): BP systolic 105–119; BP diastolic 55–65; PULSE 75–107; RESP 16–24; TEMP 96.1–97.6; O2SAT 92–96
[2017-05-06] MEDS: oxyCODONE/ACETAMINOPHEN 10 MG/325 MG TAB PO PRN ×2 (00:28→21:03)
[2017-05-06] MEDS: PIPERACIL-TAZO 3.375 GM PREMIX 50 ML IV SCH ×3 (05:21→21:03)
[2017-05-06 05:47] LABS: AUTOMATED NEUTROPHIL # 13.7 TH/MM3 (1.8-7.7); BASOPHIL % 0.1 % (0.0-2.0); EOSINOPHIL % 0.1 % (0.0-4.0); HEMATOCRIT 34.9 % (39.0-51.0); LYMPH % 3.5 % (9.0-44.0); LYMPHOCYTE # 0.5 TH/MM3 (1.0-4.8); MEAN CELL VOLUME 94.5 FL (80.0-100.0); MEAN CORPUSCULAR HEMOGLOBIN 30.1 PG (27.0-34.0); MEAN CORPUSCULAR HGB CONC 31.8 % (32.0-36.0); NEUT % 90.3 % (16.0-70.0); PLATELET COUNT 266 TH/MM3 (150-450); RED BLOOD COUNT 3.69 MIL/MM3 (4.50-5.90); RED CELL DISTRIBUTION WIDTH 17.6 % (11.6-17.2); WHITE BLOOD COUNT 15.1 TH/MM3 (4.0-11.0)
[2017-05-06 05:53] LABS: HEMO FLAGS AUTO DIFF
[2017-05-06 06:00] LABS: APTT (PATIENT) 61.6 SEC (24.3-30.1)
[2017-05-06 06:05] LABS: ALT (GPT) 32 U/L (12-78); ANION GAP 7 MEQ/L (5-15); AST (GOT) 9 U/L (15-37); BICARBONATE 27.2 MEQ/L (21.0-32.0); BLOOD UREA NITROGEN 20 MG/DL (7-18); CHLORIDE 102 MEQ/L (98-107); GLOMERULAR FILTRATION RATE 163 ML/MIN (>89); POTASSIUM 4.3 MEQ/L (3.5-5.1); SODIUM (NA) 136 MEQ/L (136-145)
[2017-05-06 06:08] LABS: ALKALINE PHOSPHATASE 70 U/L (45-117); TOTAL BILIRUBIN ADULT 0.3 MG/DL (0.2-1.0)
[2017-05-06] MEDS: guaiFENesin E.R. 600 MG TAB PO SCH ×2 (08:01→21:02)
[2017-05-06] MEDS: SODIUM CHLORIDE 0.9% FLUSH 10 ML FLUSH IV FLUSH SCH ×2 (08:01→21:03)
[2017-05-06] MEDS: FINASTERIDE 5 MG TAB PO SCH (08:01)
[2017-05-06] MEDS: DEXAMETHASONE 4 MG TAB PO SCH (08:01)
[2017-05-06] MEDS: ALBUTEROL SULFATE 90 MCG/ACT HFA 18 GM INHALER INH SCH ×2 (08:02→21:00)
[2017-05-06] MEDS: PHENOL 1.4% SOLN 180 ML BTL MT PRN ×3 (08:02→18:27)
[2017-05-06] MEDS: FLUTICASONE 100 MCG/VILANTEROL 25 MCG INHALER INH SCH (08:03)
[2017-05-06] MEDS: DOCUSATE SODIUM 50 MG/SENNA 8.6 MG TAB PO SCH ×2 (08:04→21:00)
[2017-05-06] MEDS: ALPRAZolam 0.5 MG TAB PO PRN ×2 (08:05→18:27)
[2017-05-06 08:28] LABS: BANDS 7 % (0-6); METAMYELOCYTES 2 % (0-1); MYELOCYTES 1 % (0-0); PLATELET ESTIMATE SMEAR NORMAL (NORMAL); PLATELET MORPHOLOGY NORMAL (NORMAL); POLYS (SEG NEUTROPHILS) 83 % (16-70); SCAN/DIFF FINAL DIFF MANUAL; WBC DIFF SAMPLE 100
--- NOTE | 2017-05-06 09:24 | HHI.PR ---
Subjective Remarks Follow-up non-small cell carcinoma with a long/large right pleural effusion/ pulmonary embolism 04/26/17-patient seen and examined, denies significant shortness of breath. Chest tube with only 5 cc recorded. Currently afebrile 04/27/17-patient seen and examined, although chest x-ray with finding of increasing pneumothorax as chest tubes been pulled out of the patient denies any shortness of breath or chest pain. Chest tube draining 60 cc this morning 04/28/17-patient seen and examined, complains of nonproductive cough. Complains of right sided pain around chest tube site. Afebrile. Chest tube output this a.m. 44 cc 04/29/17-patient seen and examined, he had Pleurodesis yesterday. Complained of insomnia last night otherwise stable 04/30/17-patient seen and examined, stable and no acute event overnight. Per nurse report patient had decreased appetite family requesting treatment to boost his appetite. States he is breathing better 05/01/17-patient seen and examined, reports some shortness of breath. States he has right sided chest pain and swollen however denies any pain. Chest x-ray noted 05/02/17-patient seen and examined, denies any significant shortness of breath. Chest tube was accidentally removed yesterday. Some issues with anxiety yesterday, patient states he has a short temper 05/03/17-patient seen and examined, chest tube was replaced yesterday however it appears that there is a leak. He denies any shortness of breath. He is wondering when can he be discharged home exercise 05/04/17-patient seen and examined, no complaint of shortness of breath. Stable and afebrile 05/05/17-patient seen and examined, +horse voice and decreased breath sound without any significant shortness of breath. 05/06/17-patient seen and examined, complains of right sided chest pain but denies any significant shortness of breath. Chest tube output over the past 8 hours is 100 cc Objective Vitals Vital Signs Date Time Temp Pulse Resp B/P (MAP) Pulse Ox O2 Delivery O2 Flow Rate FiO2 05/06/17 08:05 94 Nasal Cannula 3.00 05/06/17 07:30 96.1 80 17 119/56 (77) 92 05/06/17 04:11 75 05/06/17 04:00 96.7 76 18 105/60 (75) 94 05/06/17 01:28 16 05/06/17 00:25 Nasal Cannula 3.00 05/06/17 00:03 86 05/06/17 00:00 96.3 87 17 114/64 (81) 94 05/05/17 20:28 84 05/05/17 20:00 97.1 92 18 98/58 (71) 96 05/05/17 16:10 88 05/05/17 15:50 96.6 94 20 102/58 (73) 96 05/05/17 12:23 102 05/05/17 11:50 97.5 105 20 104/59 (74) 94 05/05/17 09:53 94 Nasal Cannula 3.00 I/O 05/05/17 05/05/17 05/05/17 05/06/17 05/06/17 05/06/17 07:00 15:00 23:00 07:00 15:00 23:00 Intake Total 650 ml Output Total 100 ml 400 ml 300 ml 200 ml Balance -100 ml 250 ml -300 ml -200 ml Intake Oral 600 ml IV Total 50 ml Output Urine Total 400 ml 200 ml 200 ml Chest Tube Drainage Total 100 ml 100 ml # Bowel Movements 1 Result Diagram: 05/06/1752905/06/17529 Objective Remarks GENERAL: NAD SKIN: Warm and dry. HEAD: Normocephalic. EYES: No scleral icterus. No injection or drainage. NECK: Supple, trachea midline. No JVD or lymphadenopathy. CARDIOVASCULAR: Regular rate and rhythm without murmurs, gallops, or rubs. RESPIRATORY: Breath sounds decrease R>L. No accessory muscle use. Chest tube in place GASTROINTESTINAL: Abdomen soft, non-tender, nondistended. MUSCULOSKELETAL: No cyanosis, or edema. BACK: Nontender without obvious deformity. No CVA tenderness. 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 Ann and .Dr. Li ff along with us. continue home meds. Continue with heparin drip prn pain meds, DuoNeb, maintain oxygen saturation above 90%. Chest tube was replaced 05/02/17 and monitor output Metabolic encephalopathy Resolved Generalized deconditioning PT to treat and eval DVT prophylaxis: Yossi Danielson MD May 06, 2017 09:24
--- NOTE | 2017-05-06 18:47 | HHI.PR ---
Subjective Remarks 82 YOWM with NSCLC, malig pl effusion Breathing better No CP Gets anxious, mild sob Chest tube with air leak Objective Vital Signs Vital Signs Date Time Temp Pulse Resp B/P (MAP) Pulse Ox O2 Delivery O2 Flow Rate FiO2 05/06/17 15:30 96.9 90 17 111/57 (75) 92 05/06/17 11:30 97.5 85 16 108/55 (72) 93 05/06/17 09:00 95 Nasal Cannula 2.50 05/06/17 08:05 94 Nasal Cannula 3.00 05/06/17 07:30 96.1 80 17 119/56 (77) 92 05/06/17 04:11 75 05/06/17 04:00 96.7 76 18 105/60 (75) 94 05/06/17 01:28 16 05/06/17 00:25 Nasal Cannula 3.00 05/06/17 00:03 86 05/06/17 00:00 96.3 87 17 114/64 (81) 94 05/05/17 20:28 84 05/05/17 20:00 97.1 92 18 98/58 (71) 96 I/O 05/05/17 05/05/17 05/05/17 05/06/17 05/06/17 05/06/17 07:00 15:00 23:00 07:00 15:00 23:00 Intake Total 650 ml 120 ml Output Total 100 ml 400 ml 300 ml 200 ml 275 ml 80 ml Balance -100 ml 250 ml -300 ml -200 ml -155 ml -80 ml Intake Oral 600 ml 120 ml IV Total 50 ml Output Urine Total 400 ml 200 ml 200 ml 275 ml Chest Tube Drainage Total 100 ml 100 ml 80 ml # Voids 1 # Bowel Movements 1 1 Result Diagram: 05/06/1752905/06/17 0530 Objective Remarks GENERAL: Elderly male, mild pain SKIN: Warm and dry. HEAD: Normocephalic. EYES: No scleral icterus. No injection or drainage. NECK: Supple, trachea midline. No JVD or lymphadenopathy. CARDIOVASCULAR: Regular rate and rhythm without murmurs, gallops, or rubs. RESPIRATORY: Breath sounds equal bilaterally. No accessory muscle use. Right chest tube draining GASTROINTESTINAL: Abdomen soft, non-tender, nondistended. MUSCULOSKELETAL: No cyanosis, or edema. BACK: Nontender without obvious deformity. No CVA tenderness. A/P Assessment and Plan Malignant Pl effusion, s/p right chest tube Atelacresis NSCLC COPD PE PLAN: Supplement 02 IV Heparin MS and Percocet for pain Zosyn 3.375 gm q 8 hrs Chest tube to suction xanax q 6 hrs prn anxiety CXR in AM Jey Li MD May 06, 2017 18:47
[2017-05-06] MEDS: ZOLPIDEM TARTRATE 5 MG TAB PO PRN (21:02)
[2017-05-06] MEDS: HEPARIN-D5W 25,000 U/250 ML 250 ML IV SCH (21:02)
--- NOTE | 2017-05-06 23:02 | PD.ONC.PN ---
Subjective Subjective Remarks chest tube with additional output 100 cc currently in the drain no breathing difficulty had PT today oral intake remains poor d.w rn o/n events reviewed present during visit Objective Data Date Time Temp Pulse Resp B/P (MAP) Pulse Ox O2 Delivery O2 Flow Rate FiO2 05/06/17 22:56 16 05/06/17 22:04 95 Nasal Cannula 2.50 05/06/17 20:00 97.6 99 24 116/65 (82) 94 05/06/17 17:00 83 05/06/17 15:30 96.9 90 17 111/57 (75) 92 05/06/17 11:30 97.5 85 16 108/55 (72) 93 05/06/17 09:00 95 Nasal Cannula 2.50 05/06/17 08:38 82 05/06/17 08:05 94 Nasal Cannula 3.00 05/06/17 07:30 96.1 80 17 119/56 (77) 92 05/06/17 04:11 75 05/06/17 04:00 96.7 76 18 105/60 (75) 94 05/06/17 00:25 Nasal Cannula 3.00 05/06/17 00:03 86 05/06/17 00:00 96.3 87 17 114/64 (81) 94 Result Diagram: 05/06/1752905/06/17 05 Laboratory Results Laboratory Tests Test 05/06/17 05:30 White Blood Count 15.1 TH/MM3 Red Blood Count 3.69 MIL/MM3 Hemoglobin 11.1 GM/DL Hematocrit 34.9 % Mean Corpuscular Volume 94.5 FL Mean Corpuscular Hemoglobin 30.1 PG Mean Corpuscular Hemoglobin Concent 31.8 % Red Cell Distribution Width 17.6 % Platelet Count 266 TH/MM3 Mean Platelet Volume 7.5 FL Neutrophils (%) (Auto) 90.3 % Lymphocytes (%) (Auto) 3.5 % Monocytes (%) (Auto) 6.0 % Eosinophils (%) (Auto) 0.1 % Basophils (%) (Auto) 0.1 % Neutrophils # (Auto) 13.7 TH/MM3 Lymphocytes # (Auto) 0.5 TH/MM3 Monocytes # (Auto) 0.9 TH/MM3 Eosinophils # (Auto) 0.0 TH/MM3 Basophils # (Auto) 0.0 TH/MM3 CBC Comment AUTO DIFF Differential Total Cells Counted 100 Neutrophils % (Manual) 83 % Band Neutrophils % 7 % Monocytes % 7 % Neutrophils # (Manual) 14.0 TH/MM3 Metamyelocytes 2 % Myelocytes 1 % Differential Comment FINAL DIFF MANUAL Platelet Estimate NORMAL Platelet Morphology Comment NORMAL Activated Partial Thromboplast Time 61.6 SEC Blood Urea Nitrogen 20 MG/DL Creatinine 0.49 MG/DL Random Glucose 183 MG/DL Total Protein 5.2 GM/DL Albumin 1.8 GM/DL Calcium Level 8.5 MG/DL Alkaline Phosphatase 70 U/L Aspartate Amino Transf (AST/SGOT) 9 U/L Alanine Aminotransferase (ALT/SGPT) 32 U/L Total Bilirubin 0.3 MG/DL Sodium Level 136 MEQ/L Potassium Level 4.3 MEQ/L Chloride Level 102 MEQ/L Carbon Dioxide Level 27.2 MEQ/L Anion Gap 7 MEQ/L Estimat Glomerular Filtration Rate 163 ML/MIN Prealbumin 19 MG/DL Administered Medications Medications (Trade) Dose Ordered Sig/Jamil Route PRN Reason Start Time Stop Time Status Last Admin Dose Admin Benzonatate (Tessalon) 100 mg TID PRN PO COUGH 04/19/17 18:15 04/30/17 16:28 Finasteride (Proscar) 5 mg DAILY PO 04/20/17 09:00 05/06/17 08:01 Fluticasone/ Vilanterol (Breo Ellipta 100-25 Inh) 1 puff DAILY INH 04/20/17 09:00 05/06/17 08:03 Sodium Chloride ([place] Christos [place]) 2 spray Q6H PRN EACH NARE NASAL CONGESTION 04/19/17 18:15 04/24/17 10:19 Sodium Chloride (NS Flush) 2 ml UNSCH PRN IV FLUSH FLUSH AFTER USING IV ACCESS 04/19/17 18:15 05/02/17 11:44 Sodium Chloride (NS Flush) 2 ml BID IV FLUSH 04/19/17 21:00 05/06/17 21:03 Zolpidem Tartrate (Ambien) 5 mg HS PRN PO INSOMNIA 04/19/17 18:15 05/06/17 21:02 Oxycodone/ Acetaminophen (Percocet 5-325 Mg) 1 tab Q6H PRN PO PAIN SCALE 3 TO 5 04/19/17 18:15 05/04/17 21:10 Morphine Sulfate (Morphine Inj) 2 mg Q3H PRN IV Pain 3-5; if unable to take PO 04/19/17 18:15 05/01/17 18:52 Morphine Sulfate (Morphine Inj) 4 mg Q3H PRN IV Pain 6-10;if unable to take PO 04/19/17 18:15 04/21/17 09:01 Morphine Sulfate (Morphine Inj) 4 mg Q3H PRN IV BREAKTHROUGH PAIN 04/19/17 18:15 04/30/17 17:48 Senna/Docusate Sodium (Lily-Colace) 1 tab BID PO 04/19/17 21:00 05/04/17 08:18 Albuterol/ Ipratropium (Duoneb Neb) 1 ampule Q4HR NEB PRN NEB SHORTNESS OF BREATH 04/19/17 18:15 05/05/17 11:22 Guaifenesin (Mucinex Er) 600 mg BID PO 04/19/17 21:00 05/06/17 21:02 Albuterol Sulfate (Ventolin Hfa Inh) 1 puff BID INH 04/19/17 21:30 05/06/17 21:00 Oxycodone/ Acetaminophen (Percocet 10-325 Mg) 1 tab Q4HR PRN PO PAIN SCALE 6 TO 10 04/21/17 16:00 05/06/17 21:03 Heparin Sodium/ Dextrose 250 ml @ 0 mls/hr TITRATE IV 04/21/17 22:00 05/06/17 21:02 Piperacillin Sod/ Tazobactam Sod 50 ml @ 100 mls/hr Q8H IV 04/26/17 20:00 05/06/17 21:03 Alprazolam (Xanax) 0.5 mg Q6H PRN PO anxiety 05/04/17 20:00 05/06/17 18:27 Phenol (Chloraseptic [place]) 2 spray Q2H PRN MT SORE THROAT 05/05/17 10:00 05/06/17 18:27 Objective Remarks GENERAL: nad SKIN: Warm and dry. CARDIOVASCULAR: Regular rate and rhythm without murmurs. RESPIRATORY: Breath sounds equal bilaterally. No accessory muscle use. GASTROINTESTINAL: Abdomen soft, non-tender, nondistended. EXTREMITIES: No cyanosis, or edema. Assessment/Plan Problem List: (1) Non-small cell carcinoma of lung ICD Codes: C34.90 - Malignant neoplasm of unspecified part of unspecified bronchus or lung Status: Chronic Plan: -- Patient was diagnosed in February 2017 with moderately differentiated adenocarcinoma --He has multifocal disease involving the right lung. -- Unfortunately he has required multiple thoracenteses for recurrent malignant pleural effusions (2) Pleural effusion ICD Codes: J90 - Pleural effusion, not elsewhere classified Status: Acute Plan: --Output significantly decreased --Talc pleurodesis done on 04/28. (3) Pulmonary embolism ICD Codes: I26.99 - Other pulmonary embolism without acute cor pulmonale Status: Chronic Plan: --On heparin drip Assessment 82 y/o male with history of non-small cell lung cancer admitted for malignant pleural effusion of the right lung requiring chest tube placement Plan 1. Anemia - Hb remians stable 2. Leukocytosis --? reactive/Decadron d/c'd today - no fevers - continue to monitor for now - cbc in am 3. Recurrent Pleural effusion s/p pleurodesis - chest tube replaced - CP still draining - chest X-ray in AM 4. malnutrition - encourage oral intake - ensure tid with meals - albumin poor - Will consider PPN 4. Stage IV NSCLC - Plan for treatment next week. Continue PT, supportive care. Vj Ann MD May 06, 2017 23:02
[2017-05-07] VITALS (10 sets, daily range): BP systolic 110–121; BP diastolic 58–65; PULSE 70–118; RESP 16–21; TEMP 96.6–99.8; O2SAT 92–95
[2017-05-07] MEDS: PIPERACIL-TAZO 3.375 GM PREMIX 50 ML IV SCH ×3 (04:17→22:29)
--- NOTE | 2017-05-07 07:43 | RADRPT ---
EXAM DATE/TIME: 05/07/2017 06:23 [place] COMPARISON: CHEST SINGLE AP, May 04, 2017, 9:40. INDICATIONS : Short of breath, evaluate pneumothorax MEDICAL HISTORY : Carcinoma, lung. Chronic obstructive pulmonary disease. subquetaneous emphysema, pneumothorax SURGICAL HISTORY : infusaport, chest tube ENCOUNTER: Subsequent ACUITY: 3 weeks PAIN SCORE: Non-responsive. LOCATION: Bilateral chest FINDINGS: Right-sided port catheter is again seen. A right basilar chest tube is again noted. There is abnormal consolidative opacity in the right lung again noted. Subcutaneous emphysema right lateral hemithorax is again seen, slightly decreased in prominence. The pneumothorax best visualized at the right lung base is decreased in prominence. A small right apical component is also decreased. CONCLUSION: Decrease in size of pneumothorax. Rich Killian MD on May 07, 2017 at 7:41 Board Certified Radiologist. This report was verified electronically.
[2017-05-07] MEDS: ALBUTEROL SULFATE 90 MCG/ACT HFA 18 GM INHALER INH SCH ×2 (08:46→22:36)
[2017-05-07] MEDS: FLUTICASONE 100 MCG/VILANTEROL 25 MCG INHALER INH SCH (08:46)
[2017-05-07] MEDS: guaiFENesin E.R. 600 MG TAB PO SCH ×2 (08:47→22:29)
[2017-05-07] MEDS: SODIUM CHLORIDE 0.9% FLUSH 10 ML FLUSH IV FLUSH SCH ×2 (08:47→22:32)
[2017-05-07] MEDS: DOCUSATE SODIUM 50 MG/SENNA 8.6 MG TAB PO SCH ×2 (08:47→21:00)
[2017-05-07] MEDS: FINASTERIDE 5 MG TAB PO SCH (08:47)
--- NOTE | 2017-05-07 09:10 | HHI.PR ---
Subjective Remarks Follow-up non-small cell carcinoma with a long/large right pleural effusion/ pulmonary embolism 04/26/17-patient seen and examined, denies significant shortness of breath. Chest tube with only 5 cc recorded. Currently afebrile 04/27/17-patient seen and examined, although chest x-ray with finding of increasing pneumothorax as chest tubes been pulled out of the patient denies any shortness of breath or chest pain. Chest tube draining 60 cc this morning 04/28/17-patient seen and examined, complains of nonproductive cough. Complains of right sided pain around chest tube site. Afebrile. Chest tube output this a.m. 44 cc 04/29/17-patient seen and examined, he had Pleurodesis yesterday. Complained of insomnia last night otherwise stable 04/30/17-patient seen and examined, stable and no acute event overnight. Per nurse report patient had decreased appetite family requesting treatment to boost his appetite. States he is breathing better 05/01/17-patient seen and examined, reports some shortness of breath. States he has right sided chest pain and swollen however denies any pain. Chest x-ray noted 05/02/17-patient seen and examined, denies any significant shortness of breath. Chest tube was accidentally removed yesterday. Some issues with anxiety yesterday, patient states he has a short temper 05/03/17-patient seen and examined, chest tube was replaced yesterday however it appears that there is a leak. He denies any shortness of breath. He is wondering when can he be discharged home exercise 05/04/17-patient seen and examined, no complaint of shortness of breath. Stable and afebrile 05/05/17-patient seen and examined, +horse voice and decreased breath sound without any significant shortness of breath. 05/06/17-patient seen and examined, complains of right sided chest pain but denies any significant shortness of breath. Chest tube output over the past 8 hours is 100 cc 05/07/17-patient seen and examined, stable, chest tubes this a.m. with pneumothorax decrease in size. Objective Vitals Vital Signs Date Time Temp Pulse Resp B/P (MAP) Pulse Ox O2 Delivery O2 Flow Rate FiO2 05/07/17 04:00 97.7 77 21 110/58 (75) 95 05/07/17 00:44 80 05/07/17 00:00 97.1 85 21 116/65 (82) 95 05/06/17 22:56 16 05/06/17 22:04 95 Nasal Cannula 2.50 05/06/17 21:03 Nasal Cannula 2.50 05/06/17 20:44 89 05/06/17 20:00 97.6 99 24 116/65 (82) 94 05/06/17 17:00 83 05/06/17 15:30 96.9 90 17 111/57 (75) 92 05/06/17 11:30 97.5 85 16 108/55 (72) 93 I/O 05/06/17 05/06/17 05/06/17 05/07/17 05/07/17 05/07/17 06:59 14:59 22:59 06:59 14:59 22:59 Intake Total 170 ml 360 ml Output Total 200 ml 275 ml 80 ml 650 ml Balance -200 ml -105 ml -80 ml -290 ml Intake Oral 120 ml 360 ml IV Total 50 ml Output Urine Total 200 ml 275 ml 650 ml Chest Tube Drainage Total 80 ml # Voids 1 # Bowel Movements 1 1 Result Diagram: 05/06/17 0530 05/06/17 0530 Imaging Last Impressions Chest X-Ray 05/07/17 0600 Signed Impressions: Service Date/Time: Sunday, May 07, 2017 06:23 - CONCLUSION: Decrease in size of pneumothorax. Rich Killian MD Chest Tube Insertion 05/02/17 0000 Signed Impressions: Service Date/Time: Tuesday, May 02, 2017 15:28 - CONCLUSION: Uncomplicated right chest tube placement as above. Ramiro Mosley Jr., MD Pleurodesis 04/28/17 0000 Signed Impressions: Service Date/Time: Friday, April 28, 2017 14:29 - CONCLUSION: No 40 cm of Pleur-evac suction Jerald Silva MD Brain MRI 04/23/17 0000 Signed Impressions: Service Date/Time: Sunday, April 23, 2017 14:59 - CONCLUSION: Moderate periventricular white matter changes, otherwise negative. Dinesh Smith MD FACR Objective Remarks GENERAL: NAD SKIN: Warm and dry. HEAD: Normocephalic. EYES: No scleral icterus. No injection or drainage. NECK: Supple, trachea midline. No JVD or lymphadenopathy. CARDIOVASCULAR: Regular rate and rhythm without murmurs, gallops, or rubs. RESPIRATORY: Breath sounds decrease R>L. No accessory muscle use. Chest tube in place GASTROINTESTINAL: Abdomen soft, non-tender, nondistended. MUSCULOSKELETAL: No cyanosis, or edema. BACK: Nontender without obvious deformity. No CVA tenderness. 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 Ann and .Dr. Li ff along with us. continue home meds. Continue with heparin drip prn pain meds, DuoNeb, maintain oxygen saturation above 90%. Chest tube was replaced 05/02/17 Chest x-ray 05/07/17 with PTX decreasing in size Plan for treatment next week for non-small cell cancer of the lung Metabolic encephalopathy Resolved Generalized deconditioning PT to treat and eval DVT prophylaxis: Heparin Discharge Planning Discharge when medically stable and clear by both pulmonary medicine and oncology Yossi Vivas MD May 07, 2017 09:10
[2017-05-07] MEDS: oxyCODONE/ACETAMINOPHEN 5 MG/325 MG TAB PO PRN ×2 (12:40→20:43)
--- NOTE | 2017-05-07 13:18 | PD.ONC.PN ---
Subjective Subjective Remarks Afebrile overnight. complaining of sore throat and hoarse voice. fatigued today. throat spray not helping. 80cc output from CT in/24hours Objective Data Date Time Temp Pulse Resp B/P (MAP) Pulse Ox O2 Delivery O2 Flow Rate FiO2 05/07/17 12:25 97.4 82 17 112/59 (76) 94 05/07/17 10:30 93 Nasal Cannula 2.50 05/07/17 08:25 96.6 75 16 121/58 (79) 94 05/07/17 04:00 97.7 77 21 110/58 (75) 95 05/07/17 00:44 80 05/07/17 00:00 97.1 85 21 116/65 (82) 95 05/06/17 22:56 16 05/06/17 22:04 95 Nasal Cannula 2.50 05/06/17 21:03 Nasal Cannula 2.50 05/06/17 20:44 89 05/06/17 20:00 97.6 99 24 116/65 (82) 94 05/06/17 17:00 83 05/06/17 15:30 96.9 90 17 111/57 (75) 92 05/07/17 05/07/17 05/07/17 07:00 15:00 23:00 Intake Total 120 ml Output Total 200 ml Balance -80 ml Result Diagram: 05/06/17 0530 05/06/17 0530 Imaging Studies Last 24 hours Impressions Chest X-Ray 05/07/17 0600 Signed Impressions: Service Date/Time: Sunday, May 07, 2017 06:23 - CONCLUSION: Decrease in size of pneumothorax. Rich Killian MD Administered Medications Medications (Trade) Dose Ordered Sig/Jamil Route PRN Reason Start Time Stop Time Status Last Admin Dose Admin Benzonatate (Tessalon) 100 mg TID PRN PO COUGH 04/19/17 18:15 04/30/17 16:28 Finasteride (Proscar) 5 mg DAILY PO 04/20/17 09:00 05/07/17 08:47 Fluticasone/ Vilanterol (Breo Ellipta 100-25 Inh) 1 puff DAILY INH 04/20/17 09:00 05/07/17 08:46 Sodium Chloride ([place] [facility] [place]) 2 spray Q6H PRN EACH NARE NASAL CONGESTION 04/19/17 18:15 04/24/17 10:19 Sodium Chloride (NS Flush) 2 ml UNSCH PRN IV FLUSH FLUSH AFTER USING IV ACCESS 04/19/17 18:15 05/02/17 11:44 Sodium Chloride (NS Flush) 2 ml BID IV FLUSH 04/19/17 21:00 05/07/17 08:47 Zolpidem Tartrate (Ambien) 5 mg HS PRN PO INSOMNIA 04/19/17 18:15 05/06/17 21:02 Oxycodone/ Acetaminophen (Percocet 5-325 Mg) 1 tab Q6H PRN PO PAIN SCALE 3 TO 5 04/19/17 18:15 05/07/17 12:40 Morphine Sulfate (Morphine Inj) 2 mg Q3H PRN IV Pain 3-5; if unable to take PO 04/19/17 18:15 05/01/17 18:52 Morphine Sulfate (Morphine Inj) 4 mg Q3H PRN IV Pain 6-10;if unable to take PO 04/19/17 18:15 04/21/17 09:01 Morphine Sulfate (Morphine Inj) 4 mg Q3H PRN IV BREAKTHROUGH PAIN 04/19/17 18:15 04/30/17 17:48 Senna/Docusate Sodium (Lily-Colace) 1 tab BID PO 04/19/17 21:00 05/04/17 08:18 Albuterol/ Ipratropium (Duoneb Neb) 1 ampule Q4HR NEB PRN NEB SHORTNESS OF BREATH 04/19/17 18:15 05/05/17 11:22 Guaifenesin (Mucinex Er) 600 mg BID PO 04/19/17 21:00 05/07/17 08:47 Albuterol Sulfate (Ventolin Hfa Inh) 1 puff BID INH 04/19/17 21:30 05/07/17 08:46 Oxycodone/ Acetaminophen (Percocet 10-325 Mg) 1 tab Q4HR PRN PO PAIN SCALE 6 TO 10 04/21/17 16:00 05/06/17 21:03 Heparin Sodium/ Dextrose 250 ml @ 0 mls/hr TITRATE IV 04/21/17 22:00 05/06/17 21:02 Piperacillin Sod/ Tazobactam Sod 50 ml @ 100 mls/hr Q8H IV 8/21/17 20:00 05/07/17 12:40 Alprazolam (Xanax) 0.5 mg Q6H PRN PO anxiety 05/04/17 20:00 05/06/17 18:27 Phenol (Chloraseptic [place]) 2 spray Q2H PRN MT SORE THROAT 05/05/17 10:00 05/06/17 18:27 Objective Remarks GENERAL: Elderly male supine in bed. on O2 via NC SKIN: Warm and dry. HEAD: Normocephalic. Pharynx: mildly injected. tonsils atrophic. no thrush EYES: No scleral icterus. No injection or drainage. NECK: Supple, trachea midline. CARDIOVASCULAR: Regular rate and rhythm RESPIRATORY: Breath sounds equal bilaterally. No accessory muscle use. GASTROINTESTINAL: Abdomen soft, non-tender, nondistended. EXTREMITIES: No cyanosis, or edema. NEUROLOGICAL: No obvious focal deficit. Awake, alert, and oriented x3. Assessment/Plan Assessment 82 y/o male with history of non-small cell lung cancer admitted for malignant pleural effusion of the right lung requiring chest tube placement Plan 1. Normocytic normochromic Anemia --check CBC today 2. Leukocytosis - no fevers - check CBC --?d/t steroids 3. Recurrent Pleural effusion --Output significantly decreased --Talc pleurodesis done on 04/28. - chest tube replaced - chest X-ray, 05/07 shows decrease in size of pneumothorax, persistent right lung parenchymal opacity. 4. malnutrition - encourage oral intake - ensure tid with meals - albumin poor - start TPN as bridge for now 4. Stage IV NSCLC - Plan for treatment next week. -- Patient was diagnosed in February 2017 with moderately differentiated adenocarcinoma --He has multifocal disease involving the right lung. -- Unfortunately he has required multiple thoracenteses for recurrent malignant pleural effusions 5. Pulmonary Embolism --on heparin gtt -continue heparin gtt until all procedures complete 6. Pharyngitis: --start magic mouthwash --check for strep--unlikely as patient already on penicillin --no sign of thrush in oropharynx --consult ENT for exam Attending Statement The exam, history, and the medical decision-making described in the above note were completed with the assistance of the mid-level provider. I reviewed and agree with the findings presented. I attest that I had a [id number] encounter with the patient on the same day, and personally performed and documented my assessment and findings in the medical record Chest tube output decreasing on IV zosyn heparin gtt for PE poor oral intake and declining nutritional status start TPN d.w rn d/w patient o/n events reviewed Rama Gage May 07, 2017 13:18 Vj Ann MD May 07, 2017 21:59
[2017-05-07] MEDS: NYSTAT/DIPHENHY/LIDO MOUTHWASH (Adult) 120ML SWISH-SWAL SCH ×5 (14:00→21:00)
[2017-05-07 16:52] LABS: AUTOMATED NEUTROPHIL # 15.6 TH/MM3 (1.8-7.7); BASOPHIL % 0.1 % (0.0-2.0); EOSINOPHIL # 0.1 TH/MM3 (0-0.4); EOSINOPHIL % 0.3 % (0.0-4.0); HEMATOCRIT 41.2 % (39.0-51.0); LYMPH % 4.5 % (9.0-44.0); LYMPHOCYTE # 0.8 TH/MM3 (1.0-4.8); MEAN CELL VOLUME 94.4 FL (80.0-100.0); MEAN CORPUSCULAR HEMOGLOBIN 30.2 PG (27.0-34.0); MONO % 5.1 % (0.0-8.0); PLATELET COUNT 307 TH/MM3 (150-450); RED BLOOD COUNT 4.36 MIL/MM3 (4.50-5.90); RED CELL DISTRIBUTION WIDTH 17.6 % (11.6-17.2); WHITE BLOOD COUNT 17.3 TH/MM3 (4.0-11.0)
[2017-05-07 16:59] LABS: HEMO FLAGS AUTO DIFF
[2017-05-07 17:31] LABS: BANDS 7 % (0-6); EOSINOPHILS 1 % (0-4); MYELOCYTES 2 % (0-0); NEUTROPHIL # MANUAL DIFF 14.2 TH/MM3 (1.8-7.7); POLYS (SEG NEUTROPHILS) 72 % (16-70); PROMYELOCYTES 1 % (0-0); WBC DIFF SAMPLE 100
[2017-05-07 17:32] LABS: PLATELET ESTIMATE SMEAR NORMAL (NORMAL); PLATELET MORPHOLOGY NORMAL (NORMAL); SCAN/DIFF FINAL DIFF MANUAL
--- NOTE | 2017-05-07 17:55 | HHI.PR ---
Subjective Remarks 82 YOWM with NSCLC, malig pl effusion Breathing better No CP Gets anxious, mild sob Chest tube with air leak Appetite very poor Burning mouth Objective Vital Signs Vital Signs Date Time Temp Pulse Resp B/P (MAP) Pulse Ox O2 Delivery O2 Flow Rate FiO2 05/07/17 16:35 97.8 118 18 117/64 (81) 92 05/07/17 12:25 97.4 82 17 112/59 (76) 94 05/07/17 12:00 84 05/07/17 10:30 93 Nasal Cannula 2.50 05/07/17 08:25 96.6 75 16 121/58 (79) 94 05/07/17 08:00 70 05/07/17 07:15 Nasal Cannula 3.00 05/07/17 04:00 97.7 77 21 110/58 (75) 95 05/07/17 00:44 80 05/07/17 00:00 97.1 85 21 116/65 (82) 95 05/06/17 22:56 16 05/06/17 22:04 95 Nasal Cannula 2.50 05/06/17 21:03 Nasal Cannula 2.50 05/06/17 20:44 89 05/06/17 20:00 97.6 99 24 116/65 (82) 94 I/O 05/06/17 05/06/17 05/06/17 05/07/17 05/07/17 05/07/17 07:00 15:00 23:00 07:00 15:00 23:00 Intake Total 170 ml 240 ml 120 ml 150 ml 1854 ml Output Total 200 ml 275 ml 530 ml 200 ml 575 ml Balance -200 ml -105 ml -290 ml -80 ml 150 ml 1279 ml Intake Oral 120 ml 240 ml 120 ml 740 ml IV Total 50 ml 150 ml 1114 ml Output Urine Total 200 ml 275 ml 450 ml 200 ml 575 ml Chest Tube Drainage Total 80 ml # Voids 1 3 # Bowel Movements 1 1 1 Result Diagram: 05/07/17 1550 05/06/17 0530 Objective Remarks GENERAL: Elderly male, mild pain SKIN: Warm and dry. HEAD: Normocephalic. EYES: No scleral icterus. No injection or drainage. NECK: Supple, trachea midline. No JVD or lymphadenopathy. CARDIOVASCULAR: Regular rate and rhythm without murmurs, gallops, or rubs. RESPIRATORY: Breath sounds equal bilaterally. No accessory muscle use. Right chest tube draining GASTROINTESTINAL: Abdomen soft, non-tender, nondistended. MUSCULOSKELETAL: No cyanosis, or edema. BACK: Nontender without obvious deformity. No CVA tenderness. A/P Assessment and Plan Malignant Pl effusion, s/p right chest tube Atelacresis NSCLC COPD PE PLAN: Supplement 02 IV Heparin MS and Percocet for pain Zosyn 3.375 gm q 8 hrs Chest tube to suction xanax q 6 hrs prn anxiety Magic mouth wash DW and her son JenJey Isaacs MD May 07, 2017 17:55
[2017-05-07 18:17] LABS: ANION GAP 6 MEQ/L (5-15); BICARBONATE 30.5 MEQ/L (21.0-32.0); BLOOD UREA NITROGEN 20 MG/DL (7-18); CHLORIDE 98 MEQ/L (98-107); GLOMERULAR FILTRATION RATE 140 ML/MIN (>89); MAGNESIUM 1.8 MG/DL (1.5-2.5); POTASSIUM 3.5 MEQ/L (3.5-5.1); SODIUM (NA) 134 MEQ/L (136-145)
[2017-05-07 18:18] LABS: PROTHROMBIN TIME - PATIENT 10.9 SEC (9.8-11.6)
[2017-05-07 18:19] LABS: ALT (GPT) 41 U/L (12-78); AST (GOT) 11 U/L (15-37)
[2017-05-07 18:21] LABS: ALKALINE PHOSPHATASE 83 U/L (45-117); TOTAL BILIRUBIN ADULT 0.5 MG/DL (0.2-1.0)
[2017-05-07] MEDS: ZOLPIDEM TARTRATE 5 MG TAB PO PRN (22:32)
[2017-05-07] MEDS: FAT EMULSION 20% INJ 250 ML (Daily over 8 hours) IV-CENTRAL SCH (23:54)
[2017-05-07] MEDS: CLINIMIX E 5/25 1000 mL- </= 42 mls/hr IV-CENTRAL SCH ×3 (23:54)
[2017-05-08] VITALS (8 sets, daily range): BP systolic 96–137; BP diastolic 54–63; PULSE 85–123; RESP 14–22; TEMP 97.6–99; O2SAT 90–95
[2017-05-08] MEDS: PIPERACIL-TAZO 3.375 GM PREMIX 50 ML IV SCH ×3 (04:00→20:54)
[2017-05-08] MEDS: PHENOL 1.4% SOLN 180 ML BTL MT PRN ×2 (05:08→08:29)
[2017-05-08 06:13] LABS: APTT (PATIENT) 48.5 SEC (24.3-30.1)
[2017-05-08 06:15] LABS: HEMATOCRIT 37.6 % (39.0-51.0); MEAN CELL VOLUME 94.1 FL (80.0-100.0); MEAN CORPUSCULAR HEMOGLOBIN 30.5 PG (27.0-34.0); MEAN CORPUSCULAR HGB CONC 32.4 % (32.0-36.0); PLATELET COUNT 259 TH/MM3 (150-450); RED BLOOD COUNT 3.99 MIL/MM3 (4.50-5.90); RED CELL DISTRIBUTION WIDTH 17.7 % (11.6-17.2); WHITE BLOOD COUNT 14.1 TH/MM3 (4.0-11.0)
[2017-05-08 06:27] LABS: ALT (GPT) 31 U/L (12-78); ANION GAP 10 MEQ/L (5-15); AST (GOT) 8 U/L (15-37); BICARBONATE 28.6 MEQ/L (21.0-32.0); BLOOD UREA NITROGEN 19 MG/DL (7-18); CHLORIDE 100 MEQ/L (98-107); GLOMERULAR FILTRATION RATE 137 ML/MIN (>89); POTASSIUM 3.3 MEQ/L (3.5-5.1); SODIUM (NA) 139 MEQ/L (136-145)
[2017-05-08 06:28] LABS: HEMO FLAGS AUTO DIFF
[2017-05-08 06:29] LABS: ALKALINE PHOSPHATASE 81 U/L (45-117); TOTAL BILIRUBIN ADULT 0.4 MG/DL (0.2-1.0)
[2017-05-08] MEDS: FINASTERIDE 5 MG TAB PO SCH (08:23)
[2017-05-08] MEDS: guaiFENesin E.R. 600 MG TAB PO SCH ×2 (08:23→20:53)
[2017-05-08] MEDS: FLUTICASONE 100 MCG/VILANTEROL 25 MCG INHALER INH SCH (08:23)
[2017-05-08] MEDS: ALBUTEROL SULFATE 90 MCG/ACT HFA 18 GM INHALER INH SCH ×2 (08:23→20:54)
[2017-05-08] MEDS: DOCUSATE SODIUM 50 MG/SENNA 8.6 MG TAB PO SCH ×2 (08:24→20:53)
[2017-05-08] MEDS: NYSTAT/DIPHENHY/LIDO MOUTHWASH (Adult) 120ML SWISH-SWAL SCH ×8 (08:30→20:55)
[2017-05-08] MEDS: SODIUM CHLORIDE 0.9% FLUSH 10 ML FLUSH IV FLUSH SCH ×2 (08:30→20:54)
[2017-05-08] MEDS: oxyCODONE/ACETAMINOPHEN 10 MG/325 MG TAB PO PRN ×3 (08:36→20:53)
[2017-05-08 08:42] LABS: BANDS 3 % (0-6); MYELOCYTES 1 % (0-0); NEUTROPHIL # MANUAL DIFF 13.3 TH/MM3 (1.8-7.7); POLYS (SEG NEUTROPHILS) 90 % (16-70); WBC DIFF SAMPLE 100
[2017-05-08 08:43] LABS: PLATELET ESTIMATE SMEAR NORMAL (NORMAL); PLATELET MORPHOLOGY NORMAL (NORMAL); SCAN/DIFF FINAL DIFF MANUAL
--- NOTE | 2017-05-08 09:50 | PD.ONC.PN ---
Subjective Subjective Remarks Tmax 99.8 overnight. Patient fatigued and weak. Eating very little. Son is at bedside. Objective Data Date Time Temp Pulse Resp B/P (MAP) Pulse Ox O2 Delivery O2 Flow Rate FiO2 05/08/17 08:00 97.8 95 14 113/59 (77) 90 05/08/17 04:00 102 05/08/17 04:00 98.2 100 22 137/58 (84) 93 05/08/17 00:00 99.0 97 21 109/63 (78) 93 05/08/17 00:00 123 05/07/17 22:00 93 Nasal Cannula 2.00 05/07/17 20:00 107 05/07/17 20:00 99.8 109 21 113/59 (77) 93 05/07/17 16:35 97.8 118 18 117/64 (81) 92 05/07/17 12:25 97.4 82 17 112/59 (76) 94 05/07/17 12:00 84 05/07/17 10:30 93 Nasal Cannula 2.50 05/08/17 05/08/17 05/08/17 07:00 15:00 23:00 Intake Total 120 ml Output Total 200 ml Balance -80 ml Result Diagram: 05/08/17 0502 05/08/17 0502 Laboratory Results Laboratory Tests Test 05/07/17 15:50 05/07/17 17:32 05/08/17 05:02 White Blood Count 17.3 TH/MM3 14.1 TH/MM3 Red Blood Count 4.36 MIL/MM3 3.99 MIL/MM3 Hemoglobin 13.2 GM/DL 12.2 GM/DL Hematocrit 41.2 % 37.6 % Mean Corpuscular Volume 94.4 FL 94.1 FL Mean Corpuscular Hemoglobin 30.2 PG 30.5 PG Mean Corpuscular Hemoglobin Concent 32.0 % 32.4 % Red Cell Distribution Width 17.6 % 17.7 % Platelet Count 307 TH/MM3 259 TH/MM3 Mean Platelet Volume 8.1 FL 8.0 FL Neutrophils (%) (Auto) 90.0 % Lymphocytes (%) (Auto) 4.5 % Monocytes (%) (Auto) 5.1 % Eosinophils (%) (Auto) 0.3 % Basophils (%) (Auto) 0.1 % Neutrophils # (Auto) 15.6 TH/MM3 Lymphocytes # (Auto) 0.8 TH/MM3 Monocytes # (Auto) 0.9 TH/MM3 Eosinophils # (Auto) 0.1 TH/MM3 Basophils # (Auto) 0.0 TH/MM3 CBC Comment AUTO DIFF AUTO DIFF Differential Total Cells Counted 100 100 Neutrophils % (Manual) 72 % 90 % Band Neutrophils % 7 % 3 % Lymphocytes % 8 % 3 % Monocytes % 9 % 3 % Eosinophils % 1 % Neutrophils # (Manual) 14.2 TH/MM3 13.3 TH/MM3 Myelocytes 2 % 1 % Promyelocytes 1 % Differential Comment FINAL DIFF MANUAL FINAL DIFF MANUAL Platelet Estimate NORMAL NORMAL Platelet Morphology Comment NORMAL NORMAL Prothrombin Time 10.9 SEC Prothromb Time International Ratio 1.0 RATIO Blood Urea Nitrogen 20 MG/DL 19 MG/DL Creatinine 0.56 MG/DL 0.57 MG/DL Random Glucose 156 MG/DL 188 MG/DL Total Protein 5.7 GM/DL 5.5 GM/DL Albumin 2.0 GM/DL 1.8 GM/DL Calcium Level 8.7 MG/DL 8.6 MG/DL Phosphorus Level 2.6 MG/DL Magnesium Level 1.8 MG/DL Alkaline Phosphatase 83 U/L 81 U/L Aspartate Amino Transf (AST/SGOT) 11 U/L 8 U/L Alanine Aminotransferase (ALT/SGPT) 41 U/L 31 U/L Total Bilirubin 0.5 MG/DL 0.4 MG/DL Sodium Level 134 MEQ/L 139 MEQ/L Potassium Level 3.5 MEQ/L 3.3 MEQ/L Chloride Level 98 MEQ/L 100 MEQ/L Carbon Dioxide Level 30.5 MEQ/L 28.6 MEQ/L Anion Gap 6 MEQ/L 10 MEQ/L Estimat Glomerular Filtration Rate 140 ML/MIN 137 ML/MIN Triglycerides Level 132 MG/DL Red Cell Morphology Comment NORMAL Activated Partial Thromboplast Time 48.5 SEC Culture Results Microbiology Date/Time Source Procedure Growth Status 05/07/17 15:10 Throat Group A Streptococcus Screen Pending Received 05/07/17 15:10 Throat Group A Streptococcus Screen ([facility]) - Final Complete Administered Medications Medications (Trade) Dose Ordered Sig/Jamil Route PRN Reason Start Time Stop Time Status Last Admin Dose Admin Benzonatate (Tessalon) 100 mg TID PRN PO COUGH 04/19/17 18:15 04/30/17 16:28 Finasteride (Proscar) 5 mg DAILY PO 04/20/17 09:00 05/08/17 08:23 Fluticasone/ Vilanterol (Breo Ellipta 100-25 Inh) 1 puff DAILY INH 04/20/17 09:00 05/08/17 08:23 Sodium Chloride ([place] [facility] [place]) 2 spray Q6H PRN EACH NARE NASAL CONGESTION 04/19/17 18:15 04/24/17 10:19 Sodium Chloride (NS Flush) 2 ml UNSCH PRN IV FLUSH FLUSH AFTER USING IV ACCESS 04/19/17 18:15 05/02/17 11:44 Sodium Chloride (NS Flush) 2 ml BID IV FLUSH 04/19/17 21:00 05/07/17 22:32 Zolpidem Tartrate (Ambien) 5 mg HS PRN PO INSOMNIA 04/19/17 18:15 05/07/17 22:32 Oxycodone/ Acetaminophen (Percocet 5-325 Mg) 1 tab Q6H PRN PO PAIN SCALE 3 TO 5 04/19/17 18:15 05/07/17 20:43 Morphine Sulfate (Morphine Inj) 2 mg Q3H PRN IV Pain 3-5; if unable to take PO 04/19/17 18:15 05/01/17 18:52 Morphine Sulfate (Morphine Inj) 4 mg Q3H PRN IV Pain 6-10;if unable to take PO 04/19/17 18:15 04/21/17 09:01 Morphine Sulfate (Morphine Inj) 4 mg Q3H PRN IV BREAKTHROUGH PAIN 04/19/17 18:15 04/30/17 17:48 Senna/Docusate Sodium (Lily-Colace) 1 tab BID PO 04/19/17 21:00 05/04/17 08:18 Albuterol/ Ipratropium (Duoneb Neb) 1 ampule Q4HR NEB PRN NEB SHORTNESS OF BREATH 04/19/17 18:15 05/05/17 11:22 Guaifenesin (Mucinex Er) 600 mg BID PO 04/19/17 21:00 05/08/17 08:23 Albuterol Sulfate (Ventolin Hfa Inh) 1 puff BID INH 04/19/17 21:30 05/08/17 08:23 Oxycodone/ Acetaminophen (Percocet 10-325 Mg) 1 tab Q4HR PRN PO PAIN SCALE 6 TO 10 04/21/17 16:00 05/08/17 08:36 Heparin Sodium/ Dextrose 250 ml @ 0 mls/hr TITRATE IV 04/21/17 22:00 05/06/17 21:02 Piperacillin Sod/ Tazobactam Sod 50 ml @ 100 mls/hr Q8H IV 04/26/17 20:00 05/07/17 22:29 Alprazolam (Xanax) 0.5 mg Q6H PRN PO anxiety 05/04/17 20:00 05/06/17 18:27 Phenol (Chloraseptic [place]) 2 spray Q2H PRN MT SORE THROAT 05/05/17 10:00 05/08/17 08:29 Multivitamins 10 ml/Folic Acid 1 mg/Amino Acids/ Electrolytes/ Dextrose 1,010.2 ml @ 42 mls/hr Q24H IV-CENTRAL 05/07/17 20:00 05/07/17 23:54 Fat Emulsion Intravenous 250 ml @ 31.25 mls/ hr Q24H IV-CENTRAL 05/07/17 20:00 05/07/17 23:54 Multi-Ingredient Mouthwash/Gargle (Magic Mouthwash Adult Liq) 5 ml QID SWISH-SWAL 05/07/17 18:00 05/07/17 18:00 Objective Remarks GENERAL: Elderly male weak and frail appearing, lying supine in bed. on 2L O2 via NC SKIN: Warm and dry. HEAD: Normocephalic. EYES: No scleral icterus. No injection or drainage. NECK: Supple, trachea midline. CARDIOVASCULAR: +S1/S2 RESPIRATORY: diminished breath sounds, right lung hammer. occasional rhonchi. GASTROINTESTINAL: Abdomen soft, non-tender, nondistended. EXTREMITIES: No cyanosis, or edema. NEUROLOGICAL: No obvious focal deficit. Awake, alert, and oriented x3. Assessment/Plan Assessment 82 y/o male with history of non-small cell lung cancer admitted for malignant pleural effusion of the right lung requiring chest tube placement Plan 1. Normocytic normochromic Anemia --hgb stable. monitor 2. Leukocytosis - no fevers - monitor --?d/t steroids 3. Recurrent Pleural effusion --Output significantly decreased --Talc pleurodesis done on 04/28. - chest tube replaced - chest X-ray, 05/07 shows decrease in size of pneumothorax, persistent right lung parenchymal opacity. 4. malnutrition - encourage oral intake - ensure tid with meals - albumin poor - start TPN as bridge for now 4. Stage IV NSCLC - Plan for treatment next week. -- Patient was diagnosed in February 2017 with moderately differentiated adenocarcinoma --He has multifocal disease involving the right lung. -- Unfortunately he has required multiple thoracenteses for recurrent malignant pleural effusions 05/08: family and patient requesting to speak with hospice for information purposes. will place consult. 5. Pulmonary Embolism --on heparin gtt -continue heparin gtt until all procedures complete 6. Pharyngitis: --start magic mouthwash --check for strep--unlikely as patient already on penicillin --no sign of thrush in oropharynx --await ENT consult CODE STATUS: No Code--patient and requesting patient be a NO CODE. Rama Gage May 08, 2017 09:50
--- NOTE | 2017-05-08 10:23 | HHI.PR ---
Subjective Remarks Patient seen and examined this morning. and son are at bedside. Patient reports poor appetite and sore throat. Also states he's having some abdominal pain. Son is requesting a meeting with palliative care and are considering comfort measures. Objective Vital Signs Date Time Temp Pulse Resp B/P (MAP) Pulse Ox O2 Delivery O2 Flow Rate FiO2 05/08/17 08:00 97.8 95 14 113/59 (77) 90 05/08/17 04:00 102 05/08/17 04:00 98.2 100 22 137/58 (84) 93 05/08/17 00:00 99.0 97 21 109/63 (78) 93 05/08/17 00:00 123 05/07/17 22:00 93 Nasal Cannula 2.00 05/07/17 20:00 107 05/07/17 20:00 99.8 109 21 113/59 (77) 93 05/07/17 16:35 97.8 118 18 117/64 (81) 92 05/07/17 12:25 97.4 82 17 112/59 (76) 94 05/07/17 12:00 84 05/07/17 10:30 93 Nasal Cannula 2.50 I/O 05/07/17 05/07/17 05/07/17 05/08/17 05/08/17 05/08/17 07:00 15:00 23:00 07:00 15:00 23:00 Intake Total 120 ml 150 ml 2278 ml 120 ml Output Total 200 ml 980 ml 200 ml Balance -80 ml 150 ml 1298 ml -80 ml Intake Oral 120 ml 1100 ml 120 ml IV Total 150 ml 1178 ml Output Urine Total 200 ml 900 ml 200 ml Chest Tube Drainage Total 80 ml # Voids 3 # Bowel Movements 1 Result Diagram: 05/08/17 0502 05/08/17 0502 Imaging Last Impressions Chest X-Ray 05/07/17 0600 Signed Impressions: Service Date/Time: Sunday, May 07, 2017 06:23 - CONCLUSION: Decrease in size of pneumothorax. Rich Killian MD Chest Tube Insertion 05/02/17 0000 Signed Impressions: Service Date/Time: Tuesday, May 02, 2017 15:28 - CONCLUSION: Uncomplicated right chest tube placement as above. Ramiro Mosley Jr., MD Pleurodesis 04/28/17 0000 Signed Impressions: Service Date/Time: Friday, April 28, 2017 14:29 - CONCLUSION: No 40 cm of Pleur-evac suction Jerald Silva MD Brain MRI 04/23/17 0000 Signed Impressions: Service Date/Time: Sunday, April 23, 2017 14:59 - CONCLUSION: Moderate periventricular white matter changes, otherwise negative. Dinesh Smith MD FACR Objective Remarks GENERAL: Thin-appearing elderly man, appears uncomfortable SKIN: Warm and dry. Chest tube right anterior chest with drainage. HEAD: Normocephalic. EYES: No scleral icterus. No injection or drainage. NECK: Supple, trachea midline. No JVD or lymphadenopathy. CARDIOVASCULAR: Regular rate and rhythm without murmurs, gallops, or rubs. RESPIRATORY: Breath sounds equal bilaterally. No accessory muscle use. GASTROINTESTINAL: Abdomen soft. Reports left quadrant pain, although no pain elicited with palpation. MUSCULOSKELETAL: No cyanosis, or edema. 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 Ann and .Dr. Li ff along with us. continue home meds. Continue with heparin drip prn pain meds, DuoNeb, maintain oxygen saturation above 90%. Chest tube was replaced 05/02/17 Chest x-ray 05/07/17 with PTX decreasing in size Placed on Zosyn on 04/26 by Pulm, leukocytosis is improving, cultures have been negative, no fever, if leukocytosis continues to down trend tomorrow can likely be d/c Metabolic encephalopathy Resolved Generalized deconditioning & Poor nutrition PT to treat and eval TPN ensure Sore Throat no visible throat does not like magic mouthwash chloraseptic spray at bedside, doesnt like flavor strep culture pending, likely negative since patient is on zosyn HypoK Replaced DVT prophylaxis: Heparin Discharge Planning Hospice & Palliative Care consults have been placed. D.C plan are pending these. Adelia Rae MD May 08, 2017 10:23
[2017-05-08] MEDS ORDERED: POTASSIUM CHLOR 20 MEQ PREMIX 100 ML IV ONE (10:30)
[2017-05-08] MEDS ORDERED: POTASSIUM CHLORIDE 10 MEQ CONTROLLED RELEASE TAB PO ONE (11:00)
[2017-05-08] MEDS: HEPARIN-D5W 25,000 U/250 ML 250 ML IV SCH (12:00)
--- NOTE | 2017-05-08 16:50 | MB ---
cc: RONNIE YBARRA MD DATE OF CONSULTATION 05/08/17 HISTORY OF PRESENT ILLNESS This is an 82-year-old male with [id number] lung carcinoma stage IV. He is currently rate receiving chemotherapy, subsequently most recently developing a pleural effusion requiring chest tube placement. Recently, the patient started to complain of some discomfort in his throat as well as some hoarseness. A consultation was placed with ENT for further evaluation of the patient's hoarseness and evaluation of the patient's vocal cords. PAST MEDICAL HISTORY 1. significant for above-mentioned jev-tbaab-[id number] lung carcinoma 2. History of pulmonary emboli right lung difficulties dating all the way back to 1983. PAST SURGICAL HISTORY 1. Tonsillectomy 2. Appendectomy ALLERGIES NO KNOWN DRUG ALLERGIES. MEDICATIONS Please see the medical record. SOCIAL HISTORY He has a 35 pack-year history of smoking up to two packs a day. He has prior alcohol use but none currently. PHYSICAL EXAMINATION GENERAL: The patient is alert and oriented x3 in no acute distress. VITAL SIGNS: Afebrile. Vital signs stable. HEENT: Neck is palpable. No lymphadenopathy noted. No tenderness. Flexible laryngoscopy at bedside shows oral cavity and oropharynx to have dry mucosa. No evidence of any lesions or masses and no evidence of any infectious process at this time. The hypopharynx and endolarynx is dry with thickened mucous, however, there is no evidence of infectious process, bilateral true vocal cords are mobile. The patient does have weak breath support and has a significantly dysphonic voice. However, the vocal cords are coming together in the midline and are moving appropriately. LUNGS: Shortness of breath. CARDIOVASCULAR: Regular rate and rhythm. ASSESSMENT/PLAN An 82-year-old male with dysphonia secondary to decreased breath support, most likely from his lung carcinoma. I recommend speech therapy to work with him on his dysphonia and his hoarseness, however, as his lungs improve I would expect his voice to slowly improve as well. He also has significantly dry mucosa. I recommend increasing his hydration. Thank you for this consultation. Ronnie Ybarra AT/ /12:24 PM /4:38 PM
[2017-05-08] MEDS: IBUPROFEN 400 MG TAB PO SCH ×2 (18:09→20:53)
[2017-05-08] MEDS: FAT EMULSION 20% INJ 250 ML (Daily over 8 hours) IV-CENTRAL SCH (20:54)
[2017-05-08] MEDS: CLINIMIX E 5/25 1000 mL- </= 42 mls/hr IV-CENTRAL SCH ×3 (20:54)
[2017-05-08] MEDS: ZOLPIDEM TARTRATE 5 MG TAB PO PRN (22:05)
[2017-05-09] VITALS (9 sets, daily range): BP systolic 96–110; BP diastolic 56–59; PULSE 81–107; RESP 16–20; TEMP 97.2–97.8; O2SAT 91–96
[2017-05-09] MEDS: IBUPROFEN 400 MG TAB PO SCH ×3 (04:18→21:15)
[2017-05-09] MEDS: PIPERACIL-TAZO 3.375 GM PREMIX 50 ML IV SCH ×3 (04:18→21:16)
--- NOTE | 2017-05-09 05:43 | RADRPT ---
EXAM DATE/TIME: 05/09/2017 04:32 [facility] COMPARISON: CHEST SINGLE AP, May 07, 2017, 6:23. INDICATIONS : Evaluate for pleural effusion MEDICAL HISTORY : Carcinoma, lung. Chronic obstructive pulmonary disease. subcutaneous SURGICAL HISTORY : Infusaport ENCOUNTER: Subsequent ACUITY: 3 weeks PAIN SCORE: 7/10 LOCATION: Bilateral chest FINDINGS: A single view of the chest demonstrates small caliber right-sided chest tube. There is a small right- sided mostly basilar pneumothorax which has increased in size slightly since May 07. Dense conso lidation remains at the right lung base and mild left basilar airspace disease is present. Infuse-a-P ort is in superior vena cava. CONCLUSION: 1. Small caliber right chest tube is present with a slight increase in size of the right pneumothorax over the last day. Dense consolidation remains at the right lung base. Patchy left basilar airspace disease. Santy Badillo MD on May 09, 2017 at 5:36 Board Certified Radiologist. This report was verified electronically.
[2017-05-09 05:57] LABS: AUTOMATED NEUTROPHIL # 11.1 TH/MM3 (1.8-7.7); BASOPHIL % 0.2 % (0.0-2.0); EOSINOPHIL # 0.1 TH/MM3 (0-0.4); EOSINOPHIL % 0.4 % (0.0-4.0); HEMATOCRIT 36.3 % (39.0-51.0); LYMPH % 5.9 % (9.0-44.0); LYMPHOCYTE # 0.7 TH/MM3 (1.0-4.8); MEAN CORPUSCULAR HEMOGLOBIN 30.7 PG (27.0-34.0); MEAN CORPUSCULAR HGB CONC 32.3 % (32.0-36.0); MONO % 4.5 % (0.0-8.0); PLATELET COUNT 197 TH/MM3 (150-450); RED BLOOD COUNT 3.82 MIL/MM3 (4.50-5.90); RED CELL DISTRIBUTION WIDTH 17.6 % (11.6-17.2); WHITE BLOOD COUNT 12.5 TH/MM3 (4.0-11.0)
[2017-05-09 06:01] LABS: HEMO FLAGS AUTO DIFF
[2017-05-09 06:08] LABS: ALT (GPT) 26 U/L (12-78); ANION GAP 9 MEQ/L (5-15); APTT (PATIENT) 39.8 SEC (24.3-30.1); AST (GOT) 7 U/L (15-37); BICARBONATE 28.5 MEQ/L (21.0-32.0); BLOOD UREA NITROGEN 20 MG/DL (7-18); CHLORIDE 101 MEQ/L (98-107); GLOMERULAR FILTRATION RATE 176 ML/MIN (>89); POTASSIUM 3.8 MEQ/L (3.5-5.1); SODIUM (NA) 138 MEQ/L (136-145)
[2017-05-09 06:11] LABS: ALKALINE PHOSPHATASE 73 U/L (45-117); TOTAL BILIRUBIN ADULT 0.4 MG/DL (0.2-1.0)
[2017-05-09 06:40] LABS: BANDS 1 % (0-6); MYELOCYTES 1 % (0-0); PLATELET ESTIMATE SMEAR NORMAL (NORMAL); PLATELET MORPHOLOGY NORMAL (NORMAL); POLYS (SEG NEUTROPHILS) 85 % (16-70); PROMYELOCYTES 1 % (0-0); SCAN/DIFF FINAL DIFF MANUAL; WBC DIFF SAMPLE 100
--- NOTE | 2017-05-09 07:38 | HHI.PR ---
Subjective Remarks Patient seen and examined this morning. States he feels well today. Denies CP or difficulty breathing. Abdominal pain resolved. Still has some throat pain. Says "red stuff helps." Objective Vital Signs Date Time Temp Pulse Resp B/P (MAP) Pulse Ox O2 Delivery O2 Flow Rate FiO2 05/09/17 04:00 97.8 83 18 100/57 (71) 94 05/09/17 00:00 97.8 81 19 96/56 (69) 95 05/08/17 22:42 95 Nasal Cannula 2.50 05/08/17 20:00 98.2 90 19 96/54 (68) 92 05/08/17 16:00 97.9 95 20 116/58 (77) 94 05/08/17 12:00 97.6 85 18 100/57 (71) 93 05/08/17 08:52 92 Nasal Cannula 2.50 05/08/17 08:01 93 Nasal Cannula 2.00 05/08/17 08:00 97.8 95 14 113/59 (77) 90 I/O 05/08/17 05/08/17 05/08/17 05/09/17 05/09/17 05/09/17 07:00 15:00 23:00 07:00 15:00 23:00 Intake Total 120 ml 336 ml 240 ml Output Total 200 ml 340 ml 100 ml 650 ml Balance -80 ml -4 ml 140 ml -650 ml Intake Oral 120 ml 236 ml 240 ml IV Total 100 ml Output Urine Total 200 ml 100 ml 100 ml 400 ml Chest Tube Drainage Total 240 ml 250 ml # Voids 1 # Bowel Movements 1 Result Diagram: 05/09/17 0515 05/09/17 0515 Imaging Last Impressions Chest X-Ray 05/09/17 0600 Signed Impressions: Service Date/Time: Tuesday, May 09, 2017 04:32 - CONCLUSION: 1. Small caliber right chest tube is present with a slight increase in size of the right pneumothorax over the last day. Dense consolidation remains at the right lung base. Patchy left basilar airspace disease. Santy Badillo MD Chest Tube Insertion 05/02/17 0000 Signed Impressions: Service Date/Time: Tuesday, May 02, 2017 15:28 - CONCLUSION: Uncomplicated right chest tube placement as above. Ramiro Mosley Jr., MD Pleurodesis 04/28/17 0000 Signed Impressions: Service Date/Time: Friday, April 28, 2017 14:29 - CONCLUSION: No 40 cm of Pleur-evac suction Jerald Silva MD Brain MRI 04/23/17 0000 Signed Impressions: Service Date/Time: Sunday, April 23, 2017 14:59 - CONCLUSION: Moderate periventricular white matter changes, otherwise negative. Dinesh Smith MD FACR Objective Remarks GENERAL: Thin-appearing elderly man, appears comfortable SKIN: Warm and dry. Port right chest. Lateral right chest tube to suction with drainage, yellow. HEAD: Normocephalic. EYES: No scleral icterus. No injection or drainage. NECK: Supple, trachea midline. No JVD or lymphadenopathy. CARDIOVASCULAR: Regular rate and rhythm without murmurs, gallops, or rubs. RESPIRATORY: Breath sounds equal bilaterally. No accessory muscle use. GASTROINTESTINAL: Abdomen soft. Non tender with palpation. No rebound or guarding. MUSCULOSKELETAL: No cyanosis, or edema. 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 Ann and .Dr. Li ff along with us. continue home meds. Continue with heparin drip prn pain meds, DuoNeb, maintain oxygen saturation above 90%. Chest tube was replaced 05/02/17 Chest x-ray 05/07/17 with PTX decreasing in size Placed on Zosyn on 04/26 by Pulm, leukocytosis is improving, cultures have been negative, no fever, if leukocytosis continues to down trend tomorrow can likely be d/c Metabolic encephalopathy Resolved Generalized deconditioning & Poor nutrition PT to treat and eval TPN ensure Sore Throat, hoarseness no visible throat does not like magic mouthwash chloraseptic spray at bedside, doesnt like flavor strep culture pending, likely negative since patient is on zosyn scheduled motrin added yesterday speech therapy HypoK wnl DVT prophylaxis: Heparin Discharge Planning Hospice & Palliative Care consults have been placed. D.C plan are pending these. Adelia Rae MD May 09, 2017 07:38
[2017-05-09] MEDS: ALBUTEROL SULFATE 90 MCG/ACT HFA 18 GM INHALER INH SCH ×2 (08:37→21:16)
[2017-05-09] MEDS: PHENOL 1.4% SOLN 180 ML BTL MT PRN (08:37)
[2017-05-09] MEDS: FLUTICASONE 100 MCG/VILANTEROL 25 MCG INHALER INH SCH (08:37)
[2017-05-09] MEDS: guaiFENesin E.R. 600 MG TAB PO SCH ×2 (08:38→21:14)
[2017-05-09] MEDS: SODIUM CHLORIDE 0.9% FLUSH 10 ML FLUSH IV FLUSH SCH ×2 (08:38→21:17)
[2017-05-09] MEDS: DOCUSATE SODIUM 50 MG/SENNA 8.6 MG TAB PO SCH ×2 (08:38→21:00)
[2017-05-09] MEDS: NYSTAT/DIPHENHY/LIDO MOUTHWASH (Adult) 120ML SWISH-SWAL SCH ×8 (08:38→21:00)
[2017-05-09] MEDS: FINASTERIDE 5 MG TAB PO SCH (08:38)
[2017-05-09] MEDS: oxyCODONE/ACETAMINOPHEN 10 MG/325 MG TAB PO PRN ×2 (18:34→21:16)
[2017-05-09] MEDS: ZOLPIDEM TARTRATE 5 MG TAB PO PRN (22:55)
[2017-05-09] MEDS: CLINIMIX E 5/25 1000 mL- </= 42 mls/hr IV-CENTRAL SCH ×3 (22:55)
[2017-05-09] MEDS: FAT EMULSION 20% INJ 250 ML (Daily over 8 hours) IV-CENTRAL SCH (22:56)
[2017-05-10] VITALS (8 sets, daily range): BP systolic 92–98; BP diastolic 51–60; PULSE 75–105; RESP 15–20; TEMP 96.6–97; O2SAT 93–95
[2017-05-10] MEDS: HEPARIN-D5W 25,000 U/250 ML 250 ML IV SCH (03:32)
[2017-05-10] MEDS: oxyCODONE/ACETAMINOPHEN 10 MG/325 MG TAB PO PRN ×3 (03:43→14:00)
[2017-05-10] MEDS: PIPERACIL-TAZO 3.375 GM PREMIX 50 ML IV SCH ×2 (03:45→13:49)
[2017-05-10] MEDS: MORPHINE SULFATE 4 MG/ML INJ IV PRN ×3 (04:44→16:53)
[2017-05-10] MEDS: IBUPROFEN 400 MG TAB PO SCH (05:05)
[2017-05-10] MEDS: SODIUM CHLORIDE 0.9% FLUSH 10 ML FLUSH IV FLUSH PRN (05:11)
[2017-05-10 06:07] LABS: AUTOMATED NEUTROPHIL # 11.3 TH/MM3 (1.8-7.7); BASOPHIL % 0.3 % (0.0-2.0); EOSINOPHIL # 0.1 TH/MM3 (0-0.4); EOSINOPHIL % 0.5 % (0.0-4.0); HEMATOCRIT 35.8 % (39.0-51.0); LYMPH % 6.2 % (9.0-44.0); LYMPHOCYTE # 0.8 TH/MM3 (1.0-4.8); MEAN CELL VOLUME 94.6 FL (80.0-100.0); MEAN CORPUSCULAR HEMOGLOBIN 30.9 PG (27.0-34.0); MEAN CORPUSCULAR HGB CONC 32.7 % (32.0-36.0); MONO % 4.5 % (0.0-8.0); NEUT % 88.5 % (16.0-70.0); PLATELET COUNT 176 TH/MM3 (150-450); RED BLOOD COUNT 3.79 MIL/MM3 (4.50-5.90); RED CELL DISTRIBUTION WIDTH 17.7 % (11.6-17.2); WHITE BLOOD COUNT 12.8 TH/MM3 (4.0-11.0)
[2017-05-10 06:30] LABS: ANION GAP 7 MEQ/L (5-15); AST (GOT) 6 U/L (15-37); BICARBONATE 28.7 MEQ/L (21.0-32.0); BLOOD UREA NITROGEN 18 MG/DL (7-18); CHLORIDE 100 MEQ/L (98-107); GLOMERULAR FILTRATION RATE 180 ML/MIN (>89); POTASSIUM 3.7 MEQ/L (3.5-5.1); SODIUM (NA) 136 MEQ/L (136-145)
[2017-05-10 06:31] LABS: ALT (GPT) 23 U/L (12-78)
[2017-05-10 06:34] LABS: ALKALINE PHOSPHATASE 82 U/L (45-117); TOTAL BILIRUBIN ADULT 0.5 MG/DL (0.2-1.0)
[2017-05-10 06:35] LABS: HEMO FLAGS AUTO DIFF
--- NOTE | 2017-05-10 07:12 | HHI.PR ---
Subjective Remarks Patient seen and examined this morning. Vitals overall are stable with intermittent hypotension. Nurse reports yesterday he complained of some significant right sided pain where his chest tube is. He was given morphine and the pain resolved. This am he was sleeping comfortably, but easily awakened. He did again report some pain at the chest tube site. Reports his throat is still sore and he doesn't like the food. is concerned that he is not eating. Objective Vital Signs Date Time Temp Pulse Resp B/P (MAP) Pulse Ox O2 Delivery O2 Flow Rate FiO2 05/10/17 04:10 80 05/10/17 00:25 97.0 75 15 92/57 (69) 95 05/10/17 00:03 88 05/09/17 21:20 95 Nasal Cannula 2.50 05/09/17 20:25 97.2 107 16 107/59 (75) 91 05/09/17 20:00 97 05/09/17 19:37 92 Nasal Cannula 2.50 05/09/17 16:00 97.8 102 20 104/56 (72) 95 05/09/17 12:00 97.6 100 20 103/57 (72) 96 05/09/17 09:27 95 Nasal Cannula 2.50 05/09/17 08:01 95 Nasal Cannula 2.50 05/09/17 08:00 97.8 89 20 110/58 (75) 93 I/O 05/09/17 05/09/17 05/09/17 05/10/17 05/10/17 05/10/17 07:00 15:00 23:00 07:00 15:00 23:00 Intake Total 354 ml 1355 ml 250 ml Output Total 650 ml 500 ml 120 ml 310 ml Balance -650 ml -146 ml 1235 ml -60 ml Intake Oral 354 ml IV Total 1355 ml 250 ml Output Urine Total 400 ml 500 ml 250 ml Chest Tube Drainage Total 250 ml 120 ml 60 ml # Bowel Movements 1 Result Diagram: 05/10/17 0505/10/17 0510 Imaging Last Impressions Chest X-Ray 05/09/17 0600 Signed Impressions: Service Date/Time: Tuesday, May 09, 2017 04:32 - CONCLUSION: 1. Small caliber right chest tube is present with a slight increase in size of the right pneumothorax over the last day. Dense consolidation remains at the right lung base. Patchy left basilar airspace disease. Santy Badillo MD Chest Tube Insertion 05/02/17 0000 Signed Impressions: Service Date/Time: Tuesday, May 02, 2017 15:28 - CONCLUSION: Uncomplicated right chest tube placement as above. Ramiro Mosley Jr., MD Pleurodesis 04/28/17 0000 Signed Impressions: Service Date/Time: Friday, April 28, 2017 14:29 - CONCLUSION: No 40 cm of Pleur-evac suction Jerald Silva MD Brain MRI 04/23/17 0000 Signed Impressions: Service Date/Time: Sunday, April 23, 2017 14:59 - CONCLUSION: Moderate periventricular white matter changes, otherwise negative. Dinesh Smith MD FACR Objective Remarks GENERAL: Thin-appearing elderly man, appears comfortable SKIN: Warm and dry. Port right chest. Lateral right chest tube to suction with drainage, yellow. HEAD: Normocephalic. EYES: No scleral icterus. No injection or drainage. NECK: Supple, trachea midline. No JVD or lymphadenopathy. CARDIOVASCULAR: Regular rate and rhythm without murmurs, gallops, or rubs. RESPIRATORY: Breath sounds equal bilaterally. No accessory muscle use. GASTROINTESTINAL: Abdomen soft. Non tender with palpation. No rebound or guarding. MUSCULOSKELETAL: No cyanosis, or edema. 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 Ann and .Dr. Li ff along with us. continue home meds. Continue with heparin drip prn pain meds, DuoNeb, maintain oxygen saturation above 90%. Chest tube was replaced 05/02/17 Chest x-ray 05/09/17 with PTX slight increase in size, repeat CXR this am due to complaint of pain Placed on Zosyn on 04/26 by Pulm, leukocytosis is improving, cultures have been negative, no fever, if leukocytosis continues to down trend tomorrow can likely be d/c Metabolic encephalopathy Resolved Generalized deconditioning & Poor nutrition PT to treat and eval TPN ensure Sore Throat, hoarseness no visible throat does not like magic mouthwash chloraseptic spray at bedside, doesnt like flavor strep culture negative motrin prn speech therapy: Recommends a soft thin liquid diet HypoK wnl DVT prophylaxis: Heparin Discharge Planning In summary this is an 82-year-old male with stage IV Non-small cell cancer of the lung, Recurrent Malignant pleural effusion , and history of Pulmonary embolism. The patient's recurrent malignant pleural effusion is being managed by pulmonology. He monitors also following along with the patient. The patient 's is at bedside most of the times and the patient's son has been here for the weekend. The son has requested a palliative care and hospice consult. These are pending. Adelia Rae MD May 10, 2017 07:12
[2017-05-10] MEDS ORDERED: IBUPROFEN 400 MG TAB PO PRN (08:00)
[2017-05-10] MEDS: RESP: ALBUTEROL 2.5 MG/IPRATROPIUM 0.5 MG NEB (PRN) NEB (08:39)
[2017-05-10 08:53] LABS: BANDS 1 % (0-6); MYELOCYTES 4 % (0-0); NEUTROPHIL # MANUAL DIFF 11.9 TH/MM3 (1.8-7.7); PLATELET ESTIMATE SMEAR NORMAL (NORMAL); PLATELET MORPHOLOGY NORMAL (NORMAL); POLYS (SEG NEUTROPHILS) 88 % (16-70); SCAN/DIFF FINAL DIFF MANUAL; WBC DIFF SAMPLE 100
[2017-05-10] MEDS: NYSTAT/DIPHENHY/LIDO MOUTHWASH (Adult) 120ML SWISH-SWAL SCH ×4 (09:06→13:59)
[2017-05-10] MEDS: guaiFENesin E.R. 600 MG TAB PO SCH (09:07)
[2017-05-10] MEDS: ALBUTEROL SULFATE 90 MCG/ACT HFA 18 GM INHALER INH SCH (09:07)
[2017-05-10] MEDS: FLUTICASONE 100 MCG/VILANTEROL 25 MCG INHALER INH SCH (09:07)
[2017-05-10] MEDS: FINASTERIDE 5 MG TAB PO SCH (09:07)
[2017-05-10] MEDS: DOCUSATE SODIUM 50 MG/SENNA 8.6 MG TAB PO SCH (09:19)
[2017-05-10] MEDS: SODIUM CHLORIDE 0.9% FLUSH 10 ML FLUSH IV FLUSH SCH (09:19)
--- NOTE | 2017-05-10 13:06 | PD.ONC.PN ---
Subjective Subjective Remarks still weak considering hospice chest tube in place Objective Data Date Time Temp Pulse Resp B/P (MAP) Pulse Ox O2 Delivery O2 Flow Rate FiO2 05/10/17 12:00 96.6 105 20 98/60 (73) 95 05/10/17 11:46 16 05/10/17 09:21 Nasal Cannula 2.50 05/10/17 08:39 94 Nasal Cannula 2.50 05/10/17 08:00 97.0 87 20 93/51 (65) 93 05/10/17 04:10 80 05/10/17 00:25 97.0 75 15 92/57 (69) 95 05/10/17 00:03 88 05/09/17 21:20 95 Nasal Cannula 2.50 05/09/17 20:25 97.2 107 16 107/59 (75) 91 05/09/17 20:00 97 05/09/17 19:37 92 Nasal Cannula 2.50 05/09/17 16:00 97.8 102 20 104/56 (72) 95 05/10/17 05/10/17 05/10/17 06:59 14:59 22:59 Intake Total 250 ml Output Total 310 ml Balance -60 ml Result Diagram: 05/10/17 0510 05/10/17 0510 Laboratory Results Laboratory Tests Test 05/10/17 05:10 White Blood Count 12.8 TH/MM3 Red Blood Count 3.79 MIL/MM3 Hemoglobin 11.7 GM/DL Hematocrit 35.8 % Mean Corpuscular Volume 94.6 FL Mean Corpuscular Hemoglobin 30.9 PG Mean Corpuscular Hemoglobin Concent 32.7 % Red Cell Distribution Width 17.7 % Platelet Count 176 TH/MM3 Mean Platelet Volume 7.8 FL Neutrophils (%) (Auto) 88.5 % Lymphocytes (%) (Auto) 6.2 % Monocytes (%) (Auto) 4.5 % Eosinophils (%) (Auto) 0.5 % Basophils (%) (Auto) 0.3 % Neutrophils # (Auto) 11.3 TH/MM3 Lymphocytes # (Auto) 0.8 TH/MM3 Monocytes # (Auto) 0.6 TH/MM3 Eosinophils # (Auto) 0.1 TH/MM3 Basophils # (Auto) 0.0 TH/MM3 CBC Comment AUTO DIFF Differential Total Cells Counted 100 Neutrophils % (Manual) 88 % Band Neutrophils % 1 % Lymphocytes % 4 % Monocytes % 3 % Neutrophils # (Manual) 11.9 TH/MM3 Myelocytes 4 % Differential Comment FINAL DIFF MANUAL Platelet Estimate NORMAL Platelet Morphology Comment NORMAL Red Cell Morphology Comment NORMAL Activated Partial Thromboplast Time 36.0 SEC Blood Urea Nitrogen 18 MG/DL Creatinine 0.45 MG/DL Random Glucose 171 MG/DL Total Protein 5.5 GM/DL Albumin 1.5 GM/DL Calcium Level 8.6 MG/DL Alkaline Phosphatase 82 U/L Aspartate Amino Transf (AST/SGOT) 6 U/L Alanine Aminotransferase (ALT/SGPT) 23 U/L Total Bilirubin 0.5 MG/DL Sodium Level 136 MEQ/L Potassium Level 3.7 MEQ/L Chloride Level 100 MEQ/L Carbon Dioxide Level 28.7 MEQ/L Anion Gap 7 MEQ/L Estimat Glomerular Filtration Rate 180 ML/MIN Culture Results Microbiology Date/Time Source Procedure Growth Status 05/07/17 15:10 Throat Group A Streptococcus Screen - Final NO GP A BETA STREP ISOLATED. Complete 05/07/17 15:10 Throat Group A Streptococcus Screen ([facility]) - Final Complete Administered Medications Medications (Trade) Dose Ordered Sig/Jamil Route PRN Reason Start Time Stop Time Status Last Admin Dose Admin Benzonatate (Tessalon) 100 mg TID PRN PO COUGH 04/19/17 18:15 04/30/17 16:28 Finasteride (Proscar) 5 mg DAILY PO 04/20/17 09:00 05/10/17 09:07 Fluticasone/ Vilanterol (Breo Ellipta 100-25 Inh) 1 puff DAILY INH 04/20/17 09:00 05/10/17 09:07 Sodium Chloride ([place]) 2 spray Q6H PRN EACH NARE NASAL CONGESTION 04/19/17 18:15 04/24/17 10:19 Sodium Chloride (NS Flush) 2 ml UNSCH PRN IV FLUSH FLUSH AFTER USING IV ACCESS 04/19/17 18:15 05/10/17 05:11 Sodium Chloride (NS Flush) 2 ml BID IV FLUSH 04/19/17 21:00 05/09/17 21:17 Zolpidem Tartrate (Ambien) 5 mg HS PRN PO INSOMNIA 04/19/17 18:15 05/09/17 22:55 Oxycodone/ Acetaminophen (Percocet 5-325 Mg) 1 tab Q6H PRN PO PAIN SCALE 3 TO 5 04/19/17 18:15 05/07/17 20:43 Morphine Sulfate (Morphine Inj) 2 mg Q3H PRN IV Pain 3-5; if unable to take PO 04/19/17 18:15 05/01/17 18:52 Morphine Sulfate (Morphine Inj) 4 mg Q3H PRN IV Pain 6-10;if unable to take PO 04/19/17 18:15 04/21/17 09:01 Morphine Sulfate (Morphine Inj) 4 mg Q3H PRN IV BREAKTHROUGH PAIN 04/19/17 18:15 05/10/17 11:41 Senna/Docusate Sodium (Lily-Colace) 1 tab BID PO 04/19/17 21:00 05/08/17 20:53 Albuterol/ Ipratropium (Duoneb Neb) 1 ampule Q4HR NEB PRN NEB SHORTNESS OF BREATH 04/19/17 18:15 05/10/17 08:39 Guaifenesin (Mucinex Er) 600 mg BID PO 04/19/17 21:00 05/10/17 09:07 Albuterol Sulfate (Ventolin Hfa Inh) 1 puff BID INH 04/19/17 21:30 05/10/17 09:07 Oxycodone/ Acetaminophen (Percocet 10-325 Mg) 1 tab Q4HR PRN PO PAIN SCALE 6 TO 10 04/21/17 16:00 05/10/17 09:06 Heparin Sodium/ Dextrose 250 ml @ 0 mls/hr TITRATE IV 04/21/17 22:00 05/10/17 03:32 Piperacillin Sod/ Tazobactam Sod 50 ml @ 100 mls/hr Q8H IV 04/26/17 20:00 05/10/17 03:45 Alprazolam (Xanax) 0.5 mg Q6H PRN PO anxiety 05/04/17 20:00 05/06/17 18:27 Phenol (Chloraseptic [place]) 2 spray Q2H PRN MT SORE THROAT 05/05/17 10:00 05/09/17 08:37 Multi-Ingredient Mouthwash/Gargle (Magic Mouthwash Adult Liq) 5 ml QID SWISH-SWAL 05/07/17 14:00 05/10/17 09:06 Multivitamins 10 ml/Folic Acid 1 mg/Amino Acids/ Electrolytes/ Dextrose 1,010.2 ml @ 42 mls/hr Q24H IV-CENTRAL 05/07/17 20:00 05/09/17 22:55 Fat Emulsion Intravenous 250 ml @ 31.25 mls/ hr Q24H IV-CENTRAL 05/07/17 20:00 05/09/17 22:56 Multi-Ingredient Mouthwash/Gargle (Magic Mouthwash Adult Liq) 5 ml QID SWISH-SWAL 05/07/17 18:00 05/08/17 20:55 Objective Remarks GENERAL: Well-nourished, well-developed patient. SKIN: Warm and dry. HEAD: Normocephalic. EYES: No scleral icterus. No injection or drainage. NECK: Supple, trachea midline. No JVD or lymphadenopathy. LYMPHATIC: No adenopathy. CARDIOVASCULAR: Regular rate and rhythm without murmurs. RESPIRATORY: Breath sounds equal bilaterally. No accessory muscle use. GASTROINTESTINAL: Abdomen soft, non-tender, nondistended. EXTREMITIES: No cyanosis, or edema. MUSCULOSKELETAL: Adequate muscle tone. NEUROLOGICAL: No obvious focal deficit. Awake, alert, and oriented x3. PSYCHIATRIC: Appropriate mood and affect; insight and judgment normal. Assessment/Plan Problem List: (1) Non-small cell carcinoma of lung ICD Codes: C34.90 - Malignant neoplasm of unspecified part of unspecified bronchus or lung Status: Chronic Plan: -- Patient was diagnosed in February 2017 with moderately differentiated adenocarcinoma --He has multifocal disease involving the right lung. -- Unfortunately he has required multiple thoracenteses for recurrent malignant pleural effusions (2) Pleural effusion ICD Codes: J90 - Pleural effusion, not elsewhere classified Status: Acute Plan: --Output significantly decreased --Talc pleurodesis done on 04/28. (3) Pulmonary embolism ICD Codes: I26.99 - Other pulmonary embolism without acute cor pulmonale Status: Chronic Plan: --On heparin drip Assessment 82 y/o male with history of non-small cell lung cancer admitted for malignant pleural effusion of the right lung requiring chest tube placement Plan 1. Normocytic normochromic Anemia --hgb stable. monitor 2. Leukocytosis - no fevers - monitor --?d/t steroids 3. Recurrent Pleural effusion --Output significantly decreased --Talc pleurodesis done on 04/28. - chest tube replaced - chest X-ray, 05/07 shows decrease in size of pneumothorax, persistent right lung parenchymal opacity. 4. malnutrition - encourage oral intake - ensure tid with meals - albumin poor - Continue TPN 4. Stage IV NSCLC - Plan for treatment in AM -- Patient was diagnosed in February 2017 with moderately differentiated adenocarcinoma --He has multifocal disease involving the right lung. -- Unfortunately he has required multiple thoracenteses for recurrent malignant pleural effusions 5. Pulmonary Embolism --on heparin gtt -continue heparin gtt until all procedures complete 6. Pharyngitis: --start magic mouthwash --check for strep--unlikely as patient already on penicillin --no sign of thrush in oropharynx --seen by ENT-- recommend supportive care Vj Ann MD May 10, 2017 13:05
--- NOTE | 2017-05-10 14:05 | PD.CONS ---
Consult Service Palliative Care Consult Requested By Butch . Primary Care Physician Tae Corado MD . Reason for Consultation a. To assist with evaluation and management of symptoms including: Pain, dyspnea b. To assist medical decision maker(s) with: better understanding of current medical conditions; weighing benefits/burdens of medical treatment options; making medical treatment decisions. . HPI History of Present Illness This 82-year-old male, with a past history of COPD, hypertension, BPH, and weight loss, was found to have abnormal x-rays and scans in February 2017, and a biopsy revealed non-small cell/adenocarcinoma of the lung stage IV. The patient had a malignant pleural effusion on the right, and has had several thoracenteses since then. He presented to the emergency department on 03/16/17 because of dyspnea, and he was found to have an acute pulmonary embolism as well as a worsening effusion. He was begun on Lovenox and had another thoracentesis. He then presented to the emergency department again for this hospitalization on 04/19/17 because of dyspnea. He had undergone a [place]- based chemotherapy the day of admission. He had been declining in recent weeks , with about 30 pounds of weight loss, or dyspnea with minimal exertion, and a loss of appetite. At the time of admission, findings included: * Cachexia, dyspnea * Temp 96 * White count 14.0 * Chest x-ray with an effusion on the right The patient was admitted, and on the following day had a chest tube placed in the right chest. Initially, he was producing 400-500 mL's per day, but that began slowing. Pleurodesis was accomplished on 04/28/17. The patient developed some leukopenia secondary to his recent chemotherapy, and the white count on was 2.0. He continued to decline overall, his albumin decreased to 1.5, and his hemoglobin decreased to 11.7. He has continued to have significant pain, primarily in his right chest, and especially in the area of the chest tube. He has been receiving Lortab 3-4 times per day, and also has required parenteral morphine for breakthrough pain. He believes that his dyspnea is better since the effusion has been diminished. During his time here in the hospital, the patient's weakness has worsened, and he is no longer ambulatory. A nurse from hospice has visited the patient yesterday and today, and the family seemed to be leaning towards hospice enrollment but had additional questions. Palliative Care was consulted to assist with symptom management, and to enter into discussions with the patient and family regarding his current illnesses, the prognosis, and the benefits and burdens of the various treatment choices. . Function/Cognitive Trajectory The patient had been declining for several weeks, with weight loss of more than 30 pounds, worsening weakness. However, prior to this hospitalization he was still functioning independently, ambulatory (slowly). He had significant dyspnea with minimal exertion. Since the 3 weeks in the hospital, he says he has become nonambulatory. . Review of Systems Constitutional: COMPLAINS OF: Weight loss Endocrine: DENIES: Polyuria Eyes: DENIES: Eye inflammation Ears, nose, mouth, throat: DENIES: Epistaxis Respiratory: COMPLAINS OF: Cough (intermittent, chronic), Shortness of breath ( lung cancer, recent PE, end-stage COPD) Cardiovascular: COMPLAINS OF: Chest pain (right-sided), DENIES: Syncope, Lower Extremity Edema Gastrointestinal: DENIES: Constipation, Diarrhea, Vomiting Genitourinary: DENIES: Hematuria Musculoskeletal: DENIES: Joint Swelling, Back pain Integumentary: DENIES: Rash Hematologic/Lymphatics: DENIES: Bruising Neurologic: DENIES: Headache, Localized weakness, Seizures Psychiatric: DENIES: Hallucinations, Agitation Past Family Social History Coded Allergies: No Known Allergies (Unverified , 03/16/17) Past Medical History * Stage IV non-small cell lung cancer * Widespread metastatic disease, malignant pleural effusion * End-stage COPD * Pulmonary embolism 03/16/17 * Malnutrition * Hypertension * BPH * Hearing loss . Past Surgical History * Cataracts * Tonsils * Appendectomy * Multiple thoracenteses * Lung biopsy February 2017 * Chest tube right chest 04/20/17 * Pleurodesis right chest 04/28/17 . Reported Medications Reported Meds & Active Scripts Active Hospital Bed - Electric 1 Ea Ea 1 Ea .ROUTE DIRECTED Bedside Commode (Device) 1 Mis Mis [address] [place] Nasal [place] (Sodium Chloride) 0.65% [place] 2 [place] EACH NARE DIRECTED PRN Flonase Nasal [place] (Fluticasone Nasal [place]) 50 Mcg/Act [place] 100 Mcg EACH NARE BID Tessalon Per[place] (Benzonatate) 100 Mg Cap 100 Mg PO TID PRN Lovenox Inj (Enoxaparin Sodium) 60 Mg/0.6 Ml Syr 60 Mg SQ BID Reported Oxycodone-Acetaminophen 5-325 mg Tab 1 Tab PO Q6H PRN Breo Ellipta Inh (Fluticasone/Vilanterol) 100-25 Mcg/Act Inh 1 Puff INH DAILY Use daily at the same time. Ventolin Hfa 18 GM Inh (Albuterol Sulfate) 90 Mcg/Act Aer 1 Puff INH BID Fluticasone Nasal [place] 50 Mcg/Act Naspr 50 Mcg EACH NARE BID 50 mcg/spray Finasteride 5 Mg Tab 5 Mg PO DAILY Do not crush. . Current Medications Medications (Trade) Dose Ordered Sig/Jamil Route Start Time Stop Time Status Last Admin (Tessalon) 100 mg TID PRN PO 04/19/17 18:15 04/30/17 16:28 (Proscar) 5 mg DAILY PO 04/20/17 09:00 05/10/17 09:07 (Breo Ellipta 100-25 Inh) 1 puff DAILY INH 04/20/17 09:00 05/10/17 09:07 ([place] Christos [place]) 2 spray Q6H PRN EACH NARE 04/19/17 18:15 04/24/17 10:19 (NS Flush) 2 ml UNSCH PRN IV FLUSH 04/19/17 18:15 05/10/17 05:11 (NS Flush) 2 ml BID IV FLUSH 04/19/17 21:00 05/09/17 21:17 (Tylenol) 650 mg Q4H PRN PO 04/19/17 18:15 (Zofran Inj) 4 mg Q6H PRN IVP 04/19/17 18:15 (Compazine Supp) 25 mg Q12H PRN RECTAL 04/19/17 18:15 (Ambien) 5 mg HS PRN PO 04/19/17 18:15 05/09/17 22:55 (Percocet 5-325 Mg) 1 tab Q6H PRN PO 04/19/17 18:15 05/07/17 20:43 (Morphine Inj) 2 mg Q3H PRN IV 04/19/17 18:15 05/01/17 18:52 (Morphine Inj) 4 mg Q3H PRN IV 04/19/17 18:15 04/21/17 09:01 (Morphine Inj) 4 mg Q3H PRN IV 04/19/17 18:15 05/10/17 11:41 (Narcan Inj) 0.4 mg UNSCH PRN IV 04/19/17 18:15 (Lily-Colace) 1 tab BID PO 04/19/17 21:00 05/08/17 20:53 (Duoneb Neb) 1 ampule Q4HR NEB PRN NEB 04/19/17 18:15 05/10/17 08:39 (Mucinex Er) 600 mg BID PO 04/19/17 21:00 05/10/17 09:07 (Ventolin Hfa Inh) 1 puff BID INH 04/19/17 21:30 05/10/17 09:07 (Percocet 10-325 Mg) 1 tab Q4HR PRN PO 04/21/17 16:00 05/10/17 09:06 Heparin Sodium/ Dextrose 250 ml @ 0 mls/hr TITRATE IV 04/21/17 22:00 05/10/17 03:32 Piperacillin Sod/ Tazobactam Sod 50 ml @ 100 mls/hr Q8H IV 04/26/17 20:00 05/10/17 03:45 (Pill Splitter) 1 ea UNSCH PRN OTHER 04/29/17 12:45 (Xanax) 0.5 mg Q6H PRN PO 05/04/17 20:00 05/06/17 18:27 (Chloraseptic [place]) 2 spray Q2H PRN MT 05/05/17 10:00 05/09/17 08:37 (Magic Mouthwash Adult Liq) 5 ml QID SWISH-SWAL 05/07/17 14:00 05/10/17 09:06 Multivitamins 10 ml/Folic Acid 1 mg/Amino Acids/ Electrolytes/ Dextrose 1,010.2 ml @ 42 mls/hr Q24H IV-CENTRAL 05/07/17 20:00 05/09/17 22:55 Fat Emulsion Intravenous 250 ml @ 31.25 mls/ hr Q24H IV-CENTRAL 05/07/17 20:00 05/09/17 22:56 (Magic Mouthwash Adult Liq) 5 ml QID SWISH-SWAL 05/07/17 18:00 05/08/17 20:55 (Motrin) 400 mg Q8HR PRN PO 05/10/17 08:00 Family History The patient's father of coronary artery disease when he was "younger," and his mother had dementia. There is no family history of lung cancer. . Substance Use Tobacco: 2 packs per day for many years but quit about 30 years ago. Alcohol: Reportedly drank "one bottle of hard liquor" each week, but none in recent months. Prescription med abuse: None Illicits: None . Psychosocial History The patient was born and raised in [place], but came to this country many years ago. He moved to [place] in 1987. 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 This is his second marriage, and he currently lives with his . He has 6 children, none of whom live in this area. . Spiritual/Cultural Factors When asked about spirituality, the patient says "I am Terrance," and he does not want to see a hospital matrix bath operator. Today's verbally stated goals: The patient notes that he understands he is terminal and likely does not have long to live. He is open to hospice services and a transition to a focus on comfort for his remaining days. His is in agreement but has concerns about his current chest tube, hoping that it will be able to be removed prior to a transition to the hospice care center. . Family/friends goals: The patient's supports his wishes . Ethical and Legal Issues There are no ethical issues that would impact his care or decision-making at this time. The patient has capacity for decision-making; when he loses that capacity, his will be the decision making proxy. . Physical Exam Vital Signs Date Time Temp Pulse Resp B/P (MAP) Pulse Ox O2 Delivery O2 Flow Rate FiO2 05/10/17 12:00 96.6 105 20 98/60 (73) 95 05/10/17 11:46 16 05/10/17 09:21 Nasal Cannula 2.50 05/10/17 08:39 94 Nasal Cannula 2.50 05/10/17 08:00 97.0 87 20 93/51 (65) 93 05/10/17 04:10 80 05/10/17 00:25 97.0 75 15 92/57 (69) 95 05/10/17 00:03 88 05/09/17 21:20 95 Nasal Cannula 2.50 05/09/17 20:25 97.2 107 16 107/59 (75) 91 05/09/17 20:00 97 05/09/17 19:37 92 Nasal Cannula 2.50 05/09/17 16:00 97.8 102 20 104/56 (72) 95 Exam CONSTITUTIONAL/GENERAL: This is a weak, cachectic patient, in mild respiratory distress. TUBES/LINES/DRAINS: Right tube thoracostomy, peripheral IV, nasal oxygen SKIN: No jaundice, rashes, or lesions. Ecchymoses on upper extremities. No wounds seen anteriorly. Skin temperature appropriate. Not diaphoretic. HEAD: Atraumatic. Normocephalic. EYES: Pupils equal and round and reactive. Extraocular motions intact. No scleral icterus. No injection or drainage. Fundi not examined. ENT: Hearing slightly diminished. Nose without bleeding or purulent drainage. Throat without visible erythema, exudates, masses, or lesions. NECK: Trachea midline. Supple, nontender. No palpable thyroid enlargement or nodularity. CARDIOVASCULAR: Regular rate and rhythm without murmurs, gallops, or rubs. No JVD. Peripheral pulses symmetric. RESPIRATORY/CHEST: Symmetric, unlabored respirations. Markedly diminished breath sounds on the right, a couple rhonchi on the left. GASTROINTESTINAL: Abdomen soft, non-tender, nondistended. No hepato-splenomegaly , or palpable masses. No guarding. Bowel sounds present. GENITOURINARY: Without palpable bladder distension. MUSCULOSKELETAL: Extremities without clubbing, cyanosis, or edema. No joint tenderness or effusion noted. No calf tenderness. No mottling or clubbing. LYMPHATICS: No palpable cervical or supraclavicular adenopathy. NEUROLOGICAL: Awake and alert. Motor and sensory grossly within normal limits. Follows commands. Cognitively sharp. Moves all extremities. PSYCHIATRIC: No obvious anxiety/depression. no apparent hallucinations or other psychotic thought process. . Diagnostic Tests Laboratory Laboratory Tests Test 05/07/17 15:50 05/07/17 17:32 05/08/17 05:02 05/09/17 05:15 White Blood Count 17.3 TH/MM3 (4.0-11.0) 14.1 TH/MM3 (4.0-11.0) 12.5 TH/MM3 (4.0-11.0) Red Blood Count 4.36 MIL/MM3 (4.50-5.90) 3.99 MIL/MM3 (4.50-5.90) 3.82 MIL/MM3 (4.50-5.90) Hemoglobin 13.2 GM/DL (13.0-17.0) 12.2 GM/DL (13.0-17.0) 11.7 GM/DL (13.0-17.0) Hematocrit 41.2 % (39.0-51.0) 37.6 % (39.0-51.0) 36.3 % (39.0-51.0) Mean Corpuscular Volume 94.4 FL (80.0-100.0) 94.1 FL (80.0-100.0) 95.0 FL (80.0-100.0) Mean Corpuscular Hemoglobin 30.2 PG (27.0-34.0) 30.5 PG (27.0-34.0) 30.7 PG (27.0-34.0) Mean Corpuscular Hemoglobin Concent 32.0 % (32.0-36.0) 32.4 % (32.0-36.0) 32.3 % (32.0-36.0) Red Cell Distribution Width 17.6 % (11.6-17.2) 17.7 % (11.6-17.2) 17.6 % (11.6-17.2) Platelet Count 307 TH/MM3 (150-450) 259 TH/MM3 (150-450) 197 TH/MM3 (150-450) Mean Platelet Volume 8.1 FL (7.0-11.0) 8.0 FL (7.0-11.0) 8.0 FL (7.0-11.0) Neutrophils (%) (Auto) 90.0 % (16.0-70.0) 89.0 % (16.0-70.0) Lymphocytes (%) (Auto) 4.5 % (9.0-44.0) 5.9 % (9.0-44.0) Monocytes (%) (Auto) 5.1 % (0.0-8.0) 4.5 % (0.0-8.0) Eosinophils (%) (Auto) 0.3 % (0.0-4.0) 0.4 % (0.0-4.0) Basophils (%) (Auto) 0.1 % (0.0-2.0) 0.2 % (0.0-2.0) Neutrophils # (Auto) 15.6 TH/MM3 (1.8-7.7) 11.1 TH/MM3 (1.8-7.7) Lymphocytes # (Auto) 0.8 TH/MM3 (1.0-4.8) 0.7 TH/MM3 (1.0-4.8) Monocytes # (Auto) 0.9 TH/MM3 (0-0.9) 0.6 TH/MM3 (0-0.9) Eosinophils # (Auto) 0.1 TH/MM3 (0-0.4) 0.1 TH/MM3 (0-0.4) Basophils # (Auto) 0.0 TH/MM3 (0-0.2) 0.0 TH/MM3 (0-0.2) CBC Comment AUTO DIFF AUTO DIFF AUTO DIFF Differential Total Cells Counted 100 100 100 Neutrophils % (Manual) 72 % (16-70) 90 % (16-70) 85 % (16-70) Band Neutrophils % 7 % (0-6) 3 % (0-6) 1 % (0-6) Lymphocytes % 8 % (9-44) 3 % (9-44) 5 % (9-44) Monocytes % 9 % (0-8) 3 % (0-8) 7 % (0-8) Eosinophils % 1 % (0-4) Neutrophils # (Manual) 14.2 TH/MM3 (1.8-7.7) 13.3 TH/MM3 (1.8-7.7) 11.0 TH/MM3 (1.8-7.7) Myelocytes 2 % (0-0) 1 % (0-0) 1 % (0-0) Promyelocytes 1 % (0-0) 1 % (0-0) Differential Comment FINAL DIFF MANUAL FINAL DIFF MANUAL FINAL DIFF MANUAL Platelet Estimate NORMAL (NORMAL) NORMAL (NORMAL) NORMAL (NORMAL) Platelet Morphology Comment NORMAL (NORMAL) NORMAL (NORMAL) NORMAL (NORMAL) Prothrombin Time 10.9 SEC (9.8-11.6) Prothromb Time International Ratio 1.0 RATIO Blood Urea Nitrogen 20 MG/DL (7-18) 19 MG/DL (7-18) 20 MG/DL (7-18) Creatinine 0.56 MG/DL (0.60-1.30) 0.57 MG/DL (0.60-1.30) 0.46 MG/DL (0.60-1.30) Random Glucose 156 MG/DL (74-106) 188 MG/DL (74-106) 135 MG/DL (74-106) Total Protein 5.7 GM/DL (6.4-8.2) 5.5 GM/DL (6.4-8.2) 5.5 GM/DL (6.4-8.2) Albumin 2.0 GM/DL (3.4-5.0) 1.8 GM/DL (3.4-5.0) 1.6 GM/DL (3.4-5.0) Calcium Level 8.7 MG/DL (8.5-10.1) 8.6 MG/DL (8.5-10.1) 8.4 MG/DL (8.5-10.1) Phosphorus Level 2.6 MG/DL (2.5-4.9) Magnesium Level 1.8 MG/DL (1.5-2.5) Alkaline Phosphatase 83 U/L (45-117) 81 U/L (45-117) 73 U/L (45-117) Aspartate Amino Transf (AST/SGOT) 11 U/L (15-37) 8 U/L (15-37) 7 U/L (15-37) Alanine Aminotransferase (ALT/SGPT) 41 U/L (12-78) 31 U/L (12-78) 26 U/L (12-78) Total Bilirubin 0.5 MG/DL (0.2-1.0) 0.4 MG/DL (0.2-1.0) 0.4 MG/DL (0.2-1.0) Sodium Level 134 MEQ/L (136-145) 139 MEQ/L (136-145) 138 MEQ/L (136-145) Potassium Level 3.5 MEQ/L (3.5-5.1) 3.3 MEQ/L (3.5-5.1) 3.8 MEQ/L (3.5-5.1) Chloride Level 98 MEQ/L (98-107) 100 MEQ/L (98-107) 101 MEQ/L (98-107) Carbon Dioxide Level 30.5 MEQ/L (21.0-32.0) 28.6 MEQ/L (21.0-32.0) 28.5 MEQ/L (21.0-32.0) Anion Gap 6 MEQ/L (5-15) 10 MEQ/L (5-15) 9 MEQ/L (5-15) Estimat Glomerular Filtration Rate 140 ML/MIN (>89) 137 ML/MIN (>89) 176 ML/MIN (>89) Triglycerides Level 132 MG/DL (42-150) Red Cell Morphology Comment NORMAL (NORMAL) NORMAL (NORMAL) Activated Partial Thromboplast Time 48.5 SEC (24.3-30.1) 39.8 SEC (24.3-30.1) Test 05/10/17 05:10 White Blood Count 12.8 TH/MM3 (4.0-11.0) Red Blood Count 3.79 MIL/MM3 (4.50-5.90) Hemoglobin 11.7 GM/DL (13.0-17.0) Hematocrit 35.8 % (39.0-51.0) Mean Corpuscular Volume 94.6 FL (80.0-100.0) Mean Corpuscular Hemoglobin 30.9 PG (27.0-34.0) Mean Corpuscular Hemoglobin Concent 32.7 % (32.0-36.0) Red Cell Distribution Width 17.7 % (11.6-17.2) Platelet Count 176 TH/MM3 (150-450) Mean Platelet Volume 7.8 FL (7.0-11.0) Neutrophils (%) (Auto) 88.5 % (16.0-70.0) Lymphocytes (%) (Auto) 6.2 % (9.0-44.0) Monocytes (%) (Auto) 4.5 % (0.0-8.0) Eosinophils (%) (Auto) 0.5 % (0.0-4.0) Basophils (%) (Auto) 0.3 % (0.0-2.0) Neutrophils # (Auto) 11.3 TH/MM3 (1.8-7.7) Lymphocytes # (Auto) 0.8 TH/MM3 (1.0-4.8) Monocytes # (Auto) 0.6 TH/MM3 (0-0.9) Eosinophils # (Auto) 0.1 TH/MM3 (0-0.4) Basophils # (Auto) 0.0 TH/MM3 (0-0.2) CBC Comment AUTO DIFF Differential Total Cells Counted 100 Neutrophils % (Manual) 88 % (16-70) Band Neutrophils % 1 % (0-6) Lymphocytes % 4 % (9-44) Monocytes % 3 % (0-8) Neutrophils # (Manual) 11.9 TH/MM3 (1.8-7.7) Myelocytes 4 % (0-0) Differential Comment FINAL DIFF MANUAL Platelet Estimate NORMAL (NORMAL) Platelet Morphology Comment NORMAL (NORMAL) Red Cell Morphology Comment NORMAL (NORMAL) Activated Partial Thromboplast Time 36.0 SEC (24.3-30.1) Blood Urea Nitrogen 18 MG/DL (7-18) Creatinine 0.45 MG/DL (0.60-1.30) Random Glucose 171 MG/DL (74-106) Total Protein 5.5 GM/DL (6.4-8.2) Albumin 1.5 GM/DL (3.4-5.0) Calcium Level 8.6 MG/DL (8.5-10.1) Alkaline Phosphatase 82 U/L (45-117) Aspartate Amino Transf (AST/SGOT) 6 U/L (15-37) Alanine Aminotransferase (ALT/SGPT) 23 U/L (12-78) Total Bilirubin 0.5 MG/DL (0.2-1.0) Sodium Level 136 MEQ/L (136-145) Potassium Level 3.7 MEQ/L (3.5-5.1) Chloride Level 100 MEQ/L (98-107) Carbon Dioxide Level 28.7 MEQ/L (21.0-32.0) Anion Gap 7 MEQ/L (5-15) Estimat Glomerular Filtration Rate 180 ML/MIN (>89) Result Diagram: 05/10/17 0510 05/10/17 0510 Microbiology Microbiology Date/Time Source Procedure Growth Status 05/07/17 15:10 Throat Group A Streptococcus Screen - Final NO GP A BETA STREP ISOLATED. Complete 05/07/17 15:10 Throat Group A Streptococcus Screen ([facility]) - Final Complete Imaging Last Impressions Chest X-Ray 05/09/17 0600 Signed Impressions: Service Date/Time: Tuesday, May 09, 2017 04:32 - CONCLUSION: 1. Small caliber right chest tube is present with a slight increase in size of the right pneumothorax over the last day. Dense consolidation remains at the right lung base. Patchy left basilar airspace disease. Santy Badillo MD Chest Tube Insertion 05/02/17 0000 Signed Impressions: Service Date/Time: Tuesday, May 02, 2017 15:28 - CONCLUSION: Uncomplicated right chest tube placement as above. Ramiro Mosley Jr., MD Pleurodesis 04/28/17 0000 Signed Impressions: Service Date/Time: Friday, April 28, 2017 14:29 - CONCLUSION: No 40 cm of Pleur-evac suction Jerald Silva MD Brain MRI 04/23/17 0000 Signed Impressions: Service Date/Time: Sunday, April 23, 2017 14:59 - CONCLUSION: Moderate periventricular white matter changes, otherwise negative. Dinesh Smith MD FACR Procedures * Right chest tube thoracostomy 04/20/17 * Right chest pleurodesis 04/28/17 . Patient/Family Conference Present at Family Conference: Patient's Jenifer, and a close friend . Family Conference Time (mins): 50 Family Conference Location: Bedside Issues Discussed: * Palliative care role, purpose, approach * Hospice care role, purpose, approach * Additional medical, psychosocial, and spiritual history * Patients general health, functional status, and cognitive changes in the months leading up to the current hospitalization * Patient/family understanding of the current medical problems * Patient/family understanding of prognosis * Patients goals of care as best understood from advance directives and/or conversations and/or values * Current medical treatment options and benefits/burdens of those options * Likely scenarios comparing ongoing aggressive care with a transition to comfort measures only * Questions answered to the best of my ability * Palliative care contact information provided The patient notes that he understands he is terminal and likely does not have long to live. He is open to hospice services and a transition to a focus on comfort for his remaining days. His is in agreement but has concerns about his current chest tube, hoping that it will be able to be removed prior to a transition to the hospice care center. . 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 Spiritual: When asked about spirituality, the patient says "I am Terrance," and he does not want to see a hospital matrix bath operator. Legal: The patient has capacity for decision-making; when he loses that capacity his will be the decision making proxy. Ethical issues impacting care: None . Important Contacts Spouse: Jenifer Home: . Prognosis The patient is terminal, likely with just a couple weeks of life remaining. He is appropriate for hospice services. . Code Status: No Code Plan * DO NOT RESUSCITATE * DECISION-MAKING: The patient has capacity for decision-making; when he loses that capacity his will be the decision making proxy. * GOALS: The patient understands he is terminal and likely does not have long to live. He is open to hospice services and a transition to a focus on comfort for his remaining days. His is in agreement but has concerns about his current chest tube, hoping that it will be able to be removed prior to a transition to the hospice care center. * SYMPTOMS: The patient's dyspnea can be managed with nebulizer treatments, oxygen supplementation, and opiates. His pain is currently being managed with a combination of oral hydrocodone, and parenteral morphine. He would benefit from being on scheduled doses rather than just trying to use PRN doses. * A hospice nurse is seeing the patient, and he likely will engage hospice services this week. * Palliative Care will continue to follow the patient during this hospitalization. . Time Spent Total Floor Time (mins): 76 Face to Face Time (mins): 55 >50% Counseling/Coord of Care: Yes (d/w RN and with hospice music therapy) Thank you for the opportunity to participate in the care of Mr. Castellanos. Attestation To help prompt me to consider important information that might be impacting today's encounter and assessment, information from prior notes written by myself or my colleagues may have been "brought forward" into today's note. My signature on this note, however, is an attestation that I personally performed the exam, history, and/or decision-making noted today, and, unless otherwise indicated, the interactions with patient, family, and staff as well as the review of records all occurred today. I also attest that the listed assessment and stated plan reflect my best clinical judgment today based on the combination of historical information, prior notes, and today's exam/ interactions. When time spent is documented, it refers only to time spent today by the signer, or if indicated, combined time spent today by collaborating physician/nurse practitioner. Gabriela Sinclair MD May 10, 2017 14:05
--- NOTE | 2017-05-10 14:30 | RADRPT ---
EXAM DATE/TIME: 05/10/2017 11:00 [facility] COMPARISON: No previous studies available for comparison. INDICATIONS : Congestion with shortness of breath. MEDICAL HISTORY : Pleural effusion SURGICAL HISTORY : Right side chest tube. ENCOUNTER: Subsequent ACUITY: 3 days PAIN SCORE: 1/10 LOCATION: Right chest FINDINGS: Consolidation changes are again seen on the right the right chest tube in good position right base. The left lung remains clear. The heart and pulmonary vascularity are normal. The portion of the bony skeleton visualized is unremarkable. [id number] is present on the right. CONCLUSION: Stable chest with extensive consolidation changes on the right with right chest tube in good positio n. Dinesh Smith MD FACR on May 10, 2017 at 14:28 Board Certified Radiologist. This report was verified electronically.
[2017-05-10 15:24] LABS: APTT (PATIENT) 33.4 SEC (24.3-30.1)
--- NOTE | 2017-05-10 17:17 | HHI.PR ---
Subjective Remarks 82 YOWM with NSCLC, malig pl effusion Breathing better No CP Gets anxious, mild sob Appetite very poor Burning mouth Objective Vital Signs Vital Signs Date Time Temp Pulse Resp B/P (MAP) Pulse Ox O2 Delivery O2 Flow Rate FiO2 05/10/17 16:53 16 05/10/17 14:03 16 05/10/17 12:47 98 05/10/17 12:00 96.6 105 20 98/60 (73) 95 05/10/17 09:21 Nasal Cannula 2.50 05/10/17 08:39 94 Nasal Cannula 2.50 05/10/17 08:00 97.0 87 20 93/51 (65) 93 05/10/17 04:10 80 05/10/17 00:25 97.0 75 15 92/57 (69) 95 05/10/17 00:03 88 05/09/17 21:20 95 Nasal Cannula 2.50 05/09/17 20:25 97.2 107 16 107/59 (75) 91 05/09/17 20:00 97 05/09/17 19:37 92 Nasal Cannula 2.50 I/O 05/09/17 05/09/17 05/09/17 05/10/17 05/10/17 05/10/17 07:00 15:00 23:00 07:00 15:00 23:00 Intake Total 354 ml 1355 ml 250 ml 480 ml 615 ml Output Total 650 ml 500 ml 120 ml 310 ml 250 ml Balance -650 ml -146 ml 1235 ml -60 ml 230 ml 615 ml Intake Oral 354 ml 480 ml IV Total 1355 ml 250 ml 615 ml Output Urine Total 400 ml 500 ml 250 ml 250 ml Chest Tube Drainage Total 250 ml 120 ml 60 ml # Bowel Movements 1 Result Diagram: 05/10/1750905/10/1710 Objective Remarks GENERAL: Elderly male, mild pain SKIN: Warm and dry. HEAD: Normocephalic. EYES: No scleral icterus. No injection or drainage. NECK: Supple, trachea midline. No JVD or lymphadenopathy. CARDIOVASCULAR: Regular rate and rhythm without murmurs, gallops, or rubs. RESPIRATORY: Breath sounds equal bilaterally. No accessory muscle use. Right chest tube draining GASTROINTESTINAL: Abdomen soft, non-tender, nondistended. MUSCULOSKELETAL: No cyanosis, or edema. BACK: Nontender without obvious deformity. No CVA tenderness. A/P Assessment and Plan Malignant Pl effusion, s/p right chest tube Atelacresis NSCLC COPD PE PLAN: Supplement 02 MS and Percocet for pain Zosyn 3.375 gm q 8 hrs Chest tube to suction xanax q 6 hrs prn anxiety Magic mouth wash DW Prognosis poor Hospice care Jey Li MD May 10, 2017 17:17
== END 2017-05-10 19:10 | disposition hospice, inpatient (51) | DRG 180 ==
LOC: HOCA 17:25
PROVIDERS: ADMIT Hospitalist; ATTEND Hospitalist
PROC: 0W9930Z Drainage of Right Pleural Cavity with Drainage Device, Percutaneous Approach (ICD-10-PCS; principal; 2017-04-20)
PROC: 0W9930Z Drainage of Right Pleural Cavity with Drainage Device, Percutaneous Approach (ICD-10-PCS; 2017-04-27)
PROC: 3E0L3GC Introduction of Other Therapeutic Substance into Pleural Cavity, Percutaneous Approach (ICD-10-PCS; 2017-04-28)
PROC: 30233N1 Transfusion of Nonautologous Red Blood Cells into Peripheral Vein, Percutaneous Approach (ICD-10-PCS; 2017-04-28)
PROC: 0W9930Z Drainage of Right Pleural Cavity with Drainage Device, Percutaneous Approach (ICD-10-PCS; 2017-05-02)
DX: C34.91 Malignant neoplasm of unspecified part of right bronchus or lung (principal); G93.41 Metabolic encephalopathy; J91.0 Malignant pleural effusion; E46 Unspecified protein-calorie malnutrition; J96.11 Chronic respiratory failure with hypoxia; R64 Cachexia; L89.152 Pressure ulcer of sacral region, stage 2; I27.82 Chronic pulmonary embolism; J93.9 Pneumothorax, unspecified; Z99.81 Dependence on supplemental oxygen; J44.9 Chronic obstructive pulmonary disease, unspecified; D64.9 Anemia, unspecified; E87.6 Hypokalemia; N40.0 Benign prostatic hyperplasia without lower urinary tract symptoms; Z51.5 Encounter for palliative care; J02.9 Acute pharyngitis, unspecified; R53.1 Weakness; D70.1 Agranulocytosis secondary to cancer chemotherapy; T45.1X5A Adverse effect of antineoplastic and immunosuppressive drugs, initial encounter; E88.09 Other disorders of plasma-protein metabolism, not elsewhere classified; K59.00 Constipation, unspecified; Z68.24 Body mass index [BMI] 24.0-24.9, adult; Z87.891 Personal history of nicotine dependence
CPT/HCPCS: 32551; 32557; 32560; 36430; 70553; 71010; 71020; 76937; 77002; 80048; 80053; 82040; 82272; 82948; 83036; 83735; 84100; 84134; 84439; 84443; 84478; 85007; 85025; 85027; 85610; 85730; 86850; 86900; 86901; 86920; 87081; 87880; 94640; 94664; 96367; 96375; 96413; 96415; 96417; 99152; 99153; A9579; C1729; C1769; J1100; J1626; J1642; J1644; J1650; J2250; J2270; J2543; J3010; J3480; J7030; J7040; J7050; J8540; J9035; J9045; J9267; P9016; Q9967